=== PATIENT | female | born 1955 | race Caucasian/White ===

== ENCOUNTER → 2016-10-14 | Outpatient (CLI) | payer BC ==
[~2016-10-14] MED LIST: ACET-789 PO; ATEN100T88 PO; ENAL20TA; INDA1.25; MELO-170; MELO15TA39 PO; PROP-33; TERA2CAP4 PO
--- OUTSIDE RECORDS SUMMARY | 2016-10-14 13:46 | XMS REPORT ---
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 Medications Medication Code System Code Instructions Start Date End Date Status Dosage Enalapril Maleate [facility] [address]-65 10 mg November 28, 2011 1 Tablet 1 time per day Atenolol [facility] [address]-94 100 mg November 28, 2011 take 1 tablet ( 100 mg) by oral route once daily Meloxicam [facility] [address]-11 15 mg November 28, 2011 take 1 tablet ( 15 mg) by oral route once daily Procedures Procedure Coding System Code Date INTRAORL-PERIAPICAL 1 FILM 83640 CPT-4 D0220 January 08, 2016 BITEWING - SINGLE FILM CPT-4 D0270 January 08, 2016 LTD ORAL EVALUATION - PROBLEM FOCUS CPT-4 D0140 January 08, 2016 Results No Known Results Summary Purpose [employer] Submission
--- NOTE | 2016-10-14 21:22 | Diagnostic Imaging Report ---
INDICATION: Screening. The current study was also evaluated with a Computer Aided Detection (CAD) system. Comparison is made with prior study from 06/09/15, 01/24/14, and 11/16/12. FINDINGS: There is a moderate amount of residual fibroglandular tissue bilaterally. There are few benign type calcifications. There is no dominant mass, spiculated lesion or suspicious calcification notified. Skin, nipples, and axilla are unremarkable. IMPRESSION: ACR BI-RADS Category 2: Benign findings. Result letter will be mailed to the patient. Note: At least 10% of breast cancer is not imaged by mammography. Dictated by: Dictated on workstation # [id number]
== END ==
LOC: RAD 13:44
PROVIDERS: ATTEND Family Medicine
DX: Z12.31 Encounter for screening mammogram for malignant neoplasm of breast (principal)
CPT/HCPCS: 77067

== ENCOUNTER → 2018-02-02 | Outpatient (CLI) | payer BC ==
--- NOTE | 2018-02-03 13:07 | Diagnostic Imaging Report ---
INDICATION: Routine screening. COMPARISON: 10/14/2016 and 06/09/2015. TECHNIQUE: 2D and 3D screening mammography was performed with CAD. FINDINGS: Scattered fibroglandular densities are identified bilaterally. The parenchymal pattern is stable. There are scattered benign calcifications present. No spiculated masses or malignant appearing microcalcifications are seen. The axillae are unremarkable. IMPRESSION: No mammographic features suspicious for malignancy are identified. ACR BI-RADS Category 2: Benign findings. Result letter will be mailed to the patient. Note: At least 10% of breast cancer is not imaged by mammography. Dictated by: Dictated on workstation # [id number]
== END ==
LOC: RAD 14:49
PROVIDERS: ATTEND Family Medicine
DX: Z12.31 Encounter for screening mammogram for malignant neoplasm of breast (principal)
CPT/HCPCS: 77067

== ENCOUNTER → 2019-05-18 | Outpatient (CLI) | payer BC ==
--- NOTE | 2019-05-18 14:47 | Diagnostic Imaging Report ---
INDICATION: Routine screening. COMPARISON: 02/02/2018 and 10/14/2016. TECHNIQUE: 2D and 3D bilateral screening mammography was performed with CAD. FINDINGS: Scattered fibroglandular densities are identified bilaterally. The overall parenchymal pattern appears to be stable. No discrete mass or malignant appearing microcalcifications are seen. There are benign calcifications bilaterally. The axillae are unremarkable. IMPRESSION: No mammographic features suspicious for malignancy are identified. ACR BI-RADS Category 2: Benign findings. Result letter will be mailed to the patient. Note: At least 10% of breast cancer is not imaged by mammography. Dictated by: Dictated on workstation # [id number]
== END ==
LOC: RAD 07:31
PROVIDERS: ATTEND Family Medicine
DX: Z12.31 Encounter for screening mammogram for malignant neoplasm of breast (principal)
CPT/HCPCS: 77067

== ENCOUNTER → 2020-05-26 | Outpatient (CLI) | payer BC, MEDICARE ==
--- NOTE | 2020-05-26 09:45 | Diagnostic Imaging Report ---
INDICATION: Routine screening. COMPARISON is made with prior mammograms 05/18/2019 and 02/02/2018. 2-D and 3-D bilateral screening mammography was performed with CAD. Scattered fibroglandular densities are identified bilaterally. There are scattered benign calcifications in both breasts. No mass or malignant appearing microcalcifications are seen. Axillae are unremarkable. IMPRESSION: BI-RADS Category 2 No mammographic features suspicious for malignancy are identified. Dictated by: Dictated on workstation # [id number]
== END ==
LOC: RAD 07:45
PROVIDERS: ATTEND Family Medicine
DX: Z12.31 Encounter for screening mammogram for malignant neoplasm of breast (principal)
CPT/HCPCS: 77063; 77067

== ENCOUNTER 2021-01-16 10:28 | Emergency (ER) | payer MEDICARE, OTHER ==
[~2021-01-16] VITALS: Ht 152 cm; Wt 86.0 kg
--- NOTE | 2021-01-16 11:54 | ED General ---
General Chief Complaint: Dizziness/Syncope Stated Complaint: DIZZINESS Nursing Triage Note: ARRIVED VIA AMB TO ROOM 02 WITH COMPLAINTS OF DIZZINESS STARTING YESTERDAY. STATES THEY DID NOT TAKE ANY MEDS FOR IT BEFORE COMING OUT AND HER DR IS ON VACATION. Nursing Sepsis Screen: No Definite Risk Source of Information: Patient Exam Limitations: No Limitations History of Present Illness Date Seen by Provider: January 16, 2021 Time Seen by Provider: 11:51 Initial Comments To ER by private vehicle with reports of dizziness that began yesterday. Did not take any medications for has a history of hypertension. She stopped her metoprolol 50 mg tablets because of the fatigue and loss of energy that it caused. No fevers or chills no injury. This dizziness seems to be worse with movement. She had some troubles walking this morning because the dizziness. She had an episode of right shoulder pain and palpitations as well as pain in her jaw most recently 2 weeks ago. She is adopted and does not know her family medical history. Timing/Duration: 1-2 Days Severity: Moderate Associated Systoms: No Cough, No Headaches (Denies headache but states that her head feels "different".) Allergies and Home Medications Allergies Coded Allergies: ampicillin (Unverified Allergy, Intermediate, HIVES, 08/08/06) metoprolol (Verified Allergy, Unknown, 01/16/21) Home Medications Acetaminophen with Codeine 1 Each Tablet, 1 EACH PO Q4H PRN for PAIN, (Reported) Amlodipine Besylate 5 Mg Tablet, 5 MG PO DAILY Prescribed by: WAYNE HURLEY on 01/16/21 1344 Atenolol 100 Mg Tablet, 100 MG PO DAILY, (Reported) Meclizine HCl 25 Mg Tablet, 25 MG PO TID Prescribed by: WAYNE HURLEY on 01/16/21 1345 Meloxicam 15 Mg Tablet, 15 MG PO DAILY, (Reported) Terazosin HCl 2 Mg Capsule, 2 MG PO HS, (Reported) Patient Home Medication List Home Medication List Reviewed: Yes Review of Systems Review of Systems Constitutional: see HPI; No chills; dizziness; No fever, No malaise EENTM: see HPI; No blurred vision Respiratory: no symptoms reported; No cough, No dyspnea on exertion, No short of breath Cardiovascular: see HPI, palpitations Genitourinary: no symptoms reported Musculoskeletal: no symptoms reported Skin: no symptoms reported Psychiatric/Neurological: No Symptoms Reported Hematologic/Lymphatic: No Symptoms Reported Immunological/Allergic: no symptoms reported Past Zmnsflq-Bpgjqi-Mtesrt Hx Patient Social History Alcohol Use: Denies Use Smoking Status: Never a Smoker Recent Infectious Disease Expo: No Past Medical History Surgeries: Yes (D&C) Respiratory: No Cardiac: No Neurological: Yes (DIZZINESS) Genitourinary: No Gastrointestinal: No Musculoskeletal: Yes (ARTHRITIS) Endocrine: No HEENT: No Cancer: No Psychosocial: No Physical Exam Vital Signs Vital Signs - First Documented 01/16/21 10:45 Temp 36.6 Pulse 96 Resp 16 B/P (MAP) 223/89 (133) Pulse Ox 92 O2 Delivery Room Air Capillary Refill : Less Than 3 Seconds Height, Weight, BMI Height: 5'0.00" Weight: 180lbs. oz. 81.548014gz; 37.00 BMI Method: General Appearance: No Apparent Distress, WD/WN, Other (Alert and oriented very pleasant) Eyes: Bilateral Eye Normal Inspection, Bilateral Eye PERRL HEENT: PERRL/EOMI, TMs Normal (Tympanic membrane's observed by cerumen bilaterally) Neck: Full Range of Motion, Normal Inspection Respiratory: No Accessory Muscle Use, No Respiratory Distress Cardiovascular: Regular Rate, Rhythm, Normal Peripheral Pulses Gastrointestinal: Normal Bowel Sounds, Non Tender, Soft Extremity: Normal Capillary Refill, Normal Inspection Neurologic/Psychiatric: Alert, Oriented x3 Skin: Normal Color, Warm/Dry Progress/Results/Core Measures Suspected Sepsis Recent Fever Within 48 Hours: No Infection Criteria Present: None New/Unexplained Altered Menta: No Sepsis Screen: No Definite Risk SIRS Temperature: Pulse: 96 Respiratory Rate: 16 Laboratory Tests 01/16/21 11:58: White Blood Count 8.5 Blood Pressure 223 /89 Mean: 133 Laboratory Tests 01/16/21 11:58: Creatinine 1.07, Platelet Count 288, Total Bilirubin 0.4 Results/Orders Lab Results Laboratory Tests Test 01/16/21 11:57 01/16/21 11:58 01/16/21 12:15 Range/Units Urine Color YELLOW Urine Clarity CLEAR Urine pH 6.0 5-9 Urine Specific [place] 1.015 L 1.016-1.022 Urine Protein NEGATIVE NEGATIVE Urine Glucose (UA) NEGATIVE NEGATIVE Urine Ketones NEGATIVE NEGATIVE Urine Nitrite NEGATIVE NEGATIVE Urine Bilirubin NEGATIVE NEGATIVE Urine Urobilinogen 0.2 < = 1.0 MG/DL Urine Leukocyte Esterase NEGATIVE NEGATIVE Urine RBC (Auto) NEGATIVE NEGATIVE Urine RBC NONE /HPF Urine WBC NONE /HPF Urine Squamous Epithelial Cells 0-2 /HPF Urine Crystals NONE /LPF Urine Bacteria TRACE /HPF Urine Casts NONE /LPF Urine Mucus NEGATIVE /LPF Urine Culture Indicated NO White Blood Count 8.5 4.3-11.0 10^3/uL Red Blood Count 4.95 3.80-5.11 10^6/uL Hemoglobin 12.7 11.5-16.0 g/dL Hematocrit 41 35-52 % Mean Corpuscular Volume 84 80-99 fL Mean Corpuscular Hemoglobin 26 25-34 pg Mean Corpuscular Hemoglobin Concent 31 L 32-36 g/dL Red Cell Distribution Width 14.6 H 10.0-14.5 % Platelet Count 288 130-400 10^3/uL Mean Platelet Volume 9.9 9.0-12.2 fL Immature Granulocyte % (Auto) 1 % Neutrophils (%) (Auto) 69 42-75 % Lymphocytes (%) (Auto) 18 12-44 % Monocytes (%) (Auto) 11 0-12 % Eosinophils (%) (Auto) 1 0-10 % Basophils (%) (Auto) 1 0-10 % Neutrophils # (Auto) 5.9 1.8-7.8 10^3/uL Lymphocytes # (Auto) 1.5 1.0-4.0 10^3/uL Monocytes # (Auto) 0.9 0.0-1.0 10^3/uL Eosinophils # (Auto) 0.1 0.0-0.3 10^3/uL Basophils # (Auto) 0.0 0.0-0.1 10^3/uL Immature Granulocyte # (Auto) 0.1 0.0-0.1 10^3/uL Sodium Level 143 135-145 MMOL/L Potassium Level 3.7 3.6-5.0 MMOL/L Chloride Level 106 98-107 MMOL/L Carbon Dioxide Level 27 21-32 MMOL/L Anion Gap 10 5-14 MMOL/L Blood Urea Nitrogen 26 H 7-18 MG/DL Creatinine 1.07 0.60-1.30 MG/DL Estimat Glomerular Filtration Rate 51 BUN/Creatinine Ratio 24 Glucose Level 98 70-105 MG/DL Calcium Level 9.5 8.5-10.1 MG/DL Corrected Calcium 9.1 8.5-10.1 MG/DL Magnesium Level 1.9 1.6-2.4 MG/DL Total Bilirubin 0.4 0.1-1.0 MG/DL Aspartate Amino Transf (AST/SGOT) 25 5-34 U/L Alanine Aminotransferase (ALT/SGPT) 18 0-55 U/L Alkaline Phosphatase 67 40-136 U/L Troponin I < 0.028 <0.028 NG/ML Total Protein 7.8 6.4-8.2 GM/DL Albumin 4.5 3.2-4.5 GM/DL D-Dimer 0.28 0.00-0.49 UG/ML My Orders Orders - WAYNE HURLEY PRIMARY SPECIAL EDUCATOR Cbc With Automated Diff (01/16/21 11:50) Comprehensive Metabolic Panel (01/16/21 11:50) Fibrin Degradation Products (01/16/21 11:50) Ct Angio Head/Neck (01/16/21 11:50) Ekg Tracing (01/16/21 11:50) Troponin I (01/16/21 11:50) Magnesium (01/16/21 11:50) Ed Iv/Invasive Line Start (01/16/21 11:50) Ua Culture If Indicated (01/16/21 11:56) Meclizine Tablet (Antivert Tablet) (01/16/21 12:00) Iohexol Injection (Omnipaque 350 Mg/Ml 1 (01/16/21 12:45) Received Contrast (Hold Metformin- Contr (01/16/21 12:45) Sodium Chloride Flush (Catheter Flush Sy (01/16/21 12:45) Ns (Ivpb) (Sodium Chloride 0.9% Ivpb Bag (01/16/21 12:45) Clonidine Tablet (Catapres Tablet) (01/16/21 14:00) Medications Given in ED Current Medications Medications Dose Ordered Sig/Ramiro Route Start Time Stop Time Status Last Admin Dose Admin Iohexol 75 ml ONCE ONCE IV 01/16/21 12:45 01/16/21 12:46 DC 01/16/21 12:50 75 ML Meclizine HCl 25 mg ONCE ONCE PO 01/16/21 12:00 01/16/21 12:01 DC 01/16/21 12:06 25 MG Sodium Chloride 10 ml NEEDED PRN IV 01/16/21 12:45 01/16/21 12:50 10 ML Sodium Chloride 100 ml ONCE ONCE IV 01/16/21 12:45 01/16/21 12:46 DC 01/16/21 12:50 80 ML Vital Signs/I&O 01/16/21 10:45 Temp 36.6 Pulse 96 Resp 16 B/P (MAP) 223/89 (133) Pulse Ox 92 O2 Delivery Room Air Capillary Refill : Less Than 3 Seconds Blood Pressure Mean: 133 Departure Communication (Admissions) NAME: YANELY HARVEY [facility] REC#: [id number] PT STATUS: REG ER : 1955 PHYSICIAN: WAYNE HURLEY APRN ADMIT DATE: 01/16/21/ER Draft Date of Exam:01/16/21 CT ANGIO HEAD/NECK PROCEDURE: CT angiography of the head and CT angiography of the neck with and without contrast. TECHNIQUE: Contiguous noncontrast images were obtained from the skull base through the vertex. After intravenous contrast administration, helical CT angiography of the neck was performed. Source data was reformatted into 3D MIP projections. Delayed post contrast acquisition was also obtained. Auto Exposure Controls were utilized during the CT exam to meet ALARA standards for radiation dose reduction. INDICATION: Dizziness. Elevated blood pressure. COMPARISON: None available. FINDINGS: NONCONTRAST HEAD: No intracranial hyperdense hemorrhage or space-occupying mass. No hydrocephalus or midline shift. Berrios-white matter differentiation is preserved. Basilar cisterns are widely patent. No acute calvarial abnormality. Paranasal sinuses and mastoid air cells are clear. Orbits are normal in appearance. CTA NECK: No dissection within the aortic arch. The great vessels of the aortic arch are widely patent. The bilateral common carotid arteries are widely patent without stenosis or intimal injury. No stenosis of the internal carotid arteries per NASCET criteria. The cervical divisions of the bilateral internal carotid arteries are normal. The origins of the vertebral arteries are normal. The divisions of the vertebral arteries within the neck are widely patent. Left vertebral artery is dominant. No cervical lymphadenopathy. Thyroid is normal. Lung apices are clear. No concerning osseous lesion cervical spine. CTA HEAD: Bilateral distal internal carotid arteries are normal. The M1 and M2 divisions of the middle cerebral arteries are normal. Anterior cerebral arteries are widely patent. No anterior communicating artery aneurysm. The basilar artery is widely patent and has no aneurysm at its tip. The posterior cerebral arteries have conventional origin and are widely patent. The superior cerebellar arteries are patent centrally. Posterior inferior cerebellar arteries are also grossly patent centrally. The dural venous sinuses are widely patent. No pathologic enhancement on delayed phase images. Partially calcified subcutaneous nodule in the right parietal scalp is most likely a sebaceous cyst. IMPRESSION: 1. No intracranial hemorrhage or features of large territorial infarct. 2. No intracranial large vessel occlusion or saccular aneurysm. Specifically, the posterior circulation has no abnormality by CTA. 3. No high-grade stenosis or arterial occlusion within the neck. 4. Dural venous sinuses are patent. Dictated on workstation # [id number] Dict: 01/16/21 1317 Trans: 01/16/21 1327 [id number] Interpreted by: VELMA BALDWIN MD Electronically signed by: Impression Primary Impression: Vertigo Disposition: 01 HOME, SELF-CARE Condition: Stable Departure-Patient Inst. Decision time for Depature: 13:41 Referrals: ANDREAS LEVIN MD (PCP/Family) Primary Care Physician Patient Instructions: Vertigo (a Type of Dizziness) (DC) Add. Discharge Instructions: 1. Medication as directed 2. Follow-up with your doctor as soon as he is able to see you. Take the blood pressure medication as directed if the top number of blood pressure is over 150. All discharge instructions reviewed with patient and/or family. Voiced understan helen. Scripts Enalapril Maleate (Enalapril Maleate) 20 Mg Tablet 20 MG PO DAILY, #30 TAB Prov: WAYNE HURLEY APRN 01/16/21 Meclizine HCl (Meclizine HCl) 25 Mg Tablet 25 MG PO TID, #14 TAB Prov: WAYNE HURLEY APRN 01/16/21 Amlodipine Besylate (Norvasc) 5 Mg Tablet 5 MG PO DAILY, #14 TAB Prov: WAYNE HURLEY APRN 01/16/21 WAYNE HURLEY APRN January 16, 2021 11:54
[2021-01-16] MEDS ORDERED: MECLIZINE 25 MG (ANTIVERT) TAB PO ONE (12:00)
[2021-01-16 12:05] LABS: BILIRUBIN,URINE NEGATIVE (NEGATIVE); CLARITY,URINE CLEAR; COLOR,URINE YELLOW; GLUCOSE, URINE (UA) NEGATIVE (NEGATIVE); KETONES,URINE NEGATIVE (NEGATIVE); LEUKOCYTE ESTERASE ,URINE NEGATIVE (NEGATIVE); NITRITE,URINE NEGATIVE (NEGATIVE); PROTEIN,URINE NEGATIVE (NEGATIVE)
[2021-01-16 12:08] LABS: BASOPHILS % (AUTO) 1 % (0-10); EOSINOPHILS # (AUTO) 0.1 10^3/uL (0.0-0.3); EOSINOPHILS % (AUTO) 1 % (0-10); HEMATOCRIT 41 % (35-52); HEMOGLOBIN 12.7 g/dL (11.5-16.0); LYMPHOCYTES # (AUTO) 1.5 10^3/uL (1.0-4.0); LYMPHOCYTES % (AUTO) 18 % (12-44); MEAN CORPUSCULAR HEMOGLOBIN 26 pg (25-34); MEAN CORPUSCULAR HGB CONC 31 g/dL (32-36); MEAN CORPUSCULAR VOLUME 84 fL (80-99); MEAN PLATELET VOLUME 9.9 fL (9.0-12.2); MONOCYTES # (AUTO) 0.9 10^3/uL (0.0-1.0); MONOCYTES % (AUTO) 11 % (0-12); NEUTROPHILS # (AUTO) 5.9 10^3/uL (1.8-7.8); NEUTROPHILS % (AUTO) 69 % (42-75); PLATELET COUNT 288 10^3/uL (130-400); WHITE BLOOD COUNT 8.5 10^3/uL (4.3-11.0)
[2021-01-16 12:10] LABS: BACTERIA,URINE TRACE /HPF
[2021-01-16 12:11] LABS: SQUAMOUS EPITHELIAL CELL,UR 0-2 /HPF
[2021-01-16 12:26] LABS: ALBUMIN 4.5 GM/DL (3.2-4.5); CHLORIDE 106 MMOL/L (98-107); POTASSIUM 3.7 MMOL/L (3.6-5.0); SODIUM 143 MMOL/L (135-145)
[2021-01-16 12:27] LABS: CALCIUM 9.5 MG/DL (8.5-10.1)
[2021-01-16 12:28] LABS: GLUCOSE 98 MG/DL (70-105); TOTAL PROTEIN 7.8 GM/DL (6.4-8.2)
[2021-01-16 12:29] LABS: CARBON DIOXIDE 27 MMOL/L (21-32)
[2021-01-16 12:30] LABS: BILIRUBIN,TOTAL 0.4 MG/DL (0.1-1.0)
[2021-01-16 12:32] LABS: ALKALINE PHOSPHATASE 67 U/L (40-136); CREATININE SERUM 1.07 MG/DL (0.60-1.30); GFR ESTIMATED 51
[2021-01-16 12:33] LABS: BUN/CREATININE RATIO 24
[2021-01-16 12:35] LABS: ALANINE AMINOTRANSFERASE 18 U/L (0-55); MAGNESIUM 1.9 MG/DL (1.6-2.4)
[2021-01-16] MEDS ORDERED: IOHEXOL 350 MG/ML 100 ML (OMNIPAQUE 350) VIAL IV ONE (12:45)
[2021-01-16] MEDS ORDERED: NS 100 ML (IVPB) BAG IV ONE (12:45)
[2021-01-16] MEDS ORDERED: CATHETER FLUSH 10 ML SYR IV PRN (12:45)
[2021-01-16] MEDS ORDERED: HOLD METFORMIN - RECEIVED CONTRAST 20 ML VIAL IV SCH (12:45)
--- NOTE | 2021-01-16 13:28 | Diagnostic Imaging Report ---
PROCEDURE: CT angiography of the head and CT angiography of the neck with and without contrast. TECHNIQUE: Contiguous noncontrast images were obtained from the skull base through the vertex. After intravenous contrast administration, helical CT angiography of the neck was performed. Source data was reformatted into 3D MIP projections. Delayed post contrast acquisition was also obtained. Auto Exposure Controls were utilized during the CT exam to meet ALARA standards for radiation dose reduction. INDICATION: Dizziness. Elevated blood pressure. COMPARISON: None available. FINDINGS: NONCONTRAST HEAD: No intracranial hyperdense hemorrhage or space-occupying mass. No hydrocephalus or midline shift. Berrios-white matter differentiation is preserved. Basilar cisterns are widely patent. No acute calvarial abnormality. Paranasal sinuses and mastoid air cells are clear. Orbits are normal in appearance. CTA NECK: No dissection within the aortic arch. The great vessels of the aortic arch are widely patent. The bilateral common carotid arteries are widely patent without stenosis or intimal injury. No stenosis of the internal carotid arteries per NASCET criteria. The cervical divisions of the bilateral internal carotid arteries are normal. The origins of the vertebral arteries are normal. The divisions of the vertebral arteries within the neck are widely patent. Left vertebral artery is dominant. No cervical lymphadenopathy. Thyroid is normal. Lung apices are clear. No concerning osseous lesion cervical spine. CTA HEAD: Bilateral distal internal carotid arteries are normal. The M1 and M2 divisions of the middle cerebral arteries are normal. Anterior cerebral arteries are widely patent. No anterior communicating artery aneurysm. The basilar artery is widely patent and has no aneurysm at its tip. The posterior cerebral arteries have conventional origin and are widely patent. The superior cerebellar arteries are patent centrally. Posterior inferior cerebellar arteries are also grossly patent centrally. The dural venous sinuses are widely patent. No pathologic enhancement on delayed phase images. Partially calcified subcutaneous nodule in the right parietal scalp is most likely a sebaceous cyst. IMPRESSION: 1. No intracranial hemorrhage or features of large territorial infarct. 2. No intracranial large vessel occlusion or saccular aneurysm. Specifically, the posterior circulation has no abnormality by CTA. 3. No high-grade stenosis or arterial occlusion within the neck. 4. Dural venous sinuses are patent. Dictated by: Dictated on workstation # [id number]
[2021-01-16] MEDS ORDERED: AMLO5TAB4 PO (13:44)
[2021-01-16] MEDS ORDERED: MECL-149 PO (13:45)
[2021-01-16] MEDS ORDERED: ENAL20TA16 PO (13:56)
[2021-01-16 13:58] VITALS: BP 171/81
[2021-01-16] MEDS ORDERED: cloNIDine 0.1 MG (CATAPRES) TAB PO ONE (14:00)
== END 2021-01-16 13:58 | disposition home or self-care (01) ==
LOC: EDUNIT# 10:28 → ER 10:29
DX: R42 Dizziness and giddiness (principal); I10 Essential (primary) hypertension; Z79.899 Other long term (current) drug therapy; Z88.8 Allergy status to other drugs, medicaments and biological substances
CPT/HCPCS: 36415; 70496; 70498; 80053; 81000; 83735; 84484; 85025; 85379; 93005

== ENCOUNTER → 2021-02-02 | Outpatient (CLI) | payer MEDICARE, OTHER ==
[~2021-02-02] MED LIST changes: +AMLO5TAB4 PO; +ENAL20TA16 PO; +MECL-149 PO
== END ==
LOC: CARD 14:00
PROVIDERS: ATTEND Family Medicine
DX: I51.7 Cardiomegaly (principal)
CPT/HCPCS: 93306

== ENCOUNTER 2021-06-25 05:34 | Outpatient (CLI) | payer MEDICARE ==
[~2021-06-25] VITALS: Ht 152.4 cm; Wt 81.8 kg
[2021-06-26] MEDS ORDERED: ESCI-2 PO (11:59)
[2021-06-26] MEDS ORDERED: AMLO-250 PO (11:59)
[2021-06-26] MEDS ORDERED: MAGN250T2 PO (11:59)
[2021-06-26] MEDS ORDERED: MELA1TAB15 PO (11:59)
[2021-06-26] MEDS ORDERED: ENAL20TA16 PO (11:59)
== END 2021-06-26 12:05 | disposition home or self-care (01) ==
LOC: PREOP 05:34
PROVIDERS: ATTEND Specialist
DX: Z01.818 Encounter for other preprocedural examination (principal)

== ENCOUNTER 2021-06-29 06:16 | Day surgery (SDC) | payer MEDICARE, OTHER ==
[~2021-06-29] VITALS: Ht 152.4 cm; Wt 81.8 kg
[~2021-06-29 06:16] MED LIST changes: +AMLO-250 PO; +ESCI-2 PO; +MAGN250T2 PO; +MELA1TAB15 PO
[2021-06-29] MEDS ORDERED: POVIDONE (BETADINE) OPHTH SOLN 5% 30 ML OP ONE (06:30)
[2021-06-29] MEDS ORDERED: MOXIFLOXACIN OPHTH SOLN 5 MG/ML 0.3 ML SYRINGE OP ONE (06:30)
[2021-06-29] MEDS ORDERED: TIMOLOL MALEATE 0.5% 5 ML (TIMOPTIC) BTL OU PRN (06:30)
[2021-06-29] MEDS ORDERED: LIDOCAINE PF 1% 2 ML VIAL IR PRN (06:30)
[2021-06-29 06:40] VITALS: BP 140/74
[2021-06-29] MEDS: TETRACAINE 0.5% OPHTH SOLN 4 ML BTL (SINGLE DOSE ONLY) OU PRN ×4 (06:43→07:05)
[2021-06-29] MEDS: PHENYLEPHRINE 10% OPHTH (NEO-SYN) 5 ML BTL OU SCH ×3 (06:52→07:05)
[2021-06-29] MEDS: TROPICAMIDE 1% OPH SOLN (MYDRIACYL) 15 ML BTL OP SCH ×3 (06:52→07:05)
[2021-06-29] MEDS ORDERED: MIDAZOLAM 2 MG/2 ML (VERSED) VIAL ONE (07:14)
--- NOTE | 2021-06-29 07:51 | Ophthalmologist Pre-Op Note ---
Pre-Operative Progress Note H&P Reviewed The H&P was reviewed, patient examined and no changes noted. Date H&P Reviewed: Jun 29, 2021 Time H&P Reviewed: 07:50 Pre-Op Dx Cataract, Right Eye JULIÁN PHILLIPS MD Jun 29, 2021 07:51
[2021-06-29] MEDS ORDERED: acetaZOLAMIDE ER 500 MG CAP (DIAMOX SEQUELS) PO ONE (08:00)
--- NOTE | 2021-06-29 08:12 | Ophthalmology Operative Report ---
Cataract removal/placement IOL PREOPERATIVE DIAGNOSIS: Cataract Right Eye POSTOPERATIVE DIAGNOSIS: Cataract Right Eye PROCEDURE: Cataract removal and placement of posterior chamber implant, right eye SURGEON: Riley Phillips ANESTHESIA: Topical with sedation COMPLICATIONS: None ESTIMATED BLOOD LOSS: Minimal DESCRIPTION OF PROCEDURE: After proper informed consent was obtained, the patient, a 65 female, was taken to the Operating Room and the right eye was anesthetized with tetracaine. The right eye was then prepped and draped in the usual manner. A wire lid speculum was placed. A paracentesis was made at the left hand position. Preservative free lidocaine was injected into the anterior chamber followed by viscoelastic. A clear corneal incision was made in the temporal position. A capsulorrhexis was preformed and the central nuclear and cortical material were removed. The posterior capsule was polished and Angus 22.0 AU00T0 IOL was placed into the capsular bag. The residual viscoelastic was aspirated and balanced saline solution was injected into the anterior chamber. Moxifloxacin was injected into the anterior chamber. The wound was checked and found to be water tight. The patient tolerated the procedure well without complications. RILEY PHILLIPS MD Jun 29, 2021 08:12
[2021-06-29 08:20] VITALS: BP 171/80
--- NOTE | 2021-06-29 12:23 | Anesthesia-General Post-Op ---
MAC Patient Condition Mental Status/LOC: Same as Preop Cardiovascular: Satisfactory Nausea/Vomiting: Absent Respiratory: Satisfactory Pain: Controlled Complications: Absent Post Op Complications Complications None Follow Up Care/Instructions Patient Instructions None needed. Anesthesiology Discharge Order Discharge Order Patient is doing well, no complaints, stable vital signs, no apparent adverse anesthesia problems. No complications reported per nursing. SAY MERCER CRNA Jun 29, 2021 12:23
== END 2021-06-29 08:25 | disposition home or self-care (01) ==
LOC: SDC 06:16
PROVIDERS: ATTEND Specialist
DX: H25.11 Age-related nuclear cataract, right eye (principal); Z79.899 Other long term (current) drug therapy; I10 Essential (primary) hypertension; M19.90 Unspecified osteoarthritis, unspecified site
CPT/HCPCS: 66984; V2632

== ENCOUNTER 2021-07-13 06:50 | Day surgery (SDC) | payer MEDICARE, OTHER ==
[~2021-07-13] VITALS: Ht 152.4 cm; Wt 81.8 kg
[2021-07-13] MEDS ORDERED: MOXIFLOXACIN OPHTH SOLN 5 MG/ML 0.3 ML SYRINGE OP ONE (07:00)
[2021-07-13] MEDS ORDERED: POVIDONE (BETADINE) OPHTH SOLN 5% 30 ML OP ONE (07:00)
[2021-07-13] MEDS ORDERED: LIDOCAINE PF 1% 2 ML VIAL IR PRN (07:00)
[2021-07-13] MEDS ORDERED: TIMOLOL MALEATE 0.5% 5 ML (TIMOPTIC) BTL OU PRN (07:00)
[2021-07-13] MEDS: TETRACAINE 0.5% OPHTH SOLN 4 ML BTL (SINGLE DOSE ONLY) OU PRN ×4 (07:05→07:23)
[2021-07-13] MEDS: PHENYLEPHRINE 10% OPHTH (NEO-SYN) 5 ML BTL OU SCH ×3 (07:13→07:23)
[2021-07-13] MEDS: TROPICAMIDE 1% OPH SOLN (MYDRIACYL) 15 ML BTL OP SCH ×3 (07:13→07:23)
[2021-07-13 07:19] VITALS: BP 183/82
[2021-07-13] MEDS ORDERED: MIDAZOLAM 2 MG/2 ML (VERSED) VIAL ONE (08:10)
--- NOTE | 2021-07-13 08:16 | Ophthalmologist Pre-Op Note ---
Pre-Operative Progress Note H&P Reviewed The H&P was reviewed, patient examined and no changes noted. Date H&P Reviewed: Jul 13, 2021 Time H&P Reviewed: 08:16 Pre-Op Dx Cataract, Left Eye JULIÁN PHILLIPS MD Jul 13, 2021 08:16
[2021-07-13] MEDS ORDERED: acetaZOLAMIDE ER 500 MG CAP (DIAMOX SEQUELS) PO ONE (08:30)
--- NOTE | 2021-07-13 08:36 | Ophthalmology Operative Report ---
Cataract removal/placement IOL PREOPERATIVE DIAGNOSIS: Cataract Left Eye POSTOPERATIVE DIAGNOSIS: Cataract Left Eye PROCEDURE: Cataract removal and placement of posterior chamber implant, left eye SURGEON: Riley Phillips ANESTHESIA: Topical with sedation COMPLICATIONS: None ESTIMATED BLOOD LOSS: Minimal DESCRIPTION OF PROCEDURE: After proper informed consent was obtained, the patient, a 65 female, was taken to the Operating Room and the left eye was anesthetized with tetracaine. The left eye was then prepped and draped in the usual manner. A wire lid speculum was placed. A paracentesis was made at the left hand position. Preservative free lidocaine was injected into the anterior chamber followed by viscoelastic. A clear corneal incision was made in the temporal position. A capsulorrhexis was preformed and the central nuclear and cortical material were removed. The posterior capsule was polished and an Angus 23.0 AU00T0 was placed into the capsular bag. The residual viscoelastic was aspirated and balanced saline solution was injected into the anterior chamber. Moxifloxacin was injected into the anterior chamber. The wound was checked and found to be water tight. The patient tolerated the procedure well without complications. RILEY PHILLIPS MD Jul 13, 2021 08:36
[2021-07-13 08:40] VITALS: BP 189/100
--- NOTE | 2021-07-13 13:55 | Anesthesia-General Post-Op ---
MAC Patient Condition Mental Status/LOC: Same as Preop Cardiovascular: Satisfactory Nausea/Vomiting: Absent Respiratory: Satisfactory Pain: Controlled Complications: Absent Post Op Complications Complications None Follow Up Care/Instructions Patient Instructions None needed. Anesthesiology Discharge Order Discharge Order Patient was seen after the procedure and she was doing well, no complaints, stable vital signs, no apparent adverse anesthesia problems. JUDE FELDMAN DO Jul 13, 2021 13:55
== END 2021-07-13 08:41 ==
LOC: SDC 06:50
PROVIDERS: ATTEND Specialist
DX: H25.12 Age-related nuclear cataract, left eye (principal); I10 Essential (primary) hypertension; Z79.899 Other long term (current) drug therapy
CPT/HCPCS: 66984; V2632

== ENCOUNTER 2021-12-28 21:06 | Inpatient (IN) | payer MEDICARE, OTHER ==
[~2021-12-28] VITALS: Ht 152.4 cm; Wt 88.5 kg
[~2021-12-28 21:06] MED LIST changes: -MAGN250T2 PO; +MAGN250T31 PO
[2021-12-28] MEDS ORDERED: ADENOSINE 6 MG/2 ML (ADENOCARD) VIAL IV ONE ×3 (21:30)
[2021-12-28] MEDS ORDERED: NS IV 1000 ML 0 ML ONE (21:30)
[2021-12-28] MEDS ORDERED: LACTATED RINGERS 1,000 ML IV ONE ×2 (21:30→23:46)
[2021-12-28] MEDS ORDERED: ASPIRIN 81 MG CHEW (CHILDREN'S ASA) PO ONE (21:30)
--- NOTE | 2021-12-28 21:31 | ED Chest Pain ---
General Chief Complaint: Cardiac/General Problems Stated Complaint: JAW PAIN, CHEST HURTS Source: patient Exam Limitations: no limitations History of Present Illness Date Seen by Provider: December 28, 2021 Time Seen by Provider: 21:19 Initial Comments The patient presents the ER by private conveyance from home with chief complaint of a rapid heart rate palpitations, weakness and some chest pressure radiating up into her jaw. She has no history of coronary disease. She follows with Dr. Ch and saw him yesterday for a routine appointment and everything was okay. This did happen once before 4:30 in the morning this morning and went away after she took an extra losartan tablet. She is on losartan used to be on amlodipine but did not tolerate the swelling in her feet. She used to be on metoprolol but was taken off of that for blood pressure because her heart rate got down into the 40s. She does not follow with a operations professional. She does not have hyperlipidemia, hypothyroidism smoking or diabetes. The patient did have some dysuria about 2 weeks ago but not treated with any antibiotics. She is also had a nonproductive cough for the past 1 week. Allergies and Home Medications Allergies Coded Allergies: ampicillin (Unverified Allergy, Intermediate, HIVES, 08/08/06) metoprolol (Verified Allergy, Unknown, 01/16/21) Patient Home Medication List Home Medication List Reviewed: Yes Amlodipine Besylate (Amlodipine Besylate) 5 Mg Tablet, 5 MG PO DAILY, (Reported) Entered as Reported by: DARA HACKETT on 06/26/21 1159 Enalapril Maleate (Enalapril Maleate) 20 Mg Tablet, 20 MG PO DAILY, (Reported) Entered as Reported by: DARA HACKETT on 06/26/21 1159 Escitalopram Oxalate (Escitalopram Oxalate) 10 Mg Tablet, 10 MG PO DAILY, (Reported) Entered as Reported by: DARA HACKETT on 06/26/21 1159 Magnesium (Magnesium) 250 Mg Tablet, 250 MG PO HS, (Reported) Entered as Reported by: DARA HACKETT on 06/26/21 1159 Melatonin/Pyridoxine (Melatonin 5 mg Tablet) 1 Each Tablet, 5 MG PO HS, (Reported) Entered as Reported by: DARA HACKETT on 06/26/21 1159 Meloxicam (Meloxicam) 15 Mg Tablet, 15 MG PO DAILY, (Reported) Entered as Reported by: DARA HACKETT on 08/02/15 1136 Review of Systems Review of Systems Constitutional: No chills, No diaphoresis EENTM: No Blurred Vision Respiratory: Denies Cough, Denies Shortness of Air Cardiovascular: Chest Pain; Denies Lightheadedness Gastrointestinal: Denies Constipated, Denies Diarrhea, Denies Nausea Genitourinary: Denies Burning, Denies Discharge Musculoskeletal: No back pain, No joint pain All Other Systems Reviewed Negative Unless Noted: Yes Past Htohdsy-Imbekh-Rvnxaw Hx Patient Social History Tobacco Use?: No Use of E-Cig and/or Vaping dev: No Substance use?: No Past Medical History Surgeries: Yes (D&C) Respiratory: No Cardiac: No Neurological: Yes (DIZZINESS) Genitourinary: No Gastrointestinal: No Musculoskeletal: Yes (ARTHRITIS) Endocrine: No HEENT: No Cancer: No Psychosocial: No Physical Exam Vital Signs Vital Signs - First Documented 12/28/21 21:24 Temp 35.9 Pulse 189 Resp 20 B/P (MAP) 141/119 (126) Pulse Ox 97 O2 Delivery Nasal Cannula Capillary Refill : Height, Weight, BMI Height: 5'0.00" Weight: 180lbs. oz. 81.219049mv; 37.00 BMI Method: General Appearance: Anxious, Mild Distress, Obese HEENT: PERRL/EOMI, Moist Mucous Membranes Neck: Full Range of Motion, Normal Inspection Respiratory: No Accessory Muscle Use, No Respiratory Distress, Crackles (Right base) Cardiovascular: Regular Rate, Rhythm, No Edema, Normal Peripheral Pulses Gastrointestinal: Normal Bowel Sounds, No Organomegaly, Non Tender, Soft Extremity: Normal Capillary Refill, Normal Inspection, No Pedal Edema Neurologic/Psychiatric: Alert, Oriented x3, No Motor/Sensory Deficits Skin: Normal Color, Warm/Dry Focused Exam Sepsis Stage: Sepsis Possible Source: Pulmonary Time of Focused Exam: 22:29 Respiratory: No Accessory Muscle Use, No Respiratory Distress, Crackles (Right base more than left) Cardiovascular: Normal Peripheral Pulses, Tachycardia Capillary Refill: Less Than 3 Seconds Peripheral Pulses: 2+ Radial Pulses (R), 2+ Radial Pulses (L) Skin: normal color, warm/dry Within 3hrs of presentation: Admin fluids, Admin ABX, Blood cultures prior to ABX's, Focus exam, Lactate level Procedures/Interventions Additional Procedures: cardioversion/defib Progress Chemical cardioversion with Adenocard to identify the underlying rhythm. Initial rate was around 180-200 on the monitor. 6 mg Adenocard given and it did slow the rate down but not enough that we can see any underlying P waves or atrial fibrillation. We gave 12 mg of adenosine and it slowed the rhythm down and we could see what look like atrial fibrillation underneath. The rate went back up to about 160, irregular and was consistent with atrial fibrillation with rapid ventricular response Progress/Results/Core Measures Results/Orders Lab Results Laboratory Tests Test 12/28/21 21:21 Range/Units White Blood Count 21.2 H 4.3-11.0 10^3/uL Red Blood Count 4.56 3.80-5.11 10^6/uL Hemoglobin 11.2 L 11.5-16.0 g/dL Hematocrit 37 35-52 % Mean Corpuscular Volume 80 80-99 fL Mean Corpuscular Hemoglobin 25 25-34 pg Mean Corpuscular Hemoglobin Concent 31 L 32-36 g/dL Red Cell Distribution Width 16.6 H 10.0-14.5 % Platelet Count 383 130-400 10^3/uL Mean Platelet Volume 10.1 9.0-12.2 fL Immature Granulocyte % (Auto) 1 % Neutrophils (%) (Auto) 83 H 42-75 % Lymphocytes (%) (Auto) 8 L 12-44 % Monocytes (%) (Auto) 8 0-12 % Eosinophils (%) (Auto) 0 0-10 % Basophils (%) (Auto) 0 0-10 % Neutrophils # (Auto) 17.6 H 1.8-7.8 10^3/uL Lymphocytes # (Auto) 1.6 1.0-4.0 10^3/uL Monocytes # (Auto) 1.7 H 0.0-1.0 10^3/uL Eosinophils # (Auto) 0.0 0.0-0.3 10^3/uL Basophils # (Auto) 0.0 0.0-0.1 10^3/uL Immature Granulocyte # (Auto) 0.2 H 0.0-0.1 10^3/uL Neutrophils % (Manual) 90 % Lymphocytes % (Manual) 6 % Monocytes % (Manual) 4 % Blood Morphology Comment NORMAL Prothrombin Time 13.3 12.2-14.7 SEC INR Comment 1.0 0.8-1.4 Activated Partial Thromboplast Time 31 24-35 SEC Sodium Level 141 135-145 MMOL/L Potassium Level 3.9 3.6-5.0 MMOL/L Chloride Level 105 98-107 MMOL/L Carbon Dioxide Level 19 L 21-32 MMOL/L Anion Gap 17 H 5-14 MMOL/L Blood Urea Nitrogen 27 H 7-18 MG/DL Creatinine 1.26 0.60-1.30 MG/DL Estimat Glomerular Filtration Rate 47 BUN/Creatinine Ratio 21 Glucose Level 224 H 70-105 MG/DL Calcium Level 9.8 8.5-10.1 MG/DL Corrected Calcium 8.5-10.1 MG/DL Magnesium Level 2.0 1.6-2.4 MG/DL Total Bilirubin 0.3 0.1-1.0 MG/DL Aspartate Amino Transf (AST/SGOT) 49 H 5-34 U/L Alanine Aminotransferase (ALT/SGPT) 42 0-55 U/L Alkaline Phosphatase 79 40-136 U/L Myoglobin 130.3 H 10.0-92.0 NG/ML Troponin I < 0.028 <0.028 NG/ML Total Protein 8.3 H 6.4-8.2 GM/DL Albumin 4.8 H 3.2-4.5 GM/DL My Orders Orders - MANDI,KEO J Ekg Tracing (12/28/21 21:12) Cbc With Automated Diff (12/28/21 21:29) Magnesium (12/28/21 21:29) Chest 1 View, Ap/Pa Only (12/28/21 21:29) Comprehensive Metabolic Panel (12/28/21 21:29) Myoglobin Serum (12/28/21 21:29) Protime With Inr (12/28/21 21:29) Partial Thromboplastin Time (12/28/21 21:29) O2 (12/28/21 21:29) Lipid Panel (12/29/21 06:00) Ed Iv/Invasive Line Start (12/28/21 21:29) Troponin I Carline (12/28/21 21:29) Aspirin Chewable Tablet (Baby Aspirin Ch (12/28/21 21:30) Adenosine Injection (Adenocard Injection (12/28/21 21:30) Adenosine Injection (Adenocard Injection (12/28/21 21:30) Ed Iv/Invasive Line Start (12/28/21 21:29) Lactated Ringers (Lr 1000 Ml Iv Solution (12/28/21 21:30) Adenosine Injection (Adenocard Injection (12/28/21 21:30) Ns Iv 1000 Ml (Sodium Chloride 0.9%) (12/28/21 21:30) Manual Differential (12/28/21 21:21) Ekg Tracing (12/28/21 21:46) Ekg Tracing (12/28/21 21:46) Apixaban Tablet (Eliquis Tablet) (12/28/21 22:00) Diltiazem Drip Pre-Mix (Cardizem Drip Pr (12/28/21 22:00) Diltiazem Injection (Cardizem Injection) (12/28/21 22:00) Ua Culture If Indicated (12/28/21 22:18) Medications Given in ED Current Medications Medications Dose Ordered Sig/Ramiro Route Start Time Stop Time Status Last Admin Dose Admin Adenosine 6 mg ONCE ONCE IV 12/28/21 21:30 12/28/21 21:31 DC 12/28/21 21:32 6 MG Adenosine 12 mg ONCE ONCE IV 12/28/21 21:30 12/28/21 21:31 DC 12/28/21 21:35 12 MG Apixaban 5 mg ONCE ONCE PO 12/28/21 22:00 12/28/21 22:01 DC 12/28/21 22:09 5 MG Aspirin 324 mg ONCE ONCE PO 12/28/21 21:30 12/28/21 21:31 DC 12/28/21 21:50 324 MG Diltiazem HCl 20 mg ONCE ONCE IVP 12/28/21 22:00 12/28/21 22:01 DC 12/28/21 22:09 20 MG Lactated Ringer's 1,000 ml @ 0 mls/hr Q0M ONCE IV 12/28/21 21:30 12/28/21 21:31 DC 12/28/21 21:30 0 MLS/HR Vital Signs/I&O 12/28/21 21:24 Temp 35.9 Pulse 189 Resp 20 B/P (MAP) 141/119 (126) Pulse Ox 97 O2 Delivery Nasal Cannula Progress Progress Note #1: Time: 21:49 Progress Note We did find the underlying rhythm as A. fib with RVR and discussed the risks, benefits and alternatives to rate limit and rhythm control as well as blood thinners. It is hard to do a [id number] 2 since we do not truly know if she has heart failure without an echocardiogram. She has no history of it however. We will cover her with Jonas for now until she gets evaluated by cardiology. CHADS2 Vascor is at least 3 points; Stroke risk was 3.2% per year in >90,000 patients (the [place] Atrial Fibrillation Cohort Study) and 4.6% risk of stroke/TIA/systemic embolism. Progress Note #2: Time: 22:30 Progress Note She did have some crackles in her right base that coincide with the infiltrate seen on chest x-ray as well as she has had a productive cough so we went ahead and obtained a septic work-up and increased her fluids to 2 L as well as Rocephin and azithromycin. She has not been on antibiotics in several months. Sepsis based on tachycardia and leukocytosis in the presence of pneumonia. Initial ECG Impression Date: December 28, 2021 Initial ECG Impression Time: 21:24 Initial ECG Rate: 184 Initial ECG Rhythm: A Fib/Flutter Initial ECG Intervals: QRS (109) Initial ECG Impression: Atrial Fibrillation w/RVR Initial ECG Comparisson: No Previous ECG Available Comment A. fib with RVR no clinically distinguishable ST elevation due to rapidity of rate EKG #1: EKG Time: 21:33 Rate: 106 Rhythm: A Fib/Flutter Intervals: QT (342) ECG Comparisson: Unchanged ECG Impression: Atrial Fibrillation w/RVR Comment Atrial fibrillation with rapid ventricular response and no clinically relevant ST elevation or depression. 6 mg adenosine were given. EKG #2: EKG Time: 21:36 Rate: 61 Rhythm: A Fib/Flutter Intervals: QRS (112) ECG Comparisson: Unchanged ECG Impression: Atrial Fibrillation w/RVR Comment 12 mg adenosine were given revealing atrial fibrillation underneath. Diagnostic Imaging Diagonstic Imaging: Xray Plain Films/CT/US/NM/MRI: chest Comments [facility], [place] NAME: HARVEYYANELY [facility] REC#: [id number] PT STATUS: REG ER : 1955 PHYSICIAN: KEO RAYMOND MD ADMIT DATE: 12/28/21/ER Draft Date of Exam:12/28/21 CHEST 1 VIEW, AP/PA ONLY CLINICAL INDICATION: Patient with chest pain. EXAM: Portable chest x-ray upright view. COMPARISON: None. FINDINGS: Lungs/pleura: There is minimal right basilar atelectasis versus infiltrate. Otherwise, lungs are clear There is no pneumothorax. There is no pleural effusion. Mediastinum: Unremarkable. Pulmonary vasculature: Unremarkable. Heart: Unremarkable. Bones/extrathoracic soft tissue: There are degenerative spurs involving the thoracic spine. There are surgical clips overlying the upper abdomen. IMPRESSION: There is minimal right basilar atelectasis versus infiltrate. Otherwise, there is no radiographic evidence of acute cardiopulmonary process. No radiographic evidence of acute cardiopulmonary process. Dictated on workstation # [id number] Dict: 12/28/212201 Trans: 12/28/212206 [facility] [id number] Interpreted by: SUSIE GARRDIO MD Electronically signed by: Reviewed: Reviewed by Me Departure Communication (Admissions) Time/Spoke to Admitting Phy: 22:34 Discussed the case with Dr. Lan she agrees to admit the patient to the ICU on a Cardizem drip with Rocephin and azithromycin. Time/Spoke to Consulting Phy: 22:30 Discussed the case with Dr. Frederick, cardiology and he agrees to consult on the case. Impression Primary Impression: Atrial fibrillation with rapid ventricular response Additional Impressions: Pneumonia Qualified Codes: J18.9 - Pneumonia, unspecified organism Sepsis Qualified Codes: A41.9 - Sepsis, unspecified organism Disposition: ADMITTED INPATIENT Condition: Stable Admissions Decision to Admit Reason: Admit from ER (General) Decision to Admit/Date: December 28, 2021 Time/Decision to Admit Time: 21:53 Departure-Patient Inst. Referrals: ANDREAS LEVIN MD (PCP/Family) Primary Care Physician KEO RAYMOND December 28, 2021 21:31
[2021-12-28 21:35] LABS: BASOPHILS % (AUTO) 0 % (0-10); EOSINOPHILS % (AUTO) 0 % (0-10); HEMATOCRIT 37 % (35-52); HEMOGLOBIN 11.2 g/dL (11.5-16.0); LYMPHOCYTES # (AUTO) 1.6 10^3/uL (1.0-4.0); LYMPHOCYTES % (AUTO) 8 % (12-44); MEAN CORPUSCULAR HEMOGLOBIN 25 pg (25-34); MEAN CORPUSCULAR HGB CONC 31 g/dL (32-36); MEAN CORPUSCULAR VOLUME 80 fL (80-99); MEAN PLATELET VOLUME 10.1 fL (9.0-12.2); MONOCYTES # (AUTO) 1.7 10^3/uL (0.0-1.0); MONOCYTES % (AUTO) 8 % (0-12); NEUTROPHILS # (AUTO) 17.6 10^3/uL (1.8-7.8); NEUTROPHILS % (AUTO) 83 % (42-75); PLATELET COUNT 383 10^3/uL (130-400); WHITE BLOOD COUNT 21.2 10^3/uL (4.3-11.0)
[2021-12-28 21:57] LABS: ALBUMIN 4.8 GM/DL (3.2-4.5); CHLORIDE 105 MMOL/L (98-107); POTASSIUM 3.9 MMOL/L (3.6-5.0); SODIUM 141 MMOL/L (135-145)
[2021-12-28 21:58] LABS: CALCIUM 9.8 MG/DL (8.5-10.1)
[2021-12-28 21:59] LABS: GLUCOSE 224 MG/DL (70-105)
[2021-12-28 22:00] LABS: TOTAL PROTEIN 8.3 GM/DL (6.4-8.2)
[2021-12-28] MEDS ORDERED: APIXABAN 5 MG (ELIQUIS) TABLET PO ONE (22:00)
[2021-12-28 22:01] LABS: BILIRUBIN,TOTAL 0.3 MG/DL (0.1-1.0); CARBON DIOXIDE 19 MMOL/L (21-32); PROTHROMBIN TIME PATIENT 13.3 SEC (12.2-14.7)
[2021-12-28 22:03] LABS: ALKALINE PHOSPHATASE 79 U/L (40-136); CREATININE SERUM 1.26 MG/DL (0.60-1.30); GFR ESTIMATED 47
[2021-12-28 22:04] LABS: BUN/CREATININE RATIO 21
[2021-12-28 22:06] LABS: ALANINE AMINOTRANSFERASE 42 U/L (0-55)
[2021-12-28 22:08] LABS: LYMPHOCYTES % (MANUAL) 6 %; MONOCYTES % (MANUAL) 4 %; NEUTROPHILS % (MANUAL) 90 %; RBC MORPH NORMAL
--- NOTE | 2021-12-28 22:08 | Diagnostic Imaging Report ---
CLINICAL INDICATION: Patient with chest pain. EXAM: Portable chest x-ray upright view. COMPARISON: None. FINDINGS: Lungs/pleura: There is minimal right basilar atelectasis versus infiltrate. Otherwise, lungs are clear There is no pneumothorax. There is no pleural effusion. Mediastinum: Unremarkable. Pulmonary vasculature: Unremarkable. Heart: Unremarkable. Bones/extrathoracic soft tissue: There are degenerative spurs involving the thoracic spine. There are surgical clips overlying the upper abdomen. IMPRESSION: There is minimal right basilar atelectasis versus infiltrate. Otherwise, there is no radiographic evidence of acute cardiopulmonary process. No radiographic evidence of acute cardiopulmonary process. Dictated by: Dictated on workstation # [id number]
[2021-12-28] MEDS: dilTIAZem DRIP PRE-MIX 125 ML IV SCH (22:09)
[2021-12-28] MEDS ORDERED: NS IV 1000 ML 1,000 ML IV SCH (22:30)
[2021-12-28] MEDS ORDERED: cefTRIAXone 1 GM PRE-MIX 50 ML IV ONE (22:30)
[2021-12-28] MEDS ORDERED: AZITHROMYCIN 250 MG TAB (ZITHROMAX) PO ONE (22:30)
[2021-12-28 22:33] LABS: BILIRUBIN,URINE NEGATIVE (NEGATIVE); CLARITY,URINE SL CLOUDY; COLOR,URINE YELLOW; GLUCOSE, URINE (UA) NEGATIVE (NEGATIVE); KETONES,URINE NEGATIVE (NEGATIVE); LEUKOCYTE ESTERASE ,URINE NEGATIVE (NEGATIVE); NITRITE,URINE NEGATIVE (NEGATIVE); PH,URINE 6.5 (5-9); PROTEIN,URINE 1+ (NEGATIVE)
[2021-12-28 22:42] LABS: BACTERIA,URINE TRACE /HPF; SQUAMOUS EPITHELIAL CELL,UR RARE /HPF
[2021-12-28] MEDS ORDERED: ACETAMINOPHEN 325 MG TABLET PO PRN (23:45)
[2021-12-29] MEDS ORDERED: EPINEPHrine 1 MG INJECTION 4 MG in NS (IVPB) 248 ML IV SCH ×2
--- NOTE | 2021-12-29 00:14 | Tele-ICU Consult ---
History of Present Illness History of Present Illness Date Seen by Provider: December 29, 2021 Time Seen by Provider: 00:13 Date of Admission 09/30/21 History of Present Illness She is a 66-year-old female with past medical history of hypertension and obesity and a previous history of palpitations admitted to the emergency room today with a complaint of 4 chest pressure and palpitations. She is found to have a heart rate of about 160-200/min. Subsequently adenosine was given and found to have a an underlying rhythm of atrial fibrillation. Hence she is started on diltiazem drip and admitted to the intensive care unit. Currently her chest pain is resolved. Cardiology consultation has been requested. I have made a video visit and found to have her heart rate in the range of 100-130/min on and off. 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 She denies any history of asthma, COPD and any smoking history. No history of coronary artery disease or congestive heart failure. At this time echocardiogram is pending. I have ordered a dose of 4 digoxin IV to further control her heart rate. Her diltiazem drip is at 15 mg/h. Allergies and Home Medications Allergies Coded Allergies: ampicillin (Unverified Allergy, Intermediate, HIVES, 08/08/06) metoprolol (Verified Allergy, Unknown, 01/16/21) Home Medications Amlodipine Besylate 5 Mg Tablet, 5 MG PO DAILY, (Reported) Enalapril Maleate 20 Mg Tablet, 20 MG PO DAILY, (Reported) Escitalopram Oxalate 10 Mg Tablet, 10 MG PO DAILY, (Reported) Magnesium 250 Mg Tablet, 250 MG PO HS, (Reported) Melatonin/Pyridoxine 1 Each Tablet, 5 MG PO HS, (Reported) Meloxicam 15 Mg Tablet, 15 MG PO DAILY, (Reported) Past Medical/Social/Family Hx Patient Social History Tobacco Use?: No Use of E-Cig and/or Vaping dev: No Substance use?: No Current Status Primary Language: Brazilian Preferred Spoken Language: Brazilian Review of Systems Constitutional: see HPI Other ROS PER RN Focused Exam Lactate Level 12/28/21 23:00: Lactic Acid Level 2.57*H Height, Weight, BMI Height: 5'0.00" Weight: 180lbs. oz. 81.840900zo; 38.00 BMI Method: Time of Focused Exam: 22:29 Lactic Acid Level Laboratory Tests Test 12/28/21 23:00 Lactic Acid Level 2.57 MMOL/L (0.50-2.00) *H Exam Exam Patient acknowledged, consented, and participated in this virtual visit which was conducted using real time audio/video Vital Signs Date Time Temp Pulse Resp B/P (MAP) Pulse Ox O2 Delivery O2 Flow Rate FiO2 12/28/21 23:44 37.0 128 20 130/100 100 Room Air 12/28/21 21:24 35.9 189 20 141/119 (126) 97 Nasal Cannula I & O 12/29/21 07:00 Intake Total 1000 ml Balance 1000 ml Height & Weight Height: 5'0.00" Weight: 180lbs. oz. 81.170861ls; 38.00 BMI Method: General Appearance: Anxious, Mild Distress, Obese HEENT: PERRL/EOMI, Moist Mucous Membranes Neck: Full Range of Motion, Normal Inspection Respiratory: No Accessory Muscle Use, No Respiratory Distress, Crackles (Right base more than left) Cardiovascular: Normal Peripheral Pulses, Tachycardia Capillary Refill: Less Than 3 Seconds Peripheral Pulses: 2+ Radial Pulses (R), 2+ Radial Pulses (L) Extremity: Normal Capillary Refill, Normal Inspection, No Pedal Edema Neurologic/Psychiatric: Alert, Oriented x3, No Motor/Sensory Deficits Skin: Normal Color, Warm/Dry Other comments PE PER RN Results Lab Laboratory Tests 12/28/21 21:21 Assessment/Plan Assessment/Plan 1. Newly diagnosed with atrial fibrillation with rapid ventricular rate. 2. Rule out underlying coronary artery disease and daily congestive heart f ailure. 3. History of hypertension 4. Moderate obesity. Recommendations 1. Continue IV diltiazem. 2. We will get an echocardiogram 3. Cardiology consultation has been requested 4. We will give her full dose Lovenox until seen by bed maker 5. We will get TSH and free T4. 6. IV digoxin as needed. Critical Care: Critically Ill Patient Time spent with patient (mins): 25 LÁZARO MEEHAN MD December 29, 2021 00:13
[2021-12-29] MEDS ORDERED: DIGOXIN 0.25 MG/ML (LANOXIN) 2 ML AMP IV ONE (00:15)
[2021-12-29] MEDS: LACTATED RINGERS 1,000 ML IV SCH ×2 (00:17→05:40)
[2021-12-29 00:29] VITALS: BP 141/119
[2021-12-29] MEDS ORDERED: RT-ALBUTEROL SULF 2.5 MG/3 ML PRE-MIX VIAL INH PRN (00:45)
[2021-12-29 03:22] LABS: BASOPHILS % (AUTO) 0 % (0-10); EOSINOPHILS % (AUTO) 0 % (0-10); HEMATOCRIT 33 % (35-52); HEMOGLOBIN 10.2 g/dL (11.5-16.0); LYMPHOCYTES # (AUTO) 1.5 10^3/uL (1.0-4.0); LYMPHOCYTES % (AUTO) 9 % (12-44); MEAN CORPUSCULAR HEMOGLOBIN 25 pg (25-34); MEAN CORPUSCULAR HGB CONC 31 g/dL (32-36); MEAN CORPUSCULAR VOLUME 81 fL (80-99); MEAN PLATELET VOLUME 10.2 fL (9.0-12.2); MONOCYTES # (AUTO) 1.4 10^3/uL (0.0-1.0); MONOCYTES % (AUTO) 9 % (0-12); NEUTROPHILS # (AUTO) 13.6 10^3/uL (1.8-7.8); NEUTROPHILS % (AUTO) 82 % (42-75); PLATELET COUNT 320 10^3/uL (130-400); WHITE BLOOD COUNT 16.6 10^3/uL (4.3-11.0)
[2021-12-29 03:37] LABS: POTASSIUM 4.7 MMOL/L (3.6-5.0)
[2021-12-29 03:40] LABS: TOTAL PROTEIN 6.8 GM/DL (6.4-8.2)
[2021-12-29 03:41] LABS: BILIRUBIN,TOTAL 0.3 MG/DL (0.1-1.0)
[2021-12-29 03:43] LABS: CREATININE SERUM 0.97 MG/DL (0.60-1.30); PHOSPHORUS 3.2 MG/DL (2.3-4.7)
[2021-12-29 04:08] LABS: FREE T4 (FREE THYROXINE) 0.82 NG/DL (0.70-1.48)
[2021-12-29] MEDS: VASOPRESSIN INJECTION 20 UNIT in NS (IVPB) 100 ML IV SCH ×3 (05:01→22:53)
[2021-12-29] MEDS: NOREPINEPHRINE 8 MG/250 ML 250 ML IV SCH ×2 (05:01→15:09)
--- NOTE | 2021-12-29 06:38 | History & Physical-Hospitalist ---
History of Present Illness HPI/Chief Complaint Chief complaint: Atrial fibrillation with RVR new onset with pneumonia History of present illness: This is a 66-year-old white female who has a past medical history of hypertension hyperlipidemia who presented to the ER with shortness of breath found to have new onset atrial fibrillation with RVR requiring Cardizem drip but elevated white count of 18,000 and a diagnosis of pneumonia on chest x-ray. 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 Patient appears to have risk factors for LYN and I recommended her to get a sleep study as an outpatient. Source: patient Exam Limitations: no limitations Date Seen 12/29/21 Time Seen by a Provider: 09:00 Attending Physician Elida Lan DO PCP Hunter Mendoza MD Referring Physician Date of Admission December 28, 2021 at 22:40 Home Medications & Allergies Home Medications Reviewed patient Home Medication Reconciliation performed by pharmacy medication reconciliations validation technician and/or nursing. Patients Allergies have been reviewed. Allergies Allergies Coded Allergies ampicillin (Unverified Allergy, Intermediate, HIVES, 08/08/06) metoprolol (Verified Allergy, Unknown, 01/16/21) Past Yhmedvg-Ilcnpl-Rdioil Hx Patient Social History Marrital Status: single Employed/Student: employed Tobacco Use?: No Smoking Status: Never a Smoker Use of E-Cig and/or Vaping dev: No Substance use?: No Alcohol Use?: No Pt feels they are or have been: No Current Status Primary Language: American Preferred Spoken Language: American Past Medical History High Cholesterol, Hypertension Review of Systems Constitutional: see HPI, malaise, weakness EENTM: no symptoms reported Respiratory: no symptoms reported Cardiovascular: no symptoms reported Gastrointestinal: no symptoms reported Genitourinary: no symptoms reported Musculoskeletal: no symptoms reported Skin: no symptoms reported Psychiatric/Neurological: No Symptoms Reported All Other Systems Reviewed Negative Unless Noted: Yes Physical Exam Physical Exam Vital Signs Vital Signs - First Documented 12/28/21 21:24 Temp 35.9 Pulse 189 Resp 20 B/P (MAP) 141/119 (126) Pulse Ox 97 O2 Delivery Nasal Cannula Capillary Refill : Less Than 3 Seconds Height, Weight, BMI Height: 5'0.00" Weight: 180lbs. oz. 81.240349ef; 38.10 BMI Method: General Appearance: No Apparent Distress, Chronically ill Eyes: Right Eye Normal Inspection, Right Eye PERRL HEENT: PERRL/EOMI, Normal ENT Inspection, Pharynx Normal, Moist Mucous Membrane s Neck: Full Range of Motion, Normal Inspection, Non Tender Respiratory: Chest Non Tender, Normal Breath Sounds, No Accessory Muscle Use, No Respiratory Distress, Decreased Breath Sounds Cardiovascular: No Edema, No Gallop, No JVD, No Murmur, Normal Peripheral Pulses, Irregularly Irregular, Tachycardia Gastrointestinal: Normal Bowel Sounds, No Organomegaly, No Pulsatile Mass, Non Tender, Soft Back: Normal Inspection, No CVA Tenderness, No Vertebral Tenderness Extremity: Normal Capillary Refill, Normal Inspection, Normal Range of Motion, Non Tender, No Calf Tenderness, No Pedal Edema Neurologic/Psychiatric: Alert, Oriented x3, No Motor/Sensory Deficits, Normal Mood/Affect Skin: Normal Color, Warm/Dry Lymphatic: No Adenopathy Results Results/Procedures Labs Laboratory Tests 12/28/21 21:21 12/29/21 03:15 12/30/21 04:40 Patient resulted labs reviewed. Assessment/Plan Admission Diagnosis Assessment: New onset atrial fibrillation with RVR Pneumonia Leukocytosis Hypertension Hyperlipidemia Osteoarthritis Increased BMI 38 Suspicion for LYN Plan: Cardizem drip Antibiotics Supportive care Admission Status: Inpatient Order (span 2 midnights) Reason for Inpatient Admission: AF RVR w/PNA Diagnosis/Problems Diagnosis/Problems (1) Pneumonia Status: Acute Qualifiers: Pneumonia type: due to unspecified organism Laterality: right Lung location: lower lobe of lung Qualified Codes: J18.9 - Pneumonia, unspecified organism (2) Atrial fibrillation with rapid ventricular response Status: Acute Clinical Quality Measures AMI/AHF: ASA po Prior to arrival: ELIDA Vargas DO December 29, 2021 06:38
[2021-12-29] MEDS: RT-ALBUTEROL SULF 2.5 MG/3 ML PRE-MIX VIAL INH SCH ×2 (06:49→18:49)
--- NOTE | 2021-12-29 07:48 | Diagnostic Imaging Report ---
EXAMINATION: Chest 1 view HISTORY: Pneumonia COMPARISON: 12/28/2021 FINDINGS: Heart size and pulmonary vasculature are stable. Stable mild bibasilar interstitial opacities. No pleural effusion or pneumothorax. The osseous structures are intact. IMPRESSION: 1. Stable bibasilar atelectasis or consolidation. Dictated by: Dictated on workstation # [id number]
[2021-12-29] MEDS: APIXABAN 5 MG (ELIQUIS) TABLET PO SCH ×2 (07:55→21:50)
--- NOTE | 2021-12-29 11:55 | Consultation-Cardiology ---
HPI-Cardiology Cardiology Consultation: Date of Consultation 12/29/21 Date of Admission 12/28/21 Attending Physician Elida Lan DO Admitting Physician Hunter Mendoza MD Consulting Physician NEELAM LINO JR, MD HPI: Time Seen by a Provider: 11:54 Chief Complaint: REASON FOR CONSULTATION: Atrial fibrillation. I had the pleasure of seeing Angelica in the intensive care unit at [facility] in [place], [place] today. She has a history of hypertension no other known cardiac risk factors. Over the past few days she has been having some intermittent right-sided neck pain and palpitations with a sensation of a rapid heartbeat. She felt as though her blood pressure may have been elevated and when she checked her blood pressure, it was in fact elevated on a few occasions. She had just recently seen her primary provider last week who had stopped her amlodipine due to some ankle swelling and started her on losartan. The neck pain was nonexertional. Yesterday she was at work and developed recurrent right-sided neck pain. She became concerned and came to the emergency room for further evaluation. She was found to be in tachycardia with a rapid ventricular rate. She was given intravenous adenosine and her heart rate slowed and it became apparent that she most likely had atrial fibrillation. She was started on a diltiazem infusion and admitted to the intensive care unit. When I saw the patient she denied any recurrent palpitations since being here in the hospital. She denies any previous history of atrial fibrillation. She denies chest discomfort, paroxysmal nocturnal dyspnea, orthopnea, lightheadedness or syncope. As above, her primary provider recently stopped her amlodipine due to some right ankle swelling and the ankle swelling improved. She had been on metoprolol in the past for her blood pressure but developed bradycardia and this was then causing her to feel very fatigued and disoriented so the beta-naun was stopped. Because of the atrial fibrillation, a cardiology consultation was requested. Certain portions of this document may have been dictated utilizing voice r ecognition technology. Inherent to this technology, typographical and grammatical errors may exist. As much as I am diligent to identify and correct these mistakes, some errors may remain in the document. Review of Systems-Cardiology Review of Systems Other comments Review of 10 organ systems is as per the history of present illness, otherwise negative. All Other Systems Reviewed Negative Unless Noted: Yes [id number] Hx Patient Social History Smoking Status: Never a Smoker Have you traveled recently?: No Alcohol Use?: No Pt feels they are or have been: No Past Medical History PMH As described under Assessment. Family Medical History Family Medical History: She is adopted but states that all of her family has heart disease. Allergies and Home Medications Allergies Coded Allergies: ampicillin (Unverified Allergy, Intermediate, HIVES, 08/08/06) metoprolol (Verified Allergy, Unknown, 01/16/21) Patient Home Medication List Home Medication List Reviewed: Yes Amlodipine Besylate (Amlodipine Besylate) 5 Mg Tablet, 5 MG PO DAILY, (Reported) Entered as Reported by: DARA HACKETT on 06/26/21 1159 Enalapril Maleate (Enalapril Maleate) 20 Mg Tablet, 20 MG PO DAILY, (Reported) Entered as Reported by: DARA HACKETT on 06/26/21 1159 Escitalopram Oxalate (Escitalopram Oxalate) 10 Mg Tablet, 10 MG PO DAILY, (Re ported) Entered as Reported by: DARA HACKETT on 06/26/21 1159 Magnesium (Magnesium) 250 Mg Tablet, 250 MG PO HS, (Reported) Entered as Reported by: DARA HACKETT on 06/26/21 1159 Melatonin/Pyridoxine (Melatonin 5 mg Tablet) 1 Each Tablet, 5 MG PO HS, (Reported) Entered as Reported by: DARA HACKETT on 06/26/21 1159 Meloxicam (Meloxicam) 15 Mg Tablet, 15 MG PO DAILY, (Reported) Entered as Reported by: DARA HACKETT on 08/02/15 1136 Exam Vital Signs Vital Signs Date Time Temp Pulse Resp B/P (MAP) Pulse Ox O2 Delivery O2 Flow Rate FiO2 12/29/21 14:00 129 16 142/105 94 Room Air 12/29/21 11:59 36.7 Physical Exam General: Alert. No acute distress. Well nourished and appears stated age. She is obese. Eye: Extraocular movements are intact. Conjunctivae are clear. There are no xanthelasma. HENT: Normocephalic. Atraumatic. Carotid pulsations 2/2 without bruits. Neck: Jugular venous pressure does not appear elevated. No thyromegaly appreciated. Respiratory: Lungs are clear to auscultation. Respirations are non-labored. Breath sounds are equal. Symmetrical chest wall expansion. Cardiovascular: Tachycardia with irregular rhythm. Distant S1/S2. 2/6 systolic ejection murmur. No gallop. Point of maximal impulse is not appear displaced. Good pulses equal in all extremities. Trace bilateral pretibial edema. Gastrointestinal: Soft. Normal bowel sounds. Skin: Skin turgor is normal. There is no pallor. Musculoskeletal: No kyphosis or scoliosis appreciated. Neurologic: Alert and oriented to person, place, time. Cranial nerves 3-12 appear grossly intact. The patient has good motor tone strength in the upper and lower extremities bilaterally. Psychiatric: Cooperative. Appropriate mood & affect. Labs Laboratory Tests Test 12/28/21 21:21 12/28/21 22:28 12/28/21 23:00 12/29/21 03:15 Range/Units White Blood Count 21.2 H 16.6 H 4.3-11.0 10^3/uL Red Blood Count 4.56 4.15 3.80-5.11 10^6/uL Hemoglobin 11.2 L 10.2 L 11.5-16.0 g/dL Hematocrit 37 33 L 35-52 % Mean Corpuscular Volume 80 81 80-99 fL Mean Corpuscular Hemoglobin 25 25 25-34 pg Mean Corpuscular Hemoglobin Concent 31 L 31 L 32-36 g/dL Red Cell Distribution Width 16.6 H 16.8 H 10.0-14.5 % Platelet Count 383 320 130-400 10^3/uL Mean Platelet Volume 10.1 10.2 9.0-12.2 fL Immature Granulocyte % (Auto) 1 1 % Neutrophils (%) (Auto) 83 H 82 H 42-75 % Lymphocytes (%) (Auto) 8 L 9 L 12-44 % Monocytes (%) (Auto) 8 9 0-12 % Eosinophils (%) (Auto) 0 0 0-10 % Basophils (%) (Auto) 0 0 0-10 % Neutrophils # (Auto) 17.6 H 13.6 H 1.8-7.8 10^3/uL Lymphocytes # (Auto) 1.6 1.5 1.0-4.0 10^3/uL Monocytes # (Auto) 1.7 H 1.4 H 0.0-1.0 10^3/uL Eosinophils # (Auto) 0.0 0.0 0.0-0.3 10^3/uL Basophils # (Auto) 0.0 0.0 0.0-0.1 10^3/uL Immature Granulocyte # (Auto) 0.2 H 0.1 0.0-0.1 10^3/uL Neutrophils % (Manual) 90 % Lymphocytes % (Manual) 6 % Monocytes % (Manual) 4 % Blood Morphology Comment NORMAL Prothrombin Time 13.3 12.2-14.7 SEC INR Comment 1.0 0.8-1.4 Activated Partial Thromboplast Time 31 24-35 SEC Sodium Level 141 142 135-145 MMOL/L Potassium Level 3.9 4.7 3.6-5.0 MMOL/L Chloride Level 105 108 H 98-107 MMOL/L Carbon Dioxide Level 19 L 21 21-32 MMOL/L Anion Gap 17 H 13 5-14 MMOL/L Blood Urea Nitrogen 27 H 24 H 7-18 MG/DL Creatinine 1.26 0.97 0.60-1.30 MG/DL Estimat Glomerular Filtration Rate 47 64 BUN/Creatinine Ratio 21 25 Glucose Level 224 H 142 H 70-105 MG/DL Calcium Level 9.8 9.0 8.5-10.1 MG/DL Corrected Calcium 9.0 8.5-10.1 MG/DL Magnesium Level 2.0 2.0 1.6-2.4 MG/DL Total Bilirubin 0.3 0.3 0.1-1.0 MG/DL Aspartate Amino Transf (AST/SGOT) 49 H 47 H 5-34 U/L Alanine Aminotransferase (ALT/SGPT) 42 54 0-55 U/L Alkaline Phosphatase 79 64 40-136 U/L Myoglobin 130.3 H 10.0-92.0 NG/ML Troponin I < 0.028 0.030 H <0.028 NG/ML Total Protein 8.3 H 6.8 6.4-8.2 GM/DL Albumin 4.8 H 4.0 3.2-4.5 GM/DL Urine Color YELLOW Urine Clarity SL CLOUDY Urine pH 6.5 5-9 Urine Specific [place] <=1.005 1.016-1.022 Urine Protein 1+ H NEGATIVE Urine Glucose (UA) NEGATIVE NEGATIVE Urine Ketones NEGATIVE NEGATIVE Urine Nitrite NEGATIVE NEGATIVE Urine Bilirubin NEGATIVE NEGATIVE Urine Urobilinogen 0.2 < = 1.0 MG/DL Urine Leukocyte Esterase NEGATIVE NEGATIVE Urine RBC (Auto) TRACE-I H NEGATIVE Urine RBC NONE /HPF Urine WBC NONE /HPF Urine Squamous Epithelial Cells RARE /HPF Urine Crystals NONE /LPF Urine Bacteria TRACE /HPF Urine Casts NONE /LPF Urine Mucus NEGATIVE /LPF Urine Culture Indicated NO Lactic Acid Level 2.57 *H 1.81 0.50-2.00 MMOL/L Phosphorus Level 3.2 2.3-4.7 MG/DL Triglycerides Level 63 <150 MG/DL Cholesterol Level 172 < 200 MG/DL LDL Cholesterol Direct 123 1-129 MG/DL VLDL Cholesterol 13 5-40 MG/DL HDL Cholesterol 49 40-60 MG/DL Thyroid Stimulating Hormone (TSH) 0.21 L 0.35-4.94 UIU/ML Free Thyroxine 0.82 0.70-1.48 NG/DL Radiology ECHOCARDIOGRAM (12/29/2021): 1. This is a technically difficult study due to poor image quality secondary to body habitus. 2. Left ventricle: The cavity size is normal. There is moderate concentric hypertrophy. Systolic function is normal. The estimated ejection fraction is 55- 60%. Regional wall motion abnormalities cannot be excluded due to poor endocardial definition. The left ventricular diastolic function is indeterminant. 3. Right atrium: The right atrium is mildly dilated at 19 cm. 4. Aortic valve: There is mild aortic valve sclerosis. 5. Pulmonary arteries: The estimated pulmonary artery systolic pressure is 34 mmHg assuming a right atrial pressure 5 mmHg. ECG Impression ECG Comment Electrocardiogram from the emergency room shows atrial fibrillation with a rapid ventricular rate at 184 bpm with left anterior hemiblock, poor R wave progression and diffuse nonspecific ST-T wave changes. Diagnosis/Problems Diagnosis/Problems (1) Paroxysmal atrial fibrillation Assessment & Plan: This appears to be a new finding in this patient but of unknown duration. She does not seem to be particularly symptomatic with the atrial fibrillation. Her heart rate improved with intravenous diltiazem. I will attempt to transition this over to oral diltiazem. She has been started on apixaban for stroke prophylaxis. As long as we can get her heart rate under control with oral diltiazem, she can probably be discharged home and then I will plan on an outpatient cardioversion after approximately 4-6 weeks of oral anticoagulation. (2) Troponin level elevated Assessment & Plan: She has a borderline elevated troponin level. This is in the setting of tachycardia due to the atrial fibrillation. There are no ischemic changes on her electrocardiogram and she has not been having any s ymptoms definitively concerning for angina. I suspect this may have been a type II non-ST elevation myocardial infarction due to supply/demand mismatch. At some point, she will need an ischemic evaluation. This can probably be done as an outpatient. (3) Abnormal TSH Assessment & Plan: Her TSH level is slightly low. Unclear whether or not hyperthyroidism could be contributing to the atrial fibrillation. This will need to be followed longitudinally by her primary provider. (4) Primary hypertension Assessment & Plan: I will start her on diltiazem due to the atrial fibrillation. She has been intolerant of beta-blockers in the past. She recently stopped amlodipine due to peripheral edema. (5) Obesity Assessment & Plan: She needs to work on weight loss. Just 25 pounds of weight loss will help reduce the risk of recurrent atrial fibrillation. She was counseled in this regard. NEELAM LINO JR, MD December 29, 2021 11:55
[2021-12-29] MEDS ORDERED: AZITHROMYCIN 500 MG/NS 250 ML IVPB IV SCH ×2 (21:00)
[2021-12-29] MEDS ORDERED: cefTRIAXone 1 GM IV (PRE-MIX) 50 ML IV SCH (21:00)
[2021-12-29] MEDS: dilTIAZem DRIP PRE-MIX 125 ML IV SCH (22:53)
[2021-12-30 05:09] LABS: BASOPHILS # (AUTO) 0.1 10^3/uL (0.0-0.1); BASOPHILS % (AUTO) 0 % (0-10); EOSINOPHILS % (AUTO) 0 % (0-10); HEMATOCRIT 38 % (35-52); HEMOGLOBIN 11.5 g/dL (11.5-16.0); LYMPHOCYTES # (AUTO) 2.5 10^3/uL (1.0-4.0); LYMPHOCYTES % (AUTO) 16 % (12-44); MEAN CORPUSCULAR HEMOGLOBIN 25 pg (25-34); MEAN CORPUSCULAR HGB CONC 30 g/dL (32-36); MEAN CORPUSCULAR VOLUME 80 fL (80-99); MEAN PLATELET VOLUME 10.3 fL (9.0-12.2); MONOCYTES # (AUTO) 1.6 10^3/uL (0.0-1.0); MONOCYTES % (AUTO) 10 % (0-12); NEUTROPHILS # (AUTO) 11.6 10^3/uL (1.8-7.8); NEUTROPHILS % (AUTO) 74 % (42-75); PLATELET COUNT 325 10^3/uL (130-400); WHITE BLOOD COUNT 15.7 10^3/uL (4.3-11.0)
[2021-12-30] MEDS: NOREPINEPHRINE 8 MG/250 ML 250 ML IV SCH (05:10)
[2021-12-30 05:27] LABS: ALBUMIN 4.1 GM/DL (3.2-4.5); POTASSIUM 4.5 MMOL/L (3.6-5.0)
[2021-12-30 05:29] LABS: CALCIUM 9.3 MG/DL (8.5-10.1)
[2021-12-30 05:30] LABS: TOTAL PROTEIN 7.3 GM/DL (6.4-8.2)
[2021-12-30 05:32] LABS: BILIRUBIN,TOTAL 0.4 MG/DL (0.1-1.0)
[2021-12-30 05:33] LABS: PHOSPHORUS 3.8 MG/DL (2.3-4.7)
[2021-12-30 05:34] LABS: CREATININE SERUM 0.99 MG/DL (0.60-1.30)
[2021-12-30 05:37] LABS: MAGNESIUM 1.9 MG/DL (1.6-2.4)
--- NOTE | 2021-12-30 07:01 | Progress Note - Hospitalist ---
Subjective HPI/CC On Admission Date Seen by Provider: December 30, 2021 Time Seen by Provider: 10:00 Chief complaint: Atrial fibrillation with RVR new onset with pneumonia History of present illness: This is a 66-year-old white female who has a past medical history of hypertension hyperlipidemia who presented to the ER with sh ortness of breath found to have new onset atrial fibrillation with RVR requiring Cardizem drip but elevated white count of 18,000 and a diagnosis of pneumonia on chest x-ray. 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 Patient appears to have risk factors for LYN and I recommended her to get a sleep study as an outpatient. Focused Exam Lactate Level 12/28/21 23:00: Lactic Acid Level 2.57*H 12/29/21 03:15: Lactic Acid Level 1.81 Time of Focused Exam: 22:29 Objective Exam Vital Signs Vital Signs Date Time Temp Pulse Resp B/P (MAP) Pulse Ox O2 Delivery O2 Flow Rate FiO2 12/30/21 10:00 117 16 126/81 94 Room Air 12/30/21 07:49 36.3 Capillary Refill : Less Than 3 Seconds Results/Procedures Lab Laboratory Tests 12/30/21 04:40 Patient resulted labs reviewed. Assessment/Plan Critical Care Critically Ill Patient Diagnosis/Problems Diagnosis/Problems (1) Pneumonia Status: Acute Qualifiers: Pneumonia type: due to unspecified organism Laterality: right Lung location: lower lobe of lung Qualified Codes: J18.9 - Pneumonia, unspecified organism (2) Atrial fibrillation with rapid ventricular response Status: Acute Clinical Quality Measures AMI/AHF: ASA po Prior to arrival: DOUGLAS Vargas DO December 30, 2021 07:01
[2021-12-30] MEDS: RT-ALBUTEROL SULF 2.5 MG/3 ML PRE-MIX VIAL INH SCH (07:44)
[2021-12-30] MEDS ORDERED: RIVA20TA2 PO (08:51)
--- NOTE | 2021-12-30 09:00 | Cardiology Progress Note ---
Progress Note-Cardiology Events since last exam Date Seen by Provider: December 30, 2021 Time Seen by Provider: 08:59 Events since last exam I am following her due to atrial fibrillation of unknown duration. She feels better this morning. She was ambulating in her room without shortness of breath. She denies chest discomfort, palpitations, syncope, or ankle edema. Certain portions of this document may have been dictated utilizing voice recognition technology. Inherent to this technology, typographical and gr ammatical errors may exist. As much as I am diligent to identify and correct these mistakes, some errors may remain in the document. Vitals Last set of Vitals Signs Vital Signs 12/30/21 12/30/21 07:49 08:00 Temp 36.3 Pulse 113 Resp 10 B/P (MAP) 159/112 Pulse Ox 100 O2 Delivery Room Air Labs Labs Laboratory Tests 12/30/21 04:40 Exam Vital Signs Vital Signs Date Time Temp Pulse Resp B/P (MAP) Pulse Ox O2 Delivery O2 Flow Rate FiO2 12/30/21 08:00 113 10 159/112 100 Room Air 12/30/21 07:49 36.3 Physical Exam General: Alert. No acute distress. She is obese. Eye: No xanthelasma. HENT: Normocephalic. Neck: Jugular venous pressure does not appear elevated. Respiratory: Lungs are clear to auscultation. Respirations are non-labored. Breath sounds are equal. Symmetrical chest wall expansion. Cardiovascular: Tachycardia with irregular rhythm. No murmur. No gallop. No edema. Gastrointestinal: Soft. Normal bowel sounds. Skin: Warm. Dry. Neurologic: Alert and oriented to person, place, time. Cranial nerves 3-11 charlie ssly intact. Psychiatric: Cooperative. Appropriate mood & affect. Labs Laboratory Tests Test 12/30/21 04:40 Range/Units White Blood Count 15.7 H 4.3-11.0 10^3/uL Red Blood Count 4.70 3.80-5.11 10^6/uL Hemoglobin 11.5 11.5-16.0 g/dL Hematocrit 38 35-52 % Mean Corpuscular Volume 80 80-99 fL Mean Corpuscular Hemoglobin 25 25-34 pg Mean Corpuscular Hemoglobin Concent 30 L 32-36 g/dL Red Cell Distribution Width 17.2 H 10.0-14.5 % Platelet Count 325 130-400 10^3/uL Mean Platelet Volume 10.3 9.0-12.2 fL Immature Granulocyte % (Auto) 1 % Neutrophils (%) (Auto) 74 42-75 % Lymphocytes (%) (Auto) 16 12-44 % Monocytes (%) (Auto) 10 0-12 % Eosinophils (%) (Auto) 0 0-10 % Basophils (%) (Auto) 0 0-10 % Neutrophils # (Auto) 11.6 H 1.8-7.8 10^3/uL Lymphocytes # (Auto) 2.5 1.0-4.0 10^3/uL Monocytes # (Auto) 1.6 H 0.0-1.0 10^3/uL Eosinophils # (Auto) 0.0 0.0-0.3 10^3/uL Basophils # (Auto) 0.1 0.0-0.1 10^3/uL Immature Granulocyte # (Auto) 0.1 0.0-0.1 10^3/uL Sodium Level 143 135-145 MMOL/L Potassium Level 4.5 3.6-5.0 MMOL/L Chloride Level 106 98-107 MMOL/L Carbon Dioxide Level 22 21-32 MMOL/L Anion Gap 15 H 5-14 MMOL/L Blood Urea Nitrogen 21 H 7-18 MG/DL Creatinine 0.99 0.60-1.30 MG/DL Estimat Glomerular Filtration Rate 62 BUN/Creatinine Ratio 21 Glucose Level 119 H 70-105 MG/DL Calcium Level 9.3 8.5-10.1 MG/DL Corrected Calcium 9.2 8.5-10.1 MG/DL Phosphorus Level 3.8 2.3-4.7 MG/DL Magnesium Level 1.9 1.6-2.4 MG/DL Total Bilirubin 0.4 0.1-1.0 MG/DL Aspartate Amino Transf (AST/SGOT) 20 5-34 U/L Alanine Aminotransferase (ALT/SGPT) 39 0-55 U/L Alkaline Phosphatase 68 40-136 U/L Total Protein 7.3 6.4-8.2 GM/DL Albumin 4.1 3.2-4.5 GM/DL Diagnosis/Problems Diagnosis/Problems (1) Paroxysmal atrial fibrillation Assessment & Plan: This appears to be a new finding in this patient but of unknown duration. She does not seem to be particularly symptomatic with the atrial fibrillation. I change the diltiazem infusion over to oral diltiazem. I will change the apixaban over to rivaroxaban so that she can get this at a reduced roe on the [facility] [address] program through [facility]. As long as we can get her heart rate under control with oral diltiazem, she can probably be discharged home once her noncardiac issues are improved and then I will plan on an outpatient cardioversion after approximately 4-6 weeks of oral anticoagulation. (2) Troponin level elevated Assessment & Plan: She has a borderline elevated troponin level. This is in the setting of tachycardia due to the atrial fibrillation. There are no ischemic changes on her electrocardiogram and she has not been having any symptoms definitively concerning for angina. I suspect this may have been a type II non-ST elevation myocardial infarction due to supply/demand mismatch. At some point, she will need an ischemic evaluation. This can probably be done as an outpatient. (3) Primary hypertension Assessment & Plan: I have increased the dose of diltiazem CD due to persistent tachycardia cardiac and elevated blood pressure. She has been intolerant of beta-blockers in the past. She recently stopped amlodipine due to peripheral edema. I would hold off on resuming WARD inhibitor or ARB until following discharge and we see how she responds to the diltiazem. (4) Mixed hyperlipidemia Assessment & Plan: Her LDL level is slightly elevated. I have ordered low-dose rosuvastatin. (5) Abnormal TSH Assessment & Plan: Her TSH level is slightly low. Unclear whether or not hyperthyroidism could be contributing to the atrial fibrillation. This will need to be followed longitudinally by her primary provider. (6) Obesity Assessment & Plan: She needs to work on weight loss. Just 25 pounds of weight loss will help reduce the risk of recurrent atrial fibrillation. She was counseled in this regard. Problem Qualifiers (1) Obesity: Body mass index: BMI 38.0-38.9 NEELAM LINO JR, MD December 30, 2021 09:00
[2021-12-30] MEDS ORDERED: ROSU10TA28 PO (09:09)
[2021-12-30] MEDS ORDERED: DILT240C91 PO (09:40)
[2021-12-30] MEDS ORDERED: CEFD300C3 PO (10:33)
--- NOTE | 2021-12-30 10:34 | Discharge Summary ---
Discharge Summary Hospital Course Was the Problem List Reviewed?: Yes Problems/Dx: (1) Paroxysmal atrial fibrillation (2) Troponin level elevated (3) Primary hypertension (4) Mixed hyperlipidemia (5) Abnormal TSH (6) Obesity Qualifiers: Hospital Course Date of Admission: December 28, 2021 at 22:40 Admission Diagnosis : Family Physician/Provider: Hunter Mendoza MD Date of Discharge: 12/30/21 Discharge Diagnosis: New onset atrial fibrillation, type II NSTEMI, obesity BMI 38, suspicion for LYN, pneumonia Hospital Course: Patient had a brief hospital course after she was admitted for pneumonia and new onset atrial fibrillation with RVR requiring Cardizem drip. Patient ultimately was transitioned to p.o. antiarrhythmics per Dr. Frederick. Antibiotics will be completed as an outpatient. 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 Labs and Pending Lab Test: Laboratory Tests 12/30/21 04:40: White Blood Count 15.7H, Red Blood Count 4.70, Hemoglobin 11.5, Hematocrit 38, Mean Corpuscular Volume 80, Mean Corpuscular Hemoglobin 25, Mean Corpuscular Hemoglobin Concent 30L, Red Cell Distribution Width 17.2H, Platelet Count 325, Mean Platelet Volume 10.3, Immature Granulocyte % (Auto) 1, Neutrophils (%) (A uto) 74, Lymphocytes (%) (Auto) 16, Monocytes (%) (Auto) 10, Eosinophils (%) (Auto) 0, Basophils (%) (Auto) 0, Neutrophils # (Auto) 11.6H, Lymphocytes # (Auto) 2.5, Monocytes # (Auto) 1.6H, Eosinophils # (Auto) 0.0, Basophils # (Auto) 0.1, Immature Granulocyte # (Auto) 0.1, Sodium Level 143, Potassium Level 4.5, Chloride Level 106, Carbon Dioxide Level 22, Anion Gap 15H, Blood Urea Nitrogen 21H, Creatinine 0.99, Estimat Glomerular Filtration Rate 62, BUN/Creatinine Ratio 21, Glucose Level 119H, Calcium Level 9.3, Corrected Calciu m 9.2, Phosphorus Level 3.8, Magnesium Level 1.9, Total Bilirubin 0.4, Aspartate Amino Transf (AST/SGOT) 20, Alanine Aminotransferase (ALT/SGPT) 39, Alkaline Phosphatase 68, Total Protein 7.3, Albumin 4.1 Microbiology 12/29/21 Blood Culture - Preliminary, Resulted No growth Home Meds Active Diltiazem 24Hr ER (Diltiazem HCl) 240 Mg Cap.er.24h 240 Mg PO DAILY@0900 Rosuvastatin Calcium 10 Mg Tablet 10 Mg PO HS Xarelto Tablet (Rivaroxaban) 20 Mg Tablet 20 Mg PO DAILY@1700 Reported Magnesium 250 Mg Tablet 250 Mg PO HS Melatonin 5 mg Tablet (Melatonin/Pyridoxine) 1 Each Tablet 5 Mg PO HS Amlodipine Besylate 5 Mg Tablet 5 Mg PO DAILY Enalapril Maleate 20 Mg Tablet 20 Mg PO DAILY Escitalopram Oxalate 10 Mg Tablet 10 Mg PO DAILY Meloxicam 15 Mg Tablet 15 Mg PO DAILY Assessment/Pt Instructions PCP this week Discharge Planning: <30 minutes discharge planning Discharge Physical Examination Vital Signs Vital Signs Date Time Temp Pulse Resp B/P (MAP) Pulse Ox O2 Delivery O2 Flow Rate FiO2 12/30/21 10:00 117 16 126/81 94 Room Air 12/30/21 07:49 36.3 General Appearance: No Apparent Distress, WD/WN, Chronically ill, Obese Respiratory: Lungs Clear, Normal Breath Sounds Cardiovascular: Irregularly Irregular, Tachycardia Gastrointestinal: Normal Bowel Sounds Allergies: Coded Allergies: ampicillin (Unverified Allergy, Intermediate, HIVES, 08/08/06) metoprolol (Verified Allergy, Unknown, 01/16/21) Discharge Summary Date of Admission December 28, 2021 at 22:40 Date of Discharge Discharge Date: December 30, 2021 Admission Diagnosis Assessment: New onset atrial fibrillation with RVR Pneumonia Leukocytosis Hypertension Hyperlipidemia Osteoarthritis Increased BMI 38 Suspicion for LYN Plan: Cardizem drip Antibiotics Supportive care Discharge Diagnosis (1) Paroxysmal atrial fibrillation Assessment & Plan: This appears to be a new finding in this patient but of unknown duration. She does not seem to be particularly symptomatic with the atrial fibrillation. I change the diltiazem infusion over to oral diltiazem. I will change the apixaban over to rivaroxaban so that she can get this at a reduced roe on the [employer] B program through [facility]. As long as we can get her heart rate under control with oral diltiazem, she can probably be discharged home once her noncardiac issues are improved and then I will plan on an outpatient cardioversion after approximately 4-6 weeks of oral anticoagulation. (2) Troponin level elevated Assessment & Plan: She has a borderline elevated troponin level. This is in the setting of tachycardia due to the atrial fibrillation. There are no ischemic changes on her electrocardiogram and she has not been having any symptoms definitively concerning for angina. I suspect this may have been a type II non-ST elevation myocardial infarction due to supply/demand mismatch. At some point, she will need an ischemic evaluation. This can probably be done as an outpatient. (3) Primary hypertension Assessment & Plan: I have increased the dose of diltiazem CD due to persistent tachycardia cardiac and elevated blood pressure. She has been intolerant of beta-blockers in the past. She recently stopped amlodipine due to peripheral edema. I would hold off on resuming WARD inhibitor or ARB until following discharge and we see how she responds to the diltiazem. (4) Mixed hyperlipidemia Assessment & Plan: Her LDL level is slightly elevated. I have ordered low-dose rosuvastatin. (5) Abnormal TSH Assessment & Plan: Her TSH level is slightly low. Unclear whether or not hyperthyroidism could be contributing to the atrial fibrillation. This will need to be followed longitudinally by her primary provider. (6) Obesity Assessment & Plan: She needs to work on weight loss. Just 25 pounds of weight loss will help reduce the risk of recurrent atrial fibrillation. She was counseled in this regard. Qualifiers: Clinical Quality Measures AMI/AHF: ASA po Prior to arrival: DOUGLAS Vargas DO December 30, 2021 10:34
[2021-12-30] MEDS ORDERED: RIVAROXABAN 20 MG TABLET (XARELTO) PO SCH (17:00)
[2021-12-30] MEDS ORDERED: ROSUVASTATIN 10 MG (CRESTOR) TABLET PO SCH (21:00)
== END 2021-12-30 11:51 | disposition home or self-care (01) | DRG 280 ==
LOC: EDUNIT# 21:06 → ER 21:09 → ICU 22:40
PROVIDERS: ADMIT Internal Medicine; ATTEND Internal Medicine
DX: I48.0 Paroxysmal atrial fibrillation (principal); J18.9 Pneumonia, unspecified organism; I21.A1 Myocardial infarction type 2; I10 Essential (primary) hypertension; E78.2 Mixed hyperlipidemia; E66.9 Obesity, unspecified; Z68.38 Body mass index [BMI] 38.0-38.9, adult; G47.33 Obstructive sleep apnea (adult) (pediatric); M19.90 Unspecified osteoarthritis, unspecified site; D72.829 Elevated white blood cell count, unspecified; Z79.01 Long term (current) use of anticoagulants; Z79.899 Other long term (current) drug therapy
CPT/HCPCS: 36415; 71045; 80053; 80061; 81000; 83605; 83735; 83874; 84100; 84439; 84443; 84484; 85007; 85025; 85027; 85610; 85730; 87040; 87081; 93005; 93306; 94640; 94664

== ENCOUNTER 2022-01-16 18:21 | Emergency (ER) | payer MEDICARE, OTHER ==
[~2022-01-16] VITALS: Ht 152.4 cm; Wt 81.6 kg
[~2022-01-16 18:21] MED LIST changes: +CEFD300C3 PO; +DILT240C91 PO; +RIVA20TA2 PO; +ROSU10TA28 PO
--- NOTE | 2022-01-16 18:50 | ED Upper Extremity ---
General Chief Complaint: Upper Extremity Stated Complaint: FALL, SHOULDER PAIN Nursing Triage Note: fell against left shoulder on a door frame, did not hit head. 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 OCCURRED AT 1715 TODAY DID NOT HIT HER HEAD OR HAVE LOSS OF CONSCIOUSNESS DENIES ANY PAIN OR INJURY FROM THE PORCH FLOOR NO PAIN ANYWHERE EXCEPT LEFT SHOULDER NO NECK OR BACK PAIN NO CHEST / RIB OR ABDOMINAL PAIN NO LEG/HIP PAIN OR ANY PAIN WITH WALKING NO PARESTHESIAS OR MOTOR DEFICITS NO PRIOR INJURY TO THIS SHOULDER/ARM PT IS RIGHT HANDED. HAS NOT TAKEN ANYTHING FOR PAIN PT WAS RECENTLY ADMITTED FOR PNEUMONIA AND NEW ONSET AFIB/RVR 12/28-12/30/21, AND IS ON BLOOD THINNERS PT HAS BEEN HAVING NOSEBLEEDS SINCE STARTING ON BLOOD THINNER AND HAD A NOSEBLEED EARLIER, BUT IS NOT FROM TRAUMA TO HER FACE OR NOSE. NOSE IS NOT BLEEDING NOW. PT HAS HAD COVID-19 VACCINE X 3 PCP: DR. LEVIN PROVIDER RELATIONS REPRESENTATIVE: DR. LINO Allergies and Home Medications Allergies Coded Allergies: ampicillin (Unverified Allergy, Intermediate, HIVES, 01/16/22) metoprolol (Verified Allergy, Unknown, 01/16/22) Patient Home Medication List Cefdinir (Cefdinir) 300 Mg Capsule, 300 MG PO BID Prescribed by: DOUGLAS MELCHOR on 12/30/21 1033 Diltiazem HCl (Diltiazem 24Hr ER) 240 Mg Cap.er.24h, 240 MG PO DAILY@0900 Prescribed by: NEELAM LINO JR, MD on 12/30/21 0940 Escitalopram Oxalate (Escitalopram Oxalate) 10 Mg Tablet, 10 MG PO DAILY, (Reported) Entered as Reported by: DARA HACKETT on 06/26/21 1159 Magnesium (Magnesium) 250 Mg Tablet, 250 MG PO HS, (Reported) Entered as Reported by: DARA HACKETT on 06/26/21 1159 Melatonin/Pyridoxine (Melatonin 5 mg Tablet) 1 Each Tablet, 5 MG PO HS, (Reported) Entered as Reported by: DARA HACKETT on 06/26/21 1159 Meloxicam (Meloxicam) 15 Mg Tablet, 15 MG PO DAILY, (Reported) Entered as Reported by: DARA HACKETT on 08/02/15 1136 Rivaroxaban (Xarelto Tablet) 20 Mg Tablet, 20 MG PO DAILY@1700 Prescribed by: NEELAM LINO JR, MD on 12/30/21 0851 Rosuvastatin Calcium (Rosuvastatin Calcium) 10 Mg Tablet, 10 MG PO HS Prescribed by: NEELAM LINO JR, MD on 12/30/21 0909 Review of Systems Constitutional: no symptoms reported EENTM: see HPI Respiratory: no symptoms reported Cardiovascular: no symptoms reported Gastrointestinal: no symptoms reported Genitourinary: no symptoms reported Musculoskeletal: see HPI Skin: no symptoms reported Psychiatric/Neurological: No Symptoms Reported Past Yrujmia-Heknic-Vejydr Hx Patient Social History Substance use?: No Alcohol Use?: No Past Medical History Surgeries: Yes (D&C/HYSTEROSCOPY 2005; BILAT CATARACTS 06/2021) Adenoidectomy, Appendectomy, Eye Surgery, Tonsillectomy Respiratory: Yes Pneumonia Cardiac: Yes (AFIB DX 12/28/21) Atrial Fibrillation, High Cholesterol, Hypertension Neurological: Yes (DIZZINESS) Vertigo [employer] 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 oz. 81.293346qn; 35.00 BMI Method: General Appearance: WD/WN, no apparent distress, obese, other (WALKS IN ON HER OWN WITHOUT DIFFICULTY.) HEENT: PERRL/EOMI, TMs normal, pharynx normal, other (DRIED BLOOD IN NARES. NO EXTERNAL EVIDENCE OF TRAUMA TO NOSE AND NOSE IS NON-TENDER. ) Neck: non-tender, full range of motion, supple, normal inspection Cardiovascular: normal peripheral pulses, regular rate, rhythm, no JVD, no murmur Respiratory: chest non-tender, normal breath sounds, no respiratory distress, no accessory muscle use Gastrointestinal: non tender, soft Back: normal inspection, no CVA tenderness Shoulder: bone tenderness; No deformity, No ecchymosis; limited ROM, pain, soft tissue tenderness (ANTERIOR SHOULDER TENDERNESS --OVER BICEPS TENDON INSERTION. 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, no motor/sensory deficits, alert, normal mood/affect, oriented x 3 Skin: normal color, warm/dry; No ecchymosis Progress/Results/Core Measures Results/Orders My Orders Orders - WILVER OBRIEN DO Shoulder, Left, 3 Views (01/16/22 18:44) Humerus, Left, 2 Views (01/16/22 18:44) Shoulder Immoblizer (01/16/22 19:27) Vital Signs/I&O 01/16/22 18:35 Pulse 76 Resp 16 B/P (MAP) 161/74 (103) Pulse Ox 98 O2 Delivery Room Air Blood Pressure Mean: 103 Departure Impression Primary Impression: Closed comminuted fracture of left humerus Additional Impression: Fall from standing Disposition: 01 HOME, SELF-CARE Condition: Stable Departure-Patient Inst. Decision time for Depature: 19:30 Referrals: ANDREAS LEVIN MD (PCP/Family) Primary Care Physician SAY ARZATE MD Patient Instructions: How to Use a Shoulder Sling ED, Upper Arm Fracture ED Add. Discharge Instructions: WEAR SHOULDER IMMOBILIZER/SLING AT ALL TIMES ICE TO AREA AT 20 MINUTE INTERVALS FOLLOW UP WITH DR. ARZATE THIS WEEK FOR FURTHER CARE. All discharge instructions reviewed with patient and/or family. Voiced understanding. Scripts Hydrocodone Bit/Acetaminophen (HYDROcodone/APAP 7.5/325 TAB) 1 Ea Tablet 1 EA PO Q4-6 PRN for PAIN, #20 TAB Prov: CAMILLE,WILVER K DO 01/16/22 WILVER OBRIEN DO January 16, 2022 18:50
--- NOTE | 2022-01-16 19:18 | Diagnostic Imaging Report ---
INDICATION: Left humeral pain. EXAMINATION: AP and lateral views of the left humerus were obtained at 7:09 p.m. FINDINGS: There is a comminuted displaced fracture of the left humeral head and neck. There is about 2.5 cm of displacement of the dominant fragment. Glenohumeral joint appears in good alignment. AC joint is in good alignment. IMPRESSION: Comminuted left humeral head and neck fracture with some displacement, as above. Mid and distal humeral shaft are intact. Dictated by: Dictated on workstation # [id number]
--- NOTE | 2022-01-16 19:23 | Diagnostic Imaging Report ---
INDICATION: Left shoulder pain post fall. EXAMINATION: AP, oblique and transscapular views of the left shoulder were obtained. FINDINGS: There is a comminuted displaced fracture of the humeral head and neck with about 2.5 cm of displacement of the dominant fragment. The glenohumeral joint is not dislocated. AC joint is intact. IMPRESSION: Comminuted fracture of humeral head and neck with displacement, as above. No dislocation of the glenohumeral joint. Dictated by: Dictated on workstation # [id number]
[2022-01-16] MEDS ORDERED: HYDR-34 PO (19:35)
[2022-01-16] MEDS ORDERED: HYDROcodone/APAP 7.5 MG/325 MG (LORTAB, LORCET PLUS) TABLET PO ONE (19:45)
[2022-01-16] MEDS ORDERED: fentaNYL INJ 100 MCG/2 ML AMP IM ONE (19:45)
[2022-01-16 19:50] VITALS: BP 189/85
== END 2022-01-16 19:54 | disposition home or self-care (01) ==
LOC: EDUNIT# 18:21 → ER 18:23
DX: S42.292A Other displaced fracture of upper end of left humerus, initial encounter for closed fracture (principal); I48.91 Unspecified atrial fibrillation; Z79.01 Long term (current) use of anticoagulants; W01.198A Fall on same level from slipping, tripping and stumbling with subsequent striking against other object, initial encounter; Y92.009 Unspecified place in unspecified non-institutional (private) residence as the place of occurrence of the external cause; Y99.0 Civilian activity done for income or pay
CPT/HCPCS: 73030; 73060; 99282; L3650

== ENCOUNTER 2022-01-20 10:55 | Emergency (ER) | payer MEDICARE, OTHER ==
[~2022-01-20] VITALS: Ht 152 cm; Wt 81.6 kg
[~2022-01-20 10:55] MED LIST changes: +HYDR-34 PO
--- NOTE | 2022-01-20 11:29 | ED Back Pain ---
General Chief Complaint: Trauma-Non Activation Stated Complaint: BACK PAIN - FALL 01/16 Nursing Triage Note: pt states she was seen here last friday for a fall and fx lt upper arm, cc today of low back pain, chronic back pain but the fall made it worse. recent hx pneumonia and new onset afib, temp of 39.6 at triage. tylenol 500 mg taken about 0900. denies cp or cough. Source of Information: Patient Exam Limitations: No Limitations History of Present Illness Date Seen by Provider: January 20, 2022 Time Seen by Provider: 11:27 Initial Comments Patient is a 66-year-old female with a history of chronic low back pain, osteoporosis, degenerative disc disease who presents to ED with low back pain. Patient states she fell on the which resulted in a left comminuted humeral fracture. She is scheduled to follow-up with Dr. Lopez on Friday. She states when she did fell she started having pain in her lower back but this was not imaged or looked at. She states she did not have any severe pain after the fall and denies hitting her back. She states since then she is having severe lower back pain. History of chronic pain that feels similar but not able to get any pain relief with the hydrocodone which is making her sleepy and "loopy" at home. She reports some pain down the left leg today which has happened in the past. She denies of any bowel or urine incontinence, saddle paresthesia. Patient is tearful. She is requesting imaging of her lower back secondary to the fall. She denies any chest pain, shortness of breath, headache, dizziness. She states the pain in her left shoulder is improving. She is currently wearing a sling. Allergies and Home Medications Allergies Coded Allergies: ampicillin (Unverified Allergy, Intermediate, HIVES, 01/16/22) metoprolol (Verified Allergy, Unknown, 01/16/22) Patient Home Medication List Home Medication List Reviewed: Yes Cefdinir (Cefdinir) 300 Mg Capsule, 300 MG PO BID Prescribed by: DOUGLAS MELCHOR on 12/30/21 1033 Diltiazem HCl (Diltiazem 24Hr ER) 240 Mg Cap.er.24h, 240 MG PO DAILY@0900 Prescribed by: NEELAM LINO JR, MD on 12/30/21 0940 Escitalopram Oxalate (Escitalopram Oxalate) 10 Mg Tablet, 10 MG PO DAILY, (Reported) Entered as Reported by: DARA HACKETT on 06/26/21 1159 Hydrocodone Bit/Acetaminophen (HYDROcodone/APAP 7.5/325 TAB) 1 Ea Tablet, 1 EA PO Q4-6 PRN for PAIN Prescribed by: WILVER OBRIEN on 01/16/22 1936 Magnesium (Magnesium) 250 Mg Tablet, 250 MG PO HS, (Reported) Entered as Reported by: DARA HACKETT on 06/26/21 1159 Melatonin/Pyridoxine (Melatonin 5 mg Tablet) 1 Each Tablet, 5 MG PO HS, (Reported) Entered as Reported by: DARA HACKETT on 06/26/21 1159 Meloxicam (Meloxicam) 15 Mg Tablet, 15 MG PO DAILY, (Reported) Entered as Reported by: DARA HACKETT on 08/02/15 1136 Oxycodone HCl/Acetaminophen (Percocet 5-325 mg Tablet) 5 Mg-325 Mg Tablet, 1 TAB PO Q4H PRN for PAIN-MODERATE Prescribed by: SHANIKA CHAMORRO on 01/20/22 1308 Rivaroxaban (Xarelto Tablet) 20 Mg Tablet, 20 MG PO DAILY@1700 Prescribed by: NEELAM LINO JR, MD on 12/30/21 0851 Rosuvastatin Calcium (Rosuvastatin Calcium) 10 Mg Tablet, 10 MG PO HS Prescribed by: NEELAM LINO JR, MD on 12/30/21 0909 Review of Systems Constitutional: No chills, No diaphoresis, No malaise, No weakness EENTM: No hearing loss, No blurred vision, No double vision Respiratory: No cough Cardiovascular: No chest pain Gastrointestinal: No abdominal pain, No diarrhea, No nausea, No vomiting Genitourinary: No decreased output Musculoskeletal: back pain, joint pain, muscle pain; No muscle stiffness, No muscle cramps All Other Systems Reviewed Negative Unless Noted: Yes Past Vsfhhel-Adacbj-Tykeck Hx Immunizations Up To Date First/Initial COVID19 Vaccinat: 2020 Second COVID19 Vaccination Jose: 2020 Past Medical History Surgeries: Yes (D&C/HYSTEROSCOPY 2005; BILAT CATARACTS 06/2021) Adenoidectomy, Appendectomy, Eye Surgery, Tonsillectomy Respiratory: Yes Pneumonia Cardiac: Yes (AFIB DX 12/28/21) Atrial Fibrillation, High Cholesterol, Hypertension Neurological: Yes (DIZZINESS) 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 oz. 81.134083xl; 35.00 BMI Method: General Appearance: No Apparent Distress, WD/WN HEENT: PERRL/EOMI, TMs Normal, Normal ENT Inspection, Pharynx Normal Neck: Full Range of Motion, Normal Inspection, Non Tender, Supple Cardiovascular: Regular Rate, Rhythm, No Edema, No Gallop, No JVD, No Murmur Respiratory: Chest Non Tender, Lungs Clear, Normal Breath Sounds, No Accessory Muscle Use Gastrointestinal: Normal Bowel Sounds, No Organomegaly, No Pulsatile Mass Back: Vertebral Tenderness (Lumbar midline tenderness, bilateral lumbar paraspinal muscle tenderness.) Extremity: Normal Capillary Refill, Normal Inspection, Normal Range of Motion, Non Tender, No Calf Tenderness Neurologic/Psychiatric: Alert, Oriented x3, No Motor/Sensory Deficits, Normal Mood/Affect Skin: Normal Color, Warm/Dry Progress/Results/Core Measures Results/Orders My Orders Orders - FEDERICO HERNANDEZ Ketorolac Injection (Toradol Injection) (01/20/22 11:30) Orphenadrine Inj (Ed Only) (Norflex Inje (01/20/22 11:30) Ct Lumbar Spine Wo (01/20/22 11:25) Medications Given in ED Current Medications Medications Dose Ordered Sig/Ramiro Route Start Time Stop Time Status Last Admin Dose Admin Ketorolac Tromethamine 30 mg ONCE ONCE IM 01/20/22 11:30 01/20/22 11:31 DC 01/20/22 11:46 30 MG Orphenadrine Citrate 60 mg ONCE ONCE IM 01/20/22 11:30 01/20/22 11:31 DC 01/20/22 11:45 60 MG Vital Signs/I&O 01/20/22 01/20/22 01/20/22 11:10 11:46 13:31 Temp 39.6 39.6 39.6 Pulse 85 85 Resp B/P (MAP) 154/70 (98) 154/70 Pulse Ox 95 95 O2 Delivery Room Air Room Air Blood Pressure Mean: 98 Departure Communication (PCP) CT scan the lower back was negative for fracture. Degenerative changes noted. Patient Was given Toradol and Norflex. She states that the hydrocodone is not working for her pain. We will switch him to Percocet for a few days. Schedule follow-up with orthopedic for the left humeral fracture on Friday with Dr. Lopez. No neurological red flag findings such as bowel or urine cons, saddle paresthesia. Outpatient follow-up for her back for further evaluation. Patient agrees a plan of action. May need to follow-up with pain specialist for potential epidural as she has had this in the past with improvement. May benefit with physical therapy. Discussed return precautions. Patient without any neurological red flag findings. Impression Primary Impression: Back pain Disposition: HOME, SELF-CARE Condition: Stable Departure-Patient Inst. Decision time for Depature: 13:06 Referrals: ANDREAS LEVIN MD (PCP/Family) Primary Care Physician Patient Instructions: Low Back Pain ED Scripts Oxycodone HCl/Acetaminophen (Percocet 5-325 mg Tablet) 5 Mg-325 Mg Tablet 1 TAB PO Q4H PRN for PAIN-MODERATE MDD 6 for 4 Days, #6 TAB Prov: FEDERICO HERNANDEZ 01/20/22 FEDERICO HERNANDEZ January 20, 2022 11:29
[2022-01-20] MEDS ORDERED: ORPHENADRINE 60 MG/2 ML (NORFLEX) AMP (ED ONLY) IM ONE (11:30)
[2022-01-20] MEDS ORDERED: KETOROLAC 30 MG/ML VIAL IM ONE (11:30)
--- NOTE | 2022-01-20 12:13 | Diagnostic Imaging Report ---
PROCEDURE: CT lumbar spine without contrast. TECHNIQUE: Multiple contiguous axial images were obtained through the lumbar spine without the use of intravenous contrast. Sagittal and coronal reformations were then performed. Auto Exposure Controls were utilized during the CT exam to meet ALARA standards for radiation dose reduction. INDICATION: Lower back pain, fall COMPARISON: 08/11/2014 FINDINGS: A transitional lumbosacral vertebral body is present. Same numbering system will be used as on the prior examination. Therefore, there remains minimal grade 1 anterolisthesis of L4 on L5 measuring near 3 mm. No additional anterolisthesis or retrolisthesis. Minimal apex left curvature of the lumbar spine. Vertebral body heights are well maintained. Mild disc space height loss at L4/L5 and L5/S1. No severe disc space height loss within the lumbar spine. No acute fracture or dislocation. The sacroiliac joints are intact. Advanced scattered facet joint degenerative changes are present. Multilevel level ligamentum flavum hypertrophy is also present. Multilevel disc bulges are also present, including at L3/L4 and L4/L5. There is resulting multilevel central canal and neural foraminal stenosis. This includes relatively severe trefoil type central canal stenosis at L4/L5 level. Severe left neural foraminal stenosis is also noted at the L4/L5 level with additional levels of bilateral neural foraminal stenosis. This is greatest on the right at L2/L3. Scattered background vascular calcifications. Small nonobstructing bilateral renal calculi. IMPRESSION: No acute osseous abnormality with moderate multilevel degenerative changes as described above. There does however appear to be relatively high-grade central canal and neural foraminal stenosis, particularly at L4/L5. Stable grade 1 anterolisthesis of L4 on L5. Transitional lumbosacral vertebral body is present. Dictated by: Dictated on workstation # [id number]
[2022-01-20] MEDS ORDERED: OXYC-199 PO (13:07)
[2022-01-20 13:31] VITALS: BP 154/70
== END 2022-01-20 13:31 | disposition home or self-care (01) ==
LOC: EDUNIT# 10:55 → ER 10:56
DX: M54.50 Low back pain, unspecified (principal); E66.9 Obesity, unspecified; Z68.35 Body mass index [BMI] 35.0-35.9, adult; Z87.81 Personal history of (healed) traumatic fracture; W19.XXXA Unspecified fall, initial encounter
CPT/HCPCS: 72131

== ENCOUNTER 2022-01-23 16:21 | Inpatient (IN) | payer MEDICARE, OTHER ==
[~2022-01-23] VITALS: Ht 152.4 cm; Wt 89.7 kg
[~2022-01-23 16:21] MED LIST changes: +OXYC-199 PO
--- NOTE | 2022-01-23 16:38 | ED Chest Pain ---
General Chief Complaint: Cardiac/General Problems Stated Complaint: FALL Source: EMS, old records History of Present Illness Date Seen by Provider: Jan 23, 2022 Time Seen by Provider: 16:41 Initial Comments This is a 66-year-old female who presented to the ER via [facility] for concerns of increasing weakness and altered mental status over the past several days. Patient has a baseline mentation of being alert and oriented x4 and independently ambulates w/o no assistive devices. EMS states spouse reports that she was seen in the emergency department this past Friday for complaints of back pain after a prior fall on January 16 where she sustained a left comminuted humeral fracture. She has been taking hydrocodone and oxycodone for her pain however she has reported that this makes her "loopy". Upon arrival to the emergency department she is awake and somewhat confused, she is noted to have a heart rate in the 170s, tachypneic. She was admitted to this hospital December 28, 2021 for new onset atrial fibrillation with RVR and pneumonia and was discharged on 12/30/2021 per patient insistence. She was discharged on Cardizem, Xarelto, and antibiotics. At this time she states that she is having bilateral lower extremity swelling, generalized weakness, shortness of breath. She denies any fever, chills, cough, chest pain, nausea, vomiting, abdominal pain. Allergies and Home Medications Allergies Coded Allergies: ampicillin (Unverified Allergy, Intermediate, HIVES, 01/16/22) metoprolol (Verified Allergy, Unknown, 01/16/22) Patient Home Medication List Home Medication List Reviewed: Yes Cefdinir (Cefdinir) 300 Mg Capsule, 300 MG PO BID Prescribed by: DOUGLAS MELCHOR on 12/30/21 1033 Diltiazem HCl (Diltiazem 24Hr ER) 240 Mg Cap.er.24h, 240 MG PO DAILY@0900 Prescribed by: NEELAM LINO JR, MD on 12/30/21 0940 Escitalopram Oxalate (Escitalopram Oxalate) 10 Mg Tablet, 10 MG PO DAILY, (Reported) Entered as Reported by: DARA HACKETT on 06/26/21 1159 Hydrocodone Bit/Acetaminophen (HYDROcodone/APAP 7.5/325 TAB) 1 Ea Tablet, 1 EA PO Q4-6 PRN for PAIN Prescribed by: WILVER OBRIEN on 01/16/22 1936 Magnesium (Magnesium) 250 Mg Tablet, 250 MG PO HS, (Reported) Entered as Reported by: DARA HACKETT on 06/26/21 1159 Melatonin/Pyridoxine (Melatonin 5 mg Tablet) 1 Each Tablet, 5 MG PO HS, (Reported) Entered as Reported by: DARA HACKETT on 06/26/21 1159 Meloxicam (Meloxicam) 15 Mg Tablet, 15 MG PO DAILY, (Reported) Entered as Reported by: DARA HACKETT on 08/02/15 1136 Oxycodone HCl/Acetaminophen (Percocet 5-325 mg Tablet) 5 Mg-325 Mg Tablet, 1 TAB PO Q4H PRN for PAIN-MODERATE Prescribed by: SHANIKA CHAMORRO on 01/20/22 1308 Rivaroxaban (Xarelto Tablet) 20 Mg Tablet, 20 MG PO DAILY@1700 Prescribed by: NEELAM LINO JR, MD on 12/30/21 0851 Rosuvastatin Calcium (Rosuvastatin Calcium) 10 Mg Tablet, 10 MG PO HS Prescribed by: NEELAM LINO JR, MD on 12/30/21 0909 Last Action: Reviewed Review of Systems Review of Systems Constitutional: malaise, weakness EENTM: No Symptoms Reported Respiratory: Denies Cough; Shortness of Air Cardiovascular: Edema, Lightheadedness Gastrointestinal: No Symptoms Reported Genitourinary: No Symptoms Reported Musculoskeletal: muscle weakness Skin: no symptoms reported Psychiatric/Neurological: No Symptoms Reported Endocrine: No Symptoms Reported Hematologic/Lymphatic: No Symptoms Reported Past Geszeem-Robnut-Ccletk Hx Immunizations Up To Date First/Initial COVID19 Vaccinat: 2020 Second COVID19 Vaccination Jose: 2020 Third COVID19 Vaccination Date: 2020 Past Medical History Surgeries: Yes (D&C/HYSTEROSCOPY 2005; BILAT CATARACTS 06/2021) Adenoidectomy, Appendectomy, Eye Surgery, Tonsillectomy Respiratory: Yes Pneumonia Cardiac: Yes (AFIB DX 12/28/21) Atrial Fibrillation, High Cholesterol, Hypertension Neurological: Yes (DIZZINESS) Vertigo [employer] History: Menopausal Genitourinary: No Gastrointestinal: No Musculoskeletal: Yes (ARTHRITIS) Arthritis Endocrine: No (OBESITY) HEENT: Yes (NOSEBLEEDS DUE TO BLOOD THINNERS;BILAT CATARACT SURGERY) Cataract Cancer: No Psychosocial: No Integumentary: No Blood Disorders: No Physical Exam Vital Signs Vital Signs - First Documented 01/23/22 01/23/22 16:24 18:47 Temp 38.1 Pulse 192 Resp 21 B/P (MAP) 137/78 (97) Pulse Ox 95 O2 Delivery Room Air Capillary Refill : Height, Weight, BMI Height: 5'0.00" Weight: 180lbs. oz. 81.320583se; 35.00 BMI Method: General Appearance: No Apparent Distress, WD/WN, Anxious HEENT: PERRL/EOMI, Pharynx Normal, Other (blood nasal packing in right nare ) Neck: Full Range of Motion, Normal Inspection, Non Tender, Supple Respiratory: Lungs Clear, Normal Breath Sounds, No Accessory Muscle Use, No Respiratory Distress Cardiovascular: Irregularly Irregular, Tachycardia, Other (4+ pitting edema ) Gastrointestinal: Non Tender, Soft Extremity: Normal Capillary Refill, Normal Inspection, Normal Range of Motion, Pedal Edema (4+) Neurologic/Psychiatric: Alert; No Oriented x3 (person, place, somewhat confused to situation ); No Motor/Sensory Deficits, Normal Mood/Affect Skin: Cool, Pallor Focused Exam Lactate Level 01/23/22 16:40: Lactic Acid Level 3.87*H 01/23/22 18:37: Lactic Acid Level 2.16*H Lactic Acid Level Laboratory Tests Test 01/23/22 16:40 01/23/22 18:37 Lactic Acid Level 3.87 MMOL/L (0.50-2.00) *H 2.16 MMOL/L (0.50-2.00) *H Critical Care Note Critical Care Start Time: 16:24 Stop Time: 18:30 Total Time (minutes) I personally spent this critical care time directly and personally managing the patient. Critical care time included obtaining a history; examining the patient; pulse oximetry; ordering and review of studies; arranging urgent treatment for Afib RVR, and acute blood loss from recent anticoagulation, evaluation of patient's response to treatment; frequent reassessment; and, discussions with other providers. Progress/Results/Core Measures Results/Orders Lab Results Laboratory Tests Test 01/23/22 16:30 01/23/22 16:40 01/23/22 16:43 01/23/22 16:45 Range/Units White Blood Count 18.2 H 4.3-11.0 10^3/uL Red Blood Count 2.90 L 3.80-5.11 10^6/uL Hemoglobin 6.9 *L 11.5-16.0 g/dL Hematocrit 22 L 35-52 % Mean Corpuscular Volume 75 L 80-99 fL Mean Corpuscular Hemoglobin 24 L 25-34 pg Mean Corpuscular Hemoglobin Concent 32 32-36 g/dL Red Cell Distribution Width 16.5 H 10.0-14.5 % Platelet Count 279 130-400 10^3/uL Mean Platelet Volume 10.5 9.0-12.2 fL Immature Granulocyte % (Auto) 1 % Neutrophils (%) (Auto) 90 H 42-75 % Lymphocytes (%) (Auto) 4 L 12-44 % Monocytes (%) (Auto) 5 0-12 % Eosinophils (%) (Auto) 0 0-10 % Basophils (%) (Auto) 0 0-10 % Neutrophils # (Auto) 16.4 H 1.8-7.8 10^3/uL Lymphocytes # (Auto) 0.7 L 1.0-4.0 10^3/uL Monocytes # (Auto) 0.9 0.0-1.0 10^3/uL Eosinophils # (Auto) 0.0 0.0-0.3 10^3/uL Basophils # (Auto) 0.1 0.0-0.1 10^3/uL Immature Granulocyte # (Auto) 0.2 H 0.0-0.1 10^3/uL Neutrophils % (Manual) 85 % Lymphocytes % (Manual) 5 % Monocytes % (Manual) 10 % Hypochromasia MODERATE Elliptocytes SLIGHT Prothrombin Time 34.6 H 12.2-14.7 SEC INR Comment 3.4 H 0.8-1.4 Activated Partial Thromboplast Time 53 H 24-35 SEC Sodium Level 123 *L 135-145 MMOL/L Potassium Level 4.5 3.6-5.0 MMOL/L Chloride Level 90 L 98-107 MMOL/L Carbon Dioxide Level 17 L 21-32 MMOL/L Anion Gap 16 H 5-14 MMOL/L Blood Urea Nitrogen 32 H 7-18 MG/DL Creatinine 1.14 0.60-1.30 MG/DL Estimat Glomerular Filtration Rate 53 BUN/Creatinine Ratio 28 Glucose Level 141 H 70-105 MG/DL Calcium Level 8.6 8.5-10.1 MG/DL Corrected Calcium 9.2 8.5-10.1 MG/DL Total Bilirubin 0.9 0.1-1.0 MG/DL Aspartate Amino Transf (AST/SGOT) 84 H 5-34 U/L Alanine Aminotransferase (ALT/SGPT) 64 H 0-55 U/L Alkaline Phosphatase 97 40-136 U/L Troponin I < 0.028 <0.028 NG/ML Total Protein 6.2 L 6.4-8.2 GM/DL Albumin 3.2 3.2-4.5 GM/DL Procalcitonin 5.89 H <0.10 NG/ML Lactic Acid Level 3.87 *H 0.50-2.00 MMOL/L Glucometer 141 H 70-110 MG/DL Influenza Type A Antigen NEGATIVE NEGATIVE Influenza Type B Antigen NEGATIVE NEGATIVE Test 01/23/22 16:51 01/23/22 18:37 Range/Units Urine Color YELLOW Urine Clarity SL CLOUDY Urine pH 6.0 5-9 Urine Specific [place] 1.020 1.016-1.022 Urine Protein 2+ H NEGATIVE Urine Glucose (UA) NEGATIVE NEGATIVE Urine Ketones NEGATIVE NEGATIVE Urine Nitrite NEGATIVE NEGATIVE Urine Bilirubin NEGATIVE NEGATIVE Urine Urobilinogen 0.2 < = 1.0 MG/DL Urine Leukocyte Esterase NEGATIVE NEGATIVE Urine RBC (Auto) 3+ H NEGATIVE Urine RBC 0-2 /HPF Urine WBC NONE /HPF Urine Squamous Epithelial Cells NONE /HPF Urine Crystals NONE /LPF Urine Bacteria NEGATIVE /HPF Urine Casts NONE /LPF Urine Mucus NEGATIVE /LPF Urine Culture Indicated CULTURE PENDING Lactic Acid Level 2.16 *H 0.50-2.00 MMOL/L Micro Results Microbiology 01/23/22 Blood Culture - Preliminary, Resulted Staphylococcus aureus 01/23/22 Urine Culture - Final, Complete NO GROWTH 01/23/22 Blood Culture - Preliminary, Resulted Staphylococcus aureus My Orders Orders - ANASTASIIA ROSALES APRN Ekg Tracing (01/23/22 16:30) Cbc With Automated Diff (01/23/22 16:32) Comprehensive Metabolic Panel (01/23/22 16:32) Ct Head Wo-R/O Stroke (01/23/22 ) Blood Culture (01/23/22 16:32) Sputum Culture (01/23/22 16:32) Urinalysis (01/23/22 16:32) Urine Culture (01/23/22 16:32) Protime With Inr (01/23/22 16:32) Partial Thromboplastin Time (01/23/22 16:32) Chest 1 View, Ap/Pa Only (01/23/22 16:32) Ed Iv/Invasive Line Start (01/23/22 16:32) Vital Signs Adult Sepsis Patie Q15M (01/23/22 16:32) O2 (01/23/22 16:32) Remove Rings In Anticipation O (01/23/22 16:32) Lactic Acid Analyzer (01/23/22 16:32) Influenza A & B Antigens (01/23/22 16:32) Catheter(Urinary) Insert & Ass 03,15 (01/23/22 16:32) Accucheck Stat ONCE (01/23/22 16:32) Vital Signs Stroke Patient Q15M (01/23/22 16:32) Intake & Output 06,14,22 (01/23/22 16:32) Monitor-Rhythm Ecg Trace Only (01/23/22 16:32) Dysphagia Screening Tool [id number] (01/23/22 16:32) Lipid Panel (01/24/22 06:00) Diltiazem Drip Pre-Mix (Cardizem Drip Pr (01/23/22 16:45) Diltiazem Injection (Cardizem Injection) (01/23/22 16:45) Diltiazem Injection (Cardizem Injection) (01/23/22 16:45) Manual Differential (01/23/22 16:30) Type And Screen (01/23/22 16:48) Red Cells Leukocytes Reduced (01/23/22 16:48) Troponin I Carline (01/23/22 16:50) Ns Iv 1000 Ml (Sodium Chloride 0.9%) (01/23/22 17:00) Meropenem (Merrem 1000 Mg) (01/23/22 17:30) Meropenem (Merrem 1000 Mg) (01/23/22 17:32) Ns (Ivpb) (Sodium Chloride 0.9% Ivpb Bag (01/23/22 17:32) Ns Iv 1000 Ml (Sodium Chloride 0.9%) (01/23/22 18:29) Procalcitonin (Pct) (01/23/22 18:52) Hepatitis Panel Acute (01/23/22 18:53) Gamma Glutamyl Transferase Ggt (01/23/22 18:53) Iron Tibc %Sat & Ferritin (01/23/22 18:54) Vitamin B 12 (01/23/22 18:54) Ed Admission (Communication) (01/23/22 19:03) Medications Given in ED Vital Signs/I&O 01/23/22 01/23/22 01/23/22 16:24 18:47 18:54 Temp 38.1 38.3 38.3 Pulse 192 154 161 Resp 21 12 20 B/P (MAP) 137/78 (97) 104/77 104/77 Pulse Ox 95 100 100 O2 Delivery Room Air Room Air 01/24/22 00:00 Intake Total 1100 ml Balance 1100 ml Progress Progress Note : Progress Note Upon arrival patient is awake and alert, somewhat confused. Her heart rate is noted in the 170's, EKG Afib RVR. Oxygen 88% on room air, she is pale and cool to touch. Was just admitted beginning of December for new onset Afib RVR and Xarelto. Initiated Cardizem bolus 20mg IVP and repeat 10mg IVP if blood pressure stable. Will initiate liter of IVF to help stabilize blood pressure. Has significant per ipheral edema that patient reports as new. Will monitor fluid status closely. Placed on 2 liters oxygen. EMS reports conflict with patient reports of chief complaint. Was able to review old records to determine what dates patient had been seen in the emergency department. Placed left EJ 18g IV for 2nd IV access. Hgb resulted at 6.9, orders placed for PRBC 1 unit to give now with 1 unit on hold. BP decreased after first bolus of Cardizem, HR 150's to 170s. Was able to monitor and BP stabilized in the 130's systolic with IVF. Increased cardizem drip for better rate control. Discussed case with Dr. Tay, recommends IVF and PRBC. Discussed that patient had received first liter of IVF and is currently receiving 1st unit PRBC's. No new orders. Discussed case with Dr. Melchor, will add hepatitis panel, Iron, Ferritin, and GGT. Patient to admit inpatient ICU for Afib RVR, Sepsis due to pneumonia, acute blood loss from anticoagulation. Reviewed POC with patient and spouse, both are agreeable. Initial ECG Impression Date: Jan 23, 2022 Initial ECG Impression Time: 16:33 Initial ECG Rate: 176 Initial ECG Rhythm: A Fib/Flutter Initial ECG Intervals Afib RVR Initial ECG Impression: Atrial Fibrillation w/RVR Diagnostic Imaging Diagonstic Imaging: Xray Plain Films/CT/US/NM/MRI: chest Comments [facility] [place] [place] NAME: YANELY HARVEY [facility] REC#: [id number] PT STATUS: REG ER : 1955 PHYSICIAN: ANASTASIIA ROSALES APRN ADMIT DATE: 01/23/22/ER Signed Date of Exam:01/23/22 CHEST 1 VIEW, AP/PA ONLY CHEST 1 VIEW, AP/PA ONLY Indication: Sepsis Comparison: 12/29/2021 Findings: No focal airspace disease in the visualized lungs. Please note that the posterior lower lobes are poorly evaluated by portable radiography. No pleural effusion or pneumothorax. Normal cardiomediastinal silhouette. Impression: 1. No acute cardiopulmonary process by portable radiography. Dictated by: Dictated on workstation # [id number] Dict: 01/23/221805 Trans: 01/23/221806 [facility] [id number] Interpreted by: VELMA BALDWIN MD Electronically signed by: VELMA BALDWIN MD 01/23/221806 Diagonstic Imaging: CT Comments [facility] [place] NAME: YANELY HARVEY [facility] REC#: [id number] PT STATUS: ADM IN : 1955 PHYSICIAN: ANASTASIIA ROSALES APRN ADMIT DATE: 01/23/22/ICU Signed Date of Exam:01/23/22 CT HEAD WO-R/O STROKE EXAMINATION: CT head without contrast. TECHNIQUE: Multiple contiguous axial images were obtained through the brain without the use of intravenous contrast. All CT scans use one or more of the following dose optimizing techniques: automated exposure control, MA and/or KvP adjustment based on patient size and exam type or iterative reconstruction. HISTORY: Fall, altered mental status. COMPARISON: None available. FINDINGS: The yusuf-white matter differentiation is normal. No mass effect or midline shift. The ventricles are normal in size and configuration. Basilar cisterns are patent. There are no intra-axial or extra-axial fluid collections. There is no intracranial hemorrhage. The orbits are normal. Paranasal sinuses are normal. Mastoid air cells are clear. No soft tissue abnormality is seen. No osseus lesions or fractures are seen. IMPRESSION: No acute intracranial abnormality. Dictated by: Dictated on workstation # [id number] Dict: 01/23/22 1804 Trans: 01/23/221931 [facility] [id number] Interpreted by: LUDIVINA OAKLEY MD Electronically signed by: LUDIVINA OAKLEY MD 01/23/221931 Departure Communication (Admissions) Time/Spoke to Admitting Phy: 18:30 Dr. Melchor Time/Spoke to Consulting Phy: 18:10 Dr. Tay, updated on HR in 150's and 170's despite Cardizem Bolus and Max infusion, request liter of IVF and unit of PRBC's and to monitor patient status. Impression Primary Impression: Atrial fibrillation with rapid ventricular response Additional Impressions: Anticoagulant-induced bleeding Fall Sepsis due to pneumonia Disposition: ADMITTED INPATIENT Condition: Stable Admissions Decision to Admit Reason: Admit from ER (General) Decision to Admit/Date: Jan 23, 2022 Time/Decision to Admit Time: 18:00 Departure-Patient Inst. Referrals: ANDREAS LEVIN MD (PCP/Family) Primary Care Physician ANASTASIIA ROSALES APRN Jan 23, 2022 16:38
[2022-01-23 16:44] LABS: BASOPHILS # (AUTO) 0.1 10^3/uL (0.0-0.1); BASOPHILS % (AUTO) 0 % (0-10); EOSINOPHILS % (AUTO) 0 % (0-10); HEMATOCRIT 22 % (35-52); LYMPHOCYTES # (AUTO) 0.7 10^3/uL (1.0-4.0); LYMPHOCYTES % (AUTO) 4 % (12-44); MEAN CORPUSCULAR HEMOGLOBIN 24 pg (25-34); MEAN CORPUSCULAR HGB CONC 32 g/dL (32-36); MEAN CORPUSCULAR VOLUME 75 fL (80-99); MEAN PLATELET VOLUME 10.5 fL (9.0-12.2); MONOCYTES # (AUTO) 0.9 10^3/uL (0.0-1.0); MONOCYTES % (AUTO) 5 % (0-12); NEUTROPHILS # (AUTO) 16.4 10^3/uL (1.8-7.8); NEUTROPHILS % (AUTO) 90 % (42-75); PLATELET COUNT 279 10^3/uL (130-400); WHITE BLOOD COUNT 18.2 10^3/uL (4.3-11.0)
[2022-01-23 16:45] LABS: HEMOGLOBIN 6.9 g/dL (11.5-16.0)
[2022-01-23] MEDS ORDERED: dilTIAZem DRIP PRE-MIX 125 ML IV SCH ×2 (16:45→20:15)
[2022-01-23 16:51] LABS: ALBUMIN 3.2 GM/DL (3.2-4.5); POTASSIUM 4.5 MMOL/L (3.6-5.0)
[2022-01-23 16:52] LABS: CALCIUM 8.6 MG/DL (8.5-10.1)
[2022-01-23 16:53] LABS: TOTAL PROTEIN 6.2 GM/DL (6.4-8.2)
[2022-01-23 16:54] LABS: INR 3.4 (0.8-1.4); PROTHROMBIN TIME PATIENT 34.6 SEC (12.2-14.7)
[2022-01-23 16:55] LABS: BILIRUBIN,TOTAL 0.9 MG/DL (0.1-1.0)
[2022-01-23 16:57] LABS: CREATININE SERUM 1.14 MG/DL (0.60-1.30)
[2022-01-23] MEDS ORDERED: NS IV 1000 ML 1,000 ML IV ONE (17:00)
[2022-01-23 17:02] LABS: LYMPHOCYTES % (MANUAL) 5 %; MONOCYTES % (MANUAL) 10 %; NEUTROPHILS % (MANUAL) 85 %
[2022-01-23 17:03] LABS: ELLIPT/OVALOCYTES SLIGHT; HYPOCHROMASIA MODERATE
[2022-01-23 17:10] LABS: BILIRUBIN,URINE NEGATIVE (NEGATIVE); CLARITY,URINE SL CLOUDY; COLOR,URINE YELLOW; GLUCOSE, URINE (UA) NEGATIVE (NEGATIVE); KETONES,URINE NEGATIVE (NEGATIVE); LEUKOCYTE ESTERASE ,URINE NEGATIVE (NEGATIVE); NITRITE,URINE NEGATIVE (NEGATIVE); PROTEIN,URINE 2+ (NEGATIVE)
[2022-01-23 17:20] LABS: BACTERIA,URINE NEGATIVE /HPF; RBC,URINE 0-2 /HPF
[2022-01-23] MEDS ORDERED: MEROPENEM 1,000 MG in NS (IVPB) 100 ML IV ONE (17:30)
[2022-01-23] MEDS ORDERED: MEROPENEM 1000 MG (MERREM) VIAL IV ONE (17:32)
[2022-01-23] MEDS ORDERED: NS (IVPB) 100 ML ONE (17:32)
--- NOTE | 2022-01-23 18:07 | Diagnostic Imaging Report ---
EXAMINATION: CT head without contrast. TECHNIQUE: Multiple contiguous axial images were obtained through the brain without the use of intravenous contrast. All CT scans use one or more of the following dose optimizing techniques: automated exposure control, MA and/or KvP adjustment based on patient size and exam type or iterative reconstruction. HISTORY: Fall, altered mental status. COMPARISON: None available. FINDINGS: The yusuf-white matter differentiation is normal. No mass effect or midline shift. The ventricles are normal in size and configuration. Basilar cisterns are patent. There are no intra-axial or extra-axial fluid collections. There is no intracranial hemorrhage. The orbits are normal. Paranasal sinuses are normal. Mastoid air cells are clear. No soft tissue abnormality is seen. No osseus lesions or fractures are seen. IMPRESSION: No acute intracranial abnormality. Dictated by: Dictated on workstation # [id number]
--- NOTE | 2022-01-23 18:08 | Diagnostic Imaging Report ---
CHEST 1 VIEW, AP/PA ONLY Indication: Sepsis Comparison: 12/29/2021 Findings: No focal airspace disease in the visualized lungs. Please note that the posterior lower lobes are poorly evaluated by portable radiography. No pleural effusion or pneumothorax. Normal cardiomediastinal silhouette. Impression: 1. No acute cardiopulmonary process by portable radiography. Dictated by: Dictated on workstation # [id number]
[2022-01-23] MEDS ORDERED: NS IV 1000 ML 1,000 ML ONE (18:29)
[2022-01-23 18:47] VITALS: BP 104/77
[2022-01-23 18:54] VITALS: BP 104/77
[2022-01-23 19:08] VITALS: BP 138/71
[2022-01-23] MEDS ORDERED: ACETAMINOPHEN 325 MG TABLET ONE (19:13)
[2022-01-23 19:15] VITALS: BP 135/105
[2022-01-23] MEDS ORDERED: ACETAMINOPHEN 325 MG TABLET PO ONE (19:15)
[2022-01-23 19:30] VITALS: BP 110/56
--- NOTE | 2022-01-23 19:33 | Tele-ICU Consult ---
Progress Note 66 y/o female with a hx of a fib on xarelto presents to ED with AMS and lethargy CT head neg CXR: normal CBC: hgb 6.9, receiving 1 unit PRBC WBC: 18,ooo started on meropenam EKG: a fib RVR start on dilt drip Lactaic acid: 3.8 UA and urine culture sent PLAN: ICU admission watch for bleeding Focused Exam Lactate Level 01/23/22 16:40: Lactic Acid Level 3.87*H 01/23/22 18:37: Lactic Acid Level 2.16*H Height, Weight, BMI Height: 5'0.00" Weight: 180lbs. oz. 81.713119yq; 35.00 BMI Method: Lactic Acid Level Laboratory Tests Test 01/23/22 16:40 01/23/22 18:37 Lactic Acid Level 3.87 MMOL/L (0.50-2.00) *H 2.16 MMOL/L (0.50-2.00) *H Labs Laboratory Tests 01/23/22 16:30 Results Results/Procedures Labs Laboratory Tests 01/23/22 16:30 Patient resulted labs reviewed. Results Labs Labs Laboratory Tests 01/23/22 16:30: White Blood Count 18.2H, Red Blood Count 2.90L, Hemoglobin 6.9*L, Hematocrit 22L , Mean Corpuscular Volume 75L, Mean Corpuscular Hemoglobin 24L, Mean Corpuscular Hemoglobin Concent 32, Red Cell Distribution Width 16.5H, Platelet Count 279, Mean Platelet Volume 10.5, Immature Granulocyte % (Auto) 1, Neutrophils (%) (Auto) 90H, Lymphocytes (%) (Auto) 4L, Monocytes (%) (Auto) 5, Eosinophils (%) (Auto) 0, Basophils (%) (Auto) 0, Neutrophils # (Auto) 16.4H, Lymphocytes # (Auto) 0.7L, Monocytes # (Auto) 0.9, Eosinophils # (Auto) 0.0, Basophils # (Auto) 0.1, Immature Granulocyte # (Auto) 0.2H, Neutrophils % (Manual) 85, Lymphocytes % (Manual) 5, Monocytes % (Manual) 10, Hypochromasia MODERATE, Elliptocytes SLIGHT, Prothrombin Time 34.6H, INR Comment 3.4H, Activated Partial Thromboplast Time 53H, Sodium Level 123*L, Potassium Level 4.5, Chloride Level 90L, Carbon Dioxide Level 17L, Anion Gap 16H, Blood Urea Nitrogen 32H, Creatinine 1.14, Estimat Glomerular Filtration Rate 53, BUN/Creatinine Ratio 28, Glucose Level 141H, Calcium Level 8.6, Corrected Calcium 9.2, Total Bilirubin 0.9, Aspartate Amino Transf (AST/SGOT) 84H, Alanine Aminotransferase (ALT/SGPT) 64H, Alkaline Phosphatase 97, Troponin I < 0.028, Total Protein 6.2L, Albumin 3.2 01/23/22 16:40: Lactic Acid Level 3.87*H 01/23/22 16:45: Influenza Type A Antigen NEGATIVE, Influenza Type B Antigen NEGATIVE 01/23/22 16:51: Urine Color YELLOW, Urine Clarity SL CLOUDY, Urine pH 6.0, Urine Specific [place] 1.020, Urine Protein 2+H, Urine Glucose (UA) NEGATIVE, Urine Ketones NEGATIVE, Urine Nitrite NEGATIVE, Urine Bilirubin NEGATIVE, Urine Urobilinogen 0.2, Urine Leukocyte Esterase NEGATIVE, Urine RBC (Auto) 3+H, Urine RBC 0-2, Urine WBC NONE, Urine Squamous Epithelial Cells NONE, Urine Crystals NONE, Urine Bacteria NEGATIVE, Urine Casts NONE, Urine Mucus NEGATIVE, Urine Culture Indicated CULTURE PENDING 01/23/22 18:37: Lactic Acid Level 2.16*H DINA VILLA MD Jan 23, 2022 19:33
[2022-01-23] MEDS ORDERED: ONDANSETRON 4 MG/2 ML (SDV) Z0FRAN IV PRN (20:15)
[2022-01-23] MEDS ORDERED: PHARMACY TO DOSE IV ONE (20:15)
[2022-01-23] MEDS ORDERED: ONDANSETRON 4 MG (ZOFRAN) ORAL DISSOLVE TAB PO PRN (20:15)
[2022-01-23] MEDS: NS IV 1000 ML 1,000 ML IV SCH (20:15)
[2022-01-23] MEDS ORDERED: BISACODYL 10 MG SUPP (DULCOLAX) PR PRN (20:15)
[2022-01-23] MEDS ORDERED: LACTULOSE SYRUP 10GM/15ML (ENULOSE) 30ML UDC PO PRN (20:15)
[2022-01-23] MEDS ORDERED: CALCIUM CARBONATE 500 MG (TUMS) TAB.CHEW PO PRN (20:15)
[2022-01-23] MEDS ORDERED: MILK OF MAGNESIA 400 MG/5 ML 30 ML UDC PO PRN (20:15)
[2022-01-23] MEDS ORDERED: ANTACID SUSP 30 ML UDC (MYLANTA) PO PRN (20:15)
[2022-01-23] MEDS ORDERED: polyethylene glycoL POWDER 17 GM (MIRALAX) PACK PO PRN (20:15)
[2022-01-23] MEDS ORDERED: diphenhydrAMINE 50 MG/ML INJ (BENADRYL) IVP PRN (20:15)
[2022-01-23] MEDS ORDERED: diphenhydrAMINE 25 MG TAB (BENADRYL) PO PRN (20:15)
[2022-01-23 21:14] VITALS: BP 111/88
[2022-01-23] MEDS: DOCUSATE SODIUM 100 MG (COLACE) CAP PO SCH (21:26)
[2022-01-23] MEDS: SENNOSIDES 8.6 MG (SENOKOT) TAB PO SCH (21:27)
[2022-01-23] MEDS ORDERED: VANCOMYCIN 1 GM/NS 250 ML IVPB IV ONE ×4 (21:45→22:45)
[2022-01-23] MEDS ORDERED: RT-ALBUTEROL/IPRATROPIUM 3 ML (DUONEB) VIAL INH PRN (22:15)
[2022-01-23] MEDS ORDERED: VANCOMYCIN 750 MG/NS 250 ML IVPB IV SCH ×2 (22:45)
[2022-01-23] MEDS ORDERED: VANCOMYCIN 750 MG/NS 250 ML IVPB IV ONE ×2 (22:45)
[2022-01-23] MEDS: RT-ALBUTEROL/IPRATROPIUM 3 ML (DUONEB) VIAL INH SCH (23:00)
[2022-01-24] MEDS: RT-ALBUTEROL/IPRATROPIUM 3 ML (DUONEB) VIAL INH SCH ×6 (02:59→22:47)
[2022-01-24] MEDS ORDERED: VANCOMYCIN 750 MG/VIAL IV ONE (03:13)
[2022-01-24] MEDS ORDERED: NS (IVPB) 250 ML ONE (03:14)
[2022-01-24 04:14] LABS: ABG BASE EXCESS -2.6 MMOL/L (-2.5-2.5); ABG OXYGEN SATURATION 92 % (94-100); ABG PCO2 31 MMHG (35-45); ABG PH 7.44 (7.37-7.43); ABG PO2 58 MMHG (79-93); ABG TCO2 21.9 MMOL/L (21.0-31.0); ALLENS TEST YES-POS
[2022-01-24 04:15] LABS: INSPIRED O2 RA; PATIENT TEMP 36.7; VENTILATOR NO
[2022-01-24] MEDS: NS IV 1000 ML 1,000 ML IV SCH ×3 (04:20→20:16)
[2022-01-24] MEDS: MEROPENEM 500 MG in NS (IVPB) 100 ML IV SCH ×3 (04:31→19:04)
--- NOTE | 2022-01-24 06:34 | History & Physical-Hospitalist ---
History of Present Illness HPI/Chief Complaint CC: Afib with RVR and sepsis HPI: This is a 66 yr old female clinic pt of Dr. Mendoza. She presented to the ER with afib with RVR, and SOB. Found to have evidence of sepsis and leukocytosis. Based on Meropenem and Vancomycin empiric treatment. She does have staph. bacteremia. She did have a recent left humerus fracture after a fall. Currently cardiology is managing the Carlos drip. Appreciate eICU and cardiology. Source: patient, old records Exam Limitations: clinical condition Date Seen 01/24/22 Time Seen by a Provider: 10:30 Attending Physician Hunter Mendoza MD PCP Admitting Physician: Elida Lan DO Attending Physician: Elida Lan DO Referring Physician Date of Admission Jan 23, 2022 at 19:04 Home Medications & Allergies Home Medications Reviewed patient Home Medication Reconciliation performed by pharmacy medication reconciliations breeder service technician and/or nursing. Patients Allergies have been reviewed. Allergies Allergies Coded Allergies ampicillin (Unverified Allergy, Intermediate, HIVES, 01/16/22) metoprolol (Verified Allergy, Unknown, 01/16/22) Past [id number]-[id number]-Pwnhdm Hx Patient Social History Marrital Status: single Employed/Student: employed Tobacco Use?: Yes Smoking Status: Never a Smoker Smokeless Tobacco Frequency: Never a User Use of E-Cig and/or Vaping dev: No Substance use?: No Alcohol Use?: No Pt feels they are or have been: No Immunizations Up To Date First/Initial COVID19 Vaccinat: 2020 Second COVID19 Vaccination Jose: 2020 Current Status Advance Directives: Yes Advance Directive Location: Unable to obtain copy Communicates: Verbally Primary Language: Ukrainian Preferred Spoken Language: Ukrainian Is interpretation needed?: No Implanted or Applied Medical D: None Past Medical History Surgeries: Adenoidectomy, Appendectomy, Eye Surgery, Tonsillectomy Pneumonia Atrial Fibrillation, High Cholesterol, Hypertension 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 History: Menopausal Arthritis Cataract Blood Disorders: No Review of Systems Constitutional: see HPI, dizziness, fever, malaise, weakness EENTM: no symptoms reported Respiratory: dyspnea on exertion Cardiovascular: palpitations Gastrointestinal: no symptoms reported Genitourinary: no symptoms reported Musculoskeletal: no symptoms reported Skin: no symptoms reported Psychiatric/Neurological: No Symptoms Reported All Other Systems Reviewed Negative Unless Noted: Yes Physical Exam Physical Exam Vital Signs Vital Signs - First Documented 01/23/22 01/23/22 16:24 18:47 Temp 38.1 Pulse 192 Resp 21 B/P (MAP) 137/78 (97) Pulse Ox 95 O2 Delivery Room Air Capillary Refill : Height, Weight, BMI Height: 5'0.00" Weight: 180lbs. oz. 81.275858mh; 40.64 BMI Method: General Appearance: No Apparent Distress, Chronically ill Eyes: Right Eye Normal Inspection, Right Eye PERRL HEENT: PERRL/EOMI, Normal ENT Inspection, Pharynx Normal, Moist Mucous Membranes Neck: Full Range of Motion, Normal Inspection, Non Tender Respiratory: Chest Non Tender, No Accessory Muscle Use, No Respiratory Distress , Decreased Breath Sounds Cardiovascular: No Edema, No Gallop, No JVD, No Murmur, Normal Peripheral Pulses, Irregularly Irregular, Tachycardia Gastrointestinal: Normal Bowel Sounds, No Organomegaly, No Pulsatile Mass, Non Tender, Soft Back: Normal Inspection, No CVA Tenderness, No Vertebral Tenderness Extremity: Normal Capillary Refill, Normal Inspection, Normal Range of Motion, Non Tender, No Calf Tenderness, No Pedal Edema Neurologic/Psychiatric: Alert, Oriented x3, No Motor/Sensory Deficits, Normal Mood/Affect Skin: Normal Color, Warm/Dry Lymphatic: No Adenopathy Results Results/Procedures Labs Laboratory Tests 01/23/22 16:30 01/24/22 07:55 01/24/22 15:15 01/25/22 04:59 Patient resulted labs reviewed. Assessment/Plan Admission Diagnosis Assessment: Sepsis Fever Leukocytosis Staph bacteremia? A. fib with RVR Anemia symptomatic Status post 1 unit of blood transfusion Left humerus fracture subacute Plan: Broad-spectrum antibiotics Dr. Frederick appreciated Supportive care Admission Status: Inpatient Order (span 2 midnights) Reason for Inpatient Admission: Sepsis Diagnosis/Problems Diagnosis/Problems (1) Atrial fibrillation with rapid ventricular response Status: Acute (2) Sepsis Status: Acute (3) Pneumonia Status: Acute (4) Anticoagulant-induced bleeding Status: Acute Clinical Quality Measures DVT/VTE Risk/Contraindication: Contraindications-Pharm: Other *list below* Other: anemia ELIDA LAN DO Jan 24, 2022 06:34
[2022-01-24 08:05] LABS: BASOPHILS # (AUTO) 0.1 10^3/uL (0.0-0.1); BASOPHILS % (AUTO) 0 % (0-10); EOSINOPHILS % (AUTO) 0 % (0-10); HEMATOCRIT 23 % (35-52); LYMPHOCYTES # (AUTO) 0.7 10^3/uL (1.0-4.0); LYMPHOCYTES % (AUTO) 4 % (12-44); MEAN CORPUSCULAR HEMOGLOBIN 25 pg (25-34); MEAN CORPUSCULAR HGB CONC 33 g/dL (32-36); MEAN CORPUSCULAR VOLUME 76 fL (80-99); MEAN PLATELET VOLUME 10.7 fL (9.0-12.2); MONOCYTES # (AUTO) 0.5 10^3/uL (0.0-1.0); MONOCYTES % (AUTO) 3 % (0-12); NEUTROPHILS # (AUTO) 15.7 10^3/uL (1.8-7.8); NEUTROPHILS % (AUTO) 91 % (42-75); PLATELET COUNT 238 10^3/uL (130-400); WHITE BLOOD COUNT 17.2 10^3/uL (4.3-11.0)
[2022-01-24 08:08] LABS: HEMOGLOBIN 7.4 g/dL (11.5-16.0)
[2022-01-24 08:21] LABS: CHLORIDE 100 MMOL/L (98-107); SODIUM 129 MMOL/L (135-145)
[2022-01-24 08:22] LABS: ALBUMIN 2.6 GM/DL (3.2-4.5)
[2022-01-24 08:23] LABS: CALCIUM 7.8 MG/DL (8.5-10.1)
[2022-01-24 08:24] LABS: GLUCOSE 127 MG/DL (70-105); TOTAL PROTEIN 5.1 GM/DL (6.4-8.2); TRIGLYCERIDES 136 MG/DL (<150); VLDL CHOLESTEROL 27 MG/DL (5-40)
[2022-01-24 08:25] LABS: CARBON DIOXIDE 17 MMOL/L (21-32)
[2022-01-24 08:26] LABS: BILIRUBIN,TOTAL 0.7 MG/DL (0.1-1.0)
[2022-01-24 08:28] LABS: ALKALINE PHOSPHATASE 90 U/L (40-136); CREATININE SERUM 0.75 MG/DL (0.60-1.30); GFR ESTIMATED 87; PHOSPHORUS 2.8 MG/DL (2.3-4.7)
[2022-01-24 08:29] LABS: BUN/CREATININE RATIO 31; CHOLESTEROL 54 MG/DL (< 200)
[2022-01-24 08:30] LABS: HDL CHOLESTEROL < 15 MG/DL (40-60)
[2022-01-24 08:31] LABS: ALANINE AMINOTRANSFERASE 47 U/L (0-55)
[2022-01-24] MEDS: POTASSIUM CL 10MEQ/50ML IVPB 50 ML IV SCH (08:33)
[2022-01-24] MEDS: MAGNESIUM 1 GM/100 ML IVPB 100 ML IV SCH (08:33)
[2022-01-24] MEDS: KCL 20 MEQ TAB (K-DUR) PO SCH (08:34)
[2022-01-24] MEDS: SENNOSIDES 8.6 MG (SENOKOT) TAB PO SCH ×2 (08:36→20:07)
[2022-01-24] MEDS: DOCUSATE SODIUM 100 MG (COLACE) CAP PO SCH ×2 (08:36→20:07)
[2022-01-24] MEDS: PANTOPRAZOLE 40 MG (PROTONIX) VIAL IV SCH (08:36)
--- NOTE | 2022-01-24 09:32 | Consultation-Cardiology ---
HPI-Cardiology Cardiology Consultation: Date of Consultation 01/24/22 Date of Admission 01/23/22 Attending Physician Hunter Mendoza MD Admitting Physician Admitting Physician: Elida Melchor DO Attending Physician: Elida Melchor DO Consulting Physician NEELAM LINO JR, MD HPI: Time Seen by a Provider: 09:26 Chief Complaint: REASON FOR CONSULTATION: Atrial fibrillation. I had the pleasure of seeing Angelica in the intensive care unit at [facility] in [place], [place] today. She is known to me from a previous hospitalization in December 2021 at which time she was diagnosed with atrial fibrillation. She was placed on diltiazem and rivaroxaban at that time. Since being discharged home, she has felt very weak. She has been lightheaded. About 2 weeks after she was discharged she actually collapsed on the floor and ended up breaking her left humerus. She is now in a sling for this. She did not require surgery. She has also been having some back pain ever since the fall. Yesterday she saw her primary care provider and had a steroid injection in either her back or shoulder but she cannot quite remember. Then last evening she was again very lightheaded and weak. She called 911 and was brought to the hospital for further evaluation. She was found to have profound anemia and was admitted to the intensive care unit. She has also been having dyspnea on exertion with this weakness. She denies chest discomfort. She denies paroxysmal nocturnal dyspnea, orthopnea, or palpitations. She is also had mild bilateral lower extremity edema which is new for her. Since starting the rivaroxaban, she has had more frequent episodes of epistaxis. She does have a lifelong history of epistaxis but has not seen an seed potato arranger in the past. She has been constipated for the past several days but prior to that, denies any blood in the stool, hematemesis or dark stool. Because of the ongoing atrial fibrillation, a cardiology consultation was requested. Certain portions of this document may have been dictated utilizing voice recognition technology. Inherent to this technology, typographical and grammatical errors may exist. As much as I am diligent to identify and correct these mistakes, some errors may remain in the document. Review of Systems-Cardiology Review of Systems Other comments Review of 10 organ systems is as per the history of present illness, otherwise negative. PZK-[id number]-Pntpxk Hx Patient Social History Smoking Status: Never a Smoker Have you traveled recently?: No Alcohol Use?: No Pt feels they are or have been: No Past Medical History PMH As described under Assessment. Family Medical History Family Medical History: She is adopted but states that all of her family has heart disease. Allergies and Home Medications Allergies Coded Allergies: ampicillin (Unverified Allergy, Intermediate, HIVES, 01/16/22) metoprolol (Verified Allergy, Unknown, 01/16/22) Patient Home Medication List Home Medication List Reviewed: Yes Cefdinir (Cefdinir) 300 Mg Capsule, 300 MG PO BID Prescribed by: ELIDA MELCHOR on 12/30/21 1033 Diltiazem HCl (Diltiazem 24Hr ER) 240 Mg Cap.er.24h, 240 MG PO DAILY@0900 Prescribed by: NEELAM LINO JR, MD on 12/30/21 0940 Escitalopram Oxalate (Escitalopram Oxalate) 10 Mg Tablet, 10 MG PO DAILY, (Reported) Entered as Reported by: DARA HACKETT on 06/26/21 1159 Hydrocodone Bit/Acetaminophen (HYDROcodone/APAP 7.5/325 TAB) 1 Ea Tablet, 1 EA PO Q4-6 PRN for PAIN Prescribed by: WILVER OBRIEN on 01/16/22 1936 Magnesium (Magnesium) 250 Mg Tablet, 250 MG PO HS, (Reported) Entered as Reported by: DARA HACKETT on 06/26/21 1159 Melatonin/Pyridoxine (Melatonin 5 mg Tablet) 1 Each Tablet, 5 MG PO HS, (Reported) Entered as Reported by: DARA HACKETT on 06/26/21 1159 Meloxicam (Meloxicam) 15 Mg Tablet, 15 MG PO DAILY, (Reported) Entered as Reported by: DARA HACKETT on 08/02/15 1136 Oxycodone HCl/Acetaminophen (Percocet 5-325 mg Tablet) 5 Mg-325 Mg Tablet, 1 TAB PO Q4H PRN for PAIN-MODERATE Prescribed by: SHANIKA CHAMORRO on 01/20/22 1308 Rivaroxaban (Xarelto Tablet) 20 Mg Tablet, 20 MG PO DAILY@1700 Prescribed by: NEELAM LINO JR, MD on 12/30/21 0851 Rosuvastatin Calcium (Rosuvastatin Calcium) 10 Mg Tablet, 10 MG PO HS Prescribed by: NEELAM LINO JR, MD on 12/30/21 0909 Exam Vital Signs Vital Signs Date Time Temp Pulse Resp B/P (MAP) Pulse Ox O2 Delivery O2 Flow Rate FiO2 01/24/22 09:00 114 15 130/83 93 Room Air 01/24/22 07:33 36.5 Physical Exam General: Alert. No acute distress. Well nourished and appears stated age. She is morbidly obese. Eye: Extraocular movements are intact. Conjunctivae are clear. There are no xanthelasma. HENT: Normocephalic. Atraumatic. Carotid pulsations 2/2 without bruits. Neck: Jugular venous pressure does not appear elevated. No thyromegaly appreciated. Respiratory: Lungs are clear to auscultation. Respirations are non-labored. Breath sounds are equal. Symmetrical chest wall expansion. Cardiovascular: Normal rate. Irregular rhythm. Distant S1/S2. No murmur. No gallop. Point of maximal impulse is not appear displaced. Good pulses equal in all extremities. 2+ bilateral pretibial edema. Gastrointestinal: Soft. Normal bowel sounds. Skin: Skin turgor is normal. There is no pallor. Musculoskeletal: No kyphosis or scoliosis appreciated. Neurologic: Alert and oriented to person, place, time. Cranial nerves 3-12 appear grossly intact. The patient has good motor tone strength in the upper and lower extremities bilaterally. Psychiatric: Cooperative. Appropriate mood & affect. Labs Laboratory Tests Test 01/23/22 16:30 01/23/22 16:40 01/23/22 16:43 01/23/22 16:45 Range/Units White Blood Count 18.2 H 4.3-11.0 10^3/uL Red Blood Count 2.90 L 3.80-5.11 10^6/uL Hemoglobin 6.9 *L 11.5-16.0 g/dL Hematocrit 22 L 35-52 % Mean Corpuscular Volume 75 L 80-99 fL Mean Corpuscular Hemoglobin 24 L 25-34 pg Mean Corpuscular Hemoglobin Concent 32 32-36 g/dL Red Cell Distribution Width 16.5 H 10.0-14.5 % Platelet Count 279 130-400 10^3/uL Mean Platelet Volume 10.5 9.0-12.2 fL Immature Granulocyte % (Auto) 1 % Neutrophils (%) (Auto) 90 H 42-75 % Lymphocytes (%) (Auto) 4 L 12-44 % Monocytes (%) (Auto) 5 0-12 % Eosinophils (%) (Auto) 0 0-10 % Basophils (%) (Auto) 0 0-10 % Neutrophils # (Auto) 16.4 H 1.8-7.8 10^3/uL Lymphocytes # (Auto) 0.7 L 1.0-4.0 10^3/uL Monocytes # (Auto) 0.9 0.0-1.0 10^3/uL Eosinophils # (Auto) 0.0 0.0-0.3 10^3/uL Basophils # (Auto) 0.1 0.0-0.1 10^3/uL Immature Granulocyte # (Auto) 0.2 H 0.0-0.1 10^3/uL Neutrophils % (Manual) 85 % Lymphocytes % (Manual) 5 % Monocytes % (Manual) 10 % Hypochromasia MODERATE Elliptocytes SLIGHT Prothrombin Time 34.6 H 12.2-14.7 SEC INR Comment 3.4 H 0.8-1.4 Activated Partial Thromboplast Time 53 H 24-35 SEC Sodium Level 123 *L 135-145 MMOL/L Potassium Level 4.5 3.6-5.0 MMOL/L Chloride Level 90 L 98-107 MMOL/L Carbon Dioxide Level 17 L 21-32 MMOL/L Anion Gap 16 H 5-14 MMOL/L Blood Urea Nitrogen 32 H 7-18 MG/DL Creatinine 1.14 0.60-1.30 MG/DL Estimat Glomerular Filtration Rate 53 BUN/Creatinine Ratio 28 Glucose Level 141 H 70-105 MG/DL Calcium Level 8.6 8.5-10.1 MG/DL Corrected Calcium 9.2 8.5-10.1 MG/DL Total Bilirubin 0.9 0.1-1.0 MG/DL Aspartate Amino Transf (AST/SGOT) 84 H 5-34 U/L Alanine Aminotransferase (ALT/SGPT) 64 H 0-55 U/L Alkaline Phosphatase 97 40-136 U/L Troponin I < 0.028 <0.028 NG/ML Total Protein 6.2 L 6.4-8.2 GM/DL Albumin 3.2 3.2-4.5 GM/DL Procalcitonin 5.89 H <0.10 NG/ML Lactic Acid Level 3.87 *H 0.50-2.00 MMOL/L Glucometer 141 H 70-110 MG/DL Influenza Type A Antigen NEGATIVE NEGATIVE Influenza Type B Antigen NEGATIVE NEGATIVE Test 01/23/22 16:51 01/23/22 18:37 01/23/22 20:10 01/23/22 20:28 Range/Units Urine Color YELLOW Urine Clarity SL CLOUDY Urine pH 6.0 5-9 Urine Specific [place] 1.020 1.016-1.022 Urine Protein 2+ H NEGATIVE Urine Glucose (UA) NEGATIVE NEGATIVE Urine Ketones NEGATIVE NEGATIVE Urine Nitrite NEGATIVE NEGATIVE Urine Bilirubin NEGATIVE NEGATIVE Urine Urobilinogen 0.2 < = 1.0 MG/DL Urine Leukocyte Esterase NEGATIVE NEGATIVE Urine RBC (Auto) 3+ H NEGATIVE Urine RBC 0-2 /HPF Urine WBC NONE /HPF Urine Squamous Epithelial Cells NONE /HPF Urine Crystals NONE /LPF Urine Bacteria NEGATIVE /HPF Urine Casts NONE /LPF Urine Mucus NEGATIVE /LPF Urine Culture Indicated CULTURE PENDING Lactic Acid Level 2.16 *H 1.95 0.50-2.00 MMOL/L Glucometer 145 H 70-110 MG/DL Test 01/24/22 04:00 01/24/22 07:55 Range/Units Blood Gas Puncture Site RRAD Blood Gas Patient Temperature 36.7 Arterial Blood pH 7.44 H 7.37-7.43 Arterial Blood Partial Pressure CO2 31 L 35-45 MMHG Arterial Blood Partial Pressure O2 58 L 79-93 MMHG Arterial Blood HCO3 21 L 23-27 MMOL/L Arterial Blood Total CO2 21.9 21.0-31.0 MMOL/L Arterial Blood Oxygen Saturation 92 L 94-100 % Arterial Blood Base Excess -2.6 L -2.5-2.5 MMOL/L Malachi Test YES-POS Blood Gas Ventilator Setting NO Blood Gas Inspired Oxygen RA White Blood Count 17.2 H 4.3-11.0 10^3/uL Red Blood Count 2.95 L 3.80-5.11 10^6/uL Hemoglobin 7.4 L 11.5-16.0 g/dL Hematocrit 23 L 35-52 % Mean Corpuscular Volume 76 L 80-99 fL Mean Corpuscular Hemoglobin 25 25-34 pg Mean Corpuscular Hemoglobin Concent 33 32-36 g/dL Red Cell Distribution Width 16.9 H 10.0-14.5 % Platelet Count 238 130-400 10^3/uL Mean Platelet Volume 10.7 9.0-12.2 fL Immature Granulocyte % (Auto) 1 % Neutrophils (%) (Auto) 91 H 42-75 % Lymphocytes (%) (Auto) 4 L 12-44 % Monocytes (%) (Auto) 3 0-12 % Eosinophils (%) (Auto) 0 0-10 % Basophils (%) (Auto) 0 0-10 % Neutrophils # (Auto) 15.7 H 1.8-7.8 10^3/uL Lymphocytes # (Auto) 0.7 L 1.0-4.0 10^3/uL Monocytes # (Auto) 0.5 0.0-1.0 10^3/uL Eosinophils # (Auto) 0.0 0.0-0.3 10^3/uL Basophils # (Auto) 0.1 0.0-0.1 10^3/uL Immature Granulocyte # (Auto) 0.2 H 0.0-0.1 10^3/uL Sodium Level 129 L 135-145 MMOL/L Potassium Level 4.0 3.6-5.0 MMOL/L Chloride Level 100 98-107 MMOL/L Carbon Dioxide Level 17 L 21-32 MMOL/L Anion Gap 12 5-14 MMOL/L Blood Urea Nitrogen 23 H 7-18 MG/DL Creatinine 0.75 0.60-1.30 MG/DL Estimat Glomerular Filtration Rate 87 BUN/Creatinine Ratio 31 Glucose Level 127 H 70-105 MG/DL Calcium Level 7.8 L 8.5-10.1 MG/DL Corrected Calcium 8.9 8.5-10.1 MG/DL Phosphorus Level 2.8 2.3-4.7 MG/DL Magnesium Level 2.0 1.6-2.4 MG/DL Total Bilirubin 0.7 0.1-1.0 MG/DL Aspartate Amino Transf (AST/SGOT) 48 H 5-34 U/L Alanine Aminotransferase (ALT/SGPT) 47 0-55 U/L Alkaline Phosphatase 90 40-136 U/L Total Protein 5.1 L 6.4-8.2 GM/DL Albumin 2.6 L 3.2-4.5 GM/DL Triglycerides Level 136 <150 MG/DL Cholesterol Level 54 < 200 MG/DL LDL Cholesterol Direct 10 1-129 MG/DL VLDL Cholesterol 27 5-40 MG/DL HDL Cholesterol < 15 L 40-60 MG/DL ECG Impression ECG Comment Electrocardiogram from the emergency room on 01/23/22 shows atrial fibrillation with a rapid ventricular rate at 176 bpm with left anterior hemiblock and right bundle branch block. Diagnosis/Problems Diagnosis/Problems (1) Persistent atrial fibrillation Assessment & Plan: She remains in atrial fibrillation. Oral anticoagulation is now on hold due to severe anemia of undetermined etiology. I will restart oral diltiazem at half the previous dose until we see how her blood pressure response. We will need to determine the cause of anemia and ultimately consider resuming oral anticoagulation. (2) Epistaxis Assessment & Plan: She states this has been a lifelong problem but has not had this evaluated in the past. Now that she is on oral anticoagulation, the epistaxis has been more significant. I have placed an order for an otolaryngology consultation with Dr. Duenas. (3) Primary hypertension Assessment & Plan: I will resume diltiazem but at half the previous dose until we see how her blood pressure response. (4) Mixed hyperlipidemia Assessment & Plan: I have ordered rosuvastatin which she was taking at home. (5) Anemia Assessment & Plan: Exact etiology unclear. She had a significant drop in her hemoglobin since her previous hospitalization. Oral anticoagulation should not cause bleeding by itself. This usually means there is some underlying structural abnormality in the oropharyngeal lower gastrointestinal tract causing hemorrhage that then gets worse with oral anticoagulation. As above, I have placed consultation for otolaryngology. She may also need a general surgery consultation for consideration of endoscopy. (6) Morbid obesity Assessment & Plan: She actually gained weight since her previous hospitalization. She needs to work on weight loss. NEELAM LINO JR, MD Jan 24, 2022 09:32
[2022-01-24] MEDS ORDERED: dilTIAZem120 MG (CARDIZEM CD) CAP PO SCH (10:00)
--- NOTE | 2022-01-24 11:18 | Tele-ICU Progress Note ---
Subjective Date Seen by a Provider: Jan 24, 2022 Time Seen by a Provider: 11:17 Subjective/Events-last exam (Tele-ICU Physician , Progress Note ) Available chart/ vitals / labs / Images reviewed Video assessment done using teleICU camera, rest of exam as per RN Discussed with RN , EXAM PER RN Events overnight : Afebrile FiO2 - I/O = Drips: Pressors: , hemodynamically stable Consultants: rich ENT Hospital course: Pt is a 66 y/o female, presented to the ED with AMS and lethargy. Work-up reve aled A-Fib w/RVR. Family reports pt falling on 01/16 and sustained a left comminuted humerus Fx, Pt given prescription for Hydrocodone & Oxycodone which family reports makes pt "loopy" DDx: Sepsis-PNA, A-Fib w/RVR, Fall, anticoagulant-induced bleeding. 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 Discussed with RN to reach out if any questions or concerns A total of 31 minutes of critical care time was devoted to this patient today, required to treat and/or prevent further deterioration of critical care condition ( as above) . Sepsis Event Evaluation Height, Weight, BMI Height: 5'0.00" Weight: 180lbs. oz. 81.381364ys; 40.64 BMI Method: Focused Exam Lactate Level 01/23/22 16:40: Lactic Acid Level 3.87*H 01/23/22 18:37: Lactic Acid Level 2.16*H 01/23/22 20:28: Lactic Acid Level 1.95 Exam Exam Patient acknowledged, consented, and participated in this virtual visit which was conducted using real time audio/video Vital Signs Date Time Temp Pulse Resp B/P (MAP) Pulse Ox O2 Delivery O2 Flow Rate FiO2 01/24/22 11:00 129 27 121/83 94 Room Air 01/24/22 10:32 93 Room Air 01/24/22 10:00 124 19 138/79 92 Room Air 01/24/22 09:00 114 15 130/83 93 Room Air 01/24/22 08:00 118 25 115/66 98 Room Air 01/24/22 07:33 36.5 01/24/22 07:25 96 Room Air 01/24/22 07:00 110 01/24/22 07:00 101 15 123/49 96 Room Air 01/24/22 06:00 103 16 111/63 93 Room Air 01/24/22 05:00 124 16 109/75 94 Room Air 01/24/22 04:10 95 Room Air 01/24/22 04:00 121 20 129/74 100 Room Air 01/24/22 03:00 102 18 133/67 93 Room Air 01/24/22 02:59 94 Room Air 01/24/22 02:00 114 20 121/78 100 Room Air 01/24/22 01:00 100 20 118/83 98 Room Air 01/24/22 01:00 100 01/24/22 00:00 121 25 132/83 100 Room Air 01/23/22 23:59 95 Room Air 01/23/22 23:00 123 21 109/76 98 Room Air 01/23/22 23:00 97 Room Air 01/23/22 22:00 105 20 130/59 98 Room Air 01/23/22 21:30 123 26 112/70 97 Room Air 01/23/22 21:14 36.7 122 10 111/88 97 Room Air 01/23/22 21:00 126 23 116/74 96 Room Air 01/23/22 20:45 147 23 127/85 98 Room Air 01/23/22 20:30 147 23 112/83 97 Room Air 01/23/22 20:15 163 23 139/89 97 Room Air 01/23/22 20:04 150 01/23/22 20:00 97 Room Air 01/23/22 19:45 37.8 144 12 110/56 100 Room Air 01/23/22 19:30 38.0 158 12 110/56 Room Air 01/23/22 19:15 38.4 01/23/22 19:15 152 12 135/105 97 Room Air 01/23/22 19:08 38.4 144 20 138/71 97 Room Air 01/23/22 18:54 38.3 161 20 104/77 100 Room Air 01/23/22 18:47 38.3 154 12 104/77 100 Room Air 01/23/22 16:24 38.1 192 21 137/78 (97) 95 I & O 01/24/22 06:59 Intake Total 2575 ml Output Total 1800 ml Balance 775 ml Height & Weight Height: 5'0.00" Weight: 180lbs. oz. 81.399799lq; 40.64 BMI Method: General Appearance: No Apparent Distress, WD/WN, Anxious HEENT: PERRL/EOMI, Pharynx Normal, Other (blood nasal packing in right nare ) Neck: Full Range of Motion, Normal Inspection, Non Tender, Supple Respiratory: Lungs Clear, Normal Breath Sounds, No Accessory Muscle Use, No Respiratory Distress Cardiovascular: Irregularly Irregular, Tachycardia, Other (4+ pitting edema ) Results Lab Laboratory Tests 01/23/22 16:30 01/24/22 07:55 Assessment/Plan Assessment/Plan ` ELVIS CASAS MD Jan 24, 2022 11:18
--- NOTE | 2022-01-24 14:27 | Occupational Therapy Eval ---
OT Evaluation-General/PLF Medical Diagnosis Admission Date Jan 23, 2022 at 19:04 Medical Diagnosis: anticoagulant induced bleeding, afib Onset Date: Jan 23, 2022 Therapy Diagnosis Therapy Diagnosis: decreased ADL status Height/Weight Height (Feet): 5 Height (Inches): 0.00 Weight (Pounds): 180 Precautions Precautions/Isolations: Fall Prevention, Standard Precautions Referral Physician: Riky Referral Reason: Evaluation/Treatment Medical History Additional Medical History afib, HTN, vertigo, arthritis, cataract, PNA Current History ED due to increased weakness and AMS, recent fall on 01/16/22 with L humerus fx (nonoperative, sling) Social History Home: Multilevel Current Living Status: Spouse Steps Inside Home: 12 ADL-Prior Level of Function SCALE: Activities may be completed with or without assistive devices. 0-Mjkkpbamor-icjqpyw completes the activity by him/herself with no assistance from a helper. 5-Set-up or Clean-up Assistance-helper sets up or cleans up; patient completes activity. [place] assists only prior to or following the activity. 4-Supervision or Touching Assistance-helper provides verbal cues and/or touching/steadying and/or contact guard assistance as patient completes a ctivity. Assistance may be provided throughout the activity or intermittently. 3-Partial/Moderate Assistance-helper does LESS THAN HALF the effort. [place] lifts, holds or supports trunk or limbs, but provides less than half the effort. 2-Substantial/Maximal Assistance-helper does MORE THAN HALF the effort. [place] lifts or holds trunk or limbs and provides more than half the effort. 7-Tppcbzcdd-kuypsv does ALL the effort. Patient does none of the effort to complete the activity. Or, the assistance of 2 or more helpers is required for the patient to complete the activity. If activity was not attempted, code reason: 7-Patient Refused. 9-Not Applicable-not attempted and the patient did not perform the activity before the current illness, exacerbation or injury. 10-Not Attempted due to Environmental Limitations-(lack of equipment, weather restraints, etc.). 88-Not Attempted due to Medical Conditions or Safety Concerns. ADL PLOF Comments Pt reports IND with ADLs and functional mobility, no AD. 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 She has a multilevel house with a basement. The laundry and walk in shower is in the basement. Upstairs she has the main bedroom and bathroom, tub/shower. She thinks she has a SC in storage. Self Care: Independent Functional Cognition: Independent DME/Equipment: Bath Chair, Tub/Shower Drive Self: Yes OT Current Status Subjective Pt in bed, agreeable to OT Tx. Pt c/o pain with movement in wrists and knees but doesn't verbalize pain rating. Mental Status/Objective Patient Orientation: Normal For Age Attachments: Villa Catheter, Telemetry Current Hand Dominance: Right Upper Extremity ROM LUE not tested due to humerus fx, wrist/fingers WFL RUE WFL ROM Upper Extremity Coordination decreased due to weakness Upper Extremity Strength grossly 3-/5 RUE, LUE not tested due to fracture ADL-Treatment Lower Body Dressing (QC): 1 (Total assist would be required for task.) On/Off Footwear (QC): 1 (total assist to don gripper socks.) Toileting Hygiene (QC): 1 (total assist) Other Treatments Pt in bed, agreeable to OT Tx. Pt transferred supine to sit EOB, max A. Pt required assistance with BLEs, slow movements required due to c/o pain with movements. Assistance also required with trunk. Pt attempted to stand multiple times, unable to attain fully upright stand even with max A. Pt unsafe to transfer to C or recliner at this time. Pt assisted back to bed, max A. Assist x2 required to boost towards HOB in trendelenburg. Max A with rolling side to side, bed rucker placed. Post tx, pt in bed, call light in reach and all needs met, nursing staff aware of pt position. Education OT Patient Education: Correct positioning, Modified ADL techniques, Progress toward Goal/Update tx plan, Purpose of tx/functional activities, Rehab process Teaching Recipient: Patient Teaching Methods: Discussion Response to Teaching: Verbalize Understanding OT Mcfp Goals Recruiter Specialist Goals Time Frame: Feb 08, 2022 Eating (QC): 6 Oral Hygiene (QC): 6 Toileting Hygiene (QC): 4 Shower/Bathe Self (QC): 4 Upper Body Dressing (QC): 5 Lower Body Dressing (QC): 4 On/Off Footwear (QC): 4 Additional Goals: 1-Demonstrate ADL Tasks, 2-Verbalize Understanding, 3- ImproveStrength/Huma 1=Demonstrate adherence to instructed precautions during ADL tasks. 2=Patient will verbalize/demonstrate understanding of assistive devices/modifications for ADL. 3=Patient will improve strength/tolerance for activity to enable patient to perform ADL's. OT Education/Plan Problem List/Assessment Assessment: Decreased Activ Tolerance, Decreased UE Strength, Dependent Transfers, Impaired Bed Mobility, Impaired Coordination, Impaired Funct Balance, Impaired I ADL's, Impaired Self-Care Skills, Restricted Funct UE ROM Discharge Recommendations Plan/Recommendations: Continue POC Treatment Plan/Plan of Care Patient would benefit from OT for education, treatment and training to promote independence in ADL's, mobility, safety and/or upper extremity function for ADL's. Plan of Care: ADL Retraining, Functional Mobility, UE Funct Exercise/Act Treatment Duration: Feb 08, 2022 Frequency: 3 times per week (3-5 times per week) Estimated Hrs Per Day: .25 hour per day Rehab Potential: Guarded Time/GCodes Start Time: 13:39 Stop Time: 14:11 Total Time Billed (hr/min): 32 Billed Treatment Time 1, EVH (10'), ADL (12') RASHAD VENTURA OT Jan 24, 2022 14:26
--- NOTE | 2022-01-24 15:20 | Physical Therapy Evaluation ---
PT Evaluation-General Medical Diagnosis Admission Date Jan 23, 2022 at 19:04 Medical Diagnosis: anticoagulant induced bleeding, afib Onset Date: Jan 23, 2022 Therapy Diagnosis Therapy Diagnosis: debility/weakness Height/Weight Height (Feet): 5 Height (Inches): 0.00 Weight (Pounds): 180 Precautions Precautions/Isolations: Fall Prevention, Standard Precautions Referral Physician: Riky Reason for Referral: Evaluation/Treatment Medical History Pertinent Medical History: Atrial Fib, HTN Additional Medical History morbid obesity/left humeral fracture Current History EMS secondary to confusion and weakness/recent fall resulting in left humeral fracture Reviewed History: Yes Social History Home: Apartment Current Living Status: Spouse PT Steps Inside Home: 12 Prior Prior Level of Function SCALE: Activities may be completed with or without assistive devices. 5-Cdtmffgqal-hyirdnx completes the activity by him/herself with no assistance from a helper. 5-Set-up or Clean-up Assistance-helper sets up or cleans up; patient completes activity. [place] assists only prior to or following the activity. 4-Supervision or Touching Assistance-helper provides verbal cues and/or touching/steadying and/or contact guard assistance as patient completes activity. Assistance may be provided throughout the activity or intermittently. 3-Partial/Moderate Assistance-helper does LESS THAN HALF the effort. [place] lifts, holds or supports trunk or limbs, but provides less than half the effort. 2-Substantial/Maximal Assistance-helper does MORE THAN HALF the effort. [place] lifts or holds trunk or limbs and provides more than half the effort. 1-Xqwolzldk-ysufss does ALL the effort. Patient does none of the effort to complete the activity. Or, the assistance of 2 or more helpers is required for the patient to complete the activity. If activity was not attempted, code reason: 7-Patient Refused. 9-Not Applicable-not attempted and the patient did not perform the activity before the current illness, exacerbation or injury. 10-Not Attempted due to Environmental Limitations-(lack of equipment, weather restraints, etc.). 88-Not Attempted due to Medical Conditions or Safety Concerns. Bed Mobility: 6 Transfers (B,C,W/C): 6 Gait: 6 Indoor Mobility (Ambulation): Independent Prior Devices Use: None PT Evaluation-Current Subjective Patient reluctantly agrees to PT. Pain Numeric Pain Scale: 10-Worst Possible Pain Location: Right, Left, Joint Location Body Site: Knee (bilateral ) Pain Description: Chronic Objective Patient Orientation: Person, Time, Situation Attachments: Villa Catheter, IV ROM/Strength ROM Lower Extremities patient resists all ROM bilateral LE, however, performs in seated position (limited due to resistance and c/o pain) Strength Lower Extremities no formal testing due to patient resisting testing. (3/5 grossly bilateral LE my movement) Integumentary/Posture Integumentary refer to nursing notes Bladder Incontinence: Villa Cath Posture WFL Neuromuscular (Tone, Coordination, Reflexes) diminished coordination due to inactivity Sensory Vision: Functional Hearing: Functional Hand Dominance: Right Transfers Roll Left to Right (QC): 1 (x 2) Sit to Lying (QC): 1 (x 2) Lying to Sitting/Side of Bed(Q: 1 (x 2) Sit to Stand (QC): 1 Chair/Qsu-km-Ynhbs Xfer(QC): 7 Gait Does the Patient Walk?: No and Walking Goal IS indicated Balance Sitting Static: Fair Sitting Dynamic: Fair Standing Static: Poor Standing Dynamic: Poor Assessment/Needs Patient appears to self limit due to c/o total body pain. Patient also reports her has been assisting with all mobility and ADL's for the past "few weeks". PT to address functional strength and mobility as patient allows. 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 Time Frame: Feb 09, 2022 Roll Left & Right (QC): 4 Sit to Lying (QC): 4 Lying-Sitting on Side/Bed(QC): 4 Sit to Stand (QC): 4 Chair/Kus-gf-Iigch Xfer(QC): 4 Toilet Transfer (QC): 4 Walk 10 feet (QC): 4 Walk 50ft with 2 Turns (QC): 4 PT Plan Problem List Problem List: Activity Tolerance, Functional Strength, Safety, Balance, Gait, Transfer, Bed Mobility Treatment/Plan Treatment Plan: Continue Plan of Care Treatment Plan: Bed Mobility, Education, Functional Activity Huma, Functional Strength, Gait, Safety, Therapeutic Exercise, Transfers Treatment Duration: Feb 09, 2022 Frequency: 6 times per week Estimated Hrs Per Day: .25 hour per day Time/GCodes Time In: 1440 Time Out: 1500 Total Billed Treatment Time: 20 [facility]AL[facility] PT Jan 24, 2022 15:20
[2022-01-24 15:42] LABS: HEMATOCRIT 22 % (35-52); HEMOGLOBIN 7.2 g/dL (11.5-16.0); MEAN CORPUSCULAR HEMOGLOBIN 25 pg (25-34); MEAN CORPUSCULAR HGB CONC 32 g/dL (32-36); MEAN CORPUSCULAR VOLUME 78 fL (80-99); MEAN PLATELET VOLUME 10.4 fL (9.0-12.2); PLATELET COUNT 287 10^3/uL (130-400); WHITE BLOOD COUNT 17.2 10^3/uL (4.3-11.0)
[2022-01-24 15:50] LABS: POTASSIUM 3.9 MMOL/L (3.6-5.0)
[2022-01-24 15:51] LABS: CALCIUM 7.7 MG/DL (8.5-10.1)
[2022-01-24 15:55] LABS: CREATININE SERUM 0.75 MG/DL (0.60-1.30)
[2022-01-24] MEDS: morphine INJ 4 MG/ML 1 ML (VIAL/SYRINGE) IV PRN (20:07)
[2022-01-24] MEDS: ROSUVASTATIN 10 MG (CRESTOR) TABLET PO SCH (20:08)
[2022-01-24 21:06] LABS: HEPATITIS C ANTIBODY C Non-Reactive (Non-Reactive)
[2022-01-24] MEDS: MELATONIN 3 MG TABLET PO PRN (21:08)
[2022-01-25] MEDS: NS IV 1000 ML 1,000 ML IV SCH (00:36)
[2022-01-25] MEDS: morphine INJ 4 MG/ML 1 ML (VIAL/SYRINGE) IV PRN ×2 (00:37→05:01)
[2022-01-25] MEDS: MEROPENEM 500 MG in NS (IVPB) 100 ML IV SCH ×3 (02:25→18:58)
[2022-01-25] MEDS: RT-ALBUTEROL/IPRATROPIUM 3 ML (DUONEB) VIAL INH SCH ×6 (02:54→22:50)
[2022-01-25 05:10] LABS: BASOPHILS % (AUTO) 0 % (0-10); EOSINOPHILS # (AUTO) 0.1 10^3/uL (0.0-0.3); EOSINOPHILS % (AUTO) 1 % (0-10); HEMATOCRIT 21 % (35-52); LYMPHOCYTES # (AUTO) 1.3 10^3/uL (1.0-4.0); LYMPHOCYTES % (AUTO) 6 % (12-44); MEAN CORPUSCULAR HEMOGLOBIN 25 pg (25-34); MEAN CORPUSCULAR HGB CONC 33 g/dL (32-36); MEAN CORPUSCULAR VOLUME 76 fL (80-99); MEAN PLATELET VOLUME 10.9 fL (9.0-12.2); MONOCYTES # (AUTO) 0.7 10^3/uL (0.0-1.0); MONOCYTES % (AUTO) 3 % (0-12); NEUTROPHILS # (AUTO) 16.7 10^3/uL (1.8-7.8); NEUTROPHILS % (AUTO) 85 % (42-75); PLATELET COUNT 274 10^3/uL (130-400); WHITE BLOOD COUNT 19.7 10^3/uL (4.3-11.0)
[2022-01-25 05:25] LABS: ALBUMIN 2.3 GM/DL (3.2-4.5); POTASSIUM 4.1 MMOL/L (3.6-5.0)
[2022-01-25 05:27] LABS: CALCIUM 7.4 MG/DL (8.5-10.1)
[2022-01-25 05:30] LABS: BILIRUBIN,TOTAL 0.6 MG/DL (0.1-1.0)
[2022-01-25 05:32] LABS: CREATININE SERUM 0.71 MG/DL (0.60-1.30)
[2022-01-25] MEDS: POTASSIUM CL 10MEQ/50ML IVPB 50 ML IV SCH (05:42)
[2022-01-25] MEDS: MAGNESIUM 1 GM/100 ML IVPB 100 ML IV SCH (05:42)
[2022-01-25] MEDS: KCL 20 MEQ TAB (K-DUR) PO SCH (05:43)
--- NOTE | 2022-01-25 06:16 | Progress Note - Hospitalist ---
Subjective HPI/CC On Admission Date Seen by Provider: Jan 25, 2022 Time Seen by Provider: 10:30 CC: Afib with RVR and sepsis HPI: This is a 66 yr old female clinic pt of Dr. Mendoza. She presented to the ER with afib with RVR, and SOB. Found to have evidence of sepsis and leukocytosis. Based on Meropenem and Vancomycin empiric treatment. She does have staph. bacteremia. She did have a recent left humerus fracture after a fall. Currently cardiology is managing the Casey drip. Appreciate eICU and cardiology. Subjective/Events-last exam Pt max assist in moving PICC line will be placed Pain issues constantly but she falls asleep before they are given Heart rate is in the 120's, Dr. Frederick was consulted Friends at the bedside updated on status Had a fall last week and felt like her back has had increased pain since that time along with her left knee Reviewed CT L-spine and it appears it is central canal stenosis low in the l- spine Review of Systems General: Fatigue, Malaise Musculoskeletal: back pain, leg pain Focused Exam Lactate Level 01/23/22 16:40: Lactic Acid Level 3.87*H 01/23/22 18:37: Lactic Acid Level 2.16*H 01/23/22 20:28: Lactic Acid Level 1.95 Objective Exam Vital Signs Vital Signs Date Time Temp Pulse Resp B/P (MAP) Pulse Ox O2 Delivery O2 Flow Rate FiO2 01/25/22 19:55 35.9 01/25/22 19:29 90 Room Air 01/25/22 18:00 126 25 Capillary Refill : General Appearance: WD/WN, Anxious, Chronically ill, Mild Distress Respiratory: No Accessory Muscle Use, No Respiratory Distress, Decreased Breath Sounds Cardiovascular: Irregularly Irregular, Tachycardia Neurologic/Psychiatric: Alert, Oriented x3 Results/Procedures Lab Laboratory Tests 01/25/22 04:59 01/25/22 16:20 Patient resulted labs reviewed. Assessment/Plan Assessment and Plan Assess & Plan/Chief Complaint Assessment: Sepsis Fever Leukocytosis Staph bacteremia? A. fib with RVR Anemia symptomatic Status post 1 unit of blood transfusion Left humerus fracture subacute Plan: Broad-spectrum antibiotics Dr. Frederick appreciated Supportive care 01/25/22: High risk for decompensation IV abx Vanc Pain meds Diagnosis/Problems Diagnosis/Problems (1) Atrial fibrillation with rapid ventricular response Status: Acute (2) Sepsis Status: Acute (3) Pneumonia Status: Acute (4) Anticoagulant-induced bleeding Status: Acute Clinical Quality Measures DVT/VTE Risk/Contraindication: Contraindications-Pharm: Other *list below* Other: anemia DOUGLAS MELCHOR DO Jan 25, 2022 06:16
[2022-01-25] MEDS ORDERED: VANCOMYCIN 1250 MG/NS 250 ML IVPB IV SCH ×2 (07:00)
--- NOTE | 2022-01-25 08:03 | Diagnostic Imaging Report ---
INDICATION: Sepsis COMPARISON: 01/23/2022 TECHNIQUE: Single radiograph of the chest dated 01/25/2022. FINDINGS: The cardiac silhouette is enlarged. Mild central pulmonary vascular congestion, increased since the prior examination. No focal pulmonary consolidation. No pleural effusion. No pneumothorax. No acute osseous abnormality. Surgical clips within the upper abdomen. Recent proximal left humeral fracture is again identified. IMPRESSION: Cardiomegaly and mild central pulmonary vascular congestion, appearing more prominent than the prior examination without significant pleural effusion. Dictated by: Dictated on workstation # [id number]
--- NOTE | 2022-01-25 08:48 | Cardiology Progress Note ---
Progress Note-Cardiology Events since last exam Date Seen by Provider: Jan 25, 2022 Time Seen by Provider: 08:47 Events since last exam I am following her due to atrial fibrillation now with severe anemia. She still has significant shortness of breath with activity. She feels weak. She denies chest discomfort, palpitations, or syncope. Her ankle edema has improved somewhat. Certain portions of this document may have been dictated utilizing voice recognition technology. Inherent to this technology, typographical and grammatical errors may exist. As much as I am diligent to identify and correct these mistakes, some errors may remain in the document. Vitals Last set of Vitals Signs Vital Signs 01/25/22 10:00 Pulse 154 Resp 24 B/P (MAP) 138/127 Pulse Ox 97 O2 Delivery Room Air Labs Labs Laboratory Tests 01/24/22 15:15 01/25/22 04:59 Exam Vital Signs Vital Signs Date Time Temp Pulse Resp B/P (MAP) Pulse Ox O2 Delivery O2 Flow Rate FiO2 01/25/22 10:00 154 24 138/127 97 Room Air 01/25/22 08:00 37.0 Physical Exam General: Alert. No acute distress. She is morbidly obese. Eye: No xanthelasma. HENT: Normocephalic. Neck: Jugular venous pressure does not appear elevated. Respiratory: Lungs are clear to auscultation. Respirations are non-labored. Breath sounds are equal. Symmetrical chest wall expansion. Cardiovascular: Tachycardia with irregular rhythm. Distant S1/S2. No murmur. No gallop. 1+ bilateral pretibial edema. Gastrointestinal: Soft. Normal bowel sounds. Skin: Warm. Dry. Neurologic: Alert and oriented to person, place, time. Cranial nerves 3-11 grossly intact. Psychiatric: Cooperative. Appropriate mood & affect. Labs Laboratory Tests Test 01/24/22 14:45 01/24/22 15:15 01/25/22 04:59 Range/Units Stool Occult Blood Immunoassay POSITIVE H NEGATIVE White Blood Count 17.2 H 19.7 H 4.3-11.0 10^3/uL Red Blood Count 2.87 L 2.81 L 3.80-5.11 10^6/uL Hemoglobin 7.2 L 7.0 L 11.5-16.0 g/dL Hematocrit 22 L 21 L 35-52 % Mean Corpuscular Volume 78 L 76 L 80-99 fL Mean Corpuscular Hemoglobin 25 25 25-34 pg Mean Corpuscular Hemoglobin Concent 32 33 32-36 g/dL Red Cell Distribution Width 17.4 H 17.1 H 10.0-14.5 % Platelet Count 287 274 130-400 10^3/uL Mean Platelet Volume 10.4 10.9 9.0-12.2 fL Sodium Level 128 L 128 L 135-145 MMOL/L Potassium Level 3.9 4.1 3.6-5.0 MMOL/L Chloride Level 98 100 98-107 MMOL/L Carbon Dioxide Level 19 L 16 L 21-32 MMOL/L Anion Gap 11 12 5-14 MMOL/L Blood Urea Nitrogen 22 H 19 H 7-18 MG/DL Creatinine 0.75 0.71 0.60-1.30 MG/DL Estimat Glomerular Filtration Rate 87 93 BUN/Creatinine Ratio 29 27 Glucose Level 133 H 128 H 70-105 MG/DL Calcium Level 7.7 L 7.4 L 8.5-10.1 MG/DL Thyroid Stimulating Hormone (TSH) 0.32 L 0.35-4.94 UIU/ML Immature Granulocyte % (Auto) 5 % Neutrophils (%) (Auto) 85 H 42-75 % Lymphocytes (%) (Auto) 6 L 12-44 % Monocytes (%) (Auto) 3 0-12 % Eosinophils (%) (Auto) 1 0-10 % Basophils (%) (Auto) 0 0-10 % Neutrophils # (Auto) 16.7 H 1.8-7.8 10^3/uL Lymphocytes # (Auto) 1.3 1.0-4.0 10^3/uL Monocytes # (Auto) 0.7 0.0-1.0 10^3/uL Eosinophils # (Auto) 0.1 0.0-0.3 10^3/uL Basophils # (Auto) 0.0 0.0-0.1 10^3/uL Immature Granulocyte # (Auto) 0.9 H 0.0-0.1 10^3/uL Corrected Calcium 8.8 8.5-10.1 MG/DL Phosphorus Level 3.0 2.3-4.7 MG/DL Magnesium Level 2.0 1.6-2.4 MG/DL Total Bilirubin 0.6 0.1-1.0 MG/DL Aspartate Amino Transf (AST/SGOT) 86 H 5-34 U/L Alanine Aminotransferase (ALT/SGPT) 62 H 0-55 U/L Alkaline Phosphatase 93 40-136 U/L Total Protein 5.0 L 6.4-8.2 GM/DL Albumin 2.3 L 3.2-4.5 GM/DL Diagnosis/Problems Diagnosis/Problems (1) Persistent atrial fibrillation Assessment & Plan: She remains in atrial fibrillation. Oral anticoagulation is now on hold due to severe anemia of undetermined etiology. I restarted a low- dose of diltiazem but she has persistent tachycardia. I will give her an extra dose of oral diltiazem today and increase the dose to 360 mg daily. If the tachycardia persists, we may need to also add low-dose beta-naun. We will need to determine the cause of anemia and ultimately consider resuming oral anticoagulation. I requested an otolaryngology consultation on 01/24 but the doctor was not notified. I asked the nurse to make sure Dr. Duenas is notified today although I do not know if he is available. I would also suggest a general surgery consultation for consideration of endoscopy (2) Epistaxis Assessment & Plan: She states this has been a lifelong problem but has not had this evaluated in the past. Now that she is on oral anticoagulation, the epistaxis has been more significant. I have placed an order for an otolaryngology consultation with Dr. Duenas as above. (3) Primary hypertension Assessment & Plan: I will increase the dose of diltiazem due to the persistent tachycardia. We will need to watch her blood pressures closely on the higher dose. (4) Mixed hyperlipidemia Assessment & Plan: Continue rosuvastatin. (5) Anemia Assessment & Plan: Exact etiology unclear. She had a significant drop in her hemoglobin since her previous hospitalization. Oral anticoagulation should not cause bleeding by itself. This usually means there is some underlying structural abnormality in the oropharyngeal lower gastrointestinal tract causing hemorrhage that then gets worse with oral anticoagulation. As above, I have placed consultation for otolaryngology. She may also need a general surgery consultation for consideration of endoscopy. (6) Morbid obesity Assessment & Plan: She actually gained weight since her previous hospitalization. She needs to work on weight loss. NEELAM LINO JR, MD Jan 25, 2022 08:48
[2022-01-25] MEDS: SENNOSIDES 8.6 MG (SENOKOT) TAB PO SCH ×2 (08:50→20:07)
[2022-01-25] MEDS: DOCUSATE SODIUM 100 MG (COLACE) CAP PO SCH ×2 (08:50→20:07)
[2022-01-25] MEDS: PANTOPRAZOLE 40 MG (PROTONIX) VIAL IV SCH (08:50)
[2022-01-25] MEDS ORDERED: ACHD5005 PO (08:59)
[2022-01-25] MEDS ORDERED: dilTIAZem120 MG (CARDIZEM CD) CAP PO SCH ×2 (09:00→11:15)
[2022-01-25] MEDS ORDERED: LOSA50TA63 PO (09:01)
[2022-01-25] MEDS ORDERED: DILT240C91 PO (09:01)
[2022-01-25] MEDS ORDERED: ENAL20TA16 PO (09:01)
[2022-01-25] MEDS ORDERED: ACET-2267 PO (09:02)
[2022-01-25] MEDS ORDERED: ESCI-2 PO (09:07)
[2022-01-25] MEDS ORDERED: RIVA2.5T5 PO (09:07)
[2022-01-25] MEDS ORDERED: ROSU10TA28 PO (09:07)
--- NOTE | 2022-01-25 10:16 | Physical Therapy Daily Note ---
PT Daily Note-Current Subjective Patient lying supine in bed upon PT arrival with family members in the room. Patient reports her Low back and both knees hurt severely. Reports she was scheduled to have a left TKA in the upcoming month, however given current medical conditions that may be postponed. Mental Status Patient Orientation: Person, Place, Time, Situation Attachments: Villa Catheter, IV Transfers SCALE: Activities may be completed with or without assistive devices. 4-Aguhaugbaf-xridbzl completes the activity by him/herself with no assistance from a helper. 5-Set-up or Clean-up Assistance-helper sets up or cleans up; patient completes activity. [place] assists only prior to or following the activity. 4-Supervision or Touching Assistance-helper provides verbal cues and/or touching/steadying and/or contact guard assistance as patient completes activity. Assistance may be provided throughout the activity or intermittently. 3-Partial/Moderate Assistance-helper does LESS THAN HALF the effort. [place] lifts, holds or supports trunk or limbs, but provides less than half the effort. 2-Substantial/Maximal Assistance-helper does MORE THAN HALF the effort. [place] lifts or holds trunk or limbs and provides more than half the effort. 0-Nrzhesyif-dubaxk does ALL the effort. Patient does none of the effort to complete the activity. Or, the assistance of 2 or more helpers is required for the patient to complete the activity. If activity was not attempted, code reason: 7-Patient Refused. 9-Not Applicable-not attempted and the patient did not perform the activity before the current illness, exacerbation or injury. 10-Not Attempted due to Environmental Limitations-(lack of equipment, weather restraints, etc.). 88-Not Attempted due to Medical Conditions or Safety Concerns. Roll Left & Right (QC): 2 Sit to Lying (QC): 2 Lying to Sitting/Side of Bed(Q: 1 Sit to Stand (QC): 1 Chair/Ltx-pq-Vaxqk Xfer(QC): 1 Gait Training Does the Patient Walk?: No and Walking Goal IS indicated Exercises Supine Ex: Ankle pumps, Quad Set, Glut sets Supine Reps: 20 Assessment Current Status: Poor Progress Patient tolerated treatment fair. Performs LE therapeutic exercise as listed above with AROM. Patient performs all observed bed mobility with max A and all transfers with total dependence. Patient requires total assistance for SPT to the chair due to report of severe increase in left knee pain. Patient in chair post treatment with all needs met, nursing notified, call light in reach, family members in the room. 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 Halfway Goals PT Halfway Goals Time Frame: Feb 09, 2022 Roll Left & Right (QC): 4 Sit to Lying (QC): 4 Lying-Sitting on Side/Bed(QC): 4 Sit to Stand (QC): 4 Chair/Pmn-da-Tfejz Xfer(QC): 4 Toilet Transfer (QC): 4 Walk 10 feet (QC): 4 Walk 50ft with 2 Turns (QC): 4 PT Plan Treatment/Plan Treatment Plan: Continue Plan of Care Treatment Plan: Bed Mobility, Education, Functional Activity Huma, Functional Strength, Gait, Safety, Therapeutic Exercise, Transfers Treatment Duration: Feb 09, 2022 Frequency: 6 times per week Estimated Hrs Per Day: .25 hour per day Safety Risks/Education Patient Education: Transfer Techniques Teaching Recipient: Patient Teaching Methods: Demonstration, Discussion Response to Teaching: Reinforcement Needed Time/GCodes Time In: 813 Time Out: 838 Total Billed Treatment Time: 25 Total Billed Treatment Visit, JUDSON, LUDIVINA Hernandez PT Jan 25, 2022 10:16
--- NOTE | 2022-01-25 10:50 | Diagnostic Imaging Report ---
INDICATION: Knee pain. COMPARISON: None available. TECHNIQUE: Two radiographs of the left knee dated January 25, 2022. FINDINGS: No acute fracture or dislocation. No destructive osseous process. Severe lateral joint space narrowing and minimal medial joint space narrowing. Mild tricompartmental osteophytosis, greatest involving the patellofemoral joint. Calcification adjacent to the medial tibial spine on the frontal radiograph may relate to osteophyte formation versus a loose body. Small knee joint effusion. No suspicious radiopaque foreign body. IMPRESSION: No acute fracture with advanced degenerative changes, particularly within the lateral compartment with associated small knee joint effusion and possible small loose body. Dictated by: Dictated on workstation # [id number]
[2022-01-25] MEDS ORDERED: meTOprolol 5 MG/5 ML (LOPRESSOR) VIAL IV ONE (11:15)
--- NOTE | 2022-01-25 13:41 | Occupational Ther Daily Note ---
OT Current Status-Daily Note Subjective Pt sleeping in bed, woke to name. Pt reluctantly agrees to therapy. Pt has difficulty staying awake while participating in OT session. Pt states that she is uncomfortable all over, but does not rate. At one point, pt states that R elbow is hurting with movement, does not rate. Mental Status/Objective Patient Orientation: Person, Unable to Assess Attachments: IV, Telemetry ADL-Treatment Therapy Code Descriptions/Definitions Functional [place] Measure: 0=Not Assessed/NA 4=Minimal Assistance 1=Total Assistance 5=Supervision or Setup 2=Maximal Assistance 6=Modified [place] 3=Moderate Assistance 7=Complete IndependenceSCALE: Activities may be completed with or without assistive devices. 0-Cawnvismdl-ktsvdku completes the activity by him/herself with no assistance from a helper. 5-Set-up or Clean-up Assistance-helper sets up or cleans up; patient completes activity. [place] assists only prior to or following the activity. 4-Supervision or Touching Assistance-helper provides verbal cues and/or touching/steadying and/or contact guard assistance as patient completes activity. Assistance may be provided throughout the activity or intermittently. 3-Partial/Moderate Assistance-helper does LESS THAN HALF the effort. [place] lifts, holds or supports trunk or limbs, but provides less than half the effort. 2-Substantial/Maximal Assistance-helper does MORE THAN HALF the effort. [place] lifts or holds trunk or limbs and provides more than half the effort. 3-Xqugfwqti-tddinf does ALL the effort. Patient does none of the effort to complete the activity. Or, the assistance of 2 or more helpers is required for the patient to complete the activity. If activity was not attempted, code reason: 7-Patient Refused. 9-Not Applicable-not attempted and the patient did not perform the activity before the current illness, exacerbation or injury. 10-Not Attempted due to Environmental Limitations-(lack of equipment, weather restraints, etc.). 88-Not Attempted due to Medical Conditions or Safety Concerns. Other Treatment Attempted to have pt complete R side exercises against gravity, pt would stop in the middle of movement due to falling asleep. Pt did allow AAROM to stay on task. Shldr flexion 10's, elbow flex/ext 10x's, finger flex/ext 20's, each requiring verbal and physical cues to complete reps due to falling asleep. Pt then completed L wrist and finger flex/ext without pain, 20x's with verbal/physical cues to stay awake. After session, pt lying in bed with call light/phone in reach. Visitor present in room. OT Assessment Consultant Goals Assessment Consultant Goals Time Frame: Feb 08, 2022 Eating (QC): 6 Oral Hygiene (QC): 6 Toileting Hygiene (QC): 4 Shower/Bathe Self (QC): 4 Upper Body Dressing (QC): 5 Lower Body Dressing (QC): 4 On/Off Footwear (QC): 4 Additional Goals: 1-Demonstrate ADL Tasks, 2-Verbalize Understanding, 3- ImproveStrength/Huma 1=Demonstrate adherence to instructed precautions during ADL tasks. 2=Patient will verbalize/demonstrate understanding of assistive devices/modifications for ADL. 3=Patient will improve strength/tolerance for activity to enable patient to perform ADL's. OT Education/Plan Problem List/Assessment Assessment: Decreased Activ Tolerance, Decreased UE Strength, Impaired Self- Care Skills Discharge Recommendations Plan/Recommendations: Continue POC Treatment Plan/Plan of Care Patient would benefit from OT for education, treatment and training to promote independence in ADL's, mobility, safety and/or upper extremity function for A DL's. Plan of Care: ADL Retraining, Functional Mobility, UE Funct Exercise/Act Treatment Duration: Feb 08, 2022 Frequency: 3 times per week (3-5 times per week) Estimated Hrs Per Day: .25 hour per day Rehab Potential: Fair Time/GCodes Start Time: 13:36 Stop Time: 13:46 Total Time Billed (hr/min): 10 Billed Treatment Time 1 visit-EX 1 (10 min) ERICA NEGRON Jan 25, 2022 13:41
[2022-01-25] MEDS: ACETAMINOPHEN 325 MG TABLET PO PRN (15:27)
--- NOTE | 2022-01-25 16:10 | Tele-ICU Progress Note ---
Subjective Date Seen by a Provider: Jan 25, 2022 Time Seen by a Provider: 11:08 Subjective/Events-last exam (Tele-ICU Physician , Progress Note ) Available chart/ vitals / labs / Images reviewed Video assessment done using teleICU camera, rest of exam as per RN Discussed with RN , EXAM PER RN Events overnight : Afebrile FiO2 - ra I/O = Drips: [id number] Pressors: , hemodynamically stable Consultants: rich ENT Hospital course: Pt is a 66 y/o female, presented to the ED with AMS and lethargy. Work-up revealed A-Fib w/RVR. Family reports pt falling on 01/16 and sustained a left comminuted humerus Fx, Pt given prescription for Hydrocodone & Oxycodone which family reports makes pt "loopy" DDx: Sepsis-PNA, A-Fib w/RVR, Fall, anticoagulant-induced bleeding. 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 Discussed with RN to reach out if any questions or concerns A total of 31 minutes of critical care time was devoted to this patient today, required to treat and/or prevent further deterioration of critical care condition ( as above) . Sepsis Event Evaluation Height, Weight, BMI Height: 5'0.00" Weight: 180lbs. oz. 81.282198lr; 42.19 BMI Method: Focused Exam Lactate Level 01/23/22 16:40: Lactic Acid Level 3.87*H 01/23/22 18:37: Lactic Acid Level 2.16*H 01/23/22 20:28: Lactic Acid Level 1.95 Exam Exam Patient acknowledged, consented, and participated in this virtual visit which was conducted using real time audio/video Vital Signs Date Time Temp Pulse Resp B/P (MAP) Pulse Ox O2 Delivery O2 Flow Rate FiO2 01/25/22 15:00 114 24 156/89 93 Room Air 01/25/22 14:32 90 Room Air 01/25/22 14:00 118 29 144/87 91 Room Air 01/25/22 13:00 120 21 149/89 96 Room Air 01/25/22 12:33 109 01/25/22 12:00 37.5 01/25/22 12:00 128 23 102/80 91 Room Air 01/25/22 11:00 156 34 141/114 96 Room Air 01/25/22 10:00 154 24 138/127 97 Room Air 01/25/22 09:00 138 14 138/109 94 Room Air 01/25/22 08:00 37.0 01/25/22 08:00 122 20 123/91 93 Room Air 01/25/22 07:22 92 Room Air 01/25/22 07:00 121 01/25/22 07:00 128 18 110/98 92 Room Air 01/25/22 06:00 124 27 124/75 94 Room Air 01/25/22 05:00 122 26 141/87 92 Room Air 01/25/22 04:00 134 27 130/88 94 Room Air 01/25/22 04:00 35.3 01/25/22 04:00 92 Room Air 01/25/22 03:00 113 28 122/86 100 Room Air 01/25/22 02:54 96 Room Air 01/25/22 02:00 92 19 150/82 92 Room Air 01/25/22 01:00 111 01/25/22 01:00 111 19 121/63 91 Room Air 01/25/22 00:00 93 Room Air 01/25/22 00:00 36.0 01/25/22 00:00 117 16 129/100 93 Room Air 01/24/22 23:00 101 33 125/78 91 Room Air 01/24/22 22:47 96 Room Air 01/24/22 22:00 122 17 127/69 91 Room Air 01/24/22 21:00 124 8 133/79 94 Room Air 01/24/22 20:05 35.9 01/24/22 20:00 93 Room Air 01/24/22 20:00 123 18 117/72 93 Room Air 01/24/22 19:41 94 Room Air 01/24/22 19:00 112 36 116/63 Room Air 01/24/22 19:00 112 01/24/22 18:00 113 34 124/76 93 Room Air 01/24/22 17:00 106 29 135/99 91 Room Air I & O 01/25/22 07:00 Intake Total 2375 ml Output Total 1375 ml Balance 1000 ml Height & Weight Height: 5'0.00" Weight: 180lbs. oz. 81.540306oo; 42.19 BMI Method: General Appearance: No Apparent Distress, Chronically ill HEENT: PERRL/EOMI, Normal ENT Inspection, Pharynx Normal, Moist Mucous Membranes Neck: Full Range of Motion, Normal Inspection, Non Tender Respiratory: Chest Non Tender, No Accessory Muscle Use, No Respiratory Distress, Decreased Breath Sounds Cardiovascular: No Edema, No Gallop, No JVD, No Murmur, Normal Peripheral Pulses, Irregularly Irregular, Tachycardia Extremity: Normal Capillary Refill, Normal Inspection, Normal Range of Motion, Non Tender, No Calf Tenderness, No Pedal Edema Neurologic/Psychiatric: Alert, Oriented x3, No Motor/Sensory Deficits, Normal Mood/Affect Skin: Normal Color, Warm/Dry Lymphatic: No Adenopathy Results Lab Laboratory Tests 01/23/22 16:30 01/24/22 07:55 01/24/22 15:15 01/25/22 04:59 Assessment/Plan Assessment/Plan ` ELVIS CASAS MD Jan 25, 2022 16:10
[2022-01-25 16:31] LABS: HEMATOCRIT 23 % (35-52); HEMOGLOBIN 7.5 g/dL (11.5-16.0); MEAN CORPUSCULAR HEMOGLOBIN 25 pg (25-34); MEAN CORPUSCULAR HGB CONC 33 g/dL (32-36); MEAN CORPUSCULAR VOLUME 76 fL (80-99); MEAN PLATELET VOLUME 10.3 fL (9.0-12.2); PLATELET COUNT 342 10^3/uL (130-400); WHITE BLOOD COUNT 24.2 10^3/uL (4.3-11.0)
--- NOTE | 2022-01-25 18:43 | CONSULTATION REPORT ---
DATE OF SERVICE: 01/25/2022 PRIMARY CARE PHYSICIAN: Dr. Elida Lan. HISTORY OF PRESENT ILLNESS: The patient is a 66-year-old female, who presented to [facility] Emergency Department two days ago with increasing weakness and altered mental status over the past couple of days. She had baseline of mentation being alert and oriented x4 and does independently ambulate without assistive devices. EMS states her spouse reports that she was seen recently in the Emergency Department with complaints of back pain for a prior fall on 01/16/2022, where she sustained a left comminuted humeral fracture. She has been taking hydrocodone and oxycodone for pain; however, she reported that this makes her loopy. On arrival to the Emergency Department, she was awake, but somewhat confused and noted to have a heart rate in the 170 and tachypneic. She was admitted to the hospital on 12/28/2021 for new onset atrial fibrillation with RVR, pneumonia and was discharged on 12/30/2021. She was discharged on Cardizem and Xarelto antibiotics at that time. She does report that she is having bilateral lower extremity swelling, generalized weakness and shortness of breath. She denied any fever or chills, cough, chest pain, nausea, vomiting or abdominal pain. She did have workup in the ER and was found to be anemic with a hemoglobin of 6.9. She has been treated with conservative management with IV fluids as well as blood transfusions. Her last colonoscopy was in 2014, where she was found to have chronic stage II external and internal hemorrhoids as well as a mild sigmoid diverticulosis. PAST MEDICAL HISTORY: Atrial fibrillation, hypercholesterolemia, hypertension, and obesity. PAST SURGICAL HISTORY: Hysteroscopy and D and C 2005, bilateral cataracts in 06/2021, appendectomy, and tonsillectomy. ALLERGIES: AMPICILLIN and METOPROLOL. MEDICATIONS: Cefdinir 300 mg b.i.d., diltiazem 240 mg daily, Lexapro 10 mg daily, hydrocodone/acetaminophen 7.5/325 mg 1 q. 4 to 6 hours p.r.n. pain, magnesium 250 mg at bedtime, melatonin 5 mg at bedtime, meloxicam 15 mg daily, oxycodone/acetaminophen 5/325 mg one tablet every 4 hours p.r.n. pain, Xarelto 20 mg daily, and rosuvastatin 10 mg at bedtime. SOCIAL HISTORY: Negative for tobacco. Negative for alcohol. FAMILY HISTORY: Noncontributory. LABORATORY DATA: WBC 19.7, hemoglobin 7.0, hematocrit 21, and platelets 274. Sodium 128, potassium 4.1, BUN 19, creatinine 0.71, and GFR 93. REVIEW OF SYSTEMS: This is a well-nourished female, in no acute distress. She does report periods of shortness of breath as well as generalized weakness. No chest pain or diaphoresis. No nausea, vomiting or abdominal pain. No diarrhea or constipation. No red blood per rectum. No dark tarry stools. No fever or chills. No recent inadvertent weight loss. All other review of systems negative. PHYSICAL EXAMINATION: VITAL SIGNS: Blood pressure 149/89, pulse 120, respirations 21, and pulse ox 96% on room air. CHEST: Clear. Good breath sounds bilaterally. HEART: Tachycardic and irregular. EXTREMITIES: 4+ lower extremity edema. Negative Homans sign. HEENT: No scleral icterus. NECK: No cervical lymphadenopathy. ABDOMEN: Soft, nontender, and nondistended. SKIN: Warm, dry and pink. NEUROLOGIC: Awake, alert and oriented x3. ASSESSMENT AND PLAN: A 66-year-old female with anemia as well as a history of atrial fibrillation with RVR, who was on anticoagulation. At this time, we will proceed with medical management with IV fluids as well as resuscitation with packed red blood cells. Once her labs have improved and she is more stable, then, we will proceed with scheduling her for an EGD and a colonoscopy. Job ID: [id number] DocumentID: [id number] Dictated Date: 01/25/2022 14:16:06 Geophysics Scientist Date: 01/25/2022 18:42:55 Dictated By: CYDNEY JONES APRN
[2022-01-25] MEDS: ROSUVASTATIN 10 MG (CRESTOR) TABLET PO SCH (20:07)
[2022-01-26] MEDS: morphine INJ 4 MG/ML 1 ML (VIAL/SYRINGE) IV PRN (01:05)
[2022-01-26] MEDS ORDERED: RT-ALBUTEROL/IPRATROPIUM 3 ML (DUONEB) VIAL INH PRN (01:15)
[2022-01-26] MEDS: MEROPENEM 500 MG in NS (IVPB) 100 ML IV SCH ×5 (01:52→21:26)
[2022-01-26 03:29] LABS: BASOPHILS # (AUTO) 0.1 10^3/uL (0.0-0.1); BASOPHILS % (AUTO) 0 % (0-10); EOSINOPHILS # (AUTO) 0.2 10^3/uL (0.0-0.3); EOSINOPHILS % (AUTO) 1 % (0-10); HEMATOCRIT 23 % (35-52); HEMOGLOBIN 7.6 g/dL (11.5-16.0); LYMPHOCYTES # (AUTO) 1.3 10^3/uL (1.0-4.0); LYMPHOCYTES % (AUTO) 5 % (12-44); MEAN CORPUSCULAR HEMOGLOBIN 25 pg (25-34); MEAN CORPUSCULAR HGB CONC 33 g/dL (32-36); MEAN CORPUSCULAR VOLUME 76 fL (80-99); MEAN PLATELET VOLUME 10.3 fL (9.0-12.2); MONOCYTES # (AUTO) 0.8 10^3/uL (0.0-1.0); MONOCYTES % (AUTO) 3 % (0-12); NEUTROPHILS # (AUTO) 20.2 10^3/uL (1.8-7.8); NEUTROPHILS % (AUTO) 84 % (42-75); PLATELET COUNT 350 10^3/uL (130-400)
[2022-01-26 03:32] LABS: ALBUMIN 2.3 GM/DL (3.2-4.5)
[2022-01-26 03:33] LABS: POTASSIUM 4.5 MMOL/L (3.6-5.0)
[2022-01-26 03:34] LABS: CALCIUM 7.5 MG/DL (8.5-10.1)
[2022-01-26 03:35] LABS: TOTAL PROTEIN 5.4 GM/DL (6.4-8.2)
[2022-01-26 03:37] LABS: BILIRUBIN,TOTAL 0.7 MG/DL (0.1-1.0)
[2022-01-26 03:38] LABS: PHOSPHORUS 3.5 MG/DL (2.3-4.7)
[2022-01-26 03:39] LABS: CREATININE SERUM 0.67 MG/DL (0.60-1.30)
[2022-01-26 03:42] LABS: MAGNESIUM 1.9 MG/DL (1.6-2.4)
[2022-01-26 03:48] LABS: VANCOMYCIN,TROUGH 6.1 UG/ML (10.0-20.0)
[2022-01-26] MEDS: MAGNESIUM 1 GM/100 ML IVPB 100 ML IV SCH (05:32)
[2022-01-26] MEDS: POTASSIUM CL 10MEQ/50ML IVPB 50 ML IV SCH (05:32)
[2022-01-26] MEDS: KCL 20 MEQ TAB (K-DUR) PO SCH (05:33)
[2022-01-26] MEDS ORDERED: TROUGH ORDER-PHARMACY XX ONE (06:00)
--- NOTE | 2022-01-26 07:37 | Diagnostic Imaging Report ---
EXAMINATION: Chest 1 view HISTORY: Sepsis COMPARISON: 01/25/2022 FINDINGS: There is mild right base atelectasis, new from prior exam. There is mild edema. No pneumothorax. Heart size is normal. No pleural effusion. IMPRESSION: 1. New mild right base atelectasis. 2. Stable mild pulmonary edema. Dictated by: Dictated on workstation # [id number]
--- NOTE | 2022-01-26 08:43 | Progress Note - Hospitalist ---
Subjective HPI/CC On Admission Date Seen by Provider: Jan 26, 2022 Time Seen by Provider: 07:30 CC: Afib with RVR and sepsis HPI: This is a 66 yr old female clinic pt of Dr. Mendoza. She presented to the ER with afib with RVR, and SOB. Found to have evidence of sepsis and leukocytosis. Based on Meropenem and Vancomycin empiric treatment. She does have staph. bacteremia. She did have a recent left humerus fracture after a fall. Currently cardiology is managing the [facility]. Appreciate eICU and cardiology. Subjective/Events-last exam Patient reports feeling weak voices no other complaints. She denies chest pain mild cough reportedly productive of small amount of sputum patient unsure as to whether or not there is any purulence does not think there was any blood. She has had no further epistaxis and denies shortness of breath at rest. Focused Exam Lactate Level 01/23/22 16:40: Lactic Acid Level 3.87*H 01/23/22 18:37: Lactic Acid Level 2.16*H 01/23/22 20:28: Lactic Acid Level 1.95 Objective Exam Vital Signs Vital Signs Date Time Temp Pulse Resp B/P (MAP) Pulse Ox O2 Delivery O2 Flow Rate FiO2 01/26/22 08:00 156 24 123/82 95 Nasal Cannula 2.00 01/26/22 00:24 35.9 21 Capillary Refill : General Appearance: No Apparent Distress, Obese Respiratory: No Accessory Muscle Use, No Respiratory Distress, Other (No wheezing rales or rhonchi anteriorly diminished breath sounds in both bases) Cardiovascular: No Gallop, No Murmur, Irregularly Irregular Gastrointestinal: Normal Bowel Sounds, No Pulsatile Mass, Non Tender, Soft Extremity: Pedal Edema Results/Procedures Lab Laboratory Tests 01/25/22 16:20 01/26/22 03:00 Patient resulted labs reviewed. Assessment/Plan Assessment and Plan Assess & Plan/Chief Complaint (1) Atrial fibrillation with rapid ventricular response Status: Acute Patient does not appear to be in heart failure but rate control is poor defer to cardiology. (2) Sepsis Status: Acute (3) Pneumonia Status: Acute Chest x-ray compatible with left lower lobe pneumonia Staph a ureus which preliminary appears to be methicillin sensitive growing from blood continue vancomycin for now. (4) Anticoagulant-induced bleeding Status: Acute Currently resolved off anticoagulant therapy. Secondary associated anemia blood counts are relatively stable. Clinical Quality Measures DVT/VTE Risk/Contraindication: Contraindications-Pharm: Other *list below* Other: anemia MAURISIO GUTIERREZ MD Jan 26, 2022 08:43
[2022-01-26] MEDS: dilTIAZem120 MG (CARDIZEM CD) CAP PO SCH (08:55)
[2022-01-26] MEDS: VANCOMYCIN 1500 MG/NS 500 ML IVPB IV SCH ×2 (08:55)
[2022-01-26] MEDS: PANTOPRAZOLE 40 MG (PROTONIX) VIAL IV SCH (08:55)
[2022-01-26] MEDS: DOCUSATE SODIUM 100 MG (COLACE) CAP PO SCH ×2 (08:56→21:21)
[2022-01-26] MEDS: SENNOSIDES 8.6 MG (SENOKOT) TAB PO SCH ×2 (08:56→21:21)
[2022-01-26] MEDS ORDERED: SOD CHL GEL 0.5 OZ (AYR SALINE NASAL GEL) TUBE TOP PRN (09:00)
[2022-01-26] MEDS ORDERED: meTOprolol TARTRATE 25 MG (LOPRESSOR) TABLET PO ONE (09:45)
[2022-01-26] MEDS ORDERED: meTOprolol 5 MG/5 ML (LOPRESSOR) VIAL IV ONE (09:45)
[2022-01-26] MEDS ORDERED: meTOprolol 5 MG/5 ML (LOPRESSOR) VIAL ONE (09:47)
[2022-01-26] MEDS ORDERED: meTOprolol TARTRATE 25 MG (LOPRESSOR) TABLET ONE (09:47)
[2022-01-26] MEDS ORDERED: MEROPENEM 500 MG in NS (IVPB) 100 ML IV SCH (10:00)
--- NOTE | 2022-01-26 10:34 | Tele-ICU Progress Note ---
Subjective Time Seen by a Provider: 08:50 Subjective/Events-last exam This virtual visit was conducted using real time audio/video. Thank you for asking us to see this patient for anemia, afib/RVR and sepsis. Also L comminuted humeral # 01/16/22. Recent events: Metoprolol added 01/26/22. PE: HR 130-150 afib. O2 sat 95% on 2LPM. HEENT: No obvious masses, adenopathy or JVD. Chest: clear to auscultation. diminished. CV: Irreg. S1 S2 No murmur or added sounds. Abd: Non-tender. Bowel sounds Y. : Unremarkable. [place]. [employer]/psychiatric: Grossly intact. No obvious focal findings. Extremities: Trace edema. Capillary refill < 3 seconds. Skin: unremarkable. Results: Elevated WCC 24, BG 106. Decreased HB 7.6, Na 130. CXR: Poor insp effort, hyperinflated, cannot rule out pna in retrocardiac space. Available chart/ vitals / labs / images reviewed. Video assessment done using teleICU camera, rest of exam as per RN. A/P: Respiratory insufficiency: Continue present management with O2, duonebs. Monitor for increasing oxygenation needs and/or need for intubation. Critical Care: critically ill patient. Cont. abx, PPI, dilt and metop. Discussed with BOBBY Landry. Asked RN to reach out to eICU if any questions or concerns later. Time spent with patient/coordination of care with other health professionals (mins): 30 Sepsis Event Evaluation Height, Weight, BMI Height: 5'0.00" Weight: 180lbs. oz. 81.809299rm; 43.05 BMI Method: Focused Exam Lactate Level 01/23/22 16:40: Lactic Acid Level 3.87*H 01/23/22 18:37: Lactic Acid Level 2.16*H 01/23/22 20:28: Lactic Acid Level 1.95 Exam Exam Patient acknowledged, consented, and participated in this virtual visit which was conducted using real time audio/video Vital Signs Date Time Temp Pulse Resp B/P (MAP) Pulse Ox O2 Delivery O2 Flow Rate FiO2 01/26/22 10:00 135 21 124/87 91 Nasal Cannula 2.00 01/26/22 09:00 130 20 138/108 92 Nasal Cannula 2.00 01/26/22 08:00 156 24 123/82 95 Nasal Cannula 2.00 01/26/22 07:00 128 26 134/86 95 Nasal Cannula 2.00 01/26/22 07:00 141 01/26/22 06:00 129 25 138/93 97 Nasal Cannula 2.00 01/26/22 05:00 142 27 97 Nasal Cannula 2.00 01/26/22 04:00 116 26 161/75 96 Nasal Cannula 2.00 01/26/22 04:00 92 Room Air 01/26/22 03:00 111 28 129/92 96 Nasal Cannula 2.00 01/26/22 02:00 129 25 123/79 93 Nasal Cannula 2.00 01/26/22 01:15 Nasal Cannula 2.00 01/26/22 01:00 122 01/26/22 01:00 126 25 116/100 91 Room Air 01/26/22 00:24 35.9 126 90 21 01/26/22 00:00 92 Room Air 01/26/22 00:00 36.3 01/26/22 00:00 118 22 166/94 92 Room Air 01/25/22 23:00 125 21 92 Room Air 01/25/22 22:51 92 Room Air 01/25/22 22:00 122 23 93 Room Air 01/25/22 21:00 118 29 93 Room Air 01/25/22 20:00 92 Room Air 01/25/22 20:00 116 24 110/69 97 Room Air 01/25/22 19:55 35.9 01/25/22 19:29 90 Room Air 01/25/22 19:00 107 01/25/22 19:00 115 26 95 Room Air 01/25/22 18:00 126 25 95 Room Air 01/25/22 17:00 135 21 124/68 94 Room Air 01/25/22 16:00 131 22 148/114 96 Room Air 01/25/22 16:00 95 Room Air 01/25/22 15:00 114 24 156/89 93 Room Air 01/25/22 14:32 90 Room Air 01/25/22 14:00 118 29 144/87 91 Room Air 01/25/22 13:00 120 21 149/89 96 Room Air 01/25/22 12:33 109 01/25/22 12:00 95 Room Air 01/25/22 12:00 37.5 01/25/22 12:00 128 23 102/80 91 Room Air 01/25/22 11:00 156 34 141/114 96 Room Air I & O 01/26/22 07:00 Intake Total 2562 ml Output Total 2750 ml Balance -188 ml Height & Weight Height: 5'0.00" Weight: 180lbs. oz. 81.556652iv; 43.05 BMI Method: General Appearance: No Apparent Distress, Obese HEENT: PERRL/EOMI, Normal ENT Inspection, Pharynx Normal, Moist Mucous Membranes Neck: Full Range of Motion, Normal Inspection, Non Tender Respiratory: No Accessory Muscle Use, No Respiratory Distress, Other (No wheezing rales or rhonchi anteriorly diminished breath sounds in both bases) Cardiovascular: No Gallop, No Murmur, Irregularly Irregular Extremity: Pedal Edema Neurologic/Psychiatric: Alert, Oriented x3 Skin: Normal Color, Warm/Dry Lymphatic: No Adenopathy Results Lab Laboratory Tests 01/24/22 15:15 01/25/22 04:59 01/25/22 16:20 01/26/22 03:00 Assessment/Plan Assessment/Plan See free text. Critical Care: Critically Ill Patient LAMONT JIMENEZ MD Jan 26, 2022 10:34
--- NOTE | 2022-01-26 10:37 | Cardiology Progress Note ---
Subjective Date Seen by Provider: Jan 26, 2022 Time Seen by Provider: 10:33 Subjective/Events-last exam Patient is laying down in bed. No new complaint. Denied any chest pain. Review of Systems General: No Chills, No Night Sweats; Fatigue, Malaise; No Appetite, No Other HEENT: No Head Aches, No Visual Changes, No Eye Pain, No Ear Pain, No Dysphasia, No Sinus Congestion, No Post Nasal Drip, No Sore Throat, No Other Pulmonary: No Dyspnea, No Cough, No Pleuritic Chest Pain, No Other Cardiovascular: No: Chest Pain, Palpitations, Orthopnea, Paroxysmal Noc. Dyspnea, Edema, Lt Headedness, Other Focused Exam Lactate Level 01/23/22 16:40: Lactic Acid Level 3.87*H 01/23/22 18:37: Lactic Acid Level 2.16*H 01/23/22 20:28: Lactic Acid Level 1.95 Objective-Cardiology Exam Last Set of Vital Signs Vital Signs 01/26/22 01/26/22 00:24 10:00 Temp 35.9 Pulse 135 Resp 21 B/P (MAP) 124/87 Pulse Ox 91 O2 Delivery Nasal Cannula O2 Flow Rate 2.00 FiO2 21 I&O Intake and Output 01/26/22 00:00 Intake Total 2612 ml Output Total 2450 ml Balance 162 ml Intake Oral 1250 ml IV Total 1362 ml Output Urine Total 2450 ml General: Alert, Oriented X3, Cooperative HEENT: Atraumatic, PERRLA Neck: Supple, No JVD, No Thyromegaly Lungs: Clear to Auscultation, Normal Air Movement Heart: Normal S1, Normal S2, Other (Atrial fibrillation, tachycardia.) Abdomen: Normal Bowel Sounds, Soft, No Tenderness, No Hepatosplenomegaly, No Masses Extremities: No Clubbing, No Cyanosis, No Edema, Normal Pulses, No Tenderness/Swelling Skin: No Rashes, No Breakdown, No Significant Lesion Neuro: Normal Gait, Normal Speech, Normal Tone, Sensation Intact Psych/Mental Status: Mental Status NL, Mood NL Results Lab Laboratory Tests 01/25/22 16:20 01/26/22 03:00 A/P-Cardiology Admission Diagnosis Atrial fibrillation Staph bacteremia Tachycardia Hypertension Assessment/Plan Atrial fibrillation with rapid ventricular response. Unable to tolerate aggressive anticoagulation due to severe anemia and persistent nosebleed. Maintained on Cardizem CD 360 mg daily Reporting that she was intolerant to beta-blockers with severe bradycardia. I will try metoprolol again and evaluate tolerance and response. Patient will need to be restarting on oral anticoagulation as soon as possible Staff bacteremia. Leukocytosis. Receiving antibiotics. Managed by primary care physician 2D echo was reported by Dr. Frederick on December 29, 2021 with ejection fraction 55 to 60%, left atrial dilatation, estimated pulmonary artery pressure 40 mmHg Anemia, unknown source of occult blood loss. Continue to monitor H&H. Status post falling with left humerus fracture. Managed by medical team Hypertension, monitor blood pressure Hyperlipidemia, continue on statin Morbid obesity, BMI 43. HEATH GÓMEZ MD Jan 26, 2022 10:37
--- NOTE | 2022-01-26 11:21 | Progress Note ---
Subjective Date Seen by a Provider: Jan 26, 2022 Time Seen by a Provider: 11:00 Subjective/Events-last exam clinically stable however still not rate controlled. Hb stable. Focused Exam Lactate Level 01/23/22 16:40: Lactic Acid Level 3.87*H 01/23/22 18:37: Lactic Acid Level 2.16*H 01/23/22 20:28: Lactic Acid Level 1.95 Objective Exam Vital Signs Date Time Temp Pulse Resp B/P (MAP) Pulse Ox O2 Delivery O2 Flow Rate FiO2 01/26/22 10:00 135 21 124/87 91 Nasal Cannula 2.00 01/26/22 09:00 130 20 138/108 92 Nasal Cannula 2.00 01/26/22 08:00 94 Nasal Cannula 2.00 01/26/22 08:00 156 24 123/82 95 Nasal Cannula 2.00 01/26/22 07:00 128 26 134/86 95 Nasal Cannula 2.00 01/26/22 07:00 141 01/26/22 06:00 129 25 138/93 97 Nasal Cannula 2.00 01/26/22 05:00 142 27 97 Nasal Cannula 2.00 01/26/22 04:00 116 26 161/75 96 Nasal Cannula 2.00 01/26/22 04:00 92 Room Air 01/26/22 03:00 111 28 129/92 96 Nasal Cannula 2.00 01/26/22 02:00 129 25 123/79 93 Nasal Cannula 2.00 01/26/22 01:15 Nasal Cannula 2.00 01/26/22 01:00 122 01/26/22 01:00 126 25 116/100 91 Room Air 01/26/22 00:24 35.9 126 90 21 01/26/22 00:00 92 Room Air 01/26/22 00:00 36.3 01/26/22 00:00 118 22 166/94 92 Room Air 01/25/22 23:00 125 21 92 Room Air 01/25/22 22:51 92 Room Air 01/25/22 22:00 122 23 93 Room Air 01/25/22 21:00 118 29 93 Room Air 01/25/22 20:00 92 Room Air 01/25/22 20:00 116 24 110/69 97 Room Air 01/25/22 19:55 35.9 01/25/22 19:29 90 Room Air 01/25/22 19:00 107 01/25/22 19:00 115 26 95 Room Air 01/25/22 18:00 126 25 95 Room Air 01/25/22 17:00 135 21 124/68 94 Room Air 01/25/22 16:00 131 22 148/114 96 Room Air 01/25/22 16:00 95 Room Air 01/25/22 15:00 114 24 156/89 93 Room Air 01/25/22 14:32 90 Room Air 01/25/22 14:00 118 29 144/87 91 Room Air 01/25/22 13:00 120 21 149/89 96 Room Air 01/25/22 12:33 109 01/25/22 12:00 95 Room Air 01/25/22 12:00 37.5 01/25/22 12:00 128 23 102/80 91 Room Air I & O 01/26/22 07:00 Intake Total 2562 ml Output Total 2750 ml Balance -188 ml Capillary Refill : General Appearance: No Apparent Distress HEENT: PERRL/EOMI Neck: Full Range of Motion Respiratory: Chest Non Tender, Decreased Breath Sounds Cardiovascular: Regular Rate, Rhythm Gastrointestinal: normal bowel sounds, non tender, soft Extremity: Normal Capillary Refill Neurologic/Psychiatric: Alert, Oriented x3 Skin: Normal Color Lymphatic: No Adenopathy Results Lab Laboratory Tests 01/25/22 16:20: White Blood Count 24.2H, Red Blood Count 2.96L, Hemoglobin 7.5L, Hematocrit 23L, Mean Corpuscular Volume 76L, Mean Corpuscular Hemoglobin 25, Mean Corpuscular Hemoglobin Concent 33, Red Cell Distribution Width 17.3H, Platelet Count 342, Mean Platelet Volume 10.3 01/26/22 03:00: White Blood Count 24.0H, Red Blood Count 3.04L, Hemoglobin 7.6L, Hematocrit 23L, Mean Corpuscular Volume 76L, Mean Corpuscular Hemoglobin 25, Mean Corpuscular Hemoglobin Concent 33, Red Cell Distribution Width 17.4H, Platelet Count 350, Mean Platelet Volume 10.3, Immature Granulocyte % (Auto) 7, Neutrophils (%) (Auto) 84H, Lymphocytes (%) (Auto) 5L, Monocytes (%) (Auto) 3, Eosinophils (%) (Auto) 1, Basophils (%) (Auto) 0, Neutrophils # (Auto) 20.2H, Lymphocytes # (Auto) 1.3, Monocytes # (Auto) 0.8, Eosinophils # (Auto) 0.2, Basophils # (Auto) 0.1, Immature Granulocyte # (Auto) 1.6H, Sodium Level 130L, Potassium Level 4.5, Chloride Level 101, Carbon Dioxide Level 18L, Anion Gap 11, Blood Urea Nitrogen 14, Creatinine 0.67, Estimat Glomerular Filtration Rate 96, BUN/Creatinine Ratio 21, Glucose Level 106H, Calcium Level 7.5L, Corrected Calcium 8.9, Phosphorus Level 3.5, Magnesium Level 1.9, Total Bilirubin 0.7, Aspartate Amino Transf (AST/SGOT) 78H, Alanine Aminotransferase (ALT/SGPT) 68H, Alkaline Phosphatase 99, Total Protein 5.4L, Albumin 2.3L, Vancomycin Level Trough 6.1L Microbiology 01/24/22 Blood Culture - Preliminary, Resulted No growth 01/23/22 Urine Culture - Final, Complete NO GROWTH Assessment/Plan Assessment/Plan Assess & Plan/Chief Complaint a-fib with rvr and previously on xeralto. hx of epistaxis however much worse in past few weeks likely due to xeralto. pt due for colonoscopy and would add EGD at same time however patient stable and will await when more stable or even as OP. Clinical Quality Measures DVT/VTE Risk/Contraindication: Contraindications-Pharm: Other *list below* Other: anemia LM SARKAR MD Jan 26, 2022 11:21
--- NOTE | 2022-01-26 12:38 | Physical Therapy Daily Note ---
PT Daily Note-Current Subjective Patient lying supine in bed upon PT arrival, daughter in the room, agreeable to treatment. Transfers SCALE: Activities may be completed with or without assistive devices. 9-[id number] completes the activity by him/herself with no assistance from a helper. 5-Set-up or Clean-up Assistance-helper sets up or cleans up; patient completes activity. Vivian assists only prior to or following the activity. 4-Supervision or Touching Assistance-helper provides verbal cues and/or touching/steadying and/or contact guard assistance as patient completes activity. Assistance may be provided throughout the activity or intermittently. 3-Partial/Moderate Assistance-helper does LESS THAN HALF the effort. Vivian lifts, holds or supports trunk or limbs, but provides less than half the effort. 2-Substantial/Maximal Assistance-helper does MORE THAN HALF the effort. Vivian lifts or holds trunk or limbs and provides more than half the effort. 9-Nxbdcnqjw-lwpcmi does ALL the effort. Patient does none of the effort to complete the activity. Or, the assistance of 2 or more helpers is required for the patient to complete the activity. If activity was not attempted, code reason: 7-Patient Refused. 9-Not Applicable-not attempted and the patient did not perform the activity before the current illness, exacerbation or injury. 10-Not Attempted due to Environmental Limitations-(lack of equipment, weather restraints, etc.). 88-Not Attempted due to Medical Conditions or Safety Concerns. Roll Left & Right (QC): 2 Sit to Lying (QC): 2 Lying to Sitting/Side of Bed(Q: 2 Sit to Stand (QC): 2 Gait Training Does the Patient Walk?: No and Walking Goal IS indicated Exercises Supine Ex: Ankle pumps, Quad Set, Glut sets Supine Reps: 20 Assessment Current Status: Fair Progress Patient HR increased this morning. Reports light headed and some dizziness. B ed mobility and transfers with max A to edge of bed. Patient performs static and dynamic sitting activities. Patient in bed post treatment with all needs met, nursing notified, call light in hand. 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 Retirement Goals PT Retirement Goals Time Frame: Feb 09, 2022 Roll Left & Right (QC): 4 Sit to Lying (QC): 4 Lying-Sitting on Side/Bed(QC): 4 Sit to Stand (QC): 4 Chair/Plo-oj-Caues Xfer(QC): 4 Toilet Transfer (QC): 4 Walk 10 feet (QC): 4 Walk 50ft with 2 Turns (QC): 4 PT Plan Treatment/Plan Treatment Plan: Continue Plan of Care Treatment Plan: Bed Mobility, Education, Functional Activity Huma, Functional Strength, Gait, Safety, Therapeutic Exercise, Transfers Treatment Duration: Feb 09, 2022 Frequency: 6 times per week Estimated Hrs Per Day: .25 hour per day Safety Risks/Education Patient Education: Transfer Techniques Teaching Recipient: Patient, Family Teaching Methods: Demonstration, Discussion Response to Teaching: Verbalize Understanding, Return Demonstration Time/GCodes Time In: 1134 Time Out: 1200 Total Billed Treatment Time: 26 Total Billed Treatment Visit, FA(2) LUDIVINA LANE PT Jan 26, 2022 12:38
[2022-01-26] MEDS ORDERED: meTOprolol TARTRATE 25 MG (LOPRESSOR) TABLET PO SCH (21:00)
[2022-01-26] MEDS: ROSUVASTATIN 10 MG (CRESTOR) TABLET PO SCH (21:21)
[2022-01-26] MEDS: MELATONIN 3 MG TABLET PO PRN (21:25)
[2022-01-27] MEDS: MEROPENEM 500 MG in NS (IVPB) 100 ML IV SCH ×4 (03:13→21:25)
[2022-01-27 03:33] LABS: BASOPHILS # (AUTO) 0.1 10^3/uL (0.0-0.1); BASOPHILS % (AUTO) 0 % (0-10); EOSINOPHILS # (AUTO) 0.2 10^3/uL (0.0-0.3); EOSINOPHILS % (AUTO) 1 % (0-10); HEMATOCRIT 23 % (35-52); HEMOGLOBIN 7.5 g/dL (11.5-16.0); LYMPHOCYTES # (AUTO) 1.7 10^3/uL (1.0-4.0); LYMPHOCYTES % (AUTO) 6 % (12-44); MEAN CORPUSCULAR HEMOGLOBIN 25 pg (25-34); MEAN CORPUSCULAR HGB CONC 33 g/dL (32-36); MEAN CORPUSCULAR VOLUME 76 fL (80-99); MONOCYTES # (AUTO) 1.1 10^3/uL (0.0-1.0); MONOCYTES % (AUTO) 4 % (0-12); NEUTROPHILS % (AUTO) 82 % (42-75); PLATELET COUNT 411 10^3/uL (130-400); WHITE BLOOD COUNT 27.9 10^3/uL (4.3-11.0)
[2022-01-27 06:01] LABS: ALBUMIN 2.3 GM/DL (3.2-4.5); POTASSIUM 4.6 MMOL/L (3.6-5.0)
[2022-01-27 06:02] LABS: CALCIUM 7.5 MG/DL (8.5-10.1)
[2022-01-27 06:04] LABS: TOTAL PROTEIN 5.6 GM/DL (6.4-8.2)
[2022-01-27 06:05] LABS: BILIRUBIN,TOTAL 0.7 MG/DL (0.1-1.0)
[2022-01-27 06:07] LABS: CREATININE SERUM 0.64 MG/DL (0.60-1.30)
[2022-01-27] MEDS: POTASSIUM CL 10MEQ/50ML IVPB 50 ML IV SCH (06:32)
[2022-01-27] MEDS: MAGNESIUM 1 GM/100 ML IVPB 100 ML IV SCH (06:33)
[2022-01-27] MEDS: KCL 20 MEQ TAB (K-DUR) PO SCH (06:33)
[2022-01-27] MEDS: VANCOMYCIN 1500 MG/NS 500 ML IVPB IV SCH ×2 (06:40)
[2022-01-27] MEDS: meTOprolol TARTRATE 50 MG (LOPRESSOR) TAB PO SCH ×2 (07:51→20:30)
[2022-01-27] MEDS: dilTIAZem120 MG (CARDIZEM CD) CAP PO SCH (07:51)
[2022-01-27] MEDS: DOCUSATE SODIUM 100 MG (COLACE) CAP PO SCH ×2 (07:52→20:30)
[2022-01-27] MEDS: PANTOPRAZOLE 40 MG (PROTONIX) VIAL IV SCH (07:52)
[2022-01-27] MEDS: SENNOSIDES 8.6 MG (SENOKOT) TAB PO SCH ×2 (07:52→20:30)
--- NOTE | 2022-01-27 09:22 | Tele-ICU Progress Note ---
Progress Note video rounds completed 66 y/o with morbid obesity and a fib on xarelto presents to ED with AMS CT head negative Had beeen on oxycodone and hydrocone for left humerus fx. Being treated for sepsis with elevated lactate, procal and positive BC for staph aureus source unidentified. On meropenam and van Anticoagulation held due to epistaxis Hgb today 7.5 WBC 27.9 Cardiolgy on consult for afib Continue antibiotics Sunsequent BC negative Focused Exam Height, Weight, BMI Height: 5'0.00" Weight: 180lbs. oz. 81.914467gp; 43.48 BMI Method: Labs Laboratory Tests 01/27/22 03:20 01/27/22 05:20 Results Results/Procedures Labs Laboratory Tests 01/25/22 16:20 01/26/22 03:00 01/27/22 03:20 01/27/22 05:20 Patient resulted labs reviewed. Results Labs Labs Laboratory Tests 01/27/22 03:20: White Blood Count 27.9H, Red Blood Count 2.99L, Hemoglobin 7.5L, Hematocrit 23L, Mean Corpuscular Volume 76L, Mean Corpuscular Hemoglobin 25, Mean Corpuscular Hemoglobin Concent 33, Red Cell Distribution Width 17.8H, Platelet Count 411H, Mean Platelet Volume 11.0, Immature Granulocyte % (Auto) 7, Neutrophils (%) (Auto) 82H, Lymphocytes (%) (Auto) 6L, Monocytes (%) (Auto) 4, Eosinophils (%) (Auto) 1, Basophils (%) (Auto) 0, Neutrophils # (Auto) 23.0H, Lymphocytes # (Auto) 1.7, Monocytes # (Auto) 1.1H, Eosinophils # (Auto) 0.2, Basophils # (Auto) 0.1, Immature Granulocyte # (Auto) 1.9H 01/27/22 05:20: Sodium Level 128L, Potassium Level 4.6, Chloride Level 99, Carbon Dioxide Level 18L, Anion Gap 11, Blood Urea Nitrogen 17, Creatinine 0.64, Estimat Glomerular Filtration Rate 97, BUN/Creatinine Ratio 27, Glucose Level 99, Calcium Level 7.5L, Corrected Calcium 8.9, Phosphorus Level 4.0, Magnesium Level 2.0, Total Bilirubin 0.7, Aspartate Amino Transf (AST/SGOT) 58H, Alanine Aminotransferase (ALT/SGPT) 59H, Alkaline Phosphatase 94, Total Protein 5.6L, Albumin 2.3L Microbiology 01/24/22 Blood Culture - Preliminary, Resulted No growth 01/23/22 Urine Culture - Final, Complete NO GROWTH DINA VILLA MD Jan 27, 2022 09:22
--- NOTE | 2022-01-27 10:01 | Progress Note ---
Subjective Date Seen by a Provider: Jan 27, 2022 Time Seen by a Provider: 09:00 Subjective/Events-last exam doing ok. leukocytosis may be related to pneumonia. rate better controlled however tachy at times. hb stable for now. Objective Exam Vital Signs Date Time Temp Pulse Resp B/P (MAP) Pulse Ox O2 Delivery O2 Flow Rate FiO2 01/27/22 09:00 103 17 102/89 96 Nasal Cannula 2.00 01/27/22 08:00 36.0 01/27/22 08:00 101 27 116/88 99 Nasal Cannula 2.00 01/27/22 08:00 96 Nasal Cannula 3.00 01/27/22 07:00 113 21 108/82 90 Nasal Cannula 2.00 01/27/22 07:00 106 01/27/22 06:00 114 25 116/89 96 Nasal Cannula 2.00 01/27/22 05:00 115 15 117/80 98 Nasal Cannula 2.00 01/27/22 04:00 36.8 01/27/22 04:00 98 30 114/82 100 Nasal Cannula 2.00 01/27/22 04:00 97 Nasal Cannula 3.00 01/27/22 03:00 96 115/65 98 Nasal Cannula 2.00 01/27/22 02:00 106 22 119/80 98 Nasal Cannula 2.00 01/27/22 01:00 110 01/27/22 01:00 103 29 114/87 97 Nasal Cannula 2.00 01/27/22 00:00 116 23 110/83 95 Nasal Cannula 2.00 01/27/22 00:00 97 Nasal Cannula 3.00 01/27/22 00:00 36.2 01/26/22 23:00 91 22 112/77 100 Nasal Cannula 2.00 01/26/22 22:00 105 19 117/82 100 Nasal Cannula 2.00 01/26/22 21:00 124 19 122/73 96 Nasal Cannula 2.00 01/26/22 20:00 105 22 101/57 89 Nasal Cannula 2.00 01/26/22 20:00 35.8 01/26/22 20:00 97 Nasal Cannula 2.00 01/26/22 19:00 96 24 101/62 91 Nasal Cannula 2.00 01/26/22 19:00 132 01/26/22 18:00 115 28 120/78 95 Nasal Cannula 2.00 01/26/22 17:00 116 15 139/109 90 Nasal Cannula 2.00 01/26/22 16:00 94 Nasal Cannula 2.00 01/26/22 16:00 111 9 117/72 93 Nasal Cannula 2.00 01/26/22 15:00 101 27 107/92 92 Nasal Cannula 2.00 01/26/22 14:00 114 13 91/61 93 Nasal Cannula 2.00 01/26/22 13:00 108 23 109/69 Nasal Cannula 2.00 01/26/22 12:40 110 01/26/22 12:00 37.0 01/26/22 12:00 134 11 117/96 Nasal Cannula 2.00 01/26/22 12:00 93 Nasal Cannula 2.00 01/26/22 11:00 146 17 133/98 92 Nasal Cannula 2.00 01/26/22 10:00 135 21 124/87 91 Nasal Cannula 2.00 I & O 01/27/22 07:00 Intake Total 750 ml Output Total 1700 ml Balance -950 ml Capillary Refill : General Appearance: No Apparent Distress HEENT: PERRL/EOMI Neck: Full Range of Motion Respiratory: Decreased Breath Sounds, Rhonci Cardiovascular: Regular Rate, Rhythm Gastrointestinal: normal bowel sounds, non tender, soft Extremity: Normal Capillary Refill Neurologic/Psychiatric: Alert, Oriented x3 Skin: Normal Color Lymphatic: No Adenopathy Results Lab Laboratory Tests 01/27/22 03:20: White Blood Count 27.9H, Red Blood Count 2.99L, Hemoglobin 7.5L, Hematocrit 23L, Mean Corpuscular Volume 76L, Mean Corpuscular Hemoglobin 25, Mean Corpuscular Hemoglobin Concent 33, Red Cell Distribution Width 17.8H, Platelet Count 411H, Mean Platelet Volume 11.0, Immature Granulocyte % (Auto) 7, Neutrophils (%) (Auto) 82H, Lymphocytes (%) (Auto) 6L, Monocytes (%) (Auto) 4, Eosinophils (%) (Auto) 1, Basophils (%) (Auto) 0, Neutrophils # (Auto) 23.0H, Lymphocytes # (Auto) 1.7, Monocytes # (Auto) 1.1H, Eosinophils # (Auto) 0.2, Basophils # (Auto) 0.1, Immature Granulocyte # (Auto) 1.9H 01/27/22 05:20: Sodium Level 128L, Potassium Level 4.6, Chloride Level 99, Carbon Dioxide Level 18L, Anion Gap 11, Blood Urea Nitrogen 17, Creatinine 0.64, Estimat Glomerular Filtration Rate 97, BUN/Creatinine Ratio 27, Glucose Level 99, Calcium Level 7.5L, Corrected Calcium 8.9, Phosphorus Level 4.0, Magnesium Level 2.0, Total Bilirubin 0.7, Aspartate Amino Transf (AST/SGOT) 58H, Alanine Aminotransferase (ALT/SGPT) 59H, Alkaline Phosphatase 94, Total Protein 5.6L, Albumin 2.3L Microbiology 01/24/22 Blood Culture - Preliminary, Resulted No growth 01/23/22 Urine Culture - Final, Complete NO GROWTH Assessment/Plan Assessment/Plan Assess & Plan/Chief Complaint a-fib with rvr and previously on xeralto. hx of epistaxis however much worse in past few weeks likely due to xeralto. pt due for colonoscopy and would add EGD at same time however patient stable and will await when more stable or even as OP. consult ortho for left arm fx Clinical Quality Measures DVT/VTE Risk/Contraindication: Contraindications-Pharm: Other *list below* Other: anemia LM SARKAR MD Jan 27, 2022 10:01
--- NOTE | 2022-01-27 10:21 | Progress Note - Hospitalist ---
Subjective HPI/CC On Admission Date Seen by Provider: Jan 27, 2022 Time Seen by Provider: 07:00 CC: Afib with RVR and sepsis HPI: This is a 66 yr old female clinic pt of Dr. Mendoza. She presented to the ER with afib with RVR, and SOB. Found to have evidence of sepsis and leukocytosis. Based on Meropenem and Vancomycin empiric treatment. She does have staph. bacteremia. She did have a recent left humerus fracture after a fall. [facility] Appreciate e[facility] and cardiology. Subjective/Events-last exam Patient extremely weak continues with nonproductive cough but denies chest pain abdominal pain or shortness of breath at rest. Staff noted hemorrhagic bulla that popped on the right fifth toe. She reports no associated pain and thinks it may have occurred during her fall but she is not sure. Objective Exam Vital Signs Vital Signs Date Time Temp Pulse Resp B/P (MAP) Pulse Ox O2 Delivery O2 Flow Rate FiO2 01/27/22 09:00 103 17 102/89 96 Nasal Cannula 2.00 01/27/22 08:00 36.0 01/26/22 00:24 21 Capillary Refill : General Appearance: No Apparent Distress, Chronically ill HEENT: Pale Conjunctivae (L), Pale Conjunctivae (R) Respiratory: No Accessory Muscle Use, No Respiratory Distress, Other (Decreased breath sounds left base.) Cardiovascular: No Gallop, No Murmur, Irregularly Irregular Gastrointestinal: Normal Bowel Sounds, Non Tender, Soft Extremity: Other ( Blister on the right fifth toe serous appearing discharge some underlying mild erythema with some punctate petechia at the base of the toe no significant pain on range of motion no deformity no erythema extending up from the toe into the foot.) Results/Procedures Lab Laboratory Tests 01/27/22 03:20 01/27/22 05:20 Patient resulted labs reviewed. Assessment/Plan Assessment and Plan Assess & Plan/Chief Complaint (1) Atrial fibrillation with rapid ventricular response Status: Rate controlled much better today 90-100 at rest currently with increased dose of diltiazem per cardiology yesterday. (2) Sepsis Status: Acute (3) Pneumonia Status: Patient appears no better in this regard her chest x-ray is unchanged but her white count is going up. Culture returned and her staff sepsis is methicillin sensitive. Yesterday's vancomycin trough was subtherapeutic and her dose was appropriately increased however she may do better on cephalosporin therapy considering sensitivities. There is a reported amoxicillin which she is not really sure about she developed a rash she thinks 30 or 40 years ago and was told it might have been amoxicillin related. She was warned that there is about a 10% chance if she truly does have an amoxicillin allergy list which statistically is a little less likely of developing a rash on IV Ancef. The staff have been notified of this we will monitor but switch to Ancef 2 g IV every 8. (4) Anticoagulant-induced bleeding Status: Acute Currently resolved off anticoagulant therapy. Secondary associated anemia blood counts are relatively stable. Critical Care Critically Ill Patient Clinical Quality Measures DVT/VTE Risk/Contraindication: Contraindications-Pharm: Other *list below* Other: anemia MAURISIO GUTIERREZ MD Jan 27, 2022 10:21
[2022-01-27] MEDS: ceFAZolin 2 GM IV Premixed 50 ML IV SCH ×2 (11:25→18:05)
--- NOTE | 2022-01-27 12:48 | Cardiology Progress Note ---
Subjective Date Seen by Provider: Jan 27, 2022 Time Seen by Provider: 10:00 Subjective/Events-last exam Patient was seen at bedside, laying down comfortably, feeling better. No new complaint. Review of Systems General: No Chills, No Night Sweats; Fatigue, Malaise; No Appetite, No Other HEENT: No Head Aches, No Visual Changes, No Eye Pain, No Ear Pain, No Dysphasia, No Sinus Congestion, No Post Nasal Drip, No Sore Throat, No Other Pulmonary: No Dyspnea, No Cough, No Pleuritic Chest Pain, No Other Cardiovascular: No: Chest Pain, Palpitations, Orthopnea, Paroxysmal Noc. Dyspnea, Edema, Lt Headedness, Other Objective-Cardiology Exam Last Set of Vital Signs Vital Signs 01/26/22 01/27/22 00:24 12:00 Pulse 95 Resp 20 B/P (MAP) 108/77 Pulse Ox 90 O2 Delivery Nasal Cannula O2 Flow Rate 2.00 FiO2 21 I&O Intake and Output 01/27/22 00:00 Intake Total 750 ml Output Total 1725 ml Balance -975 ml Intake Oral 650 ml IV Total 100 ml Output Urine Total 1725 ml General: Alert, Oriented X3, Cooperative HEENT: Atraumatic, PERRLA Neck: Supple, No JVD, No Thyromegaly Lungs: Clear to Auscultation, Normal Air Movement Heart: Normal S1, Normal S2, Other (Atrial fibrillation, tachycardia.) Abdomen: Normal Bowel Sounds, Soft, No Tenderness, No Hepatosplenomegaly, No Masses Extremities: No Clubbing, No Cyanosis, No Edema, Normal Pulses, No Tenderness/Swelling Skin: No Rashes, No Breakdown, No Significant Lesion Neuro: Normal Gait, Normal Speech, Normal Tone, Sensation Intact Psych/Mental Status: Mental Status NL, Mood NL Results Lab Laboratory Tests 01/27/22 03:20 01/27/22 05:20 A/P-Cardiology Admission Diagnosis Atrial fibrillation Staph bacteremia Tachycardia Hypertension Assessment/Plan Atrial fibrillation with rapid ventricular response. Unable to tolerate aggressive anticoagulation due to severe anemia and persistent nosebleed. Maintained on Cardizem CD 360 mg daily Reporting that she was intolerant to beta-blockers with severe bradycardia. I will try metoprolol again and evaluate tolerance and response. Patient will need to be restarting on oral anticoagulation as soon as possible Staff bacteremia. Leukocytosis. Receiving antibiotics. Worsening leukocytosis. Discussed with the patient the management plan and recommended BRAULIO to rule out atrial thrombus and vegetation/endocarditis 2D echo was reported by Dr. Frederick on December 29, 2021 with ejection fraction 55 to 60%, left atrial dilatation, estimated pulmonary artery pressure 40 mmHg Anemia, unknown source of occult blood loss. Continue to monitor H&H. Status post falling with left humerus fracture. Managed by medical team Hypertension, monitor blood pressure Hyperlipidemia, continue on statin Morbid obesity, BMI 43. Left humerus fracture. Managed by medical team HEATH GÓMEZ MD Jan 27, 2022 12:48
[2022-01-27] MEDS: MELATONIN 3 MG TABLET PO PRN (20:28)
[2022-01-27] MEDS: ROSUVASTATIN 10 MG (CRESTOR) TABLET PO SCH (20:30)
--- NOTE | 2022-01-27 21:44 | CONSULTATION REPORT ---
DATE OF SERVICE: 01/27/2022 REASON FOR CONSULTATION: Left proximal humerus fracture. HISTORY OF PRESENT ILLNESS: The patient is a 66-year-old critically ill patient is currently in the ICU with multiple issues. I was asked to consult the patient for a proximal humerus fracture for which she had been seen and evaluated in our clinic. It was elected to proceed with conservative management as per the patient's request. She will be seen as an outpatient as scheduled following her discharge from the hospital and once medically stable. There is no reason for intervention currently. She can wear a sling for comfort. Job ID: [id number] DocumentID: [id number] Dictated Date: 01/27/2022 17:55:03 [address] Magistrate Date: 01/27/2022 21:44:16 Dictated By: VELMA RUIZ MD
[2022-01-28] MEDS: morphine INJ 4 MG/ML 1 ML (VIAL/SYRINGE) IV PRN ×2 (01:19→04:17)
[2022-01-28] MEDS: ceFAZolin 2 GM IV Premixed 50 ML IV SCH ×3 (01:40→18:01)
[2022-01-28 04:55] LABS: BASOPHILS # (AUTO) 0.1 10^3/uL (0.0-0.1); BASOPHILS % (AUTO) 0 % (0-10); EOSINOPHILS # (AUTO) 0.2 10^3/uL (0.0-0.3); EOSINOPHILS % (AUTO) 1 % (0-10); HEMATOCRIT 24 % (35-52); HEMOGLOBIN 7.8 g/dL (11.5-16.0); LYMPHOCYTES # (AUTO) 1.5 10^3/uL (1.0-4.0); LYMPHOCYTES % (AUTO) 5 % (12-44); MEAN CORPUSCULAR HEMOGLOBIN 26 pg (25-34); MEAN CORPUSCULAR HGB CONC 32 g/dL (32-36); MEAN CORPUSCULAR VOLUME 79 fL (80-99); MEAN PLATELET VOLUME 10.2 fL (9.0-12.2); MONOCYTES % (AUTO) 3 % (0-12); NEUTROPHILS # (AUTO) 25.8 10^3/uL (1.8-7.8); NEUTROPHILS % (AUTO) 85 % (42-75); PLATELET COUNT 532 10^3/uL (130-400)
[2022-01-28 04:59] LABS: WHITE BLOOD COUNT 30.4 10^3/uL (4.3-11.0)
[2022-01-28 05:15] LABS: ALBUMIN 2.3 GM/DL (3.2-4.5); POTASSIUM 4.7 MMOL/L (3.6-5.0)
[2022-01-28 05:16] LABS: CALCIUM 7.5 MG/DL (8.5-10.1)
[2022-01-28 05:17] LABS: TOTAL PROTEIN 5.8 GM/DL (6.4-8.2)
[2022-01-28 05:19] LABS: BILIRUBIN,TOTAL 0.5 MG/DL (0.1-1.0)
[2022-01-28 05:20] LABS: PHOSPHORUS 3.5 MG/DL (2.3-4.7)
[2022-01-28 05:21] LABS: CREATININE SERUM 0.66 MG/DL (0.60-1.30)
[2022-01-28 05:23] LABS: MAGNESIUM 1.9 MG/DL (1.6-2.4)
[2022-01-28] MEDS: POTASSIUM CL 10MEQ/50ML IVPB 50 ML IV SCH (05:33)
[2022-01-28] MEDS: MAGNESIUM 1 GM/100 ML IVPB 100 ML IV SCH (05:33)
[2022-01-28] MEDS: KCL 20 MEQ TAB (K-DUR) PO SCH (05:34)
[2022-01-28] MEDS ORDERED: TROUGH ORDER-PHARMACY XX NR (06:00)
[2022-01-28] MEDS ORDERED: MIDAZOLAM 5 MG/5 ML (VERSED) VIAL ONE (07:53)
[2022-01-28] MEDS ORDERED: fentaNYL INJ 100 MCG/2 ML AMP ONE (07:53)
[2022-01-28] MEDS ORDERED: LIDOCAINE 2% VISCOUS 15 ML UDC ONE (07:54)
--- NOTE | 2022-01-28 07:57 | CONSULTATION REPORT ---
DATE OF SERVICE: 01/25/2022 REASON FOR CONSULTATION: Recurrent epistaxis. HISTORY OF PRESENT ILLNESS: The patient is currently admitted to the ICU for other medical problems. She has a long history of recurrent nosebleeds. 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 The nosebleeds tend to come and go. There are anterior more so on the right than the left side. She has not treated them in any fashion. Currently, she is anemic and shows severe iron deficiency anemia. PHYSICAL EXAMINATION: NOSE: of the nose was normal. Intranasally, she has scabbing present in Kiesselbach's area bilaterally. She is wearing oxygen at the current time. There was no acute new or old blood seen in the nose today. ORAL CAVITY: Oral cavity was clear and without sign of infection. Pharynx, no mass or ulceration was seen. NECK: No mass, adenopathy, thyromegaly palpable within the neck. NEUROLOGIC: Cranial nerves II-XII are intact. SKIN: Exposed skin surfaces were clear. IMPRESSION: 1. Recurrent epistaxis. 2. Iron deficiency anemia. RECOMMENDATIONS: Findings were discussed with the patient. [place] nasal saline gel was recommended to keep the nose moist along with [place] spray if she has recurrent problems while in the hospital, I have asked them to call. Otherwise, I will see her back as an outpatient for reevaluation of the nose and see how the scabbing and shallow septal ulceration is healing. Job ID: [id number] DocumentID: [id number] Dictated Date: 01/26/2022 07:44:51 Galley Worker Date: 01/26/2022 11:04:39 Dictated By: VELMA SANTAMARIA MD
--- NOTE | 2022-01-28 08:17 | Conscious Sedation/ASA ---
Conscious Sedation Pre-Proced Time 08:00 ASA Score 3 For ASA 3 and 4: Consider anesthesia and medical clearance. Also, for patients with a history of failed moderate sedation consider anesthesia. Airway Lungs Heart ASA score ASA 1: a normal healthy patient ASA 2: a patient with a mild systemic disease (mid diabetes, controlled hypertension, obesity x ASA 3: a patient with a severe systemic disease that limits activity (angina, COPD, prior Myocardial infarction) ASA 4: a patient with an incapacitating disease that is a constant threat to life (CHF, renal failure) ASA 5: a moribund patient not expected to survive 24 hrs. (ruptured aneurysm) ASA 6: a declared brain- patient whose organs are being harvested. For emergent operations, add the letter E after the classification Mallampati Classification Grade 3 Sedation Plan Analgesia, Amnesia, Plan communicated to team members, Discussed options with patient/fam, Discussed risks with patient/fam The patient is an appropriate candidate to undergo the planned procedure, sedation, and anesthesia. The patient immediately re-assessed prior to indication. HEATH GÓMEZ MD Jan 28, 2022 08:16
--- NOTE | 2022-01-28 08:18 | Cardiac Procedure Note-KU ---
Cardiology Procedures Date of Procedure 01/28/22 Attempt for BRAULIO. 66-year-old lady with atrial fibrillation, had MSSA bacteremia, persistent leukocytosis. I decided to proceed with BRAULIO to evaluate for endocarditis and evaluated the left atrium and left atrial appendage. Procedure note: After explaining the procedure to the patient, all pros and cons were explained. Patient was given lidocaine gel. Then conscious sedation achieved with 4 mg of Versed and 100 mg of fentanyl. I did multiple attempt to pass the probe through her oropharyngeal without success. I decided to abort the procedure. Conclusion Failed attempt to pass BRAULIO probe HEATH GÓMEZ MD Jan 28, 2022 08:18
--- NOTE | 2022-01-28 09:11 | Cardiology Progress Note ---
Subjective Date Seen by Provider: Jan 28, 2022 Time Seen by Provider: 09:09 Subjective/Events-last exam Patient was seen and evaluated at bedside, complaining of fatigue and loss of energy. Review of Systems General: No Chills, No Night Sweats; Fatigue, Malaise; No Appetite, No Other HEENT: No Head Aches, No Visual Changes, No Eye Pain, No Ear Pain, No Dysphasia, No Sinus Congestion, No Post Nasal Drip, No Sore Throat, No Other Pulmonary: No Dyspnea, No Cough, No Pleuritic Chest Pain, No Other Cardiovascular: No: Chest Pain, Palpitations, Orthopnea, Paroxysmal Noc. Dyspnea, Edema, Lt Headedness, Other Objective-Cardiology Exam Last Set of Vital Signs Vital Signs 01/26/22 01/27/22 01/28/22 00:24 20:00 08:00 Temp 35.8 Pulse 130 Resp 29 B/P (MAP) 105/72 Pulse Ox 89 O2 Delivery Nasal Cannula O2 Flow Rate 3.00 FiO2 21 I&O Intake and Output 01/28/22 00:00 Intake Total 1270 ml Output Total 1700 ml Balance -430 ml Intake Oral 1270 ml Output Urine Total 1700 ml General: Alert, Oriented X3, Cooperative HEENT: Atraumatic, PERRLA Neck: Supple, No JVD, No Thyromegaly Lungs: Clear to Auscultation, Normal Air Movement Heart: Normal S1, Normal S2, Other (Atrial fibrillation, tachycardia.) Abdomen: Normal Bowel Sounds, Soft, No Tenderness, No Hepatosplenomegaly, No Masses Extremities: No Clubbing, No Cyanosis, No Edema, Normal Pulses, No Tenderness/Swelling Skin: No Rashes, No Breakdown, No Significant Lesion Neuro: Normal Gait, Normal Speech, Normal Tone, Sensation Intact Psych/Mental Status: Mental Status NL, Mood NL Results Lab Laboratory Tests 01/28/22 04:30 A/P-Cardiology Admission Diagnosis Atrial fibrillation Staph bacteremia Tachycardia Hypertension Assessment/Plan Atrial fibrillation with rapid ventricular response. Unable to tolerate aggressive anticoagulation due to severe anemia and persistent nosebleed. Maintained on Cardizem CD 360 mg daily Reporting that she was intolerant to beta-blockers with severe bradycardia. I will try metoprolol again and evaluate tolerance and response. Still having significant anemia, will need to be restarting on oral anticoagulation Staff bacteremia. Leukocytosis. Receiving antibiotics. Worsening leukocytosis. Attempt for BRAULIO has failed. Patient was sedated with Versed and fentanyl, I was unable to advance the BRAULIO probe. I am planning to ask anesthesia assistance and try another attempt for BRAULIO 2D echo was reported by Dr. Frederick on December 29, 2021 with ejection fraction 55 to 60%, left atrial dilatation, estimated pulmonary artery pressure 40 mmHg Anemia, unknown source of occult blood loss. Continue to monitor H&H. Status post falling with left humerus fracture. Managed by medical team Hypertension, monitor blood pressure Hyperlipidemia, continue on statin Morbid obesity, BMI 43. Left humerus fracture. Managed by medical team HEATH GÓMEZ MD Jan 28, 2022 09:11
--- NOTE | 2022-01-28 11:13 | Tele-ICU Progress Note ---
Subjective Date Seen by a Provider: Jan 28, 2022 Time Seen by a Provider: 11:13 Subjective/Events-last exam (Tele-ICU Physician , Progress Note ) Available chart/ vitals / labs / Images reviewed Video assessment done using teleICU camera, rest of exam as per RN Discussed with RN , EXAM PER RN Events overnight : Afebrile FiO2 - 3L I/O = neg Drips: Pressors: , hemodynamically stable Consultants: rich E[facility] Hospital course: 01/23 Pt is a 66 y/o female, presented to the ED with AMS and lethargy. Work-up revealed A-Fib w/RVR. Family reports pt falling on 01/16 and sustained a left comminuted humerus Fx, Sepsis-PNA, A-Fib w/RVR, Fall, anticoagulant-induced bleeding. 01/28 - Failed attempt to pass BRAULIO probe A/P ABLA ( with epistaxix , on AC - transfused 1 u prbc 01/24 - will recheck latter today - AC on hold PAF, RVR - cardizem gtt OFF as per cards , Po meds - AC on hold ( xarelto Epistaxis - Recurrent epistaxis. 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 Discussed with RN to reach out if any questions or concerns A total of 31 minutes of critical care time was devoted to this patient today, required to treat and/or prevent further deterioration of critical care condition ( as above) . Sepsis Event Evaluation Height, Weight, BMI Height: 5'0.00" Weight: 180lbs. oz. 81.750961gf; 43.48 BMI Method: Exam Exam Patient acknowledged, consented, and participated in this virtual visit which was conducted using real time audio/video Vital Signs Date Time Temp Pulse Resp B/P (MAP) Pulse Ox O2 Delivery O2 Flow Rate FiO2 01/28/22 09:00 126 17 121/67 91 Nasal Cannula 3.00 01/28/22 08:00 130 29 105/72 89 Nasal Cannula 3.00 01/28/22 07:18 115 01/28/22 07:00 118 23 116/104 96 Nasal Cannula 3.00 01/28/22 06:00 109 16 155/111 93 Nasal Cannula 3.00 01/28/22 05:13 130 21 129/81 100 Nasal Cannula 3.00 01/28/22 04:00 98 Nasal Cannula 3.00 01/28/22 04:00 98 12 137/105 100 Nasal Cannula 3.00 01/28/22 03:00 116 23 120/103 96 Nasal Cannula 3.00 01/28/22 02:00 107 25 120/84 97 Nasal Cannula 3.00 01/28/22 01:18 101 24 133/79 97 Nasal Cannula 3.00 01/28/22 01:00 117 25 94 Nasal Cannula 3.00 01/28/22 01:00 80 01/28/22 00:00 123 23 100 Nasal Cannula 3.00 01/27/22 23:59 96 Nasal Cannula 3.00 01/27/22 23:00 126 27 111/95 Nasal Cannula 3.00 01/27/22 22:00 120 24 131/69 Nasal Cannula 3.00 01/27/22 21:00 105 128/92 96 Nasal Cannula 3.00 01/27/22 20:00 96 Nasal Cannula 3.00 01/27/22 20:00 112 20 119/68 95 Nasal Cannula 3.00 01/27/22 20:00 35.8 01/27/22 19:00 120 01/27/22 19:00 120 24 128/66 98 Nasal Cannula 3.00 01/27/22 18:00 117 15 139/86 92 Nasal Cannula 2.00 01/27/22 17:00 115 26 106/76 100 Nasal Cannula 2.00 01/27/22 16:07 97 Nasal Cannula 3.00 01/27/22 16:00 35.8 01/27/22 16:00 112 14 120/95 93 Nasal Cannula 2.00 01/27/22 15:00 101 14 102/85 100 Nasal Cannula 2.00 01/27/22 14:00 84 12 124/88 96 Nasal Cannula 2.00 01/27/22 13:00 92 23 114/79 96 Nasal Cannula 2.00 01/27/22 12:48 105 01/27/22 12:00 95 20 108/77 90 Nasal Cannula 2.00 01/27/22 12:00 35.5 01/27/22 11:26 95 Nasal Cannula 3.00 I & O 01/28/22 07:00 Intake Total 1320 ml Output Total 1625 ml Balance -305 ml Height & Weight Height: 5'0.00" Weight: 180lbs. oz. 81.545770ip; 43.48 BMI Method: General Appearance: No Apparent Distress, Chronically ill HEENT: Pale Conjunctivae (L), Pale Conjunctivae (R) Neck: Full Range of Motion Respiratory: No Accessory Muscle Use, No Respiratory Distress, Other (Decreased breath sounds left base.) Cardiovascular: No Gallop, No Murmur, Irregularly Irregular Gastrointestinal: normal bowel sounds, non tender, soft Extremity: Other ( Blister on the right fifth toe serous appearing discharge some underlying mild erythema with some punctate petechia at the base of the toe no significant pain on range of motion no deformity no erythema extending up from the toe into the foot.) Neurologic/Psychiatric: Alert, Oriented x3 Skin: Normal Color Lymphatic: No Adenopathy Results Lab Laboratory Tests 01/27/22 03:20 01/27/22 05:20 01/28/22 04:30 Assessment/Plan Assessment/Plan 1 ELVIS CASAS MD Jan 28, 2022 11:13
[2022-01-28] MEDS: meTOprolol TARTRATE 50 MG (LOPRESSOR) TAB PO SCH ×2 (12:19→21:39)
[2022-01-28] MEDS: dilTIAZem120 MG (CARDIZEM CD) CAP PO SCH (12:19)
[2022-01-28] MEDS: PANTOPRAZOLE 40 MG (PROTONIX) VIAL IV SCH (12:20)
[2022-01-28] MEDS: SENNOSIDES 8.6 MG (SENOKOT) TAB PO SCH ×2 (12:20→21:39)
[2022-01-28] MEDS: DOCUSATE SODIUM 100 MG (COLACE) CAP PO SCH ×2 (12:20→21:39)
--- NOTE | 2022-01-28 13:39 | Occupational Ther Daily Note ---
OT Current Status-Daily Note Subjective Pt sleeping in bed, woke to name. Pt c/o lower back pain, rated 10/10 pain. Attempting to reposition to decrease lower back pain. Pt does agree to therapy. Mental Status/Objective Patient Orientation: Person, Place, Time, Situation Attachments: [place] Catheter, IV, Oxygen, Telemetry ADL-Treatment Therapy Code Descriptions/Definitions Functional [place] Measure: 0=Not Assessed/NA 4=Minimal Assistance 1=Total Assistance 5=Supervision or Setup 2=Maximal Assistance 6=Modified [place] 3=Moderate Assistance 7=Complete IndependenceSCALE: Activities may be completed with or without assistive devices. 5-Jbkqycotmp-rugojun completes the activity by him/herself with no assistance from a helper. 5-Set-up or Clean-up Assistance-helper sets up or cleans up; patient completes activity. [place] assists only prior to or following the activity. 4-Supervision or Touching Assistance-helper provides verbal cues and/or touching/steadying and/or contact guard assistance as patient completes activity. Assistance may be provided throughout the activity or intermittently. 3-Partial/Moderate Assistance-helper does LESS THAN HALF the effort. [place] lift s, holds or supports trunk or limbs, but provides less than half the effort. 2-Substantial/Maximal Assistance-helper does MORE THAN HALF the effort. [place] lifts or holds trunk or limbs and provides more than half the effort. 7-Wzznnpccs-eqnwrk does ALL the effort. Patient does none of the effort to complete the activity. Or, the assistance of 2 or more helpers is required for the patient to complete the activity. If activity was not attempted, code reason: 7-Patient Refused. 9-Not Applicable-not attempted and the patient did not perform the activity before the current illness, exacerbation or injury. 10-Not Attempted due to Environmental Limitations-(lack of equipment, weather restraints, etc.). 88-Not Attempted due to Medical Conditions or Safety Concerns. Other Treatment Max A x2 for supine <--> EOB. Pt able to sit EOB with min A to CGA while completing B LE exercises and R wrist, hand, finger exercises. Max A x2 for all bed mobility. After therapy, pt lying in bed with call light/phone in reach. Pt is not c/o of lower back pain at this time. All needs met. OT Field Sales Manager Goals Field Sales Manager Goals Time Frame: Feb 08, 2022 Eating (QC): 6 Oral Hygiene (QC): 6 Toileting Hygiene (QC): 4 Shower/Bathe Self (QC): 4 Upper Body Dressing (QC): 5 Lower Body Dressing (QC): 4 On/Off Footwear (QC): 4 Additional Goals: 1-Demonstrate ADL Tasks, 2-Verbalize Understanding, 3- ImproveStrength/Huma 1=Demonstrate adherence to instructed precautions during ADL tasks. 2=Patient will verbalize/demonstrate understanding of assistive device s/modifications for ADL. 3=Patient will improve strength/tolerance for activity to enable patient to perform ADL's. OT Education/Plan Problem List/Assessment Assessment: Decreased Activ Tolerance, Decreased UE Strength, Dependent Transfers, Impaired Bed Mobility, Impaired Self-Care Skills, Restricted Funct UE ROM Discharge Recommendations Plan/Recommendations: Continue POC Treatment Plan/Plan of Care Patient would benefit from OT for education, treatment and training to promote independence in ADL's, mobility, safety and/or upper extremity function for ADL's. Plan of Care: ADL Retraining, Functional Mobility, UE Funct Exercise/Act Treatment Duration: Feb 08, 2022 Frequency: 3 times per week (3-5 times per week) Estimated Hrs Per Day: .25 hour per day Rehab Potential: Fair Time/GCodes Start Time: 13:10 Stop Time: 13:26 Total Time Billed (hr/min): 16 Billed Treatment Time 1 visit-FA 1 (16 min) ERICA NEGRON Jan 28, 2022 13:39
--- NOTE | 2022-01-28 13:46 | Physical Therapy Daily Note ---
PT Daily Note-Current Subjective Patient in bed pre tx, agrees to PT, has 10/10 low back pain. Appearance Patient in bed post tx with nurse call, phone, tray, all needs met. Mental Status Patient Orientation: Person Attachments: Oxygen, [place] Catheter, IV left arm sling Transfers SCALE: Activities may be completed with or without assistive devices. 0-Gecislrffd-jvzgjdw completes the activity by him/herself with no assistance from a helper. 5-Set-up or Clean-up Assistance-helper sets up or cleans up; patient completes activity. [place] assists only prior to or following the activity. 4-Supervision or Touching Assistance-helper provides verbal cues and/or touching/steadying and/or contact guard assistance as patient completes activity. Assistance may be provided throughout the activity or intermittently. 3-Partial/Moderate Assistance-helper does LESS THAN HALF the effort. [place] lifts, holds or supports trunk or limbs, but provides less than half the effort. 2-Substantial/Maximal Assistance-helper does MORE THAN HALF the effort. [place] lifts or holds trunk or limbs and provides more than half the effort. 3-Ddayyqeri-pkytel does ALL the effort. Patient does none of the effort to complete the activity. Or, the assistance of 2 or more helpers is required for the patient to complete the activity. If activity was not attempted, code reason: 7-Patient Refused. 9-Not Applicable-not attempted and the patient did not perform the activity before the current illness, exacerbation or injury. 10-Not Attempted due to Environmental Limitations-(lack of equipment, weather restraints, etc.). 88-Not Attempted due to Medical Conditions or Safety Concerns. Roll Left & Right (QC): 1 Sit to Lying (QC): 1 Lying to Sitting/Side of Bed(Q: 1 assist of 2 for supine <-> sit, patient was able to sit on the side of the bed for about 5-7 min, needed min assist to maintain sitting balance at first but then was able to manage on her own, patient was able to perform seated LE exercises Exercises Seated Therapy Exercises: Ankle pumps, Long arc quads Seated Reps: 30 Treatments sitting, LE strengthening Assessment Current Status: Poor Progress Patient was confused, moaning in pain, eventually wanted to lay back down, O2 stayed in the low 90's during the whole tx. PT Psychological Operations Specialist Goals Psychological Operations Specialist Goals PT Nursing Home Goals Time Frame: Feb 09, 2022 Roll Left & Right (QC): 4 Sit to Lying (QC): 4 Lying-Sitting on Side/Bed(QC): 4 Sit to Stand (QC): 4 Chair/Lpq-hr-Xjrrd Xfer(QC): 4 Toilet Transfer (QC): 4 Walk 10 feet (QC): 4 Walk 50ft with 2 Turns (QC): 4 PT Plan Problem List Problem List: Activity Tolerance, Functional Strength, Safety, Balance, Gait, Transfer, Bed Mobility, ROM Treatment/Plan Treatment Plan: Continue Plan of Care Treatment Plan: Bed Mobility, Education, Functional Activity Huma, Functional Strength, Gait, Safety, Therapeutic Exercise, Transfers Treatment Duration: Feb 09, 2022 Frequency: 6 times per week Estimated Hrs Per Day: .25 hour per day Safety Risks/Education Patient Education: Correct Positioning, Safety Issues Teaching Recipient: Patient Teaching Methods: Demonstration, Discussion Response to Teaching: Reinforcement Needed Time/GCodes Time In: 1309 Time Out: 1322 Total Billed Treatment Time: 13 Total Billed Treatment 1 visit FA GAVINO ARNETT PT Jan 28, 2022 13:46
[2022-01-28 15:15] VITALS: BP 111/83
[2022-01-28] MEDS: ROSUVASTATIN 10 MG (CRESTOR) TABLET PO SCH (21:39)
--- NOTE | 2022-01-28 22:00 | Progress Note ---
Subjective Subjective/Events-last exam Patient mildly sedated this AM due to BRAULIO. States that she has throat pain otherwise states that she is doing "OK". Review of Systems General: Fatigue, Malaise HEENT: Sore Throat Neurological: Weakness, Incoordination Objective Exam Last Set of Vital Signs Vital Signs Date Time Temp Pulse Resp B/P (MAP) Pulse Ox O2 Delivery O2 Flow Rate FiO2 01/28/22 19:35 36.0 01/28/22 18:00 114 32 111/91 93 Nasal Cannula 3.00 01/26/22 00:24 21 Capillary Refill : I&O Intake and Output 01/28/22 00:00 Intake Total 1270 ml Output Total 1700 ml Balance -430 ml Intake Oral 1270 ml Output Urine Total 1700 ml General: Alert, Oriented X3, No Acute Distress Lungs: Clear to Auscultation, Normal Air Movement Heart: No Murmurs, Other (tachycardic rate) Abdomen: Normal Bowel Sounds, Soft, No Tenderness, No Masses Extremities: Other (2+ pitting edema equal bilaterally) Neuro: Normal Speech Results/Procedures Lab Laboratory Tests 01/28/22 04:30: White Blood Count 30.4*H, Red Blood Count 3.06L, Hemoglobin 7.8L, Hematocrit 24L , Mean Corpuscular Volume 79L, Mean Corpuscular Hemoglobin 26, Mean Corpuscular Hemoglobin Concent 32, Red Cell Distribution Width 17.7H, Platelet Count 532H, Mean Platelet Volume 10.2, Immature Granulocyte % (Auto) 6, Neutrophils (%) (Auto) 85H, Lymphocytes (%) (Auto) 5L, Monocytes (%) (Auto) 3, Eosinophils (%) (Auto) 1, Basophils (%) (Auto) 0, Neutrophils # (Auto) 25.8H, Lymphocytes # (Auto) 1.5, Monocytes # (Auto) 1.0, Eosinophils # (Auto) 0.2, Basophils # (Auto) 0.1, Immature Granulocyte # (Auto) 1.9H, Sodium Level 128L, Potassium Level 4.7, Chloride Level 99, Carbon Dioxide Level 20L, Anion Gap 9, Blood Urea Nitrogen 18, Creatinine 0.66, Estimat Glomerular Filtration Rate 96, BUN/Creatinine Ratio 27, Glucose Level 124H, Calcium Level 7.5L, Corrected Calcium 8.9, Phosphorus Level 3.5, Magnesium Level 1.9, Total Bilirubin 0.5, Aspartate Amino Transf (AST/SGOT) 64H, Alanine Aminotransferase (ALT/SGPT) 62H, Alkaline Phosphatase 110, Total Protein 5.8L, Albumin 2.3L Microbiology 01/28/22 Blood Culture - Preliminary, Resulted No growth 01/23/22 Urine Culture - Final, Complete NO GROWTH Assessment/Plan Assessment/Plan (1) Sepsis Status: Acute Assessment & Plan: 01/28: Resolved other then leukocytosis, Vanco was changed to Ancep this AM, will continue to monitor, Concerns for endocarditis, BRAULIO scheduled for AM, notified Dr Mendoza and handoff made, he will resume care of patient in the AM Qualifiers: Qualified Codes: A41.01 - Sepsis due to methicillin susceptible Staphylococcus aureus (2) Atrial fibrillation with rapid ventricular response Status: Acute Assessment & Plan: 01/28: Dr Tay consulted, appreciate recommendations, BRAULIO tomorrow AM (3) Bacteremia due to methicillin susceptible Staphylococcus aureus (MSSA) Status: Acute (4) Leukocytosis Status: Acute (5) Anemia Status: Acute Assessment & Plan: 01/28: Blood thinners d/lisandra, will continue to monitor, no acute bleeding at this time Qualifiers: Qualified Codes: D50.0 - Iron deficiency anemia secondary to blood loss (chronic) (6) Pneumonia Status: Acute Qualifiers: Qualified Codes: J15.211 - Pneumonia due to methicillin susceptible Staphylococcus aureus (7) Obesity Status: Chronic Qualifiers: Clinical Quality Measures DVT/VTE Risk/Contraindication: Contraindications-Pharm: Other *list below* Other: anemia BRITTANY SMITH MD Jan 28, 2022 22:00
[2022-01-29] MEDS: ceFAZolin 2 GM IV Premixed 50 ML IV SCH ×3 (01:43→17:53)
[2022-01-29 04:57] LABS: BASOPHILS # (AUTO) 0.1 10^3/uL (0.0-0.1); BASOPHILS % (AUTO) 0 % (0-10); EOSINOPHILS # (AUTO) 0.1 10^3/uL (0.0-0.3); EOSINOPHILS % (AUTO) 0 % (0-10); HEMATOCRIT 25 % (35-52); HEMOGLOBIN 7.7 g/dL (11.5-16.0); LYMPHOCYTES # (AUTO) 1.5 10^3/uL (1.0-4.0); LYMPHOCYTES % (AUTO) 5 % (12-44); MEAN CORPUSCULAR HEMOGLOBIN 25 pg (25-34); MEAN CORPUSCULAR HGB CONC 31 g/dL (32-36); MEAN CORPUSCULAR VOLUME 80 fL (80-99); MEAN PLATELET VOLUME 10.1 fL (9.0-12.2); MONOCYTES # (AUTO) 0.9 10^3/uL (0.0-1.0); MONOCYTES % (AUTO) 3 % (0-12); NEUTROPHILS # (AUTO) 24.8 10^3/uL (1.8-7.8); NEUTROPHILS % (AUTO) 87 % (42-75); PLATELET COUNT 585 10^3/uL (130-400); WHITE BLOOD COUNT 28.5 10^3/uL (4.3-11.0)
[2022-01-29 05:04] LABS: ALBUMIN 2.3 GM/DL (3.2-4.5); POTASSIUM 4.8 MMOL/L (3.6-5.0)
[2022-01-29 05:05] LABS: CALCIUM 7.7 MG/DL (8.5-10.1)
[2022-01-29 05:08] LABS: BILIRUBIN,TOTAL 0.5 MG/DL (0.1-1.0)
[2022-01-29 05:10] LABS: CREATININE SERUM 0.6 MG/DL (0.60-1.30); PHOSPHORUS 3.5 MG/DL (2.3-4.7)
[2022-01-29 05:13] LABS: MAGNESIUM 1.9 MG/DL (1.6-2.4)
[2022-01-29] MEDS: POTASSIUM CL 10MEQ/50ML IVPB 50 ML IV SCH (05:15)
[2022-01-29] MEDS: MAGNESIUM 1 GM/100 ML IVPB 100 ML IV SCH (05:16)
[2022-01-29] MEDS: KCL 20 MEQ TAB (K-DUR) PO SCH (05:16)
[2022-01-29] MEDS ORDERED: MIDAZOLAM 5 MG/5 ML (VERSED) VIAL ONE (07:21)
[2022-01-29] MEDS ORDERED: proPOfol 200 MG/20 ML (DIPRIVAN) VIAL IV ONE ×2 (07:21→07:54)
[2022-01-29] MEDS ORDERED: LIDOCAINE 2% VISCOUS 15 ML UDC ONE (07:32)
[2022-01-29] MEDS: PANTOPRAZOLE 40 MG (PROTONIX) VIAL IV SCH (07:38)
[2022-01-29] MEDS: NS IV 500 ML 500 ML IV SCH ×2 (08:20→23:54)
--- NOTE | 2022-01-29 08:29 | Anesthesia-General Post-Op ---
MAC Patient Condition Mental Status/LOC: Same as Preop Cardiovascular: Satisfactory Nausea/Vomiting: Absent Respiratory: Satisfactory Pain: Controlled Complications: Absent Post Op Complications Complications None Follow Up Care/Instructions Patient Instructions None needed. Anesthesiology Discharge Order Discharge Order Patient is doing well, no complaints, stable vital signs, no apparent adverse anesthesia problems. No complications reported per nursing. BEST SHAH CRNA Jan 29, 2022 08:29
--- NOTE | 2022-01-29 08:38 | Cardiology Progress Note ---
Subjective Date Seen by Provider: Jan 29, 2022 Time Seen by Provider: 08:36 Subjective/Events-last exam Patient was seen at bedside, laying down comfortably. No new complaint. Review of Systems General: No Chills, No Night Sweats; Fatigue, Malaise; No Appetite, No Other HEENT: No Head Aches, No Visual Changes, No Eye Pain, No Ear Pain, No Dysphasia, No Sinus Congestion, No Post Nasal Drip, No Sore Throat, No Other Pulmonary: No Dyspnea, No Cough, No Pleuritic Chest Pain, No Other Cardiovascular: No: Chest Pain, Palpitations, Orthopnea, Paroxysmal Noc. Dyspnea, Edema, Lt Headedness, Other Objective-Cardiology Exam Last Set of Vital Signs Vital Signs 01/26/22 01/29/22 01/29/22 00:24 03:51 08:00 Temp 36.0 Pulse 123 Resp 16 B/P (MAP) 101/71 Pulse Ox 91 O2 Delivery Nasal Cannula O2 Flow Rate 3.00 FiO2 21 I&O Intake and Output 01/29/22 00:00 Intake Total 1815 ml Output Total 1700 ml Balance 115 ml Intake Oral 1150 ml IV Total 665 ml Output Urine Total 1700 ml General: Alert, Oriented X3, No Acute Distress HEENT: Atraumatic, PERRLA Neck: Supple, No JVD, No Thyromegaly Lungs: Clear to Auscultation, Normal Air Movement Heart: Normal S1, Normal S2, No Murmurs, Other (tachycardic rate) Abdomen: Normal Bowel Sounds, Soft, No Tenderness, No Masses Extremities: Other (2+ pitting edema equal bilaterally) Skin: No Rashes, No Breakdown, No Significant Lesion Neuro: Normal Speech Psych/Mental Status: Mental Status NL, Mood NL Results Lab Laboratory Tests 01/29/22 04:45 A/P-Cardiology Admission Diagnosis Atrial fibrillation Staph bacteremia Tachycardia Hypertension Assessment/Plan Atrial fibrillation with rapid ventricular response. Unable to tolerate aggressive anticoagulation due to severe anemia and persistent nosebleed. Has been off anticoagulation and no nosebleed was reported. I am starting her back on Xarelto 20 mg daily and evaluate tolerance and response Maintained on Cardizem CD 360 mg daily Reporting that she was intolerant to beta-blockers with severe bradycardia. I will try metoprolol again and evaluate tolerance and response. Still having significant anemia, will need to be restarting on oral anticoagulation Staff bacteremia. Leukocytosis. Receiving antibiotics. Worsening leukocytosis. Attempt for BRAULIO has failed on January 28, 2022, second attempt was done with assistance of anesthesiology 10/01/2021 when it was successful showing normal left ventricular size, no vegetation was noted, mild mitral regurgitation and no clot or thrombus within the left atrium or left atrial appendage. I will do another trial of anticoagulation and if patient can tolerate aggressive anticoagulation with Xarelto I would consider cardioversion otherwise he will continue with rate controlling medication 2D echo was reported by Dr. Frederick on December 29, 2021 with ejection fraction 55 to 60%, left atrial dilatation, estimated pulmonary artery pressure 40 mmHg Anemia, unknown source of occult blood loss. H&H has been stable at 7.7. Starting Xarelto and will evaluate for any further blood loss Status post falling with left humerus fracture. Managed by medical team Hypertension, monitor blood pressure Hyperlipidemia, continue on statin Morbid obesity, BMI 43. Left humerus fracture. Managed by medical team HEATH GÓMEZ MD Jan 29, 2022 08:38
--- NOTE | 2022-01-29 10:22 | Tele-ICU Progress Note ---
Subjective Date Seen by a Provider: Jan 29, 2022 Subjective/Events-last exam (Tele-ICU Physician , Progress Note ) Available chart/ vitals / labs / Images reviewed Video assessment done using teleICU camera, rest of exam as per RN Discussed with RN , EXAM PER RN Events overnight : Afebrile FiO2 - 3L I/O = neg Drips: Pressors: , hemodynamically stable Consultants: [facility] Hospital course: 01/23 Pt is a 66 y/o female, presented to the ED with AMS and lethargy. Work-up revealed A-Fib w/RVR. Family reports pt falling on 01/16 and sustained a left comminuted humerus Fx, Sepsis-PNA, A-Fib w/RVR, Fall, anticoagulant-induced bleeding. 01/28 - Failed attempt to pass BRAULIO probe 01/29 - BRAULIO -no endocarditis signs A/P ABLA ( with epistaxix , on AC - transfused 1 u prbc 01/24 - will recheck latter today - AC on hold PAF, RVR - cardizem gtt OFF as per cards , Po meds - CONVERTED TO SINUS 01/29 - AC on hold ( xarelto to be resumed 01/29 Epistaxis - Recurrent epistaxis - resolved Hyponatremia - NEW - 123--129 in 16 h ( on NS 125 /h - follow -- stop IVF , fluid rest 1200ml - check tsh, - was low few weeks ago not on offending meds s/p falling on 01/16 and sustained a left comminuted humerus Fx, - Pt given prescription for Hydrocodone & Oxycodone [employer] bacteremia with MSSA 01/23 ( 2/2) , 01/24 repeated so far negative , 01/28 - negative - attemptet BRAULIO to r/o vegetation/endocarditis- 01/28 - Failed attempt to pass BRAULIO probe - 01/29 - BRAULIO -no endocarditis signs Hyperthyroidism - as per PCP recent proximal humerus FR -conservative management per ortho Lines : periph (Central Line Necessity Reviewed) - unsucsessfull PICC Villa: + OG: Nutrition: po Analgesia: Anxiety/ delirium VTE Prophylaxis: scd Stress Ulcer Prophylaxis: na Plans in collaboration with bedside consultants and IM MDs. Discussed with RN to reach out if any questions or concerns A total of 31 minutes of critical care time was devoted to this patient today, required to treat and/or prevent further deterioration of critical care condition ( as above) . Sepsis Event Evaluation Height, Weight, BMI Height: 5'0.00" Weight: 180lbs. oz. 81.020253ag; 43.48 BMI Method: Exam Exam Patient acknowledged, consented, and participated in this virtual visit which was conducted using real time audio/video Vital Signs Date Time Temp Pulse Resp B/P (MAP) Pulse Ox O2 Delivery O2 Flow Rate FiO2 01/29/22 10:00 73 19 155/88 95 Nasal Cannula 3.00 01/29/22 09:00 73 19 129/90 96 Nasal Cannula 3.00 01/29/22 08:43 71 01/29/22 08:00 123 16 101/71 91 Nasal Cannula 3.00 01/29/22 07:00 133 01/29/22 07:00 117 28 122/87 98 Nasal Cannula 3.00 01/29/22 06:02 125 23 142/85 94 Nasal Cannula 3.00 01/29/22 05:00 105 170/78 94 Nasal Cannula 3.00 01/29/22 04:00 113 13 127/95 Nasal Cannula 3.00 01/29/22 04:00 95 Nasal Cannula 3.00 01/29/22 03:51 36.0 01/29/22 03:00 129 10 104/92 92 Nasal Cannula 3.00 01/29/22 02:00 116 23 114/70 95 Nasal Cannula 3.00 01/29/22 01:00 116 19 126/74 Nasal Cannula 3.00 01/29/22 01:00 116 01/29/22 00:14 109 22 94/82 Nasal Cannula 3.00 01/29/22 00:00 94 Nasal Cannula 3.00 01/28/22 23:41 36.0 01/28/22 23:09 129 17 121/82 90 Nasal Cannula 3.00 01/28/22 22:00 120 14 122/104 95 Nasal Cannula 3.00 01/28/22 21:00 130 22 107/76 Nasal Cannula 3.00 01/28/22 20:00 36.2 01/28/22 20:00 95 Nasal Cannula 3.00 01/28/22 20:00 121 28 115/77 Nasal Cannula 3.00 01/28/22 19:35 36.0 01/28/22 19:00 108 01/28/22 19:00 97 25 110/82 91 Nasal Cannula 3.00 01/28/22 18:00 114 32 111/91 93 Nasal Cannula 3.00 01/28/22 17:00 105 29 112/88 92 Nasal Cannula 3.00 01/28/22 16:00 120 20 125/105 92 Nasal Cannula 3.00 01/28/22 16:00 36.2 01/28/22 16:00 97 Nasal Cannula 3.00 01/28/22 15:15 36.1 110 97 01/28/22 15:00 104 17 114/82 94 Nasal Cannula 3.00 01/28/22 14:00 133 19 113/96 92 Nasal Cannula 3.00 01/28/22 13:30 110 01/28/22 13:00 112 21 116/101 97 Nasal Cannula 3.00 01/28/22 12:00 97 Nasal Cannula 3.00 01/28/22 12:00 36.1 118 16 111/83 98 Nasal Cannula 3.00 01/28/22 11:00 113 21 118/81 98 Nasal Cannula 3.00 I & O 01/29/22 07:00 Intake Total 1665 ml Output Total 1900 ml Balance -235 ml Height & Weight Height: 5'0.00" Weight: 180lbs. oz. 81.008667vw; 43.48 BMI Method: General Appearance: No Apparent Distress, Chronically ill HEENT: Pale Conjunctivae (L), Pale Conjunctivae (R) Neck: Full Range of Motion Respiratory: No Accessory Muscle Use, No Respiratory Distress, Other (Decreased breath sounds left base.) Cardiovascular: No Gallop, No Murmur, Irregularly Irregular Gastrointestinal: normal bowel sounds, non tender, soft Extremity: Other ( Blister on the right fifth toe serous appearing discharge some underlying mild erythema with some punctate petechia at the base of the toe no significant pain on range of motion no deformity no erythema extending up from the toe into the foot.) Neurologic/Psychiatric: Alert, Oriented x3 Skin: Normal Color Lymphatic: No Adenopathy Results Lab Laboratory Tests 01/28/22 04:30 01/29/22 04:45 Assessment/Plan Assessment/Plan ` ELVIS CASAS MD Jan 29, 2022 10:22
[2022-01-29] MEDS: dilTIAZem120 MG (CARDIZEM CD) CAP PO SCH (10:29)
[2022-01-29] MEDS: SENNOSIDES 8.6 MG (SENOKOT) TAB PO SCH ×2 (10:30→20:10)
[2022-01-29] MEDS: DOCUSATE SODIUM 100 MG (COLACE) CAP PO SCH ×2 (10:30→20:10)
[2022-01-29] MEDS: meTOprolol TARTRATE 50 MG (LOPRESSOR) TAB PO SCH ×2 (10:30→20:10)
--- NOTE | 2022-01-29 11:48 | Wound Care Assessment ---
Wound Care Assessment Date Seen by Provider: Jan 29, 2022 Time Seen by Provider: 11:42 Chief Complaint R. 5th toe wound HPI This pleasant patient was seen today for a wound to her R. 5th toe. She notes that she fell on 01/16/22 and fractured her humerous in addition to injuring her right 4/5 toes. She noted pain, swelling and bruising. She is admitted to the hospital with anticoagulant related GIB with resulting anemia. She also has leukocytosis and h/o sepsis in recent past. She is on Ancef currently (h/o MSSA bactermia). She declines h/o DM2, CAD or PAD. She is not a smoker. She does have a h/o atrial fibrillation (for which she is anticoagulated). She does seem to have protein energy malnutrition as well and Ensure is already ordered. She does have LE edema (improved today). She notes that her foot was not imaged upon initial fall. It is unlikely that underlying fracture will change current course of care, however, upon healing of current ulceration, this may be worth looking into further. I would recommend off loading with surgical shoe once she is again ambulatory. I did deroof blister today and plan to dress with xeroform, gauze and WARD wrap. SCD's to aide in edema/compression as well. Atrial fibrillation, chronic anticoagulation Smoking Status: Never a Smoker Recreational Drug Use: No Alcohol Use: Denies Use Review of Systems Other systems Confusion last night (removed all lines and monitors) Exam Vital Signs Date Time Temp Pulse Resp B/P (MAP) Pulse Ox O2 Delivery O2 Flow Rate FiO2 01/29/22 11:00 72 130/72 95 Nasal Cannula 3.00 01/29/22 10:00 19 01/29/22 03:51 36.0 01/26/22 00:24 21 Capillary Refill : General Appearance: no apparent distress, obese HEENT: other (hearing normal) Neck: full range of motion Cardiovascular: other (2+ edema b/l LE) Respiratory: no respiratory distress, no accessory muscle use Extremities: other (L. arm in sling) Neurologic/Psychiatric: alert, normal mood/affect, oriented x 3 Skin: warm/dry, ecchymosis, other (blister to R. 5th digit. Bruising to 4th and 5th digit with associated edema) Skin Character: drainage, swelling, tenderness Wound assessment: Blister to dorsal surface of R. 5th toe. The epithelialization is none. There is no tunneling or undermining. Drainage is large and serous. Granulation is medium and pink, necrotic is small and slough. The wound margins are flat. Results Laboratory Tests 01/29/22 04:45: White Blood Count 28.5H, Red Blood Count 3.10L, Hemoglobin 7.7L, Hematocrit 25L, Mean Corpuscular Volume 80, Mean Corpuscular Hemoglobin 25, Mean Corpuscular Hemoglobin Concent 31L, Red Cell Distribution Width 18.0H, Platelet Count 585H, Mean Platelet Volume 10.1, Immature Granulocyte % (Auto) 4, Neutrophils (%) (Auto) 87H, Lymphocytes (%) (Auto) 5L, Monocytes (%) (Auto) 3, Eosinophils (%) (Auto) 0, Basophils (%) (Auto) 0, Neutrophils # (Auto) 24.8H, Lymphocytes # (Auto) 1.5, Monocytes # (Auto) 0.9, Eosinophils # (Auto) 0.1, Basophils # (Auto) 0.1, Immature Granulocyte # (Auto) 1.2H, Sodium Level 128L, Potassium Level 4.8, Chloride Level 97L, Carbon Dioxide Level 21, Anion Gap 10, Blood Urea Nitrogen 15, Creatinine 0.60, Estimat Glomerular Filtration Rate 98, BUN/Creatinine Ratio 25, Glucose Level 115H, Calcium Level 7.7L, Corrected Calcium 9.1, Phosphorus Level 3.5, Magnesium Level 1.9, Total Bilirubin 0.5, Aspartate Amino Transf (AST/SGOT) 55H, Alanine Aminotransferase (ALT/SGPT) 49, Alkaline Phosphatase 110, Total Protein 6.0L, Albumin 2.3L Microbiology 01/28/22 Blood Culture - Preliminary, Resulted No growth 01/23/22 Urine Culture - Final, Complete NO GROWTH Microbiology 01/28/22 Blood Culture - Preliminary, Resulted No growth 01/28/22 Blood Culture - Preliminary, Resulted No growth Assessment/Plan/Dx Assessment: 1. Full thickness wound R. 5th toe due to trauma from fall 2. Lymphedema 3. Anemia of blood loss 4. Protein energy malnutrition Plan: 1. Cleanse daily with Vashe, apply xeroform and cover with gauze, roller gauze and secure with WARD wrap. 2. WARD wrap and SCD's 3. Defer to primary team 4. Agree with protein supplementation 5. Once ambulatory, should off load with surgical shoe. BROOKS PLAOMO MD Jan 29, 2022 11:48
[2022-01-29] MEDS ORDERED: AMIODARONE FOR BOLUS 150 MG in NS (IVPB) 100 ML IV NR (12:00)
--- NOTE | 2022-01-29 13:37 | Physical Therapy Daily Note ---
PT Daily Note-Current Subjective Patient agrees to PT. Mental Status Patient Orientation: Person, Time, Situation Attachments: Oxygen, Villa Catheter Transfers SCALE: Activities may be completed with or without assistive devices. 2-Keshsjuxws-koemnnb completes the activity by him/herself with no assistance from a helper. 5-Set-up or Clean-up Assistance-helper sets up or cleans up; patient completes activity. Cyrus assists only prior to or following the activity. 4-Supervision or Touching Assistance-helper provides verbal cues and/or touching/steadying and/or contact guard assistance as patient completes activity. Assistance may be provided throughout the activity or intermittently. 3-Partial/Moderate Assistance-helper does LESS THAN HALF the effort. Cyrus lifts, holds or supports trunk or limbs, but provides less than half the effort. 2-Substantial/Maximal Assistance-helper does MORE THAN HALF the effort. Cyrus lifts or holds trunk or limbs and provides more than half the effort. 2-Phtdtgaux-yaazuo does ALL the effort. Patient does none of the effort to complete the activity. Or, the assistance of 2 or more helpers is required for the patient to complete the activity. If activity was not attempted, code reason: 7-Patient Refused. 9-Not Applicable-not attempted and the patient did not perform the activity before the current illness, exacerbation or injury. 10-Not Attempted due to Environmental Limitations-(lack of equipment, weather restraints, etc.). 88-Not Attempted due to Medical Conditions or Safety Concerns. Lying to Sitting/Side of Bed(Q: 2 Sit to Stand (QC): 1 Chair/Yqt-kb-Ymsbn Xfer(QC): 1 Assessment Patient sat EOB for 5 min prior to performing SPT bed to recliner dependent assist of 2. Patient yelled in pain of right knee with all mobility. Continue to increase activity as tolerated by patient. PT Prison Goals Prison Goals PT Prison Goals Time Frame: Feb 09, 2022 Roll Left & Right (QC): 4 Sit to Lying (QC): 4 Lying-Sitting on Side/Bed(QC): 4 Sit to Stand (QC): 4 Chair/Mta-zr-Jonit Xfer(QC): 4 Toilet Transfer (QC): 4 Walk 10 feet (QC): 4 Walk 50ft with 2 Turns (QC): 4 PT Plan Treatment/Plan Treatment Plan: Continue Plan of Care Treatment Plan: Bed Mobility, Education, Functional Activity Huma, Functional Strength, Gait, Safety, Therapeutic Exercise, Transfers Treatment Duration: Feb 09, 2022 Frequency: 6 times per week Estimated Hrs Per Day: .25 hour per day Time/GCodes Time In: 1310 Time Out: 1325 Total Billed Treatment Time: 15 Total Billed Treatment 1 visit FA 15 min CHUCKY PEÑALOZA PT Jan 29, 2022 13:37
--- NOTE | 2022-01-29 13:40 | Occupational Ther Daily Note ---
OT Current Status-Daily Note Subjective Pt groggy with eyes open lying in bed. Pt reluctantly agrees to therapy. Pt c/o pain with all movement, mostly in L knee. Mental Status/Objective Patient Orientation: Person, Place, Time, Situation Attachments: Villa Catheter, IV, Oxygen, Telemetry ADL-Treatment Therapy Code Descriptions/Definitions Functional Addison Measure: 0=Not Assessed/NA 4=Minimal Assistance 1=Total Assistance 5=Supervision or Setup 2=Maximal Assistance 6=Modified Addison 3=Moderate Assistance 7=Complete IndependenceSCALE: Activities may be completed with or without assistive devices. 2-Uhxgltvevk-iygbmhs completes the activity by him/herself with no assistance from a helper. 5-Set-up or Clean-up Assistance-helper sets up or cleans up; patient completes activity. Glouster assists only prior to or following the activity. 4-Supervision or Touching Assistance-helper provides verbal cues and/or touching/steadying and/or contact guard assistance as patient completes activity. Assistance may be provided throughout the activity or intermittently. 3-Partial/Moderate Assistance-helper does LESS THAN HALF the effort. Glouster lifts, holds or supports trunk or limbs, but provides less than half the effort. 2-Substantial/Maximal Assistance-helper does MORE THAN HALF the effort. Glouster lifts or holds trunk or limbs and provides more than half the effort. 2-Scvwudabs-btdduu does ALL the effort. Patient does none of the effort to complete the activity. Or, the assistance of 2 or more helpers is required for the patient to complete the activity. If activity was not attempted, code reason: 7-Patient Refused. 9-Not Applicable-not attempted and the patient did not perform the activity before the current illness, exacerbation or injury. 10-Not Attempted due to Environmental Limitations-(lack of equipment, weather restraints, etc.). 88-Not Attempted due to Medical Conditions or Safety Concerns. Other Treatment Dependent with footwear. Max A x2 for supine to EOB then max Ax2 for SPT from EOB to recliner. Pt cries out in pain stating that her knee hurts with transfer. Reported this to nrsg. Pt required max A x2 to scoot back in chair. After session, pt sitting in recliner with call light/phone in reach. All needs met in room. OT Patch Worker Goals Patch Worker Goals Time Frame: Feb 08, 2022 Eating (QC): 6 Oral Hygiene (QC): 6 Toileting Hygiene (QC): 4 Shower/Bathe Self (QC): 4 Upper Body Dressing (QC): 5 Lower Body Dressing (QC): 4 On/Off Footwear (QC): 4 Additional Goals: 1-Demonstrate ADL Tasks, 2-Verbalize Understanding, 3- ImproveStrength/Huma 1=Demonstrate adherence to instructed precautions during ADL tasks. 2=Patient will verbalize/demonstrate understanding of assistive devices/earl fications for ADL. 3=Patient will improve strength/tolerance for activity to enable patient to perform ADL's. OT Education/Plan Problem List/Assessment Assessment: Decreased Activ Tolerance, Decreased Safety Aware, Decreased UE Strength, Dependent Transfers, Impaired Bed Mobility, Impaired Cognition, Impaired Funct Balance, Impaired Self-Care Skills, Restricted Funct UE ROM Discharge Recommendations Plan/Recommendations: Continue POC Treatment Plan/Plan of Care Patient would benefit from OT for education, treatment and training to promote independence in ADL's, mobility, safety and/or upper extremity function for ADL's. Plan of Care: ADL Retraining, Functional Mobility, UE Funct Exercise/Act Treatment Duration: Feb 08, 2022 Frequency: 3 times per week (3-5 times per week) Estimated Hrs Per Day: .25 hour per day Rehab Potential: Fair Time/GCodes Start Time: 13:10 Stop Time: 13:25 Total Time Billed (hr/min): 15 Billed Treatment Time 1 visit-FA 1 (15 min) ERICA NEGRON Jan 29, 2022 13:40
[2022-01-29] MEDS: RIVAROXABAN 20 MG TABLET (XARELTO) PO SCH (17:53)
[2022-01-29] MEDS: ROSUVASTATIN 10 MG (CRESTOR) TABLET PO SCH (20:10)
--- NOTE | 2022-01-29 21:13 | Progress Note ---
Subjective Date Seen by a Provider: Jan 29, 2022 Time Seen by a Provider: 17:00 Subjective/Events-last exam 66-year-old female admitted January 24 through the emergency department after having shortness of breath. At the time she was found to have atrial fibrillation with rapid ventricle response. She was subsequently admitted to the intensive care unit. Additionally she was found to have sepsis as well as leukocytosis and felt to have staph bacteremia. Today she did complain mainly of her back. She is not with any significant shortness of breath currently. Somewhat depressed as well. She was happy to find out her echocardiogram today there was no vegetations on her cardiac valves. Objective Exam Vital Signs Date Time Temp Pulse Resp B/P (MAP) Pulse Ox O2 Delivery O2 Flow Rate FiO2 01/29/22 20:00 96 Nasal Cannula 3.00 01/29/22 19:36 36.6 01/29/22 18:00 66 18 117/95 90 Nasal Cannula 3.00 01/29/22 17:00 64 104/61 Nasal Cannula 3.00 01/29/22 16:00 58 123/68 Nasal Cannula 3.00 01/29/22 15:59 36.5 01/29/22 15:19 97 Nasal Cannula 3.00 01/29/22 15:00 57 118/71 Nasal Cannula 3.00 01/29/22 14:50 60 117/70 01/29/22 14:00 117/70 96 Nasal Cannula 3.00 01/29/22 13:00 62 127/74 94 Nasal Cannula 3.00 01/29/22 12:51 62 01/29/22 12:00 97 Nasal Cannula 3.00 01/29/22 12:00 64 128/85 98 Nasal Cannula 3.00 01/29/22 11:00 72 130/72 95 Nasal Cannula 3.00 01/29/22 10:00 73 19 155/88 95 Nasal Cannula 3.00 01/29/22 09:00 73 19 129/90 96 Nasal Cannula 3.00 01/29/22 08:43 71 01/29/22 08:00 97 Nasal Cannula 3.00 01/29/22 08:00 123 16 101/71 91 Nasal Cannula 3.00 01/29/22 07:00 133 01/29/22 07:00 117 28 122/87 98 Nasal Cannula 3.00 01/29/22 06:02 125 23 142/85 94 Nasal Cannula 3.00 01/29/22 05:00 105 170/78 94 Nasal Cannula 3.00 01/29/22 04:00 113 13 127/95 Nasal Cannula 3.00 01/29/22 04:00 95 Nasal Cannula 3.00 01/29/22 03:51 36.0 01/29/22 03:00 129 10 104/92 92 Nasal Cannula 3.00 01/29/22 02:00 116 23 114/70 95 Nasal Cannula 3.00 01/29/22 01:00 116 19 126/74 Nasal Cannula 3.00 01/29/22 01:00 116 01/29/22 00:14 109 22 94/82 Nasal Cannula 3.00 01/29/22 00:00 94 Nasal Cannula 3.00 01/28/22 23:41 36.0 01/28/22 23:09 129 17 121/82 90 Nasal Cannula 3.00 01/28/22 22:00 120 14 122/104 95 Nasal Cannula 3.00 I & O 01/29/22 07:00 Intake Total 1665 ml Output Total 1900 ml Balance -235 ml Capillary Refill : General Appearance: No Apparent Distress HEENT: Moist Mucous Membranes Neck: Supple Respiratory: Lungs Clear, No Accessory Muscle Use Cardiovascular: Regular Rate, Rhythm (Will rate of 110 currently) Gastrointestinal: soft Extremity: Normal Capillary Refill, No Calf Tenderness, Pedal Edema Neurologic/Psychiatric: Alert, Oriented x3 Skin: Normal Color Results Lab Laboratory Tests 01/29/22 04:45: White Blood Count 28.5H, Red Blood Count 3.10L, Hemoglobin 7.7L, Hematocrit 25L, Mean Corpuscular Volume 80, Mean Corpuscular Hemoglobin 25, Mean Corpuscular Hemoglobin Concent 31L, Red Cell Distribution Width 18.0H, Platelet Count 585H, Mean Platelet Volume 10.1, Immature Granulocyte % (Auto) 4, Neutrophils (%) (Auto) 87H, Lymphocytes (%) (Auto) 5L, Monocytes (%) (Auto) 3, Eosinophils (%) ( Auto) 0, Basophils (%) (Auto) 0, Neutrophils # (Auto) 24.8H, Lymphocytes # (Auto) 1.5, Monocytes # (Auto) 0.9, Eosinophils # (Auto) 0.1, Basophils # (Auto) 0.1, Immature Granulocyte # (Auto) 1.2H, Sodium Level 128L, Potassium Level 4.8, Chloride Level 97L, Carbon Dioxide Level 21, Anion Gap 10, Blood Urea Nitrogen 15, Creatinine 0.60, Estimat Glomerular Filtration Rate 98, BUN/Creatinine Ratio 25, Glucose Level 115H, Calcium Level 7.7L, Corrected Calcium 9.1, Phosphorus Level 3.5, Magnesium Level 1.9, Total Bilirubin 0.5, Aspartate Amino Transf (AST/SGOT) 55H, Alanine Aminotransferase (ALT/SGPT) 49, Alkaline Phosphatase 110, Total Protein 6.0L, Albumin 2.3L Microbiology 01/28/22 Blood Culture - Preliminary, Resulted No growth 01/23/22 Urine Culture - Final, Complete NO GROWTH Assessment/Plan Assessment/Plan Assess & Plan/Chief Complaint 1. Sepsis -Under treatment with Ancef -leukocytosis associated with sepsis is slowly improving --CBC in the morning 2. Atrial fibrillation with rapid regular response -Under care of cardiology. Today it was noted that her rapid ventricular response converted 3. Bacteremia due to methicillin sensitive staph aureus -Under treatment with Ancef 4. Anemia--currently with no evidence for active bleeding 5. Atelectasis -Stable 6. Lumbar back paincurrently under -I suspect either inpatient or outpatient she had MRI lumbar back. At this point attending tomorrow to processes Clinical Quality Measures DVT/VTE Risk/Contraindication: Contraindications-Pharm: Other *list below* Other: anemia ANDREAS LEVIN MD Jan 29, 2022 21:13
[2022-01-30] MEDS: ceFAZolin 2 GM IV Premixed 50 ML IV SCH ×3 (01:36→17:29)
[2022-01-30 04:35] LABS: BASOPHILS % (AUTO) 0 % (0-10); EOSINOPHILS # (AUTO) 0.1 10^3/uL (0.0-0.3); EOSINOPHILS % (AUTO) 0 % (0-10); HEMATOCRIT 24 % (35-52); HEMOGLOBIN 7.7 g/dL (11.5-16.0); LYMPHOCYTES # (AUTO) 1.2 10^3/uL (1.0-4.0); LYMPHOCYTES % (AUTO) 5 % (12-44); MEAN CORPUSCULAR HEMOGLOBIN 25 pg (25-34); MEAN CORPUSCULAR HGB CONC 32 g/dL (32-36); MEAN CORPUSCULAR VOLUME 80 fL (80-99); MEAN PLATELET VOLUME 9.8 fL (9.0-12.2); MONOCYTES # (AUTO) 0.8 10^3/uL (0.0-1.0); MONOCYTES % (AUTO) 3 % (0-12); NEUTROPHILS # (AUTO) 19.8 10^3/uL (1.8-7.8); NEUTROPHILS % (AUTO) 88 % (42-75); PLATELET COUNT 556 10^3/uL (130-400); WHITE BLOOD COUNT 22.5 10^3/uL (4.3-11.0)
[2022-01-30 04:45] LABS: ALBUMIN 2.4 GM/DL (3.2-4.5); POTASSIUM 4.4 MMOL/L (3.6-5.0)
[2022-01-30 04:46] LABS: CALCIUM 7.7 MG/DL (8.5-10.1)
[2022-01-30 04:48] LABS: TOTAL PROTEIN 5.9 GM/DL (6.4-8.2)
[2022-01-30 04:49] LABS: BILIRUBIN,TOTAL 0.5 MG/DL (0.1-1.0)
[2022-01-30] MEDS: POTASSIUM CL 10MEQ/50ML IVPB 50 ML IV SCH (04:50)
[2022-01-30] MEDS: KCL 20 MEQ TAB (K-DUR) PO SCH (04:50)
[2022-01-30 04:51] LABS: CREATININE SERUM 0.64 MG/DL (0.60-1.30); PHOSPHORUS 3.7 MG/DL (2.3-4.7)
[2022-01-30] MEDS: MAGNESIUM 1 GM/100 ML IVPB 100 ML IV SCH (05:03)
[2022-01-30] MEDS: meTOprolol TARTRATE 50 MG (LOPRESSOR) TAB PO SCH ×2 (07:48→20:20)
[2022-01-30] MEDS: SENNOSIDES 8.6 MG (SENOKOT) TAB PO SCH ×2 (07:48→20:18)
[2022-01-30] MEDS: DOCUSATE SODIUM 100 MG (COLACE) CAP PO SCH ×2 (07:48→20:18)
[2022-01-30] MEDS: dilTIAZem120 MG (CARDIZEM CD) CAP PO SCH (07:49)
[2022-01-30] MEDS: PANTOPRAZOLE 40 MG (PROTONIX) VIAL IV SCH (07:49)
--- NOTE | 2022-01-30 08:24 | Progress Note ---
Subjective Date Seen by a Provider: Jan 30, 2022 Time Seen by a Provider: 07:05 Subjective/Events-last exam She is "feeling a little better". Would like to be out of the icu. She has had no fever. Still on antibiotics. No setting in chair due to back bothering her. Objective Exam Vital Signs Date Time Temp Pulse Resp B/P (MAP) Pulse Ox O2 Delivery O2 Flow Rate FiO2 01/30/22 07:36 36.3 01/30/22 07:00 70 14 147/91 97 Nasal Cannula 3.00 01/30/22 07:00 70 01/30/22 06:00 67 23 147/83 97 Nasal Cannula 3.00 01/30/22 05:00 69 32 149/91 95 Nasal Cannula 3.00 01/30/22 04:00 36.1 01/30/22 04:00 65 138/80 97 Nasal Cannula 3.00 01/30/22 03:58 97 Nasal Cannula 3.00 01/30/22 03:00 65 144/74 93 Nasal Cannula 3.00 01/30/22 02:00 63 23 130/68 90 Nasal Cannula 3.00 01/30/22 01:00 63 01/30/22 01:00 63 22 120/69 100 Nasal Cannula 3.00 01/30/22 00:17 97 Nasal Cannula 3.00 01/30/22 00:00 61 23 124/68 98 Nasal Cannula 3.00 01/30/22 00:00 36.1 01/29/22 23:00 60 13 113/71 87 Nasal Cannula 3.00 01/29/22 22:00 59 23 115/72 98 Nasal Cannula 3.00 01/29/22 21:00 60 21 120/68 98 Nasal Cannula 3.00 01/29/22 20:00 65 18 119/51 98 Nasal Cannula 3.00 01/29/22 20:00 96 Nasal Cannula 3.00 01/29/22 19:36 36.6 01/29/22 19:00 67 01/29/22 19:00 67 22 129/59 Nasal Cannula 3.00 01/29/22 18:00 66 18 117/95 90 Nasal Cannula 3.00 01/29/22 17:00 64 104/61 Nasal Cannula 3.00 01/29/22 16:00 58 123/68 Nasal Cannula 3.00 01/29/22 15:59 36.5 01/29/22 15:19 97 Nasal Cannula 3.00 01/29/22 15:00 57 118/71 Nasal Cannula 3.00 01/29/22 14:50 60 117/70 01/29/22 14:00 117/70 96 Nasal Cannula 3.00 01/29/22 13:00 62 127/74 94 Nasal Cannula 3.00 01/29/22 12:51 62 01/29/22 12:00 97 Nasal Cannula 3.00 01/29/22 12:00 64 128/85 98 Nasal Cannula 3.00 01/29/22 11:00 72 130/72 95 Nasal Cannula 3.00 01/29/22 10:00 73 19 155/88 95 Nasal Cannula 3.00 01/29/22 09:00 73 19 129/90 96 Nasal Cannula 3.00 01/29/22 08:43 71 I & O 01/30/22 07:00 Intake Total 853 ml Output Total 1975 ml Balance -1122 ml Capillary Refill : General Appearance: No Apparent Distress Respiratory: Lungs Clear Cardiovascular: Regular Rate, Rhythm Gastrointestinal: soft Results Lab Laboratory Tests 01/30/22 04:25: White Blood Count 22.5H, Red Blood Count 3.05L, Hemoglobin 7.7L, Hematocrit 24L, Mean Corpuscular Volume 80, Mean Corpuscular Hemoglobin 25, Mean Corpuscular Hemoglobin Concent 32, Red Cell Distribution Width 18.9H, Platelet Count 556H, Mean Platelet Volume 9.8, Immature Granulocyte % (Auto) 3, Neutrophils (%) (Auto) 88H, Lymphocytes (%) (Auto) 5L, Monocytes (%) (Auto) 3, Eosinophils (%) (Auto) 0, Basophils (%) (Auto) 0, Neutrophils # (Auto) 19.8H, Lymphocytes # (Auto) 1.2, Monocytes # (Auto) 0.8, Eosinophils # (Auto) 0.1, Basophils # (Auto) 0.0, Immature Granulocyte # (Auto) 0.6H, Sodium Level 130L, Potassium Level 4.4, Chloride Level 99, Carbon Dioxide Level 21, Anion Gap 10, Blood Urea Nitrogen 18, Creatinine 0.64, Estimat Glomerular Filtration Rate 97, BUN/Creatinine Ratio 28, Glucose Level 120H, Calcium Level 7.7L, Corrected Calcium 9.0, Phosphorus Level 3.7, Magnesium Level 2.0, Total Bilirubin 0.5, Aspartate Amino Transf (AST/SGOT) 51H, Alanine Aminotransferase (ALT/SGPT) 38, Alkaline Phosphatase 100, Total Protein 5.9L, Albumin 2.4L Microbiology 01/28/22 Blood Culture - Preliminary, Resulted No growth 01/23/22 Urine Culture - Final, Complete NO GROWTH Assessment/Plan Assessment/Plan Assess & Plan/Chief Complaint 1. Sepsis -Under treatment with Ancef -leukocytosis associated with sepsis is slowly improving --CBC in the morning 2. Atrial fibrillation with rapid regular response -Under care of cardiology. Today it was noted that her rapid ventricular response converted 01/30 -transfer to medical floor if ok with cardiology 3. Bacteremia due to methicillin sensitive staph aureus -Under treatment with Ancef 4. Anemia--currently with no evidence for active bleeding 5. Atelectasis -Stable 6. Lumbar back paincurrently under -I suspect either inpatient or outpatient she had MRI lumbar back. At this point attending tomorrow to processes Clinical Quality Measures DVT/VTE Risk/Contraindication: Contraindications-Pharm: Other *list below* Other: anemia ANDREAS LEVIN MD Jan 30, 2022 08:24
--- NOTE | 2022-01-30 08:49 | Cardiology Progress Note ---
Subjective Date Seen by Provider: Jan 30, 2022 Time Seen by Provider: 08:47 Subjective/Events-last exam Patient is laying down in bed, feeling better. Still on oxygen nasal cannula. Converted last night to sinus rhythm Review of Systems General: No Chills, No Night Sweats; Fatigue, Malaise; No Appetite, No Other HEENT: No Head Aches, No Visual Changes, No Eye Pain, No Ear Pain, No Dysphasia, No Sinus Congestion, No Post Nasal Drip, No Sore Throat, No Other Pulmonary: Dyspnea; No Cough, No Pleuritic Chest Pain, No Other Cardiovascular: No: Chest Pain, Palpitations, Orthopnea, Paroxysmal Noc. Dyspnea, Edema, Lt Headedness, Other Objective-Cardiology Exam Last Set of Vital Signs Vital Signs 01/26/22 01/30/22 01/30/22 00:24 07:36 08:35 Temp 36.3 Pulse Ox 97 O2 Delivery Nasal Cannula O2 Flow Rate 3.00 FiO2 21 I&O Intake and Output 01/30/22 00:00 Intake Total 853 ml Output Total 2050 ml Balance -1197 ml Intake Oral 500 ml IV Total 353 ml Output Urine Total 2050 ml General: Alert, Oriented X3, No Acute Distress HEENT: Atraumatic, PERRLA Neck: Supple, No JVD, No Thyromegaly Lungs: Clear to Auscultation, Normal Air Movement Heart: Regular Rate, Normal S1, Normal S2, No Murmurs Abdomen: Normal Bowel Sounds, Soft, No Tenderness, No Masses Extremities: Other (2+ pitting edema equal bilaterally) Skin: No Rashes, No Breakdown, No Significant Lesion Neuro: Normal Speech Psych/Mental Status: Mental Status NL, Mood NL Results Lab Laboratory Tests 01/30/22 04:25 A/P-Cardiology Admission Diagnosis Atrial fibrillation Staph bacteremia Tachycardia Hypertension Assessment/Plan Paroxysmal atrial fibrillation with rapid ventricular response Converted spontaneously to sinus rhythm. Unable to tolerate aggressive anticoagulation due to severe anemia and persistent nosebleed. She was started on Xarelto 20 mg daily on January 29, 2022 and will monitor lars ance and response Maintained on Cardizem CD 360 mg daily. Reporting intolerant to beta-naun with severe bradycardia. BRAULIO was done on January 29, 2022 showing preserved left ventricular function, dilat ed left atrium and left atrial appendage with no clot or thrombus, no vegetation, mild mitral regurgitation Staff bacteremia. Leukocytosis. Receiving antibiotics. BRAULIO was done showed no vegetation on January 29, 2022 Leukocytosis is improving slowly. Maintained on Ancef. 2D echo was reported by Dr. Frederick on December 29, 2021 with ejection fraction 55 to 60%, left atrial dilatation, estimated pulmonary artery pressure 40 mmHg Anemia, unknown source of occult blood loss. H&H has been stable at 7.7. Starting Xarelto and will evaluate for any further blood loss Status post falling with left humerus fracture. Managed by medical team Hypertension, monitor blood pressure Hyperlipidemia, continue on statin Morbid obesity, BMI 43. Left humerus fracture. Managed by medical team HEATH GÓMEZ MD Jan 30, 2022 08:49
--- NOTE | 2022-01-30 09:20 | Occupational Ther Daily Note ---
OT Current Status-Daily Note Subjective Pt alert, lying in bed. Pt agrees to therapy. No c/o pain. Mental Status/Objective Patient Orientation: Person, Place, Time, Situation Attachments: Villa Catheter, IV, Oxygen, Telemetry ADL-Treatment Pt required assist x2 to complete bed mobility. Max A x2 to cleanse after taking pt off bedpan. After set up, pt able to use regular utensils to eat breakfast. Pt educated about completing AROM exercises to L hand/wrist to decrease edema and increase ROM. Pt states that she tries to do exercises when she remembers them. After session, pt sitting up in bed with call light/phone in reach. All needs met in room. Therapy Code Descriptions/Definitions Functional [place] Measure: 0=Not Assessed/NA 4=Minimal Assistance 1=Total Assistance 5=Supervision or Setup 2=Maximal Assistance 6=Modified [place] 3=Moderate Assistance 7=Complete IndependenceSCALE: Activities may be completed with or without assistive devices. 9-Zimgkahckz-aiwvdud completes the activity by him/herself with no assistance from a helper. 5-Set-up or Clean-up Assistance-helper sets up or cleans up; patient completes activity. [place] assists only prior to or following the activity. 4-Supervision or Touching Assistance-helper provides verbal cues and/or touching/steadying and/or contact guard assistance as patient completes activity. Assistance may be provided throughout the activity or intermittently. 3-Partial/Moderate Assistance-helper does LESS THAN HALF the effort. [place] lifts, holds or supports trunk or limbs, but provides less than half the effort. 2-Substantial/Maximal Assistance-helper does MORE THAN HALF the effort. [place] lifts or holds trunk or limbs and provides more than half the effort. 1-Neqowwgcc-exquel does ALL the effort. Patient does none of the effort to complete the activity. Or, the assistance of 2 or more helpers is required for the patient to complete the activity. If activity was not attempted, code reason: 7-Patient Refused. 9-Not Applicable-not attempted and the patient did not perform the activity be fore the current illness, exacerbation or injury. 10-Not Attempted due to Environmental Limitations-(lack of equipment, weather restraints, etc.). 88-Not Attempted due to Medical Conditions or Safety Concerns. Eating (QC): 5 Toileting Hygiene (QC): 1 Toilet Transfer (QC): 1 OT Snf Goals Snf Goals Time Frame: Feb 08, 2022 Eating (QC): 6 Oral Hygiene (QC): 6 Toileting Hygiene (QC): 4 Shower/Bathe Self (QC): 4 Upper Body Dressing (QC): 5 Lower Body Dressing (QC): 4 On/Off Footwear (QC): 4 Additional Goals: 1-Demonstrate ADL Tasks, 2-Verbalize Understanding, 3- ImproveStrength/Huma 1=Demonstrate adherence to instructed precautions during ADL tasks. 2=Patient will verbalize/demonstrate understanding of assistive devices /modifications for ADL. 3=Patient will improve strength/tolerance for activity to enable patient to perform ADL's. OT Education/Plan Problem List/Assessment Assessment: Decreased Activ Tolerance, Decreased UE Strength, Impaired Self- Care Skills, Restricted Funct UE ROM Discharge Recommendations Plan/Recommendations: Continue POC Treatment Plan/Plan of Care Patient would benefit from OT for education, treatment and training to promote independence in ADL's, mobility, safety and/or upper extremity function for ADL's. Plan of Care: ADL Retraining, Functional Mobility, UE Funct Exercise/Act Treatment Duration: Feb 08, 2022 Frequency: 3 times per week (3-5 times per week) Estimated Hrs Per Day: .25 hour per day Rehab Potential: Fair Time/GCodes Start Time: 08:26 Stop Time: 08:44 Total Time Billed (hr/min): 18 Billed Treatment Time 1 visit-ADL 1 (18 min) ERICA NEGRON Jan 30, 2022 09:20
--- NOTE | 2022-01-30 10:30 | Physical Therapy Daily Note ---
PT Daily Note-Current Subjective Patient in bed pre tx, agrees to PT, has no complaints of pain at rest. Appearance Patient in recliner post tx with nurse call, phone, tray, all needs met. Mental Status Patient Orientation: Person, Place, Situation Attachments: Oxygen, Villa Catheter, IV Transfers SCALE: Activities may be completed with or without assistive devices. 4-Mmquyqsspr-gtybchh completes the activity by him/herself with no assistance from a helper. 5-Set-up or Clean-up Assistance-helper sets up or cleans up; patient completes activity. [place] assists only prior to or following the activity. 4-Supervision or Touching Assistance-helper provides verbal cues and/or touching/steadying and/or contact guard assistance as patient completes activity. Assistance may be provided throughout the activity or intermittently. 3-Partial/Moderate Assistance-helper does LESS THAN HALF the effort. [place] lifts, holds or supports trunk or limbs, but provides less than half the effort. 2-Substantial/Maximal Assistance-helper does MORE THAN HALF the effort. [place] lifts or holds trunk or limbs and provides more than half the effort. 3-Yxqryqfyq-kkzufx does ALL the effort. Patient does none of the effort to complete the activity. Or, the assistance of 2 or more helpers is required for the patient to complete the activity. If activity was not attempted, code reason: 7-Patient Refused. 9-Not Applicable-not attempted and the patient did not perform the activity before the current illness, exacerbation or injury. 10-Not Attempted due to Environmental Limitations-(lack of equipment, weather restraints, etc.). 88-Not Attempted due to Medical Conditions or Safety Concerns. Roll Left & Right (QC): 3 Lying to Sitting/Side of Bed(Q: 2 Sit to Stand (QC): 1 Chair/Yfl-yb-Inxqu Xfer(QC): 1 max assist to sit to the side of the bed, after sitting she could scoot to the edge of the bed on her own, but dependent stand pivot transfer to recliner Treatments bed mobility and transfer Assessment Current Status: Poor Progress Patient doesn't seem to be able or is unwilling to assist standing with her legs, she complains of pain in right leg with transfer PT [employer] Supervisor Goals Senior Living Goals PT [employer] Supervisor Goals Time Frame: Feb 09, 2022 Roll Left & Right (QC): 4 Sit to Lying (QC): 4 Lying-Sitting on Side/Bed(QC): 4 Sit to Stand (QC): 4 Chair/Gut-xy-Afmtj Xfer(QC): 4 Toilet Transfer (QC): 4 Walk 10 feet (QC): 4 Walk 50ft with 2 Turns (QC): 4 PT Plan Problem List Problem List: Activity Tolerance, Functional Strength, Safety, Balance, Gait, Transfer, Bed Mobility, ROM Treatment/Plan Treatment Plan: Continue Plan of Care Treatment Plan: Bed Mobility, Education, Functional Activity Huma, Functional Strength, Gait, Safety, Therapeutic Exercise, Transfers Treatment Duration: Feb 09, 2022 Frequency: 6 times per week Estimated Hrs Per Day: .25 hour per day Safety Risks/Education Patient Education: Transfer Techniques, Correct Positioning, Safety Issues Teaching Recipient: Patient Teaching Methods: Demonstration, Discussion Response to Teaching: Reinforcement Needed Time/GCodes Time In: 0934 Time Out: 0951 Total Billed Treatment Time: 17 Total Billed Treatment 1 visit FA GAVINO CARBAJAL PT Jan 30, 2022 10:30
[2022-01-30] MEDS: RIVAROXABAN 20 MG TABLET (XARELTO) PO SCH (17:29)
[2022-01-30] MEDS: NS IV 500 ML 500 ML IV SCH (17:30)
[2022-01-30] MEDS: ROSUVASTATIN 10 MG (CRESTOR) TABLET PO SCH (20:18)
[2022-01-31] MEDS: ceFAZolin 2 GM IV Premixed 50 ML IV SCH ×3 (01:37→18:31)
[2022-01-31 06:24] LABS: BASOPHILS % (AUTO) 0 % (0-10); EOSINOPHILS % (AUTO) 0 % (0-10); HEMATOCRIT 23 % (35-52); HEMOGLOBIN 7.4 g/dL (11.5-16.0); LYMPHOCYTES # (AUTO) 1.1 10^3/uL (1.0-4.0); LYMPHOCYTES % (AUTO) 5 % (12-44); MEAN CORPUSCULAR HEMOGLOBIN 26 pg (25-34); MEAN CORPUSCULAR HGB CONC 32 g/dL (32-36); MEAN CORPUSCULAR VOLUME 82 fL (80-99); MEAN PLATELET VOLUME 9.4 fL (9.0-12.2); MONOCYTES # (AUTO) 0.8 10^3/uL (0.0-1.0); MONOCYTES % (AUTO) 4 % (0-12); NEUTROPHILS # (AUTO) 17.9 10^3/uL (1.8-7.8); NEUTROPHILS % (AUTO) 89 % (42-75); PLATELET COUNT 566 10^3/uL (130-400); WHITE BLOOD COUNT 20.2 10^3/uL (4.3-11.0)
[2022-01-31 06:38] LABS: ALBUMIN 2.4 GM/DL (3.2-4.5)
[2022-01-31 06:39] LABS: POTASSIUM 4.2 MMOL/L (3.6-5.0)
[2022-01-31 06:40] LABS: CALCIUM 7.8 MG/DL (8.5-10.1)
[2022-01-31 06:41] LABS: TOTAL PROTEIN 5.9 GM/DL (6.4-8.2)
[2022-01-31 06:43] LABS: BILIRUBIN,TOTAL 0.4 MG/DL (0.1-1.0)
[2022-01-31 06:44] LABS: PHOSPHORUS 3.6 MG/DL (2.3-4.7)
[2022-01-31 06:45] LABS: CREATININE SERUM 0.63 MG/DL (0.60-1.30)
[2022-01-31 06:48] LABS: ANISOCYTOSIS MARKED; BAND NEUTROPHILS 2 %; HYPOCHROMASIA SLIGHT; LYMPHOCYTES % (MANUAL) 6 %; MONOCYTES % (MANUAL) 2 %; MYELOCYTES % 1 %; NEUTROPHILS % (MANUAL) 89 %; POLYCHROMASIA SLIGHT
[2022-01-31] MEDS: MAGNESIUM 1 GM/100 ML IVPB 100 ML IV SCH (06:57)
[2022-01-31] MEDS: POTASSIUM CL 10MEQ/50ML IVPB 50 ML IV SCH (06:57)
[2022-01-31] MEDS: KCL 20 MEQ TAB (K-DUR) PO SCH (06:57)
--- NOTE | 2022-01-31 07:16 | Progress Note ---
Subjective Date Seen by a Provider: Jan 31, 2022 Time Seen by a Provider: 07:20 Subjective/Events-last exam Patient now on 4th medical. Her overall is feeling better despite her back bothering her. She is unable to walk. Cannot move on with PT due to her back pain. Objective Exam Vital Signs Date Time Temp Pulse Resp B/P (MAP) Pulse Ox O2 Delivery O2 Flow Rate FiO2 01/31/22 03:40 36.9 68 20 165/58 94 Nasal Cannula 3.00 01/31/22 01:00 64 01/31/22 00:05 36.3 58 20 129/74 94 Nasal Cannula 3.00 01/30/22 20:45 98 Nasal Cannula 3.00 01/30/22 19:15 36.0 67 16 129/78 98 Nasal Cannula 3.00 01/30/22 19:00 67 01/30/22 16:24 Nasal Cannula 3.00 01/30/22 15:52 35.8 67 20 128/71 96 Nasal Cannula 3.00 01/30/22 13:00 61 01/30/22 11:45 36.0 64 18 111/70 96 Nasal Cannula 3.00 01/30/22 09:25 36.4 62 18 115/83 97 Nasal Cannula 3.00 01/30/22 09:00 64 21 137/84 97 Nasal Cannula 3.00 01/30/22 08:35 97 Nasal Cannula 3.00 01/30/22 08:00 69 11 147/85 96 Nasal Cannula 3.00 01/30/22 07:36 36.3 I & O 01/31/22 07:00 Intake Total 400 ml Output Total 1025 ml Balance -625 ml Capillary Refill : General Appearance: Mild Distress (with movement) Respiratory: Lungs Clear Cardiovascular: Regular Rate, Rhythm Results Lab Laboratory Tests 01/31/22 06:05: White Blood Count 20.2H, Red Blood Count 2.87L, Hemoglobin 7.4L, Hematocrit 23L, Mean Corpuscular Volume 82, Mean Corpuscular Hemoglobin 26, Mean Corpuscular Hemoglobin Concent 32, Red Cell Distribution Width 19.1H, Platelet Count 566H, Mean Platelet Volume 9.4, Immature Granulocyte % (Auto) 2, Neutrophils (%) (Auto) 89H, Lymphocytes (%) (Auto) 5L, Monocytes (%) (Auto) 4, Eosinophils (%) (Auto) 0, Basophils (%) (Auto) 0, Neutrophils # (Auto) 17.9H, Lymphocytes # (Auto) 1.1, Monocytes # (Auto) 0.8, Eosinophils # (Auto) 0.0, Basophils # (Auto) 0.0, Immature Granulocyte # (Auto) 0.4H, Neutrophils % (Manual) 89, Lymphocytes % (Manual) 6, Monocytes % (Manual) 2, Myelocytes % 1, Band Neutrophils 2, Polychromasia SLIGHT, Hypochromasia SLIGHT, Anisocytosis MARKED, Sodium Level 13 0L, Potassium Level 4.2, Chloride Level 99, Carbon Dioxide Level 23, Anion Gap 8, Blood Urea Nitrogen 16, Creatinine 0.63, Estimat Glomerular Filtration Rate 97, BUN/Creatinine Ratio 25, Glucose Level 106H, Calcium Level 7.8L, Corrected Calcium 9.1, Phosphorus Level 3.6, Magnesium Level 2.0, Total Bilirubin 0.4, Aspartate Amino Transf (AST/SGOT) 29, Alanine Aminotransferase (ALT/SGPT) 25, Alkaline Phosphatase 93, Total Protein 5.9L, Albumin 2.4L Microbiology 01/28/22 Blood Culture - Preliminary, Resulted Staphylococcus aureus See Comments 01/23/22 Urine Culture - Final, Complete NO GROWTH Assessment/Plan Assessment/Plan Assess & Plan/Chief Complaint 1. Sepsis -Under treatment with Ancef -leukocytosis associated with sepsis is slowly improving --CBC in the morning 2. Atrial fibrillation with rapid regular response -Under care of cardiology. Today it was noted that her rapid ventricular response converted 01/30 -transfer to medical floor if ok with cardiology 3. Bacteremia due to methicillin sensitive staph aureus -Under treatment with Ancef 4. Anemia--currently with no evidence for active bleeding 5. Atelectasis -Stable 6. Lumbar back paincurrently under -I suspect either inpatient or outpatient she had MRI lumbar back. At this point attending tomorrow to processes 01/31 -since unable to walk and move on with PT, MRI of lumbar to further clarify the extend of previous CT findings Clinical Quality Measures DVT/VTE Risk/Contraindication: Contraindications-Pharm: Other *list below* Other: anemia ANDREAS LEVIN MD Jan 31, 2022 07:16
[2022-01-31 07:48] VITALS: BP 165/58
[2022-01-31 08:12] VITALS: BP 161/86
--- NOTE | 2022-01-31 08:14 | Occupational Ther Daily Note ---
OT Current Status-Daily Note Subjective Pt drowsy, lying in bed. Pt agrees to therapy. No c/o pain at this time. Pt able to follow one step directions though takes time to process direction. Attempted to have pt call in own breakfast, pt refused unable to follow the steps to complete. MENCHACA called in pt's breakfast then reported to nrsg about pt 's difficulty with this process. Mental Status/Objective Patient Orientation: Person, Place, Time, Situation Attachments: IV, Oxygen ADL-Treatment Therapy Code Descriptions/Definitions Functional [place] Measure: 0=Not Assessed/NA 4=Minimal Assistance 1=Total Assistance 5=Supervision or Setup 2=Maximal Assistance 6=Modified [place] 3=Moderate Assistance 7=Complete IndependenceSCALE: Activities may be completed with or without assistive devices. 9-Helcfjhrbl-ppijtpv completes the activity by him/herself with no assistance from a helper. 5-Set-up or Clean-up Assistance-helper sets up or cleans up; patient completes activity. [place] assists only prior to or following the activity. 4-Supervision or Touching Assistance-helper provides verbal cues and/or touching/steadying and/or contact guard assistance as patient completes activity. Assistance may be provided throughout the activity or intermittently. 3-Partial/Moderate Assistance-helper does LESS THAN HALF the effort. [place] lifts, holds or supports trunk or limbs, but provides less than half the effort. 2-Substantial/Maximal Assistance-helper does MORE THAN HALF the effort. [place] lifts or holds trunk or limbs and provides more than half the effort. 5-Hgtfttexg-ppqcws does ALL the effort. Patient does none of the effort to complete the activity. Or, the assistance of 2 or more helpers is required for the patient to complete the activity. If activity was not attempted, code reason: 7-Patient Refused. 9-Not Applicable-not attempted and the patient did not perform the activity before the current illness, exacerbation or injury. 10-Not Attempted due to Environmental Limitations-(lack of equipment, weather restraints, etc.). 88-Not Attempted due to Medical Conditions or Safety Concerns. Other Treatment Working on increasing L elbow, wrist, hand, finger ROM and strength. Pt required multiple cues to complete 20 reps of each due to falling asleep during exercises. Pt has increased edema of hand and decrease strength/coordination. MENCHACA recommends to pt to continue to move elbow to fingers throughout the day to decrease edema which will increase ROM. After session, pt talking on phone while sitting up in bed. Call light/phone in reach. All needs met in room. OT Chcf Goals Chcf Goals Time Frame: Feb 08, 2022 Eating (QC): 6 Oral Hygiene (QC): 6 Toileting Hygiene (QC): 4 Shower/Bathe Self (QC): 4 Upper Body Dressing (QC): 5 Lower Body Dressing (QC): 4 On/Off Footwear (QC): 4 Additional Goals: 1-Demonstrate ADL Tasks, 2-Verbalize Understanding, 3- ImproveStrength/Huma 1=Demonstrate adherence to instructed precautions during ADL tasks. 2=Patient will verbalize/demonstrate understanding of assistive devices/modifications for ADL. 3=Patient will improve strength/tolerance for activity to enable patient to perform ADL's. OT Education/Plan Problem List/Assessment Assessment: Decreased Activ Tolerance, Decreased UE Strength, Impaired Cognition, Impaired Self-Care Skills, Restricted Funct UE ROM Discharge Recommendations Plan/Recommendations: Continue POC Treatment Plan/Plan of Care Patient would benefit from OT for education, treatment and training to promote independence in ADL's, mobility, safety and/or upper extremity function for ADL's. Plan of Care: ADL Retraining, Functional Mobility, UE Funct Exercise/Act Treatment Duration: Feb 08, 2022 Frequency: 3 times per week (3-5 times per week) Estimated Hrs Per Day: .25 hour per day Rehab Potential: Fair Time/GCodes Start Time: 07:57 Stop Time: 08:12 Total Time Billed (hr/min): 15 Billed Treatment Time 1 visit-EX 1 (15 min) ERICA NEGRON Jan 31, 2022 08:14
--- NOTE | 2022-01-31 09:12 | Cardiology Progress Note ---
Subjective Date Seen by Provider: Jan 31, 2022 Time Seen by Provider: 09:11 Subjective/Events-last exam Patient was seen at bedside, laying down comfortably. No new complaint. No chest pain Review of Systems General: No Chills, No Night Sweats, No Fatigue, No Malaise, No Appetite, No Other HEENT: No Head Aches, No Visual Changes, No Eye Pain, No Ear Pain, No Dysphas ia, No Sinus Congestion, No Post Nasal Drip, No Sore Throat, No Other Pulmonary: No Dyspnea, No Cough, No Pleuritic Chest Pain, No Other Cardiovascular: No: Chest Pain, Palpitations, Orthopnea, Paroxysmal Noc. Dyspnea, Edema, Lt Headedness, Other Objective-Cardiology Exam Last Set of Vital Signs Vital Signs 01/31/22 01/31/22 07:48 08:12 Temp 36.2 Pulse 72 Resp 18 B/P (MAP) 161/86 (111) Pulse Ox 97 O2 Delivery Nasal Cannula O2 Flow Rate 1.00 FiO2 24 I&O Intake and Output 01/31/22 00:00 Intake Total 400 ml Output Total 1200 ml Balance -800 ml Intake Oral 400 ml Output Urine Total 1200 ml General: Alert, Oriented X3, No Acute Distress HEENT: Atraumatic, PERRLA Neck: Supple, No JVD, No Thyromegaly Lungs: Clear to Auscultation, Normal Air Movement Heart: Regular Rate, Normal S1, Normal S2, No Murmurs Abdomen: Normal Bowel Sounds, Soft, No Tenderness, No Masses Extremities: Other (2+ pitting edema equal bilaterally) Skin: No Rashes, No Breakdown, No Significant Lesion Neuro: Normal Speech Psych/Mental Status: Mental Status NL, Mood NL Results Lab Laboratory Tests 01/31/22 06:05 A/P-Cardiology Admission Diagnosis Atrial fibrillation Staph bacteremia Tachycardia Hypertension Assessment/Plan Paroxysmal atrial fibrillation with rapid ventricular response Converted spontaneously to sinus rhythm. Unable to tolerate aggressive anticoagulation due to severe anemia and persis tent nosebleed. She was started on Xarelto 20 mg daily on January 29, 2022 and will monitor tolerance and response Maintained on Cardizem CD 360 mg daily. Reporting intolerant to beta-naun with severe bradycardia. Continue to monitor closely. BRAULIO was done on January 29, 2022 showing preserved left ventricular function, dilated left atrium and left atrial appendage with no clot or thrombus, no vegetation, mild mitral regurgitation Staff bacteremia. Leukocytosis. Receiving antibiotics. BRAULIO was done showed no vegetation on January 29, 2022 Leukocytosis is improving slowly. Maintained on Ancef. 2D echo was reported by Dr. Frederick on December 29, 2021 with ejection fraction 55 to 60%, left atrial dilatation, estimated pulmonary artery pressure 40 mmHg Anemia, unknown source of occult blood loss. H&H has been stable at 7.7. Started on Xarelto, continue to monitor H&H closely Status post falling with left humerus fracture. Managed by medical team Hypertension, monitor blood pressure Hyperlipidemia, continue on statin Morbid obesity, BMI 43. Left humerus fracture. Managed by medical team HEATH GÓMEZ MD Jan 31, 2022 09:12
[2022-01-31] MEDS: dilTIAZem120 MG (CARDIZEM CD) CAP PO SCH (09:36)
[2022-01-31] MEDS: DOCUSATE SODIUM 100 MG (COLACE) CAP PO SCH ×2 (09:36→20:44)
[2022-01-31] MEDS: SENNOSIDES 8.6 MG (SENOKOT) TAB PO SCH ×2 (09:36→20:45)
[2022-01-31] MEDS: meTOprolol TARTRATE 50 MG (LOPRESSOR) TAB PO SCH ×2 (09:36→20:44)
[2022-01-31] MEDS: PANTOPRAZOLE 40 MG (PROTONIX) TAB PO SCH (09:36)
--- NOTE | 2022-01-31 10:22 | Physical Therapy Daily Note ---
PT Daily Note-Current Subjective Patient in bed pre tx, agrees to PT, states her doctor is going to have an MRI done on her back to find out why she cannot bear weight on her legs. Appearance Patient in bed post tx with nurse call, phone, tray, all needs met. Mental Status Patient Orientation: Person, Place, Situation Attachments: Oxygen, IV Transfers SCALE: Activities may be completed with or without assistive devices. 3-Dhimloawou-yujsyfw completes the activity by him/herself with no assistance from a helper. 5-Set-up or Clean-up Assistance-helper sets up or cleans up; patient completes activity. [place] assists only prior to or following the activity. 4-Supervision or Touching Assistance-helper provides verbal cues and/or touching/steadying and/or contact guard assistance as patient completes activity. Assistance may be provided throughout the activity or intermittently. 3-Partial/Moderate Assistance-helper does LESS THAN HALF the effort. [place] lifts, holds or supports trunk or limbs, but provides less than half the effort. 2-Substantial/Maximal Assistance-helper does MORE THAN HALF the effort. [place] lifts or holds trunk or limbs and provides more than half the effort. 7-Kapawckqv-rzjfig does ALL the effort. Patient does none of the effort to complete the activity. Or, the assistance of 2 or more helpers is required for the patient to complete the activity. If activity was not attempted, code reason: 7-Patient Refused. 9-Not Applicable-not attempted and the patient did not perform the activity before the current illness, exacerbation or injury. 10-Not Attempted due to Environmental Limitations-(lack of equipment, weather restraints, etc.). 88-Not Attempted due to Medical Conditions or Safety Concerns. Exercises Supine Ex: Ankle pumps, Quad Set, Glut sets, Heel Slides (AAROM), Short Arc Quads, Straight leg raise (AAROM), Hip abd/add (AAROM) Supine Reps: 15 Treatments LE strengthening Assessment Current Status: Poor Progress continued BLE weakness PT Assisted Goals Jumpbasting Canvas Baster Goals PT Assisted Goals Time Frame: Feb 09, 2022 Roll Left & Right (QC): 4 Sit to Lying (QC): 4 Lying-Sitting on Side/Bed(QC): 4 Sit to Stand (QC): 4 Chair/Yra-yj-Hpnyn Xfer(QC): 4 Toilet Transfer (QC): 4 Walk 10 feet (QC): 4 Walk 50ft with 2 Turns (QC): 4 PT Plan Problem List Problem List: Activity Tolerance, Functional Strength, Safety, Balance, Gait, Transfer, Bed Mobility, ROM Treatment/Plan Treatment Plan: Continue Plan of Care Treatment Plan: Bed Mobility, Education, Functional Activity Huma, Functional Strength, Gait, Safety, Therapeutic Exercise, Transfers Treatment Duration: Feb 09, 2022 Frequency: 6 times per week Estimated Hrs Per Day: .25 hour per day Safety Risks/Education Patient Education: Correct Positioning, Safety Issues Teaching Recipient: Patient Teaching Methods: Demonstration, Discussion Response to Teaching: Reinforcement Needed Time/GCodes Time In: 0942 Time Out: 0953 Total Billed Treatment Time: 11 Total Billed Treatment 1 visit EX Enrique' GAVINO PEREZ PT Jan 31, 2022 10:22
[2022-01-31 12:07] VITALS: BP 127/68
--- NOTE | 2022-01-31 14:33 | Diagnostic Imaging Report ---
PROCEDURE: MRI lumbar spine. TECHNIQUE: Multiplanar, multisequence MRI of the lumbar spine was performed without contrast. INDICATION: Back pain, recent fall. COMPARISON: None available. FINDINGS: There is a large amount of T2 hyperintense lobulated signal within the bilateral psoas major muscles and paravertebral musculature. This appearance is a significant change since CT of 01/20/2022. The largest collection is in the left psoas major muscle and measures approximately 6 x 4 x 7 cm. Additionally, there is new anterior epidural fluid collection in the anterior epidural space at the L1 level that extends over a length of approximately 3.9 cm. This results in vfqtgzgl-ca-zvndez spinal canal stenosis with mild mass effect on the distal thoracic cord. Another anterior epidural fluid collection is present at the lumbosacral junction posterior to L5-S1 that extends over a craniocaudal length of 3.0 cm and also results in significant spinal canal stenosis. No abnormal T2 hyperintense signal within the intervertebral spaces to suggest discitis-osteomyelitis. There is no acute fracture within the vertebrae or posterior elements. There remains severe spinal canal stenosis at L4-L5 due to facet osteoarthritis, disc bulge, and ligamentum flavum thickening. IMPRESSION: 1. New multifocal intramuscular fluid collections involving the bilateral psoas major and paravertebral musculatures throughout the lumbar spine are most likely areas of intramuscular hemorrhage. 2. There are two new anterior epidural fluid collections that are likely also due to hemorrhage and represent epidural hematomas. These are located at L1-L2 and L5-S1 and result in severe spinal canal stenosis at these levels. A page was placed to the ordering provider at 2:19 PM on 01/31/2022 Dictated by: Dictated on workstation # [id number]
[2022-01-31 15:36] VITALS: BP 148/79
[2022-01-31] MEDS: HYPOCHLOROUS ACID/NaCl (VASHE) 250 ML IR SCH (18:32)
[2022-01-31 19:58] VITALS: BP 141/75
[2022-01-31] MEDS: ROSUVASTATIN 10 MG (CRESTOR) TABLET PO SCH (20:44)
[2022-02-01] VITALS: BP 158/96
[2022-02-01] MEDS: ceFAZolin 2 GM IV Premixed 50 ML IV SCH ×3 (02:45→18:28)
[2022-02-01 04:07] VITALS: BP 154/70
[2022-02-01 06:03] LABS: BASOPHILS % (AUTO) 0 % (0-10); EOSINOPHILS % (AUTO) 0 % (0-10); HEMATOCRIT 24 % (35-52); HEMOGLOBIN 7.2 g/dL (11.5-16.0); LYMPHOCYTES # (AUTO) 1.1 10^3/uL (1.0-4.0); LYMPHOCYTES % (AUTO) 6 % (12-44); MEAN CORPUSCULAR HEMOGLOBIN 25 pg (25-34); MEAN CORPUSCULAR HGB CONC 31 g/dL (32-36); MEAN CORPUSCULAR VOLUME 81 fL (80-99); MEAN PLATELET VOLUME 9.2 fL (9.0-12.2); MONOCYTES # (AUTO) 0.8 10^3/uL (0.0-1.0); MONOCYTES % (AUTO) 4 % (0-12); NEUTROPHILS # (AUTO) 16.8 10^3/uL (1.8-7.8); NEUTROPHILS % (AUTO) 88 % (42-75); PLATELET COUNT 567 10^3/uL (130-400)
[2022-02-01 06:19] LABS: ALBUMIN 2.4 GM/DL (3.2-4.5)
[2022-02-01 06:20] LABS: POTASSIUM 4.3 MMOL/L (3.6-5.0)
[2022-02-01 06:21] LABS: CALCIUM 7.9 MG/DL (8.5-10.1)
[2022-02-01 06:22] LABS: TOTAL PROTEIN 5.8 GM/DL (6.4-8.2)
[2022-02-01 06:24] LABS: BILIRUBIN,TOTAL 0.4 MG/DL (0.1-1.0)
[2022-02-01 06:25] LABS: PHOSPHORUS 3.8 MG/DL (2.3-4.7)
[2022-02-01 06:26] LABS: CREATININE SERUM 0.62 MG/DL (0.60-1.30)
[2022-02-01 06:29] LABS: MAGNESIUM 1.8 MG/DL (1.6-2.4)
[2022-02-01] MEDS: HYPOCHLOROUS ACID/NaCl (VASHE) 250 ML IR SCH ×2 (06:31→08:48)
[2022-02-01] MEDS: KCL 20 MEQ TAB (K-DUR) PO SCH (06:31)
[2022-02-01] MEDS: MAGNESIUM 1 GM/100 ML IVPB 100 ML IV SCH (06:31)
[2022-02-01] MEDS: POTASSIUM CL 10MEQ/50ML IVPB 50 ML IV SCH (06:31)
--- NOTE | 2022-02-01 07:14 | Progress Note ---
Subjective Date Seen by a Provider: Feb 01, 2022 Time Seen by a Provider: 07:25 Subjective/Events-last exam She will progress bed ridden. She has too much pain with movement. She reports the pain is still in the lumbar back region. I went over her MRI results with her today. Objective Exam Vital Signs Date Time Temp Pulse Resp B/P (MAP) Pulse Ox O2 Delivery O2 Flow Rate FiO2 02/01/22 04:07 36.1 75 18 154/70 (98) 96 Nasal Cannula 1.00 02/01/22 01:00 69 02/01/22 00:00 36.2 84 20 158/96 (116) 98 Nasal Cannula 1.00 01/31/22 20:00 Nasal Cannula 1.00 01/31/22 19:58 36.8 70 20 141/75 (97) 95 Nasal Cannula 1.00 01/31/22 19:00 70 01/31/22 15:36 37.3 65 20 148/79 (102) 97 Nasal Cannula 1.00 01/31/22 13:00 63 01/31/22 12:07 36.5 68 18 127/68 (87) 95 Nasal Cannula 1.00 01/31/22 08:12 36.2 72 18 161/86 (111) 97 Nasal Cannula 1.00 01/31/22 08:00 Nasal Cannula 1.00 01/31/22 07:48 36.9 72 93 24 01/31/22 07:47 93 Nasal Cannula 1.00 01/31/22 07:44 97 Nasal Cannula 3.00 I & O 02/01/22 07:00 Intake Total 1020 ml Output Total 1950 ml Balance -930 ml Capillary Refill : General Appearance: Mild Distress Neck: Supple Respiratory: Lungs Clear Cardiovascular: Regular Rate, Rhythm Gastrointestinal: soft Skin: Normal Color Results Lab Laboratory Tests 02/01/22 05:15: White Blood Count 19.0H, Red Blood Count 2.90L, Hemoglobin 7.2L, Hematocrit 24L, Mean Corpuscular Volume 81, Mean Corpuscular Hemoglobin 25, Mean Corpuscular Hemoglobin Concent 31L, Red Cell Distribution Width 19.5H, Platelet Count 567H, Mean Platelet Volume 9.2, Immature Granulocyte % (Auto) 1, Neutrophils (%) (Auto) 88H, Lymphocytes (%) (Auto) 6L, Monocytes (%) (Auto) 4, Eosinophils (%) (Auto) 0, Basophils (%) (Auto) 0, Neutrophils # (Auto) 16.8H, Lymphocytes # (Auto) 1.1, Monocytes # (Auto) 0.8, Eosinophils # (Auto) 0.0, Basophils # (Auto) 0.0, Immature Granulocyte # (Auto) 0.2H, Sodium Level 130L, Potassium Level 4.3, Chloride Level 99, Carbon Dioxide Level 22, Anion Gap 9, Blood Urea Nitrogen 14, Creatinine 0.62, Estimat Glomerular Filtration Rate 98, BUN/Creatinine Ratio 23, Glucose Level 103, Calcium Level 7.9L, Corrected Calcium 9.2, Phosphorus Level 3.8, Magnesium Level 1.8, Total Bilirubin 0.4, Aspartate Amino Transf (AST/SGOT) 28, Alanine Aminotransferase (ALT/SGPT) 18, Alkaline Phosphatase 99, Total Protein 5.8L, Albumin 2.4L Microbiology 01/28/22 Blood Culture - Final, Complete Staphylococcus aureus See Comments 01/23/22 Urine Culture - Final, Complete NO GROWTH Assessment/Plan Assessment/Plan Assess & Plan/Chief Complaint 1. Sepsis -Under treatment with Ancef -leukocytosis associated with sepsis is slowly improving --CBC in the morning 02/01 -Ancef continues IV to 8 hours 2. Atrial fibrillation with rapid regular response -Under care of cardiology. Today it was noted that her rapid ventricular response converted 01/30 -transfer to medical floor if ok with cardiology 3. Bacteremia due to methicillin sensitive staph aureus -Under treatment with Ancef 4. Anemia--currently with no evidence for active bleeding 5. Atelectasis -Stable 6. Lumbar back paincurrently under -I suspect either inpatient or outpatient she had MRI lumbar back. At this point attending tomorrow to processes 01/31 -since unable to walk and move on with PT, MRI of lumbar to further clarify the extend of previous CT findings 02/01 -MRI findings noted. The Xarelto discontinued 01/31 Clinical Quality Measures DVT/VTE Risk/Contraindication: Contraindications-Pharm: Other *list below* Other: anemia ANDREAS LEVIN MD Feb 01, 2022 07:14
--- NOTE | 2022-02-01 07:58 | Occupational Ther Daily Note ---
OT Current Status-Daily Note Subjective Pt alert, lying in bed. C/o pain 10/10, nrsg aware. Pt agrees to OT. Mental Status/Objective Patient Orientation: Person, Place, Time, Situation Attachments: IV, Oxygen (1L) ADL-Treatment Therapy Code Descriptions/Definitions Functional [place] Measure: 0=Not Assessed/NA 4=Minimal Assistance 1=Total Assistance 5=Supervision or Setup 2=Maximal Assistance 6=Modified [place] 3=Moderate Assistance 7=Complete IndependenceSCALE: Activities may be completed with or without assistive devices. 7-Vkomxujztn-xhtqyme completes the activity by him/herself with no assistance from a helper. 5-Set-up or Clean-up Assistance-helper sets up or cleans up; patient completes activity. [place] assists only prior to or following the activity. 4-Supervision or Touching Assistance-helper provides verbal cues and/or touching/steadying and/or contact guard assistance as patient completes activity. Assistance may be provided throughout the activity or intermittently. 3-Partial/Moderate Assistance-helper does LESS THAN HALF the effort. [place] lifts, holds or supports trunk or limbs, but provides less than half the effort. 2-Substantial/Maximal Assistance-helper does MORE THAN HALF the effort. [place] lifts or holds trunk or limbs and provides more than half the effort. 0-Toopldmrz-wrrnvk does ALL the effort. Patient does none of the effort to complete the activity. Or, the assistance of 2 or more helpers is required for the patient to complete the activity. If activity was not attempted, code reason: 7-Patient Refused. 9-Not Applicable-not attempted and the patient did not perform the activity before the current illness, exacerbation or injury. 10-Not Attempted due to Environmental Limitations-(lack of equipment, weather restraints, etc.). 88-Not Attempted due to Medical Conditions or Safety Concerns. Other Treatment Pt dependent with bed mobility, assist x2. Pt tolerated L UE exercises adhering to non-surgical humeral fracture protocol. Scapular retraction without UE shdlr ext, shldr elevation, PROM shldr flex to 90* (tenderness/pain above this). Wrist flexion/ext with finger flexion extension, elbow flex/ext, 20 reps with no pain or tightness noted. Medium resistance therapy sponge given to pt to work on strengthening voice pathologist and decreasing hand edema. After therapy, pt lying in bed talking to friend on phone. Call light/phone in reach. All needs met in room. OT Senior Research Scientist Goals Jail Goals Time Frame: Feb 08, 2022 Eating (QC): 6 Oral Hygiene (QC): 6 Toileting Hygiene (QC): 4 Shower/Bathe Self (QC): 4 Upper Body Dressing (QC): 5 Lower Body Dressing (QC): 4 On/Off Footwear (QC): 4 Additional Goals: 1-Demonstrate ADL Tasks, 2-Verbalize Understanding, 3-ImproveStrength/Huma 1=Demonstrate adherence to instructed precautions during ADL tasks. 2=Patient will verbalize/demonstrate understanding of assistive devices/modifications for ADL. 3=Patient will improve strength/tolerance for activity to enable patient to per form ADL's. OT Education/Plan Problem List/Assessment Assessment: Decreased Activ Tolerance, Decreased UE Strength, Edema, Impaired Bed Mobility, Impaired Self-Care Skills, Restricted Funct UE ROM Discharge Recommendations Plan/Recommendations: Continue POC Treatment Plan/Plan of Care Patient would benefit from OT for education, treatment and training to promote independence in ADL's, mobility, safety and/or upper extremity function for ADL's. Plan of Care: ADL Retraining, Functional Mobility, UE Funct Exercise/Act Treatment Duration: Feb 08, 2022 Frequency: 3 times per week (3-5 times per week) Estimated Hrs Per Day: .25 hour per day Rehab Potential: Fair Time/GCodes Start Time: 07:30 Stop Time: 07:53 Total Time Billed (hr/min): 23 Billed Treatment Time 1 visit-FA 1 (8 min) EX 1 (15 min) ERICA NEGRON Feb 01, 2022 07:58
[2022-02-01 08:16] VITALS: BP 164/84
[2022-02-01] MEDS: SENNOSIDES 8.6 MG (SENOKOT) TAB PO SCH ×3 (08:48→20:51)
[2022-02-01] MEDS: meTOprolol TARTRATE 50 MG (LOPRESSOR) TAB PO SCH ×2 (08:48→20:51)
[2022-02-01] MEDS: dilTIAZem120 MG (CARDIZEM CD) CAP PO SCH (08:48)
[2022-02-01] MEDS: DOCUSATE SODIUM 100 MG (COLACE) CAP PO SCH ×3 (08:48→20:51)
[2022-02-01] MEDS: PANTOPRAZOLE 40 MG (PROTONIX) TAB PO SCH (08:48)
--- NOTE | 2022-02-01 10:07 | Progress Note - Cardiology ---
Cardiology SOAP Progress Note Subjective: In bed States she is feeling better today No c/o CP Feels SOB is improving Back pain is better, somewhat, at this time Objective: I&O/Vital Signs 02/04/22 02/04/22 02/04/22 02/04/22 00:06 01:00 03:59 06:29 Temp 37.1 37.0 Pulse 65 72 69 72 Resp 16 16 B/P (MAP) 139/60 (86) 162/71 (101) Pulse Ox 96 95 O2 Delivery Room Air Room Air 02/04/22 02/04/22 07:21 08:15 Temp 36.6 Pulse 70 Resp 18 B/P (MAP) 161/72 (101) Pulse Ox 93 O2 Delivery Room Air Room Air 02/04/22 00:00 Intake Total 660 ml Output Total 925 ml Balance -265 ml Weight (Pounds): 180 Weight (Calculated Kilograms): 81.824715 Constitutional: appears stated age, AAO x 3, well-developed, well-nourished Respiratory: No accessory muscle use, No respiratory distress; chest expansion is symmetric, chest is bilaterally symmetric, other (diminishes bases) Cardiovascular: regular rate-rhythm; No JVD; S1 and S2 Gastrointestional: soft, round, audible bowel sounds Extremities: other (RLE with mod swelling; LLE with wrap in place) Neurologic/Psychiatric: other (Unable to move left arm d/t fracture of humerus) Skin: No rash on exposed areas, No ulcerations on exposed areas Results/Procedures: Labs Laboratory Tests 02/04/22 06:53: Sodium Level 127L, Potassium Level 4.1, Chloride Level 94L, Carbon Dioxide Level 20L, Anion Gap 13, Blood Urea Nitrogen 11, Creatinine 0.57L, Estimat Glomerular Filtration Rate 100, BUN/Creatinine Ratio 19, Glucose Level 101, Calcium Level 8.0L, Magnesium Level 1.7 Microbiology 01/31/22 Blood Culture - Preliminary, Resulted No growth 01/23/22 Urine Culture - Final, Complete NO GROWTH Procedures NAME: YANELY HARVEY [facility] REC#: [id number] PT STATUS: ADM IN : 1955 PHYSICIAN: ANDREAS LEVIN MD ADMIT DATE: 01/23/22 Signed Date of Exam:01/31/22 MRI LUMBAR SPINE W/O CONTRAST PROCEDURE: MRI lumbar spine. TECHNIQUE: Multiplanar, multisequence MRI of the lumbar spine was performed without contrast. INDICATION: Back pain, recent fall. COMPARISON: None available. FINDINGS: There is a large amount of T2 hyperintense lobulated signal within the bilateral psoas major muscles and paravertebral musculature. This appearance is a significant change since CT of 01/20/2022. The largest collection is in the left psoas major muscle and measures approximately 6 x 4 x 7 cm. Additionally, there is new anterior epidural fluid collection in the anterior epidural space at the L1 level that extends over a length of approximately 3.9 cm. This results in zxihanut-pv-iksdmg spinal canal stenosis with mild mass effect on the distal thoracic cord. Another anterior epidural fluid collection is present at the lumbosacral junction posterior to L5-S1 that extends over a craniocaudal length of 3.0 cm and also results in significant spinal canal stenosis. No abnormal T2 hyperintense signal within the intervertebral spaces to suggest discitis-osteomyelitis. There is no acute fracture within the vertebrae or posterior elements. There remains severe spinal canal stenosis at L4-L5 due to facet osteoarthritis, disc bulge, and ligamentum flavum thickening. IMPRESSION: 1. New multifocal intramuscular fluid collections involving the bilateral psoas major and paravertebral musculatures throughout the lumbar spine are most likely areas of intramuscular hemorrhage. 2. There are two new anterior epidural fluid collections that are likely also due to hemorrhage and represent epidural hematomas. These are located at L1-L2 and L5-S1 and result in severe spinal canal stenosis at these levels. A page was placed to the ordering provider at 2:19 PM on 01/31/2022 Dictated by: Dictated on workstation # [id number] Dict: 01/31/22 1358 Trans: 01/31/22 1445 [id number] Interpreted by: VELMA LEWIS MD Electronically signed by: VELMA LEWIS MD 01/31/22 1445 ADDENDUM REPORT Addendum/ impression: Results were discussed by telephone with Dr. Levin by Dr. Lewis at 2:50 PM on 01/31/2022 Dictated by: Dictated on workstation # [id number] Interpreted by: VELMA LEWIS MD Electronically signed by: VELMA LEWIS MD 01/31/22 [id number] A/P: Assessment: Paroxysmal atrial fibrillation with rapid ventricular response - Converted spontaneously to sinus rhythm. - Unable to tolerate aggressive anticoagulation due to severe anemia and persistent nosebleed. - She was started on Xarelto 20 mg daily on January 29, [address] Tay - stopped on 01-31-22 - Maintained on Cardizem CD 360 mg daily. C/O back pain - New multifocal intramuscular fluid collections involving the bilateral psoas major and paravertebral musculatures throughout the lumbar spine are most likely areas of intramuscular hemorrhage. There are two new anterior epidural fluid collections that are likely also due to hemorrhage and represent epidural hematomas. These are located at L1-L2 and L5-S1 and result in severe spinal canal stenosis at these levels. Reporting intolerant to beta-naun with severe bradycardia BRAULIO was done on January 29, 2022 showing preserved left ventricular function, dilated left atrium and left atrial appendage with no clot or thrombus, no veget ation, mild mitral regurgitation Leukocytosis. - Receiving antibiotics. - BRAULIO was done showed no vegetation on January 29, [address] Tay - Leukocytosis is improving slowly. Maintained on Ancef. 2D echo was reported by Dr. Frederick on December 29, 2021 with ejection fraction 55 to 60%, left atrial dilatation, estimated pulmonary artery pressure 40 mmHg Anemia - management per medical services Status post fall with left humerus fracture - Managed by medical team Hypertension - monitor blood pressure Hyperlipidemia - continue on statin Morbid obesity, BMI 43. Plan: Complex management issue MRI of the back done today which shows hemorrhage (see report above) - Medical services working on transfer to [facility] - which places her at risk of CVA, however, she has bleeding seen on MRI of the back for which transfer is being worked on to [facility] by medical services - Continue to hold OAC d/t bleeding Currently maintaining SR Monitor lab Further recs will be based on her hospital course We have reviewed Dr. Tay's notes in detail RICKY GRAY Feb 01, 2022 10:07
--- NOTE | 2022-02-01 10:21 | Physical Therapy Progress Note ---
Therapy Progress Note This PT consulted with therapy supervisor malt house on POC. Due to current MRI findings, PT will be on Hold until speciality consult has assessed, documented and approved to continue. Per SW, patient will possibly transfer to OSH for higher care. PT will continue to monitor plan. CHUCKY PEÑALOZA PT Feb 01, 2022 10:21
[2022-02-01 12:08] VITALS: BP 178/100
[2022-02-01 15:19] VITALS: BP 159/84
--- NOTE | 2022-02-01 19:10 | Progress Note - Cardiology ---
Cardiology SOAP Progress Note Subjective: No cp or palp or syncope No shortness of breath at rest Gen malaise and weakness present Objective: I&O/Vital Signs 02/01/22 02/01/22 02/01/22 02/01/22 08:00 08:16 12:08 12:47 Temp 37.1 37.3 Pulse 78 68 69 Resp 19 19 B/P (MAP) 164/84 (110) 178/100 (126) Pulse Ox 95 95 O2 Delivery Nasal Cannula Nasal Cannula Nasal Cannula O2 Flow Rate 1.00 1.00 1.00 02/01/22 15:19 Temp 36.9 Pulse 70 Resp 22 B/P (MAP) 159/84 (109) Pulse Ox 95 O2 Delivery Nasal Cannula O2 Flow Rate 1.00 02/01/22 00:00 Intake Total 920 ml Output Total 1150 ml Balance -230 ml Weight (Pounds): 180 Weight (Calculated Kilograms): 81.655434 Constitutional: appears stated age, AAO x 3, well-developed, well-nourished Respiratory: No accessory muscle use, No respiratory distress; chest expansion is symmetric, chest is bilaterally symmetric, other (diminishes bases) Cardiovascular: regular rate-rhythm; No JVD; S1 and S2 Gastrointestional: soft, round, audible bowel sounds Extremities: other (RLE with mod swelling; LLE with wrap in place) Neurologic/Psychiatric: other (Unable to move left arm d/t fracture of humerus) Skin: No rash on exposed areas, No ulcerations on exposed areas Results/Procedures: Labs Laboratory Tests 02/01/22 05:15: White Blood Count 19.0H, Red Blood Count 2.90L, Hemoglobin 7.2L, Hematocrit 24L, Mean Corpuscular Volume 81, Mean Corpuscular Hemoglobin 25, Mean Corpuscular Hemoglobin Concent 31L, Red Cell Distribution Width 19.5H, Platelet Count 567H, Mean Platelet Volume 9.2, Immature Granulocyte % (Auto) 1, Neutrophils (%) (Auto) 88H, Lymphocytes (%) (Auto) 6L, Monocytes (%) (Auto) 4, Eosinophils (%) (Auto) 0, Basophils (%) (Auto) 0, Neutrophils # (Auto) 16.8H, Lymphocytes # (Au to) 1.1, Monocytes # (Auto) 0.8, Eosinophils # (Auto) 0.0, Basophils # (Auto) 0.0, Immature Granulocyte # (Auto) 0.2H, Sodium Level 130L, Potassium Level 4.3, Chloride Level 99, Carbon Dioxide Level 22, Anion Gap 9, Blood Urea Nitrogen 14, Creatinine 0.62, Estimat Glomerular Filtration Rate 98, BUN/Creatinine Ratio 23, Glucose Level 103, Calcium Level 7.9L, Corrected Calcium 9.2, Phosphorus Level 3.8, Magnesium Level 1.8, Total Bilirubin 0.4, Aspartate Amino Transf (AST/SGOT) 28, Alanine Aminotransferase (ALT/SGPT) 18, Alkaline Phosphatase 99, Total Protein 5.8L, Albumin 2.4L Microbiology 01/31/22 Blood Culture - Preliminary, Resulted No growth 01/23/22 Urine Culture - Final, Complete NO GROWTH Laboratory Tests 01/31/22 06:05 02/01/22 05:15 A/P: Assessment: Paroxysmal atrial fibrillation with rapid ventricular response - Converted spontaneously to sinus rhythm. - Unable to tolerate aggressive anticoagulation due to severe anemia and persistent nosebleed. - She was started on Xarelto 20 mg daily on January 29, [address] Tay - stopped on 01-31-22 - Maintained on Cardizem CD 360 mg daily. C/O back pain - New multifocal intramuscular fluid collections involving the bilateral psoas major and paravertebral musculatures throughout the lumbar spine are most likely areas of intramuscular hemorrhage. There are two new anterior epidural fluid collections that are likely also due to hemorrhage and represent epidural hematomas. These are located at L1-L2 and L5-S1 and result in severe spinal canal stenosis at these levels. Reporting intolerant to beta-naun with severe bradycardia BRAULIO was done on January 29, 2022 showing preserved left ventricular function, dilated left atrium and left atrial appendage with no clot or thrombus, no vegetation, mild mitral regurgitation Leukocytosis. - Receiving antibiotics. - BRAULIO was done showed no vegetation on January 29, [address] Tay - Leukocytosis is improving slowly. Maintained on Ancef. 2D echo was reported by Dr. Frederick on December 29, 2021 with ejection fraction 55 to 60%, left atrial dilatation, estimated pulmonary artery pressure 40 mmHg Anemia - management per medical services Status post fall with left humerus fracture - Managed by medical team Hypertension - monitor blood pressure Hyperlipidemia - continue on statin Obesity, BMI 43. Plan: I reviewed her records I interviewed and examined her Complex management issue MRI of the back done today which shows hemorrhage (see report above) - Medical services working on transfer to [facility] - which places her at risk of CVA, however, she has bleeding seen on MRI of the back for which transfer is being worked on to [facility] by medical services - Continue to hold OAC d/t bleeding Currently maintaining SR Monitor lab Further recs will be based on her hospital course MERVIN SUMMERS MD FACP [facility] CCDS Feb 01, 2022 19:10
[2022-02-01 19:11] VITALS: BP 161/74
[2022-02-01] MEDS: ROSUVASTATIN 10 MG (CRESTOR) TABLET PO SCH (20:51)
[2022-02-02] VITALS (7 sets, daily range): BP systolic 117–151; BP diastolic 66–85
[2022-02-02] MEDS: ceFAZolin 2 GM IV Premixed 50 ML IV SCH ×3 (02:14→18:49)
[2022-02-02 05:35] LABS: BASOPHILS % (AUTO) 0 % (0-10); EOSINOPHILS % (AUTO) 0 % (0-10); HEMATOCRIT 24 % (35-52); HEMOGLOBIN 7.4 g/dL (11.5-16.0); LYMPHOCYTES % (AUTO) 6 % (12-44); MEAN CORPUSCULAR HEMOGLOBIN 25 pg (25-34); MEAN CORPUSCULAR HGB CONC 31 g/dL (32-36); MEAN CORPUSCULAR VOLUME 81 fL (80-99); MEAN PLATELET VOLUME 9.2 fL (9.0-12.2); MONOCYTES % (AUTO) 6 % (0-12); NEUTROPHILS # (AUTO) 15.2 10^3/uL (1.8-7.8); NEUTROPHILS % (AUTO) 87 % (42-75); PLATELET COUNT 542 10^3/uL (130-400); WHITE BLOOD COUNT 17.5 10^3/uL (4.3-11.0)
[2022-02-02 06:03] LABS: ALBUMIN 2.4 GM/DL (3.2-4.5)
[2022-02-02 06:04] LABS: CALCIUM 7.9 MG/DL (8.5-10.1)
[2022-02-02 06:06] LABS: TOTAL PROTEIN 5.9 GM/DL (6.4-8.2)
[2022-02-02 06:07] LABS: BILIRUBIN,TOTAL 0.4 MG/DL (0.1-1.0)
[2022-02-02 06:09] LABS: CREATININE SERUM 0.6 MG/DL (0.60-1.30); PHOSPHORUS 3.8 MG/DL (2.3-4.7)
[2022-02-02] MEDS: POTASSIUM CL 10MEQ/50ML IVPB 50 ML IV SCH (06:09)
[2022-02-02] MEDS: KCL 20 MEQ TAB (K-DUR) PO SCH (06:09)
[2022-02-02 06:12] LABS: MAGNESIUM 1.7 MG/DL (1.6-2.4)
[2022-02-02] MEDS: MAGNESIUM 1 GM/100 ML IVPB 100 ML IV SCH ×3 (06:16→07:30)
--- NOTE | 2022-02-02 07:11 | Physical Therapy Progress Note ---
Therapy Progress Note PT will be on Hold until speciality consult has assessed, documented and approved to continue. Per , patient will possibly transfer to OSH for higher care. PT will continue to monitor plan. CHUCKY PEÑALOZA PT Feb 02, 2022 07:11
--- NOTE | 2022-02-02 08:00 | Progress Note ---
Subjective Date Seen by a Provider: Feb 02, 2022 Time Seen by a Provider: 07:10 Subjective/Events-last exam Patient c/o dry mouth. No CP or SOB. Still not able to bear weight. Objective Exam Vital Signs Date Time Temp Pulse Resp B/P (MAP) Pulse Ox O2 Delivery O2 Flow Rate FiO2 02/02/22 07:24 36.0 68 18 151/80 (103) 96 Nasal Cannula 1.00 02/02/22 07:00 68 02/02/22 03:41 37.0 64 18 124/66 (85) 96 Nasal Cannula 1.00 02/02/22 01:00 66 02/02/22 00:00 37.3 66 19 117/78 (91) 95 Nasal Cannula 1.00 02/01/22 20:55 Nasal Cannula 1.00 02/01/22 19:11 36.7 68 16 161/74 (103) 96 Nasal Cannula 1.00 02/01/22 19:00 70 02/01/22 15:19 36.9 70 22 159/84 (109) 95 Nasal Cannula 1.00 02/01/22 12:47 69 02/01/22 12:08 37.3 68 19 178/100 (126) 95 Nasal Cannula 1.00 02/01/22 08:16 37.1 78 19 164/84 (110) 95 Nasal Cannula 1.00 02/01/22 08:00 Nasal Cannula 1.00 I & O 02/02/22 07:00 Intake Total 870 ml Output Total 2400 ml Balance -1530 ml Capillary Refill : General Appearance: No Apparent Distress HEENT: Other (dry mucous membranes) Respiratory: Lungs Clear Cardiovascular: Regular Rate, Rhythm Gastrointestinal: soft Extremity: Normal Capillary Refill Results Lab Laboratory Tests 02/02/22 04:52: White Blood Count 17.5H, Red Blood Count 2.96L, Hemoglobin 7.4L, Hematocrit 24L, Mean Corpuscular Volume 81, Mean Corpuscular Hemoglobin 25, Mean Corpuscular Hemoglobin Concent 31L, Red Cell Distribution Width 19.4H, Platelet Count 542H, Mean Platelet Volume 9.2, Immature Granulocyte % (Auto) 1, Neutrophils (%) (Auto) 87H, Lymphocytes (%) (Auto) 6L, Monocytes (%) (Auto) 6, Eosinophils (%) (Auto) 0, Basophils (%) (Auto) 0, Neutrophils # (Auto) 15.2H, Lymphocytes # (Auto) 1.0, Monocytes # (Auto) 1.0, Eosinophils # (Auto) 0.0, Basophils # (Auto) 0.0, Immature Granulocyte # (Auto) 0.2H, Sodium Level 128L, Potassium Level 4.0, Chloride Level 96L, Carbon Dioxide Level 23, Anion Gap 9, Blood Urea Nitrogen 12, Creatinine 0.60, Estimat Glomerular Filtration Rate 98, BUN/Creatinine Ratio 20, Glucose Level 107H, Calcium Level 7.9L, Corrected Calcium 9.2, Phosphorus Level 3.8, Magnesium Level 1.7, Total Bilirubin 0.4, Aspartate Amino Transf (AST/SGOT) 31, Alanine Aminotransferase (ALT/SGPT) 18, Alkaline Phosphatase 89, Total Protein 5.9L, Albumin 2.4L Microbiology 01/31/22 Blood Culture - Preliminary, Resulted No growth 01/23/22 Urine Culture - Final, Complete NO GROWTH Assessment/Plan Assessment/Plan Assess & Plan/Chief Complaint 1. Sepsis -Under treatment with Ancef -leukocytosis associated with sepsis is slowly improving --CBC in the morning 02/01 -Ancef continues IV to 8 hours 2. Atrial fibrillation with rapid regular response -Under care of cardiology. Today it was noted that her rapid ventricular response converted 01/30 -transfer to medical floor if ok with cardiology 3. Bacteremia due to methicillin sensitive staph aureus -Under treatment with Ancef 4. Anemia--currently with no evidence for active bleeding 5. Atelectasis -Stable 6. Lumbar back paincurrently under -I suspect either inpatient or outpatient she had MRI lumbar back. At this point attending tomorrow to processes 01/31 -since unable to walk and move on with PT, MRI of lumbar to further clarify the extend of previous CT findings 02/01 -MRI findings noted. The Xarelto discontinued 01/31 02/02 -[facility] transfer on 02/01 unsuccessful due to max capacity there. Will plan on keeping at [address] and closely monitor. Clinical Quality Measures DVT/VTE Risk/Contraindication: Contraindications-Pharm: Other *list below* Other: anemia ANDREAS LEVIN MD Feb 02, 2022 08:00
[2022-02-02] MEDS: DOCUSATE SODIUM 100 MG (COLACE) CAP PO SCH ×2 (09:14→20:17)
[2022-02-02] MEDS: SENNOSIDES 8.6 MG (SENOKOT) TAB PO SCH ×2 (09:14→20:17)
[2022-02-02] MEDS: dilTIAZem120 MG (CARDIZEM CD) CAP PO SCH (09:15)
[2022-02-02] MEDS: meTOprolol TARTRATE 50 MG (LOPRESSOR) TAB PO SCH ×2 (09:16→20:17)
[2022-02-02] MEDS: PANTOPRAZOLE 40 MG (PROTONIX) TAB PO SCH (09:16)
[2022-02-02] MEDS: ACETAMINOPHEN 325 MG TABLET PO PRN (11:02)
--- NOTE | 2022-02-02 15:05 | Progress Note - Cardiology ---
Cardiology SOAP Progress Note Subjective: Does not feel well. Gen weakness and malaise present No cp or palp or syncope or shortness of breath No n/v/d No focal weakness No groin or leg discomfort or discoloration Objective: I&O/Vital Signs 02/02/22 02/02/22 02/02/22 02/02/22 03:41 07:00 07:24 08:00 Temp 37.0 36.0 Pulse 64 68 68 Resp 18 18 B/P (MAP) 124/66 (85) 151/80 (103) Pulse Ox 96 96 O2 Delivery Nasal Cannula Nasal Cannula Nasal Cannula O2 Flow Rate 1.00 1.00 1.00 02/02/22 02/02/22 11:31 13:00 Temp 36.2 Pulse 61 62 Resp 18 B/P (MAP) 128/78 (95) Pulse Ox 95 O2 Delivery Nasal Cannula O2 Flow Rate 1.00 02/02/22 00:00 Intake Total 820 ml Output Total 1800 ml Balance -980 ml Weight (Pounds): 180 Weight (Calculated Kilograms): 81.535728 Constitutional: appears stated age, AAO x 3, well-developed, well-nourished Respiratory: No accessory muscle use, No respiratory distress; chest expansion is symmetric, chest is bilaterally symmetric, other (diminishes bases) Cardiovascular: regular rate-rhythm; No JVD; S1 and S2 Gastrointestional: soft, round, audible bowel sounds Extremities: other (RLE with mod swelling; LLE with wrap in place) Neurologic/Psychiatric: other (Unable to move left arm d/t fracture of humerus) Skin: No rash on exposed areas, No ulcerations on exposed areas Results/Procedures: Labs Laboratory Tests 02/02/22 04:52: White Blood Count 17.5H, Red Blood Count 2.96L, Hemoglobin 7.4L, Hematocrit 24L, Mean Corpuscular Volume 81, Mean Corpuscular Hemoglobin 25, Mean Corpuscular Hemoglobin Concent 31L, Red Cell Distribution Width 19.4H, Platelet Count 542H, Mean Platelet Volume 9.2, Immature Granulocyte % (Auto) 1, Neutrophils (%) (Auto) 87H, Lymphocytes (%) (Auto) 6L, Monocytes (%) (Auto) 6, Eosinophils (%) (Auto) 0, Basophils (%) (Auto) 0, Neutrophils # (Auto) 15.2H, Lymphocytes # (Auto) 1.0, Monocytes # (Auto) 1.0, Eosinophils # (Auto) 0.0, Basophils # (Auto) 0.0, Immature Granulocyte # (Auto) 0.2H, Sodium Level 128L, Potassium Level 4.0, Chloride Level 96L, Carbon Dioxide Level 23, Anion Gap 9, Blood Urea Nitrogen 12, Creatinine 0.60, Estimat Glomerular Filtration Rate 98, BUN/Creatinine Ratio 20, Glucose Level 107H, Calcium Level 7.9L, Corrected Calcium 9.2, Phosphorus Level 3.8, Magnesium Level 1.7, Total Bilirubin 0.4, Aspartate Amino Transf (AST/SGOT) 31, Alanine Aminotransferase (ALT/SGPT) 18, Alkaline Phosphatase 89, Total Protein 5.9L, Albumin 2.4L Microbiology 01/31/22 Blood Culture - Preliminary, Resulted No growth 01/23/22 Urine Culture - Final, Complete NO GROWTH Laboratory Tests 02/01/22 05:15 02/02/22 04:52 A/P: Assessment: Paroxysmal atrial fibrillation with rapid ventricular response - Converted spontaneously to sinus rhythm. - Unable to tolerate aggressive anticoagulation due to severe anemia and persistent nosebleed. - She was started on Xarelto 20 mg daily on January 29, [address] Tay - stopped on 01-31-22 - Maintained on Cardizem CD 360 mg daily. C/O back pain - New multifocal intramuscular fluid collections involving the bilateral psoas major and paravertebral musculatures throughout the lumbar spine are most likely areas of intramuscular hemorrhage. There are two new anterior epidural fluid collections that are likely also due to hemorrhage and represent epidural hematomas. These are located at L1-L2 and L5-S1 and result in severe spinal canal stenosis at these levels. Reported intolerance to beta-naun due to severe bradycardia Leukocytosis. - Receiving antibiotics - 2D echo on December 29, 2021 with ejection fraction 55 to 60%, left atrial dilatation, estimated pulmonary artery pressure 40 mmHg - BRAULIO January 29, 2022 showing preserved left ventricular function, dilated left atrium and left atrial appendage with no clot or thrombus, no vegetation, mild mitral regurgitation Anemia - management per medical services Status post fall with left humerus fracture - Managed by medical team Hypertension - monitor blood pressure Hyperlipidemia - continue on statin Obesity, BMI 43. Plan: Complex management issue MRI of the back done today which shows hemorrhage[facility] Medical [facility] working on transfer to [facility] - which places her at risk of CVA, however, she has bleeding seen on MRI in the back and she has marked anemia (likely due to blood loss) - Continue to hold OAC d/t bleeding Currently maintaining SR Monitor lab MERVIN SUMMERS MD FACP [facility] CCDS Feb 02, 2022 15:05
[2022-02-02] MEDS: CHLORASEPTIC SPRAY 177 ML LIQUID MC PRN ×2 (18:45→23:15)
[2022-02-02] MEDS: HYPOCHLOROUS ACID/NaCl (VASHE) 250 ML IR SCH (18:49)
[2022-02-02] MEDS: ROSUVASTATIN 10 MG (CRESTOR) TABLET PO SCH (20:17)
[2022-02-03] MEDS: ceFAZolin 2 GM IV Premixed 50 ML IV SCH ×3 (01:49→17:36)
[2022-02-03 03:16] VITALS: BP 137/76
[2022-02-03 04:11] VITALS: BP 146/85
[2022-02-03] MEDS: CHLORASEPTIC SPRAY 177 ML LIQUID MC PRN ×2 (05:53→17:37)
[2022-02-03 06:08] LABS: BASOPHILS % (AUTO) 0 % (0-10); EOSINOPHILS % (AUTO) 0 % (0-10); HEMATOCRIT 25 % (35-52); HEMOGLOBIN 7.7 g/dL (11.5-16.0); LYMPHOCYTES # (AUTO) 0.9 10^3/uL (1.0-4.0); LYMPHOCYTES % (AUTO) 5 % (12-44); MEAN CORPUSCULAR HEMOGLOBIN 26 pg (25-34); MEAN CORPUSCULAR HGB CONC 31 g/dL (32-36); MEAN CORPUSCULAR VOLUME 82 fL (80-99); MEAN PLATELET VOLUME 9.1 fL (9.0-12.2); MONOCYTES # (AUTO) 1.1 10^3/uL (0.0-1.0); MONOCYTES % (AUTO) 7 % (0-12); NEUTROPHILS % (AUTO) 87 % (42-75); PLATELET COUNT 505 10^3/uL (130-400); WHITE BLOOD COUNT 16.2 10^3/uL (4.3-11.0)
[2022-02-03 06:15] LABS: ALBUMIN 2.5 GM/DL (3.2-4.5); POTASSIUM 4.3 MMOL/L (3.6-5.0)
[2022-02-03 06:16] LABS: CALCIUM 7.9 MG/DL (8.5-10.1)
[2022-02-03 06:17] LABS: TOTAL PROTEIN 6.1 GM/DL (6.4-8.2)
[2022-02-03 06:19] LABS: BILIRUBIN,TOTAL 0.5 MG/DL (0.1-1.0)
[2022-02-03 06:21] LABS: CREATININE SERUM 0.65 MG/DL (0.60-1.30); PHOSPHORUS 3.6 MG/DL (2.3-4.7)
[2022-02-03 06:24] LABS: MAGNESIUM 1.8 MG/DL (1.6-2.4)
[2022-02-03] MEDS: MAGNESIUM 1 GM/100 ML IVPB 100 ML IV SCH (06:32)
[2022-02-03] MEDS: POTASSIUM CL 10MEQ/50ML IVPB 50 ML IV SCH (06:32)
[2022-02-03] MEDS: KCL 20 MEQ TAB (K-DUR) PO SCH (06:32)
--- NOTE | 2022-02-03 08:07 | Progress Note ---
Subjective Date Seen by a Provider: Feb 03, 2022 Time Seen by a Provider: 07:35 Subjective/Events-last exam She reports no major change in her activity level. Pain in the lower e xtremities and back persists. Objective Exam Vital Signs Date Time Temp Pulse Resp B/P (MAP) Pulse Ox O2 Delivery O2 Flow Rate FiO2 02/03/22 07:00 70 02/03/22 04:11 37.0 68 20 146/85 (105) 95 Nasal Cannula 1.00 02/03/22 03:16 36.4 65 96 02/03/22 01:00 65 02/02/22 23:24 36.4 63 20 137/76 (96) 96 Nasal Cannula 1.00 02/02/22 20:21 95 Nasal Cannula 1.00 02/02/22 20:20 Nasal Cannula 1.00 02/02/22 19:59 36.5 68 20 139/77 (97) 97 Nasal Cannula 1.00 02/02/22 19:00 65 02/02/22 15:34 36.7 61 18 147/85 (105) 95 Nasal Cannula 1.00 02/02/22 13:00 62 02/02/22 11:31 36.2 61 18 128/78 (95) 95 Nasal Cannula 1.00 I & O 02/03/22 07:00 Intake Total 975 ml Output Total 1575 ml Balance -600 ml Capillary Refill : General Appearance: No Apparent Distress Respiratory: Lungs Clear Cardiovascular: Regular Rate, Rhythm Results Lab Laboratory Tests 02/03/22 05:34: White Blood Count 16.2H, Red Blood Count 3.01L, Hemoglobin 7.7L, Hematocrit 25L, Mean Corpuscular Volume 82, Mean Corpuscular Hemoglobin 26, Mean Corpuscular Hemoglobin Concent 31L, Red Cell Distribution Width 19.4H, Platelet Count 505H, Mean Platelet Volume 9.1, Immature Granulocyte % (Auto) 1, Neutrophils (%) (Auto) 87H, Lymphocytes (%) (Auto) 5L, Monocytes (%) (Auto) 7, Eosinophils (%) (Auto) 0, Basophils (%) (Auto) 0, Neutrophils # (Auto) 14.0H, Lymphocytes # (A uto) 0.9L, Monocytes # (Auto) 1.1H, Eosinophils # (Auto) 0.0, Basophils # (Auto) 0.0, Immature Granulocyte # (Auto) 0.1, Sodium Level 128L, Potassium Level 4.3, Chloride Level 95L, Carbon Dioxide Level 24, Anion Gap 9, Blood Urea Nitrogen 13, Creatinine 0.65, Estimat Glomerular Filtration Rate 96, BUN/Creatinine Ratio 20, Glucose Level 111H, Calcium Level 7.9L, Corrected Calcium 9.1, Phosphorus Level 3.6, Magnesium Level 1.8, Total Bilirubin 0.5, Aspartate Amino Transf (AST/SGOT) 39H, Alanine Aminotransferase (ALT/SGPT) 23, Alkaline Phosphatase 89, Total Protein 6.1L, Albumin 2.5L Microbiology 01/31/22 Blood Culture - Preliminary, Resulted No growth 01/23/22 Urine Culture - Final, Complete NO GROWTH Assessment/Plan Assessment/Plan Assess & Plan/Chief Complaint 1. Sepsis -Under treatment with Ancef -leukocytosis associated with sepsis is slowly improving --CBC in the morning 02/01 -Ancef continues IV to 8 hours 2. Atrial fibrillation with rapid regular response -Under care of cardiology. Today it was noted that her rapid ventricular response converted 01/30 -transfer to medical floor if ok with cardiology 3. Bacteremia due to methicillin sensitive staph aureus -Under treatment with Ancef 4. Anemia--currently with no evidence for active bleeding 5. Atelectasis -Stable 6. Lumbar back paincurrently under -I suspect either inpatient or outpatient she had MRI lumbar back. At this point attending tomorrow to processes 01/31 -since unable to walk and move on with PT, MRI of lumbar to further clarify the extend of previous CT findings 02/01 -MRI findings noted. The Xarelto discontinued 01/31 02/02 -[facility] transfer on 02/01 unsuccessful due to max capacity there. Will plan on keeping at [address] and closely monitor. 02/02 -Will have inpatient rehab evaluate in the am of 02/04 Clinical Quality Measures DVT/VTE Risk/Contraindication: Contraindications-Pharm: Other *list below* Other: anemia ANDREAS LEVIN MD Feb 03, 2022 08:07
[2022-02-03 08:16] VITALS: BP 159/76
[2022-02-03] MEDS: DOCUSATE SODIUM 100 MG (COLACE) CAP PO SCH ×2 (09:00→20:34)
[2022-02-03] MEDS: SENNOSIDES 8.6 MG (SENOKOT) TAB PO SCH ×2 (09:00→20:35)
[2022-02-03] MEDS: HYPOCHLOROUS ACID/NaCl (VASHE) 250 ML IR SCH (09:01)
[2022-02-03] MEDS: dilTIAZem120 MG (CARDIZEM CD) CAP PO SCH (09:01)
[2022-02-03] MEDS: PANTOPRAZOLE 40 MG (PROTONIX) TAB PO SCH (09:01)
[2022-02-03] MEDS: meTOprolol TARTRATE 50 MG (LOPRESSOR) TAB PO SCH ×2 (09:01→20:35)
[2022-02-03] MEDS: DICLOFENAC 1% GEL 100 GM (VOLTAREN) TUBE TOP SCH ×4 (09:07→20:35)
[2022-02-03 12:09] VITALS: BP 125/60
--- NOTE | 2022-02-03 13:03 | Progress Note - Cardiology ---
Cardiology SOAP Progress Note Subjective: Mild to mod, intermittent dizziness No cp or palp or syncope or shortness of breath Gen weakness and malaise No n/v/d Objective: I&O/Vital Signs 02/03/22 02/03/22 02/03/22 02/03/22 03:16 04:11 07:00 08:00 Temp 36.4 37.0 Pulse 65 68 70 Resp 20 B/P (MAP) 146/85 (105) Pulse Ox 96 95 O2 Delivery Nasal Cannula Room Air O2 Flow Rate 1.00 02/03/22 02/03/22 08:16 12:09 Temp 37.0 36.8 Pulse 71 61 Resp 18 18 B/P (MAP) 159/76 (103) 125/60 (81) Pulse Ox 96 93 O2 Delivery Nasal Cannula Nasal Cannula O2 Flow Rate 1.00 1.00 02/03/22 00:00 Intake Total 800 ml Output Total 1150 ml Balance -350 ml Weight (Pounds): 180 Weight (Calculated Kilograms): 81.269266 Constitutional: appears stated age, AAO x 3, well-developed, well-nourished Respiratory: No accessory muscle use, No respiratory distress; chest expansion is symmetric, chest is bilaterally symmetric, other (diminishes bases) Cardiovascular: regular rate-rhythm; No JVD; S1 and S2 Gastrointestional: soft, round, audible bowel sounds Extremities: other (RLE with mod swelling; LLE with wrap in place) Neurologic/Psychiatric: other (Unable to move left arm d/t fracture of humerus) Skin: No rash on exposed areas, No ulcerations on exposed areas Results/Procedures: Labs Laboratory Tests 02/03/22 05:34: White Blood Count 16.2H, Red Blood Count 3.01L, Hemoglobin 7.7L, Hematocrit 25L, Mean Corpuscular Volume 82, Mean Corpuscular Hemoglobin 26, Mean Corpuscular Hemoglobin Concent 31L, Red Cell Distribution Width 19.4H, Platelet Count 505H, Mean Platelet Volume 9.1, Immature Granulocyte % (Auto) 1, Neutrophils (%) (Auto) 87H, Lymphocytes (%) (Auto) 5L, Monocytes (%) (Auto) 7, Eosinophils (%) (Auto) 0, Basophils (%) (Auto) 0, Neutrophils # (Auto) 14.0H, Lymphocytes # (Auto) 0.9L, Monocytes # (Auto) 1.1H, Eosinophils # (Auto) 0.0, Basophils # (Auto) 0.0, Immature Granulocyte # (Auto) 0.1, Sodium Level 128L, Potassium Level 4.3, Chloride Level 95L, Carbon Dioxide Level 24, Anion Gap 9, Blood Urea Nitrogen 13, Creatinine 0.65, Estimat Glomerular Filtration Rate 96, BUN/Creatinine Ratio 20, Glucose Level 111H, Calcium Level 7.9L, Corrected Calcium 9.1, Phosphorus Level 3.6, Magnesium Level 1.8, Total Bilirubin 0.5, Aspartate Amino Transf (AST/SGOT) 39H, Alanine Aminotransferase (ALT/SGPT) 23, Alkaline Phosphatase 89, Total Protein 6.1L, Albumin 2.5L Microbiology 01/31/22 Blood Culture - Preliminary, Resulted No growth 01/23/22 Urine Culture - Final, Complete NO GROWTH Laboratory Tests 02/02/22 04:52 02/03/22 05:34 A/P: Assessment: Paroxysmal atrial fibrillation with rapid ventricular response - Currently NSR - Unable to tolerate aggressive anticoagulation due to severe anemia and persistent nosebleed. - She was started on Xarelto 20 mg daily on January 29, [address] Tay - stopped on 01-31-22 - Maintained on Cardizem CD 360 mg daily. Back pain - managed by the [facility] - New multifocal intramuscular fluid collections involving the bilateral psoas major and paravertebral musculatures throughout the lumbar spine are most likely areas of intramuscular hemorrhage. There are two new anterior epidural fluid collections that are likely also due to hemorrhage and represent epidural hematomas. These are located at L1-L2 and L5-S1 and result in severe spinal canal stenosis at these levels. Reported intolerance to beta-naun due to severe bradycardia Leukocytosis. - Receiving antibiotics - 2D echo on December 29, 2021 with ejection fraction 55 to 60%, left atrial dilatation, estimated pulmonary artery pressure 40 mmHg - BRAULIO January 29, 2022 showing preserved left ventricular function, dilated left atrium and left atrial appendage with no clot or thrombus, no vegetation, mild mitral regurgitation Anemia - management per medical services Status post fall with left humerus fracture - Managed by medical team Hypertension - monitor blood pressure Hyperlipidemia - continue on statin Obesity, BMI 43. Plan: Complex management issue MRI of the back has shown hemorrhage, being managed by [facility] - which places her at risk of CVA, however, she has bleeding seen on MRI in the back and she has marked anemia (likely due to blood loss) - Continue to hold OAC d/t bleeding - Currently maintaining SR Monitor lab MERVIN SUMMERS MD FACP [facility] CCDS Feb 03, 2022 13:03
[2022-02-03 16:17] VITALS: BP 136/68
[2022-02-03 20:32] VITALS: BP 161/75
[2022-02-03] MEDS: ROSUVASTATIN 10 MG (CRESTOR) TABLET PO SCH (20:35)
[2022-02-04 00:06] VITALS: BP 139/60
[2022-02-04] MEDS: ceFAZolin 2 GM IV Premixed 50 ML IV SCH ×3 (02:09→17:33)
[2022-02-04 03:59] VITALS: BP 162/71
--- NOTE | 2022-02-04 07:30 | Progress Note ---
Subjective Date Seen by a Provider: Feb 04, 2022 Time Seen by a Provider: 07:40 Subjective/Events-last exam Conversing well. She has dry mouth. Unable to stand. Objective Exam Vital Signs Date Time Temp Pulse Resp B/P (MAP) Pulse Ox O2 Delivery O2 Flow Rate FiO2 02/04/22 07:21 Room Air 02/04/22 03:59 37.0 69 16 162/71 (101) 95 Room Air 02/04/22 01:00 72 02/04/22 00:06 37.1 65 16 139/60 (86) 96 Room Air 02/03/22 20:40 95 Room Air 02/03/22 20:32 72 19 161/75 (103) 94 Room Air 02/03/22 19:20 90 Room Air 0.00 02/03/22 19:00 70 02/03/22 16:17 36.9 67 19 136/68 (90) 95 Room Air 02/03/22 13:00 55 02/03/22 12:09 36.8 61 18 125/60 (81) 93 Nasal Cannula 1.00 02/03/22 08:16 37.0 71 18 159/76 (103) 96 Nasal Cannula 1.00 02/03/22 08:00 Room Air I & O 02/04/22 07:00 Intake Total 810 ml Output Total 1575 ml Balance -765 ml Capillary Refill : General Appearance: Anxious Respiratory: Lungs Clear Cardiovascular: Regular Rate, Rhythm (with rate controlled) Extremity: No Calf Tenderness, No Inflammation Results Lab Laboratory Tests 02/04/22 06:53: Microbiology 01/31/22 Blood Culture - Preliminary, Resulted No growth 01/23/22 Urine Culture - Final, Complete NO GROWTH Assessment/Plan Assessment/Plan Assess & Plan/Chief Complaint 1. Sepsis -Under treatment with Ancef -leukocytosis associated with sepsis is slowly improving --CBC in the morning 02/01 -Ancef continues IV to 8 hours 2. Atrial fibrillation with rapid regular response -Under care of cardiology. Today it was noted that her rapid ventricular response converted 01/30 -transfer to medical floor if ok with cardiology 3. Bacteremia due to methicillin sensitive staph aureus -Under treatment with Ancef 4. Anemia--currently with no evidence for active bleeding 5. Atelectasis -Stable 6. Lumbar back paincurrently under -I suspect either inpatient or outpatient she had MRI lumbar back. At this point attending tomorrow to processes 01/31 -since unable to walk and move on with PT, MRI of lumbar to further clarify the extend of previous CT findings 02/01 -MRI findings noted. The Xarelto discontinued 01/31 02/02 -[facility] transfer on 02/01 unsuccessful due to max capacity there. Will plan on keeping at [address] and closely monitor. 02/02 -Will have inpatient rehab evaluate in the am of 02/04 02/04 -Evaluate for I/P rehab Clinical Quality Measures DVT/VTE Risk/Contraindication: Contraindications-Pharm: Other *list below* Other: anemia ANDREAS LEVIN MD Feb 04, 2022 07:30
[2022-02-04 07:35] LABS: CREATININE SERUM 0.57 MG/DL (0.60-1.30); MAGNESIUM 1.7 MG/DL (1.6-2.4); POTASSIUM 4.1 MMOL/L (3.6-5.0)
[2022-02-04] MEDS: POTASSIUM CL 10MEQ/50ML IVPB 50 ML IV SCH (07:52)
[2022-02-04] MEDS: KCL 20 MEQ TAB (K-DUR) PO SCH (07:53)
[2022-02-04 08:15] VITALS: BP 161/72
[2022-02-04] MEDS: MAGNESIUM 1 GM/100 ML IVPB 100 ML IV SCH (08:50)
[2022-02-04] MEDS: PANTOPRAZOLE 40 MG (PROTONIX) TAB PO SCH (08:51)
[2022-02-04] MEDS: ACETAMINOPHEN 325 MG TABLET PO PRN (08:51)
[2022-02-04] MEDS: dilTIAZem120 MG (CARDIZEM CD) CAP PO SCH (08:51)
[2022-02-04] MEDS: DOCUSATE SODIUM 100 MG (COLACE) CAP PO SCH ×2 (08:51→20:27)
[2022-02-04] MEDS: meTOprolol TARTRATE 50 MG (LOPRESSOR) TAB PO SCH ×2 (08:51→20:27)
[2022-02-04] MEDS: DICLOFENAC 1% GEL 100 GM (VOLTAREN) TUBE TOP SCH ×4 (08:57→20:36)
[2022-02-04] MEDS: HYPOCHLOROUS ACID/NaCl (VASHE) 250 ML IR SCH (08:57)
[2022-02-04] MEDS: SENNOSIDES 8.6 MG (SENOKOT) TAB PO SCH ×2 (08:57→20:27)
--- NOTE | 2022-02-04 09:15 | Occupational Ther Daily Note ---
OT Current Status-Daily Note Subjective Pt alert, lying in bed. Pt agrees to therapy. Pt requests to get up in chair to eat breakfast. Pt c/o pain with movement and requests pain meds, nrsg aware. Mental Status/Objective Patient Orientation: Person, Place, Time, Situation Attachments: Villa Catheter, IV ADL-Treatment Therapy Code Descriptions/Definitions Functional [place] Measure: 0=Not Assessed/NA 4=Minimal Assistance 1=Total Assistance 5=Supervision or Setup 2=Maximal Assistance 6=Modified [place] 3=Moderate Assistance 7=Complete IndependenceSCALE: Activities may be completed with or without assistive devices. 5-Tzxpqeteeb-jkfunow completes the activity by him/herself with no assistance from a helper. 5-Set-up or Clean-up Assistance-helper sets up or cleans up; patient completes activity. [place] assists only prior to or following the activity. 4-Supervision or Touching Assistance-helper provides verbal cues and/or t ouching/steadying and/or contact guard assistance as patient completes activity. Assistance may be provided throughout the activity or intermittently. 3-Partial/Moderate Assistance-helper does LESS THAN HALF the effort. [place] lifts, holds or supports trunk or limbs, but provides less than half the effort. 2-Substantial/Maximal Assistance-helper does MORE THAN HALF the effort. [place] lifts or holds trunk or limbs and provides more than half the effort. 1-Mzxuoaaiz-yjuqav does ALL the effort. Patient does none of the effort to complete the activity. Or, the assistance of 2 or more helpers is required for the patient to complete the activity. If activity was not attempted, code reason: 7-Patient Refused. 9-Not Applicable-not attempted and the patient did not perform the activity before the current illness, exacerbation or injury. 10-Not Attempted due to Environmental Limitations-(lack of equipment, weather restraints, etc.). 88-Not Attempted due to Medical Conditions or Safety Concerns. Eating (QC): 5 Other Treatment Turning toward R side, max A: turning L side, mod A then pt able to stay on either side. Used charly lift to transfer from bed to recliner due to medical issues with back. Pt educated on log rolls for safety precautions of back. Working with pt's L shldr-scapular retraction without UE ext completed 10 reps, PROM of shldr flexion 10 reps (minimal pain), elbow flex/ext 10 reps. Pt is using therapy sponge to increase assembler adjuster/pinch strength and decrease edema. Pt's L hand edema has decreased significantly. Assist to open containers and spread butter/syrup then pt able to use regular utensils to eat food. After session, pt sitting up in recliner with call light/phone in reach. Nrsg aware of posit ion. All needs met. OT Computed Tomography Scanner Operator Goals Computed Tomography Scanner Operator Goals Time Frame: Feb 08, 2022 Eating (QC): 6 Oral Hygiene (QC): 6 Toileting Hygiene (QC): 4 Shower/Bathe Self (QC): 4 Upper Body Dressing (QC): 5 Lower Body Dressing (QC): 4 On/Off Footwear (QC): 4 Additional Goals: 1-Demonstrate ADL Tasks, 2-Verbalize Understanding, 3- ImproveStrength/Huma 1=Demonstrate adherence to instructed precautions during ADL tasks. 2=Patient will verbalize/demonstrate understanding of assistive devices/modifications for ADL. 3=Patient will improve strength/tolerance for activity to enable patient to perform ADL's. OT Education/Plan Problem List/Assessment Assessment: Decreased Activ Tolerance, Decreased UE Strength, Dependent Transfers, Impaired Bed Mobility, Impaired Self-Care Skills, Restricted Funct UE ROM Discharge Recommendations Plan/Recommendations: Continue POC Treatment Plan/Plan of Care Patient would benefit from OT for education, treatment and training to promote independence in ADL's, mobility, safety and/or upper extremity function for ADL's. Plan of Care: ADL Retraining, Functional Mobility, UE Funct Exercise/Act Treatment Duration: Feb 08, 2022 Frequency: 3 times per week (3-5 times per week) Estimated Hrs Per Day: .25 hour per day Rehab Potential: Fair Time/GCodes Start Time: 08:19 Stop Time: 08:49 Total Time Billed (hr/min): 30 Billed Treatment Time 1 visit-FA 1 (20 min) EX 1 (10 min) ERICA NEGRON Feb 04, 2022 09:14
--- NOTE | 2022-02-04 10:04 | Physical Therapy Daily Note ---
PT Daily Note-Current Subjective Patient in recliner pre tx, agrees to PT, has unrated bilateral knee pain. It appears patient has been transferred to recliner via charly. Appearance Patient in recliner post tx with nurse call, phone, tray, all needs met. Mental Status Patient Orientation: Person, Place, Situation Attachments: Villa Catheter, IV Transfers SCALE: Activities may be completed with or without assistive devices. 3-Ymcbiltxlu-qlyrknz completes the activity by him/herself with no assistance from a helper. 5-Set-up or Clean-up Assistance-helper sets up or cleans up; patient completes activity. [place] assists only prior to or following the activity. 4-Supervision or Touching Assistance-helper provides verbal cues and/or touchin g/steadying and/or contact guard assistance as patient completes activity. Assistance may be provided throughout the activity or intermittently. 3-Partial/Moderate Assistance-helper does LESS THAN HALF the effort. [place] lifts, holds or supports trunk or limbs, but provides less than half the effort. 2-Substantial/Maximal Assistance-helper does MORE THAN HALF the effort. [place] lifts or holds trunk or limbs and provides more than half the effort. 9-Fudsskvaz-rsmjhd does ALL the effort. Patient does none of the effort to complete the activity. Or, the assistance of 2 or more helpers is required for the patient to complete the activity. If activity was not attempted, code reason: 7-Patient Refused. 9-Not Applicable-not attempted and the patient did not perform the activity before the current illness, exacerbation or injury. 10-Not Attempted due to Environmental Limitations-(lack of equipment, weather restraints, etc.). 88-Not Attempted due to Medical Conditions or Safety Concerns. Exercises Supine Ex: Ankle pumps, Quad Set, Glut sets, Heel Slides Supine Reps: 20 (done in recliner with legs elevated) Treatments LE strengthening Assessment Current Status: Poor Progress Continue with simple LE AROM, AAROM until speciality consult has assessed, documented and approved to continue. PT Front End Driver Goals Front End Driver Goals PT Mcc Goals Time Frame: Feb 09, 2022 Roll Left & Right (QC): 4 Sit to Lying (QC): 4 Lying-Sitting on Side/Bed(QC): 4 Sit to Stand (QC): 4 Chair/Xse-xr-Xysey Xfer(QC): 4 Toilet Transfer (QC): 4 Walk 10 feet (QC): 4 Walk 50ft with 2 Turns (QC): 4 PT Plan Problem List Problem List: Activity Tolerance, Functional Strength, Safety, Balance, Gait, Transfer, Bed Mobility, ROM Treatment/Plan Treatment Plan: Continue Plan of Care Treatment Plan: Bed Mobility, Education, Functional Activity Huma, Functional Strength, Gait, Safety, Therapeutic Exercise, Transfers Treatment Duration: Feb 09, 2022 Frequency: 6 times per week Estimated Hrs Per Day: .25 hour per day Safety Risks/Education Patient Education: Correct Positioning, Safety Issues Teaching Recipient: Patient Teaching Methods: Demonstration, Discussion Response to Teaching: Reinforcement Needed Time/GCodes Time In: 933 Time Out: 943 Total Billed Treatment Time: 10 Total Billed Treatment 1 visit EX GAVINO BLANCA PT Feb 04, 2022 10:03
--- NOTE | 2022-02-04 10:46 | Progress Note - Cardiology ---
Cardiology SOAP Progress Note Subjective: Sitting up in recliner at the bedside Reporting considerable back pain No c/o CP, SOB or palpitations Objective: I&O/Vital Signs Weight (Pounds): 180 Weight (Calculated Kilograms): 81.169751 Constitutional: appears stated age, AAO x 3, well-developed, well-nourished Respiratory: No accessory muscle use, No respiratory distress; chest expansion is symmetric, chest is bilaterally symmetric, other (diminishes bases) Cardiovascular: regular rate-rhythm; No JVD; S1 and S2 Gastrointestional: soft, round, audible bowel sounds Extremities: other (RLE with mod swelling; LLE with wrap in place) Neurologic/Psychiatric: other (Unable to move left arm d/t fracture of humerus) Skin: No rash on exposed areas, No ulcerations on exposed areas Results/Procedures: Labs Microbiology 01/31/22 Blood Culture - Final, Complete No growth 01/23/22 Urine Culture - Final, Complete NO GROWTH A/P: Assessment: Laboratory Tests 02/03/22 05:34 02/04/22 06:53 Paroxysmal atrial fibrillation with rapid ventricular response - Currently NSR - Unable to tolerate aggressive anticoagulation due to severe anemia and persistent nosebleed. - She was started on Xarelto 20 mg daily on January 29, [address] Tay - stopped on 01-31-22 - Maintained on Cardizem CD 360 mg daily. Back pain - managed by the Med Svce - New multifocal intramuscular fluid collections involving the bilateral psoas major and paravertebral musculatures throughout the lumbar spine are most likely areas of intramuscular hemorrhage. There are two new anterior epidural fluid collections that are likely also due to hemorrhage and represent epidural hematomas. These are located at L1-L2 and L5-S1 and result in severe spinal canal stenosis at these levels. Reported intolerance to beta-naun due to severe bradycardia Leukocytosis. - Receiving antibiotics - 2D echo on December 29, 2021 with ejection fraction 55 to 60%, left atrial dilatation, estimated pulmonary artery pressure 40 mmHg - BRAULIO January 29, 2022 showing preserved left ventricular function, dilated left atrium and left atrial appendage with no clot or thrombus, no vegetation, mild mitral regurgitation Anemia - management per medical services Status post fall with left humerus fracture - Managed by medical team Hypertension - monitor blood pressure Hyperlipidemia - continue on statin Obesity, BMI 43. Plan: Complex management issue MRI of the back has shown hemorrhage, being managed by the Med svce PAF - which places her at risk of CVA, however, she has bleeding seen on MRI in the back and she has marked anemia (likely due to blood loss) - Continue to hold OAC d/t bleeding - Currently maintaining SR Monitor lab RICKY GRAY Feb 04, 2022 10:46
[2022-02-04 12:19] VITALS: BP 107/58
--- NOTE | 2022-02-04 14:43 | Physical Therapy Progress Note ---
Therapy Progress Note Contacted Dr. Hunter Mendoza regarding mobilization of patient given concerns stemming from the MRI result. Dr. Mendoza gave verbal orders to continue to progress patient mobility and begin ambulation if possible. He wants to get the patient started moving to determine if the swelling will improve and then make a determination of further procedures or imaging. This therapist requrested Dr. Mendoza enter additional orders or note for PT to continue to progress patient and resume out of bed therapy. Verbal orders relayed to 4th floor nursing staff and Therapy staff. LUDIVINA LANE PT Feb 04, 2022 14:43
[2022-02-04 15:44] VITALS: BP 133/68
--- NOTE | 2022-02-04 17:08 | Progress Note - Cardiology ---
Cardiology SOAP Progress Note Subjective: Continuing back discomfort No cp or palp or syncope or swelling No shortness of breath No n/v/d Gen weakness present Objective: I&O/Vital Signs 02/04/22 02/04/22 02/04/22 02/04/22 06:29 07:21 08:15 12:19 Temp 36.6 36.4 Pulse 72 70 74 Resp 18 18 B/P (MAP) 161/72 (101) 107/58 (74) Pulse Ox 93 93 O2 Delivery Room Air Room Air Room Air 02/04/22 02/04/22 12:55 15:44 Temp 37.3 Pulse 57 62 Resp 18 B/P (MAP) 133/68 (89) Pulse Ox 96 O2 Delivery Room Air 02/04/22 00:00 Intake Total 660 ml Output Total 925 ml Balance -265 ml Weight (Pounds): 180 Weight (Calculated Kilograms): 81.595159 Constitutional: appears stated age, AAO x 3, well-developed, well-nourished Respiratory: No accessory muscle use, No respiratory distress; chest expansion is symmetric, chest is bilaterally symmetric, other (diminishes bases) Cardiovascular: regular rate-rhythm; No JVD; S1 and S2 Gastrointestional: soft, round, audible bowel sounds Extremities: other (RLE with mod swelling; LLE with wrap in place) Neurologic/Psychiatric: other (Unable to move left arm d/t fracture of humerus) Skin: No rash on exposed areas, No ulcerations on exposed areas Results/Procedures: Labs Laboratory Tests 02/04/22 06:53: Sodium Level 127L, Potassium Level 4.1, Chloride Level 94L, Carbon Dioxide Level 20L, Anion Gap 13, Blood Urea Nitrogen 11, Creatinine 0.57L, Estimat Glomerular Filtration Rate 100, BUN/Creatinine Ratio 19, Glucose Level 101, Calcium Level 8.0L, Magnesium Level 1.7 Microbiology 01/31/22 Blood Culture - Preliminary, Resulted No growth 01/23/22 Urine Culture - Final, Complete NO GROWTH Laboratory Tests 02/03/22 05:34 02/04/22 06:53 A/P: Assessment: Laboratory Tests 02/03/22 05:34 02/04/22 06:53 Paroxysmal atrial fibrillation with rapid ventricular response - Currently NSR - Unable to tolerate aggressive anticoagulation due to severe anemia and persistent nosebleed. - She was started on Xarelto 20 mg daily on January 29, [address] Tay - stopped on 01-31-22 - Maintained on Cardizem CD 360 mg daily. Back pain - managed by the Med Svce - New multifocal intramuscular fluid collections involving the bilateral psoas major and paravertebral musculatures throughout the lumbar spine are most likely areas of intramuscular hemorrhage. There are two new anterior epidural fluid collections that are likely also due to hemorrhage and represent epidural hematomas. These are located at L1-L2 and L5-S1 and result in severe spinal canal stenosis at these levels. Reported intolerance to beta-naun due to severe bradycardia Leukocytosis. - Receiving antibiotics - 2D echo on December 29, 2021 with ejection fraction 55 to 60%, left atrial dila tation, estimated pulmonary artery pressure 40 mmHg - BRAULIO January 29, 2022 showing preserved left ventricular function, dilated left atrium and left atrial appendage with no clot or thrombus, no vegetation, mild mitral regurgitation Anemia - management per medical services Status post fall with left humerus fracture - Managed by medical team Hypertension - monitor blood pressure Hyperlipidemia - continue on statin Obesity, BMI 43. Plan: Complex management issues MRI of the back has shown hemorrhage, being managed by the Med svce PAF - which places her at risk of CVA, however, she has bleeding seen on MRI in the back and she has marked anemia (likely due to blood loss) - Continue to hold OAC d/t bleeding - Currently maintaining SR Monitor labs MERVIN SUMMERS MD FACP [facility] Feb 04, 2022 17:08
[2022-02-04 19:42] VITALS: BP 163/78
[2022-02-04] MEDS: ROSUVASTATIN 10 MG (CRESTOR) TABLET PO SCH (20:27)
[2022-02-05 00:08] VITALS: BP 160/66
[2022-02-05] MEDS: ceFAZolin 2 GM IV Premixed 50 ML IV SCH ×3 (01:22→18:48)
[2022-02-05 03:58] VITALS: BP 125/68
--- NOTE | 2022-02-05 06:49 | Progress Note ---
Subjective Date Seen by a Provider: Feb 05, 2022 Time Seen by a Provider: 07:00 Subjective/Events-last exam Angelica reports no major change of her lower extremities. Feet still feel like "wood". Her R foot is more bothersome than L. Objective Exam Vital Signs Date Time Temp Pulse Resp B/P (MAP) Pulse Ox O2 Delivery O2 Flow Rate FiO2 02/05/22 03:58 36.7 65 16 125/68 (87) 93 Room Air 02/05/22 01:00 66 02/05/22 00:08 37.3 66 16 160/66 (97) 94 Room Air 02/04/22 20:35 117 02/04/22 20:30 Room Air 02/04/22 19:42 36.8 70 18 163/78 (106) 95 Room Air 02/04/22 19:00 71 02/04/22 15:44 37.3 62 18 133/68 (89) 96 Room Air 02/04/22 12:55 57 02/04/22 12:19 36.4 74 18 107/58 (74) 93 Room Air 02/04/22 08:15 36.6 70 18 161/72 (101) 93 Room Air 02/04/22 07:21 Room Air I & O 02/05/22 07:00 Intake Total 945 ml Output Total 2150 ml Balance -1205 ml Capillary Refill : General Appearance: No Apparent Distress Respiratory: Lungs Clear Cardiovascular: Regular Rate, Rhythm Extremity: Other (moving feet voluntarily) Results Lab Laboratory Tests 02/04/22 06:53: Sodium Level 127L, Potassium Level 4.1, Chloride Level 94L, Carbon Dioxide Level 20L, Anion Gap 13, Blood Urea Nitrogen 11, Creatinine 0.57L, Estimat Glomerular Filtration Rate 100, BUN/Creatinine Ratio 19, Glucose Level 101, Calcium Level 8.0L, Magnesium Level 1.7 Microbiology 01/31/22 Blood Culture - Preliminary, Resulted No growth 01/23/22 Urine Culture - Final, Complete NO GROWTH Assessment/Plan Assessment/Plan Assess & Plan/Chief Complaint 1. Sepsis -Under treatment with Ancef -leukocytosis associated with sepsis is slowly improving --CBC in the morning 02/01 -Ancef continues IV to 8 hours 2. Atrial fibrillation with rapid regular response -Under care of cardiology. Today it was noted that her rapid ventricular response converted 01/30 -transfer to medical floor if ok with cardiology 3. Bacteremia due to methicillin sensitive staph aureus -Under treatment with Ancef 4. Anemia--currently with no evidence for active bleeding 5. Atelectasis -Stable 6. Lumbar back paincurrently under -I suspect either inpatient or outpatient she had MRI lumbar back. At this point attending tomorrow to processes 01/31 -since unable to walk and move on with PT, MRI of lumbar to further clarify the extend of previous CT findings 02/01 -MRI findings noted. The Xarelto discontinued 01/31 02/02 -[facility] transfer on 02/01 unsuccessful due to max capacity there. Will plan on keeping at [address] and closely monitor. 02/02 -Will have inpatient rehab evaluate in the am of 02/04 02/04 -Evaluate for I/P rehab Addendum 191 I have spoke with neurosurgeon Dr. Palacios from [facility] as well as Dr. Ruffin from [facility] in [facility]. Dr. Palacios evaluated her images from the cloud and stated this may be abscess instead of hemorrhage at L1L2 and L5- S1. Both neurosurgeons agree if she should be evaluated. Apparently [facility] is at capacity and cannot accept transfers. [facility] declined transfer since he not have infectious disease in house. Cheryle I contacted [facility] transfer team in [place]. Since her vital signs are stable they do not typically transfer patients in the evening. Her records will be faxed to now for evaluation and hopefully transfer in the morning of February 06. I will follow-up with [facility] in the morning and hopefully get Angelica transferred to evaluate her MRI findings from January 31. Clinical Quality Measures DVT/VTE Risk/Contraindication: Contraindications-Pharm: Other *list below* Other: anemia ANDREAS LEVIN MD Feb 05, 2022 06:49
[2022-02-05 07:15] LABS: POTASSIUM 3.9 MMOL/L (3.6-5.0)
[2022-02-05 07:21] LABS: CREATININE SERUM 0.57 MG/DL (0.60-1.30)
[2022-02-05 07:23] LABS: MAGNESIUM 1.8 MG/DL (1.6-2.4)
[2022-02-05] MEDS: MAGNESIUM 1 GM/100 ML IVPB 100 ML IV SCH (07:34)
[2022-02-05] MEDS: KCL 20 MEQ TAB (K-DUR) PO SCH (07:34)
[2022-02-05] MEDS: POTASSIUM CL 10MEQ/50ML IVPB 50 ML IV SCH (07:34)
[2022-02-05 08:16] VITALS: BP 151/84
--- NOTE | 2022-02-05 08:47 | Cardiology Progress Note ---
Progress Note-Cardiology Events since last exam Date Seen by Provider: Feb 05, 2022 Time Seen by Provider: 08:43 Events since last exam I am following her due to atrial fibrillation now with a psoas muscle and ep idural hematomas. Her back pain persists. Her peripheral edema has improved. She denies chest discomfort, palpitations or syncope. She denies shortness of breath at rest. Certain portions of this document may have been dictated utilizing voice recognition technology. Inherent to this technology, typographical and grammatical errors may exist. As much as I am diligent to identify and correct these mistakes, some errors may remain in the document. Vitals Last set of Vitals Signs Vital Signs 01/31/22 02/03/22 02/05/22 07:48 19:20 16:00 Temp 37.0 Pulse 63 Resp 18 B/P (MAP) 163/70 (101) Pulse Ox 94 O2 Delivery Room Air O2 Flow Rate 0.00 FiO2 24 Labs Labs Laboratory Tests 02/05/22 06:42 Exam Vital Signs Vital Signs Date Time Temp Pulse Resp B/P (MAP) Pulse Ox O2 Delivery O2 Flow Rate FiO2 02/05/22 16:00 37.0 63 18 163/70 (101) 94 Room Air 02/03/22 19:20 0.00 01/31/22 07:48 24 Physical Exam General: Alert. No acute distress. She is obese. Eye: No xanthelasma. HENT: Normocephalic. Neck: Jugular venous pressure does not appear elevated. Respiratory: Lungs are clear to auscultation. Respirations are non-labored. Breath sounds are equal. Symmetrical chest wall expansion. Cardiovascular: Normal rate. Regular rhythm. No murmur. No gallop. Trace bilateral pretibial edema. Gastrointestinal: Soft. Normal bowel sounds. Skin: Warm. Dry. Neurologic: Alert and oriented to person, place, time. Cranial nerves 3-11 grossly intact. Psychiatric: Cooperative. Appropriate mood & affect. Labs Laboratory Tests Test 02/05/22 06:42 Range/Units Sodium Level 128 L 135-145 MMOL/L Potassium Level 3.9 3.6-5.0 MMOL/L Chloride Level 95 L 98-107 MMOL/L Carbon Dioxide Level 24 21-32 MMOL/L Anion Gap 9 5-14 MMOL/L Blood Urea Nitrogen 10 7-18 MG/DL Creatinine 0.57 L 0.60-1.30 MG/DL Estimat Glomerular Filtration Rate 100 BUN/Creatinine Ratio 18 Glucose Level 100 70-105 MG/DL Calcium Level 8.0 L 8.5-10.1 MG/DL Magnesium Level 1.8 1.6-2.4 MG/DL Diagnosis/Problems Diagnosis/Problems (1) Persistent atrial fibrillation Assessment & Plan: She has now remained in sinus rhythm on telemetry. Oral anticoagulation is on hold due to psoas muscle and epidural hematomas. We may need to consider holding this for a prolonged period of time given these potentially dangerous hematomas. She remains on diltiazem for rate control in the event she has recurrent atrial fibrillation. (2) Epistaxis Assessment & Plan: She was seen by Dr. Duenas from otolaryngology who just recommends saline spray and follow-up as an outpatient. (3) Hematoma of psoas region due to anticoagulant therapy Assessment & Plan: As above, anticoagulation is on hold. (4) Primary hypertension Assessment & Plan: Her blood pressure remains intermittently elevated. If this persists, we may need to make some adjustments to her antihypertensive medication. (5) Mixed hyperlipidemia Assessment & Plan: Continue rosuvastatin. (6) Anemia Assessment & Plan: Exact etiology unclear. I suspect this is multifactorial due to epistaxis as well as a psoas muscle hematomas. Ultimately, she may also need to undergo upper and lower endoscopies but this can certainly be done as an outpatient. (7) Morbid obesity Assessment & Plan: She actually gained weight since her previous hospitalization. She needs to work on weight loss. NEELAM LINO JR, MD Feb 05, 2022 08:47
[2022-02-05] MEDS: meTOprolol TARTRATE 50 MG (LOPRESSOR) TAB PO SCH ×2 (09:43→20:33)
[2022-02-05] MEDS: DOCUSATE SODIUM 100 MG (COLACE) CAP PO SCH ×2 (09:43→20:33)
[2022-02-05] MEDS: SENNOSIDES 8.6 MG (SENOKOT) TAB PO SCH ×2 (09:43→20:33)
[2022-02-05] MEDS: dilTIAZem120 MG (CARDIZEM CD) CAP PO SCH (09:44)
[2022-02-05] MEDS: PANTOPRAZOLE 40 MG (PROTONIX) TAB PO SCH (09:44)
[2022-02-05] MEDS: DICLOFENAC 1% GEL 100 GM (VOLTAREN) TUBE TOP SCH ×4 (09:45→21:00)
[2022-02-05] MEDS: HYPOCHLOROUS ACID/NaCl (VASHE) 250 ML IR SCH (09:45)
--- NOTE | 2022-02-05 10:22 | Physical Therapy Daily Note ---
PT Daily Note-Current Subjective Patient in bed pre tx, agrees to PT, has unrated pain in left knee. Appearance Patient in bed post tx with nurse call, phone, tray, all needs met. Mental Status Patient Orientation: Person, Place, Situation Attachments: Villa Catheter Transfers SCALE: Activities may be completed with or without assistive devices. 1-Uwsazsyxrg-eqrurcc completes the activity by him/herself with no assistance from a helper. 5-Set-up or Clean-up Assistance-helper sets up or cleans up; patient completes activity. [place] assists only prior to or following the activity. 4-Supervision or Touching Assistance-helper provides verbal cues and/or touching/steadying and/or contact guard assistance as patient completes activity. Assistance may be provided throughout the activity or intermittently. 3-Partial/Moderate Assistance-helper does LESS THAN HALF the effort. [place] lifts, holds or supports trunk or limbs, but provides less than half the effort. 2-Substantial/Maximal Assistance-helper does MORE THAN HALF the effort. [place] lifts or holds trunk or limbs and provides more than half the effort. 3-Pvrdssbqj-anvvgi does ALL the effort. Patient does none of the effort to complete the activity. Or, the assistance of 2 or more helpers is required for the patient to complete the activity. If activity was not attempted, code reason: 7-Patient Refused. 9-Not Applicable-not attempted and the patient did not perform the activity before the current illness, exacerbation or injury. 10-Not Attempted due to Environmental Limitations-(lack of equipment, weather restraints, etc.). 88-Not Attempted due to Medical Conditions or Safety Concerns. Roll Left & Right (QC): 3 Sit to Lying (QC): 1 Lying to Sitting/Side of Bed(Q: 3 Patient sat to the side of the bed with mod assist, attempted to stand but cant. Attempted to stand again x10, worked like a modified leg press or mini-squat, working on positioning and LE strengthening. Patient lays back down and rolls from side to side to clean BM and is then scooted up in bed. Treatments rolling, bed mobility, attempted standing Assessment Current Status: Poor Progress Patient is not able to stand at this time but can bear a little weight through her legs. PT Piece Meat Trimmer Goals Piece Meat Trimmer Goals PT [facility] Goals Time Frame: Feb 09, 2022 Roll Left & Right (QC): 4 Sit to Lying (QC): 4 Lying-Sitting on Side/Bed(QC): 4 Sit to Stand (QC): 4 Chair/Tfs-ev-Nvtzh Xfer(QC): 4 Toilet Transfer (QC): 4 Walk 10 feet (QC): 4 Walk 50ft with 2 Turns (QC): 4 PT Plan Problem List Problem List: Activity Tolerance, Functional Strength, Safety, Balance, Gait, Transfer, Bed Mobility, ROM Treatment/Plan Treatment Plan: Continue Plan of Care Treatment Plan: Bed Mobility, Education, Functional Activity Huma, Functional Strength, Gait, Safety, Therapeutic Exercise, Transfers Treatment Duration: Feb 09, 2022 Frequency: 6 times per week Estimated Hrs Per Day: .25 hour per day Safety Risks/Education Patient Education: Correct Positioning, Safety Issues Teaching Recipient: Patient Teaching Methods: Demonstration, Discussion Response to Teaching: Reinforcement Needed Time/GCodes Time In: 0955 Time Out: 1010 Total Billed Treatment Time: 15 Total Billed Treatment 1 visit FA GAVINO CRAFT PT Feb 05, 2022 10:22
[2022-02-05 11:50] VITALS: BP 145/83
--- NOTE | 2022-02-05 12:44 | Occupational Ther Daily Note ---
OT Current Status-Daily Note Subjective Pt alert, lying in bed. Pt agrees to therapy after discussion about what therapy would be doing during session. Pt appears to have less pain with movement today. Mental Status/Objective Patient Orientation: Person, Place, Time, Situation Attachments: Villa Catheter, IV ADL-Treatment Therapy Code Descriptions/Definitions Functional [place] Measure: 0=Not Assessed/NA 4=Minimal Assistance 1=Total Assistance 5=Supervision or Setup 2=Maximal Assistance 6=Modified [place] 3=Moderate Assistance 7=Complete IndependenceSCALE: Activities may be completed with or without assistive devices. 7-Trfhrppxby-oixavkh completes the activity by him/herself with no assistance from a helper. 5-Set-up or Clean-up Assistance-helper sets up or cleans up; patient completes activity. [place] assists only prior to or following the activity. 4-Supervision or Touching Assistance-helper provides verbal cues and/or touching/steadying and/or contact guard assistance as patient completes activity. Assistance may be provided throughout the activity or intermittently. 3-Partial/Moderate Assistance-helper does LESS THAN HALF the effort. [place] lifts, holds or supports trunk or limbs, but provides less than half the effort. 2-Substantial/Maximal Assistance-helper does MORE THAN HALF the effort. [place] lifts or holds trunk or limbs and provides more than half the effort. 7-Qcbztluyr-hhruat does ALL the effort. Patient does none of the effort to complete the activity. Or, the assistance of 2 or more helpers is required for the patient to complete the activity. If activity was not attempted, code reason: 7-Patient Refused. 9-Not Applicable-not attempted and the patient did not perform the activity before the current illness, exacerbation or injury. 10-Not Attempted due to Environmental Limitations-(lack of equipment, weather restraints, etc.). 88-Not Attempted due to Medical Conditions or Safety Concerns. Other Treatment Mod A x2 for supine to EOB. Pt sat EOB mod A, unable to reach standing. Attempted to stand again x10, worked like a modified leg press or mini-squat, working on positioning and LE strengthening. Max A x2 for EOB to supine. Max A to roll toward R side, max A to cleanse after BM. Assist x2 to scoot up in bed. After session, pt lying in bed with call light/phone in reach. All needs met. OT Nursing Home Goals Senior Financial Goals Time Frame: Feb 08, 2022 Eating (QC): 6 Oral Hygiene (QC): 6 Toileting Hygiene (QC): 4 Shower/Bathe Self (QC): 4 Upper Body Dressing (QC): 5 Lower Body Dressing (QC): 4 On/Off Footwear (QC): 4 Additional Goals: 1-Demonstrate ADL Tasks, 2-Verbalize Understanding, 3- ImproveStrength/Huma 1=Demonstrate adherence to instructed precautions during ADL tasks. 2=Patient will verbalize/demonstrate understanding of assistive devices/modifications for ADL. 3=Patient will improve strength/tolerance for activity to enable patient to perform ADL's. OT Education/Plan Problem List/Assessment Assessment: Decreased Activ Tolerance, Decreased UE Strength, Dependent Transfers, Impaired Bed Mobility, Impaired Self-Care Skills, Restricted Funct UE ROM Discharge Recommendations Plan/Recommendations: Continue POC Treatment Plan/Plan of Care Patient would benefit from OT for education, treatment and training to promote independence in ADL's, mobility, safety and/or upper extremity function for ADL's. Plan of Care: ADL Retraining, Functional Mobility, UE Funct Exercise/Act Treatment Duration: Feb 08, 2022 Frequency: 3 times per week (3-5 times per week) Estimated Hrs Per Day: .25 hour per day Rehab Potential: Fair Time/GCodes Start Time: 09:50 Stop Time: 10:10 Total Time Billed (hr/min): 20 Billed Treatment Time 1 visit-FA 1 (20 min) ERICA NEGRON Feb 05, 2022 12:44
[2022-02-05 16:00] VITALS: BP 163/70
[2022-02-05 20:00] VITALS: BP 175/77
[2022-02-05] MEDS: ROSUVASTATIN 10 MG (CRESTOR) TABLET PO SCH (20:33)
[2022-02-06 00:13] VITALS: BP 138/73
[2022-02-06] MEDS: ceFAZolin 2 GM IV Premixed 50 ML IV SCH ×2 (02:40→09:57)
[2022-02-06 04:00] VITALS: BP 147/79
[2022-02-06 06:16] LABS: CALCIUM 8.2 MG/DL (8.5-10.1)
[2022-02-06 06:20] LABS: CREATININE SERUM 0.57 MG/DL (0.60-1.30)
[2022-02-06 06:23] LABS: MAGNESIUM 1.7 MG/DL (1.6-2.4)
[2022-02-06] MEDS: POTASSIUM CL 10MEQ/50ML IVPB 50 ML IV SCH (06:31)
[2022-02-06] MEDS: MAGNESIUM 1 GM/100 ML IVPB 100 ML IV SCH ×3 (06:31→07:44)
[2022-02-06] MEDS: KCL 20 MEQ TAB (K-DUR) PO SCH (06:31)
--- NOTE | 2022-02-06 07:21 | Progress Note ---
Subjective Date Seen by a Provider: Feb 06, 2022 Time Seen by a Provider: 06:55 Subjective/Events-last exam No distress. A little confused this am but does answer appropriate overall. Still unable to stand. Objective Exam Vital Signs Date Time Temp Pulse Resp B/P (MAP) Pulse Ox O2 Delivery O2 Flow Rate FiO2 02/06/22 04:31 36.7 02/06/22 04:00 36.7 65 18 147/79 (101) 95 Room Air 02/06/22 01:00 65 02/06/22 00:13 36.6 64 18 138/73 (94) 95 Room Air 02/05/22 20:34 37.0 02/05/22 20:00 Room Air 02/05/22 20:00 36.5 66 18 175/77 (109) 91 Room Air 02/05/22 19:53 37.0 02/05/22 19:00 69 02/05/22 16:00 37.0 63 18 163/70 (101) 94 Room Air 02/05/22 12:46 61 02/05/22 11:50 36.2 61 18 145/83 (103) 95 Room Air 02/05/22 08:16 36.7 74 18 151/84 (106) 95 Room Air 02/05/22 07:47 Room Air I & O 02/06/22 07:00 Intake Total 1180 ml Output Total 1775 ml Balance -595 ml Capillary Refill : General Appearance: No Apparent Distress Respiratory: Lungs Clear Cardiovascular: Regular Rate, Rhythm Gastrointestinal: soft Results Lab Laboratory Tests 02/06/22 05:30: Sodium Level 128L, Potassium Level 4.0, Chloride Level 96L, Carbon Dioxide Level 23, Anion Gap 9, Blood Urea Nitrogen 10, Creatinine 0.57L, Estimat Glomerular Filtration Rate 100, BUN/Creatinine Ratio 18, Glucose Level 94, Calcium Level 8.2L, Magnesium Level 1.7 Microbiology 01/31/22 Blood Culture - Final, Complete No growth 01/23/22 Urine Culture - Final, Complete NO GROWTH Assessment/Plan Assessment/Plan Assess & Plan/Chief Complaint 1. Sepsis -Under treatment with Ancef -leukocytosis associated with sepsis is slowly improving --CBC in the morning 02/01 -Ancef continues IV to 8 hours 02/06 -Ancef at 2gm IV q 8 hours continues 2. Atrial fibrillation with rapid regular response -Under care of cardiology. Today it was noted that her rapid ventricular response converted 01/30 -transfer to medical floor if ok with cardiology 3. Bacteremia due to methicillin sensitive staph aureus -Under treatment with Ancef 4. Anemia--currently with no evidence for active bleeding 5. Atelectasis -Stable 6. Lumbar back paincurrently under -I suspect either inpatient or outpatient she had MRI lumbar back. At this point attending tomorrow to processes 01/31 -since unable to walk and move on with PT, MRI of lumbar to further clarify the extend of previous CT findings 02/01 -MRI findings noted. The Xarelto discontinued 01/31 02/02 -[facility] transfer on 02/01 unsuccessful due to max capacity there. Will plan on keeping at [facility] and closely monitor. 02/02 -Will have inpatient rehab evaluate in the am of 02/04 02/04 -Evaluate for I/P rehab Addendum 191 I have spoke with neurosurgeon Dr. Palacios from [place] as well as Dr. Ruffin from [facility] in [facility]. Dr. Palacios evaluated her images from the cloud and stated this may be abscess instead of hemorrhage at L1L2 and L5- S1. Both neurosurgeons agree if she should be evaluated. Apparently [facility] is at capacity and cannot accept transfers. [facility] declined transfer since he not have infectious disease in house. Cheryle I contacted [facility] transfer team in [place]. Since her vital signs are stable they do not typically transfer patients in the evening. Her records will be faxed to now for evaluation and hopefully transfer in the morning of February 06. I will follow-up with [facility] in the morning and hopefully get Angelica transferred to evaluate her MRI findings from January 31. 02/06 -awaiting call back from transfer team Clinical Quality Measures DVT/VTE Risk/Contraindication: Contraindications-Pharm: Other *list below* Other: anemia ANDREAS LEVIN MD Feb 06, 2022 07:21
[2022-02-06 07:30] VITALS: BP 179/64
[2022-02-06] MEDS: DOCUSATE SODIUM 100 MG (COLACE) CAP PO SCH (08:22)
[2022-02-06] MEDS: SENNOSIDES 8.6 MG (SENOKOT) TAB PO SCH (08:22)
[2022-02-06] MEDS: dilTIAZem120 MG (CARDIZEM CD) CAP PO SCH (08:22)
[2022-02-06] MEDS: PANTOPRAZOLE 40 MG (PROTONIX) TAB PO SCH (08:22)
[2022-02-06] MEDS: meTOprolol TARTRATE 50 MG (LOPRESSOR) TAB PO SCH (08:22)
[2022-02-06] MEDS: DICLOFENAC 1% GEL 100 GM (VOLTAREN) TUBE TOP SCH ×2 (08:23→13:36)
--- NOTE | 2022-02-06 08:27 | Cardiology Progress Note ---
Progress Note-Cardiology Events since last exam Date Seen by Provider: Feb 06, 2022 Time Seen by Provider: 08:25 Events since last exam I am following her due to atrial fibrillation. She still has significant low back pain which makes it difficult for her to even stand. She denies any weakness in her lower extremities. She denies chest discomfort, dyspnea at rest, palpitations, or syncope. Her peripheral edema has nearly resolved. Certain portions of this document may have been dictated utilizing voice recognition technology. Inherent to this technology, typographical and grammatical errors may exist. As much as I am diligent to identify and correct these mistakes, some errors may remain in the document. Vitals Last set of Vitals Signs Vital Signs 01/31/22 02/03/22 02/06/22 07:48 19:20 16:00 Temp 36.7 Pulse 73 Resp 20 B/P (MAP) 162/94 (116) Pulse Ox 93 O2 Delivery Room Air O2 Flow Rate 0.00 FiO2 24 Labs Labs Laboratory Tests 02/06/22 05:30 Exam Vital Signs Vital Signs Date Time Temp Pulse Resp B/P (MAP) Pulse Ox O2 Delivery O2 Flow Rate FiO2 02/06/22 16:00 36.7 73 20 162/94 (116) 93 Room Air 02/03/22 19:20 0.00 01/31/22 07:48 24 Physical Exam General: Alert. No acute distress. She is obese. Eye: No xanthelasma. HENT: Normocephalic. Neck: Jugular venous pressure does not appear elevated. Respiratory: Lungs are clear to auscultation. Respirations are non-labored. Breath sounds are equal. Symmetrical chest wall expansion. Cardiovascular: Normal rate. Regular rhythm. No murmur. No gallop. Trace bilateral pretibial edema. Gastrointestinal: Soft. Normal bowel sounds. Skin: Warm. Dry. Neurologic: Alert and oriented to person, place, time. Cranial nerves 3-11 grossly intact. Psychiatric: Cooperative. Appropriate mood & affect. Labs Laboratory Tests Test 02/06/22 05:30 Range/Units White Blood Count 12.1 H 4.3-11.0 10^3/uL Red Blood Count 3.16 L 3.80-5.11 10^6/uL Hemoglobin 8.1 L 11.5-16.0 g/dL Hematocrit 26 L 35-52 % Mean Corpuscular Volume 82 80-99 fL Mean Corpuscular Hemoglobin 26 25-34 pg Mean Corpuscular Hemoglobin Concent 31 L 32-36 g/dL Red Cell Distribution Width 19.5 H 10.0-14.5 % Platelet Count 439 H 130-400 10^3/uL Mean Platelet Volume 9.2 9.0-12.2 fL Immature Granulocyte % (Auto) 0 % Neutrophils (%) (Auto) 82 H 42-75 % Lymphocytes (%) (Auto) 8 L 12-44 % Monocytes (%) (Auto) 9 0-12 % Eosinophils (%) (Auto) 0 0-10 % Basophils (%) (Auto) 0 0-10 % Neutrophils # (Auto) 10.0 H 1.8-7.8 10^3/uL Lymphocytes # (Auto) 1.0 1.0-4.0 10^3/uL Monocytes # (Auto) 1.1 H 0.0-1.0 10^3/uL Eosinophils # (Auto) 0.0 0.0-0.3 10^3/uL Basophils # (Auto) 0.0 0.0-0.1 10^3/uL Immature Granulocyte # (Auto) 0.1 0.0-0.1 10^3/uL Sodium Level 128 L 135-145 MMOL/L Potassium Level 4.0 3.6-5.0 MMOL/L Chloride Level 96 L 98-107 MMOL/L Carbon Dioxide Level 23 21-32 MMOL/L Anion Gap 9 5-14 MMOL/L Blood Urea Nitrogen 10 7-18 MG/DL Creatinine 0.57 L 0.60-1.30 MG/DL Estimat Glomerular Filtration Rate 100 BUN/Creatinine Ratio 18 Glucose Level 94 70-105 MG/DL Calcium Level 8.2 L 8.5-10.1 MG/DL Corrected Calcium 9.2 8.5-10.1 MG/DL Magnesium Level 1.7 1.6-2.4 MG/DL Total Bilirubin 0.4 0.1-1.0 MG/DL Aspartate Amino Transf (AST/SGOT) 38 H 5-34 U/L Alanine Aminotransferase (ALT/SGPT) 21 0-55 U/L Alkaline Phosphatase 81 40-136 U/L Total Protein 6.3 L 6.4-8.2 GM/DL Albumin 2.7 L 3.2-4.5 GM/DL Diagnosis/Problems Diagnosis/Problems (1) Persistent atrial fibrillation Assessment & Plan: She has now remained in sinus rhythm on telemetry. Oral anticoagulation is on hold due to psoas muscle and epidural hematomas. We may need to consider holding this for a prolonged period of time given these potentially dangerous hematomas. She remains on diltiazem for rate control in the event she has recurrent atrial fibrillation. (2) Epistaxis Assessment & Plan: She was seen by Dr. Duenas from otolaryngology who just recommends saline spray and follow-up as an outpatient. (3) Hematoma of psoas region due to anticoagulant therapy Assessment & Plan: As above, anticoagulation is on hold. The plan is to transfer her to [facility] for more advanced management that we do not have available here. (4) Primary hypertension Assessment & Plan: Her blood pressure remains intermittently elevated. If this persists, we may need to make some adjustments to her antihypertensive medication. (5) Mixed hyperlipidemia Assessment & Plan: Continue rosuvastatin. (6) Anemia Assessment & Plan: Exact etiology unclear. I suspect this is multifactorial due to epistaxis as well as a psoas muscle hematomas. Ultimately, she may also need to undergo upper and lower endoscopies but this can certainly be done as an outpatient. (7) Morbid obesity Assessment & Plan: She actually gained weight since her previous hospitalization. She needs to work on weight loss. NEELAM LINO JR, MD Feb 06, 2022 08:27
[2022-02-06 08:30] LABS: CALCIUM 8.2 MG/DL (8.5-10.1); CREATININE SERUM 0.57 MG/DL (0.60-1.30)
[2022-02-06 08:36] LABS: ALBUMIN 2.7 GM/DL (3.2-4.5)
[2022-02-06 08:39] LABS: BASOPHILS % (AUTO) 0 % (0-10); EOSINOPHILS % (AUTO) 0 % (0-10); HEMATOCRIT 26 % (35-52); HEMOGLOBIN 8.1 g/dL (11.5-16.0); LYMPHOCYTES % (AUTO) 8 % (12-44); MEAN CORPUSCULAR HEMOGLOBIN 26 pg (25-34); MEAN CORPUSCULAR HGB CONC 31 g/dL (32-36); MEAN CORPUSCULAR VOLUME 82 fL (80-99); MEAN PLATELET VOLUME 9.2 fL (9.0-12.2); MONOCYTES # (AUTO) 1.1 10^3/uL (0.0-1.0); MONOCYTES % (AUTO) 9 % (0-12); NEUTROPHILS % (AUTO) 82 % (42-75); PLATELET COUNT 439 10^3/uL (130-400); TOTAL PROTEIN 6.3 GM/DL (6.4-8.2); WHITE BLOOD COUNT 12.1 10^3/uL (4.3-11.0)
[2022-02-06 08:41] LABS: BILIRUBIN,TOTAL 0.4 MG/DL (0.1-1.0)
[2022-02-06] MEDS: HYPOCHLOROUS ACID/NaCl (VASHE) 250 ML IR SCH (09:45)
--- NOTE | 2022-02-06 11:44 | Occupational Ther Daily Note ---
OT Current Status-Daily Note Subjective Pt alert, lying in bed. Pt agrees to therapy. No significant c/o pain. Mental Status/Objective Patient Orientation: Person, Place, Time, Situation Attachments: IV ADL-Treatment Therapy Code Descriptions/Definitions Functional [place] Measure: 0=Not Assessed/NA 4=Minimal Assistance 1=Total Assistance 5=Supervision or Setup 2=Maximal Assistance 6=Modified [place] 3=Moderate Assistance 7=Complete IndependenceSCALE: Activities may be completed with or without assistive devices. 2-Kzzwlutzfn-qdafjvp completes the activity by him/herself with no assistance from a helper. 5-Set-up or Clean-up Assistance-helper sets up or cleans up; patient completes activity. [place] assists only prior to or following the activity. 4-Supervision or Touching Assistance-helper provides verbal cues and/or touching/steadying and/or contact guard assistance as patient completes activity. Assistance may be provided throughout the activity or intermittently. 3-Partial/Moderate Assistance-helper does LESS THAN HALF the effort. [place] lifts, holds or supports trunk or limbs, but provides less than half the effort. 2-Substantial/Maximal Assistance-helper does MORE THAN HALF the effort. [place] lifts or holds trunk or limbs and provides more than half the effort. 4-Bulphxzgx-lwywqo does ALL the effort. Patient does none of the effort to complete the activity. Or, the assistance of 2 or more helpers is required for the patient to complete the activity. If activity was not attempted, code reason: 7-Patient Refused. 9-Not Applicable-not attempted and the patient did not perform the activity before the current illness, exacerbation or injury. 10-Not Attempted due to Environmental Limitations-(lack of equipment, weather restraints, etc.). 88-Not Attempted due to Medical Conditions or Safety Concerns. Other Treatment Working with pt's L shldr-scapular retraction without UE ext completed 10 reps, shldr elevation 10 reps, PROM of shldr flexion 10 reps (minimal pain@~55*) pain increases after ~55*, elbow flex/ext 10 reps, wrist flex/ext, finger opposition. Pt is using therapy sponge to increase smocker/pinch strength and decrease edema. Pt's L hand edema has decreased significantly. Dependent for bed mobility. After therapy, pt sitting up in bed. Call light/phone in reach. All needs met in room. OT Jail Goals Jail Goals Time Frame: Feb 08, 2022 Eating (QC): 6 Oral Hygiene (QC): 6 Toileting Hygiene (QC): 4 Shower/Bathe Self (QC): 4 Upper Body Dressing (QC): 5 Lower Body Dressing (QC): 4 On/Off Footwear (QC): 4 Additional Goals: 1-Demonstrate ADL Tasks, 2-Verbalize Understanding, 3- ImproveStrength/Huma 1=Demonstrate adherence to instructed precautions during ADL tasks. 2=Patient will verbalize/demonstrate understanding of assistive devices/modifications for ADL. 3=Patient will improve strength/tolerance for activity to enable patient to perform ADL's. OT Education/Plan Problem List/Assessment Assessment: Decreased Activ Tolerance, Decreased UE Strength, Dependent Transfers, Impaired Bed Mobility, Impaired Self-Care Skills, Restricted Funct UE ROM Discharge Recommendations Plan/Recommendations: Continue POC Treatment Plan/Plan of Care Patient would benefit from OT for education, treatment and training to promote independence in ADL's, mobility, safety and/or upper extremity function for ADL's. Plan of Care: ADL Retraining, Functional Mobility, UE Funct Exercise/Act Treatment Duration: Feb 08, 2022 Frequency: 3 times per week (3-5 times per week) Estimated Hrs Per Day: .25 hour per day Rehab Potential: Fair Time/GCodes Start Time: 11:24 Stop Time: 11:34 Total Time Billed (hr/min): 10 Billed Treatment Time 1 visit-EX 1 (10 min) ERICA NEGRON Feb 06, 2022 11:44
[2022-02-06 11:50] VITALS: BP 160/76
--- NOTE | 2022-02-06 14:10 | Physical Therapy Daily Note ---
PT Daily Note-Current Subjective Pt. declines sitting at EOB and states she is really only willing to exercise in bed. Pt. states "they are trying to figure out why I cannot get on my feet and why i having so much pain so I am going to [facility] at 4pm" Pt. c/o pain in right fractured toe, Left fractured arm, Left knee that is arthritic (pt states she was looking forward to having a total knee replacement, and intense low back back pain. Pain Numeric Pain Scale: 7 Location: Left Location Body Site: Arm Pain Description: Pressure Mental Status Patient Orientation: Normal For Age Attachments: IV Transfers SCALE: Activities may be completed with or without assistive devices. 5-Hufqxpzaxb-ujdvksk completes the activity by him/herself with no assistance from a helper. 5-Set-up or Clean-up Assistance-helper sets up or cleans up; patient completes activity. [place] assists only prior to or following the activity. 4-Supervision or Touching Assistance-helper provides verbal cues and/or touching/steadying and/or contact guard assistance as patient completes activity. Assistance may be provided throughout the activity or intermittently. 3-Partial/Moderate Assistance-helper does LESS THAN HALF the effort. [place] lifts, holds or supports trunk or limbs, but provides less than half the effort. 2-Substantial/Maximal Assistance-helper does MORE THAN HALF the effort. [place] lifts or holds trunk or limbs and provides more than half the effort. 7-Jliacutsw-jhonin does ALL the effort. Patient does none of the effort to complete the activity. Or, the assistance of 2 or more helpers is required for the patient to complete the activity. If activity was not attempted, code reason: 7-Patient Refused. 9-Not Applicable-not attempted and the patient did not perform the activity before the current illness, exacerbation or injury. 10-Not Attempted due to Environmental Limitations-(lack of equipment, weather restraints, etc.). 88-Not Attempted due to Medical Conditions or Safety Concerns. max asst 2 to pull up in bed Exercises Supine Ex: Ankle pumps (bilat HC stretches), Quad Set, Glut sets, Heel Slides (asst left), Straight leg raise, Hip abd/add Supine Reps: 20 Assessment Current Status: Poor Progress pain limits function PT Skilled Nursing Goals Skilled Nursing Goals PT Alumnae Secretary Goals Time Frame: Feb 09, 2022 Roll Left & Right (QC): 4 Sit to Lying (QC): 4 Lying-Sitting on Side/Bed(QC): 4 Sit to Stand (QC): 4 Chair/Ccv-jb-[place] Xfer(QC): 4 Toilet Transfer (QC): 4 Walk 10 feet (QC): 4 Walk 50ft with 2 Turns (QC): 4 PT Plan Treatment/Plan Treatment Plan: Continue Plan of Care Treatment Plan: Bed Mobility, Education, Functional Activity Huma, Functional Strength, Gait, Safety, Therapeutic Exercise, Transfers Treatment Duration: Feb 09, 2022 Frequency: 6 times per week Estimated Hrs Per Day: .25 hour per day Safety Risks/Education Patient Education: Correct Positioning Time/GCodes Time In: 1350 Time Out: 1410 Total Billed Treatment Time: 20 Total Billed Treatment 1,EX20m LILY BLUE DIRECTOR OF ARCHIVES Feb 06, 2022 14:10
[2022-02-06 16:00] VITALS: BP 162/94
--- NOTE | 2022-02-07 16:25 | Physician Query Clarification ---
Physician Query-General Query to Physician: The medical record reflects the following clinical scenario: The patient, in the setting of History/Risk factors, Sepsis, Hx of Pneumonia Clinical Findings Admission VS/Labs: Vital Signs: HR 144, RR 12, BP 110/56, SpO2 100% sat on room air T 37.8, WBC 18.2, PCT 5.09, Admission CXR: "No acute cardiopulmonary process by portable radiography." BC X 4 pos for staph Aureus, no Sputum Culture, Non productive cough, SOB Treatment normal saline 2 L, meropenem IV, Question: Pneumonia was documented on the H and P and progress notes from 01/24/2022 to 01/28/2022 with no further mention of Pneumonia. Do you agree with the impression of Pneumonia per Dr. Jerel Lan? 1. Yes; will document Pneumonia, present on admission resolving in the Progress Notes 2. No; will continue current documentation in the Progress Notes 3. Other; will document explanation of clinical findings 4. Clinically undetermined; no explanation for clinical findings Please clarify and document your clinical opinion in the Progress Notes and Discharge Summary including the definitive and/or presumptive diagnosis, (suspected or probable), related to the above clinical findings. Please include clinical findings supporting your diagnosis. In responding to this query, please exercise your independent professional judgment. The purpose of this communication is to more accurately reflect the complexity of your patients condition. The fact that a question is asked does not imply that any particular answer is desired or expected. Thank you for timely response to this clarification. Edelmira Cervantes MSN, RN Clinical [place] [phone] [email or web address] PHYSICIAN RESPONSE: Based on the clinical findings in the record, please respond to the query above on this document as an addendum. Physician Response: Physician Response no, with the clinical picture becoming more clear, she did not have a pneumonia. this only documented in the record If you have questions please contact: Cinetechnician: Ext: Thank you for your time and cooperation. Clinical [facility]/Cinetechnician This is a permanent part of the medical record EDELMIRA CERVANTES Feb 07, 2022 16:25 ANDREAS LEVIN MD Feb 15, 2022 07:45
--- NOTE | 2022-02-12 23:15 | Physician Query Clarification ---
PQ-Uncertain Diagnosis Admission/Discharge Admission Date: Jan 23, 2022 at 19:04 Discharge Date: Feb 06, 2022 at 17:07 ANDREAS Rooney MD The medical record reflects the following clinical scenario: History/Risk Factors: 66 y/o female patient had history of pneumonia admitted with sepsis, pneumonia was documented in medical record. Clinical Findings: HR 144, RR 12, BP 110/56, SpO2 100% sat on room air T 37.8, WBC 18.2, PCT 5.09, Admission CXR: "No acute cardiopulmonary process by portable radiography." BC X 4 pos for staph Aureus, no Sputum Culture, Non productive cough, SOB. Treatment: Normal saline 2 L, meropenem IV. Question: Is pneumonia a clinically valid diagnosis? Pneumonia was documented in the progress notes, 01/24 to 01/28 with no further documentation in the medical record. Please document a response in Progress Note or Discharge Summary. 1. Yes, clinically valid, condition resolved. 2. No, condition ruled out. 3. Other, with explanation of clinical findings. 4. Undetermined, no explanation for clinical findings. PHYSICIAN RESPONSE Diagnosis clinically valid: Other, explanation/clinical finding Explanation of clincal finding The chest xray was revealing for atelectasis and not infiltrates. Thanks In responding to this query, please exercise your independent professional judgment. The purpose of this communication is to more accurately reflect the complexity of your patients condition. The fact that a question is asked does not imply that any particular answer is desired or expected. Thank you for your timely response to this clarification. Requestors name: [ ] Phone # [ ] THIS PHYSICIAN QUERY FORM IS A PERMANENT PART OF THE MEDICAL RECORD AMBERKAE Feb 12, 2022 23:15 ANDREAS LEVIN MD Feb 22, 2022 08:33
--- NOTE | 2022-02-12 23:28 | Physician Query Clarification ---
PQ-Further Specificity Admission/Discharge Admission Date: Jan 23, 2022 at 19:04 Discharge Date: Feb 06, 2022 at 17:07 ANDREAS Augustine MD The medical record reflects the following clinical scenario: History/Risk Factors: 66 y/o female obese patient admitted with sepsis, protein energy malnutrition was documented in medical record. Clinical Findings: Acute blood loss anemia, BMI-38.6 kg/m2, Na-128 L, Chloride- 95 L, Total protein-6.1 L, Albumin-2.5 L. Treatment: Protein supplementation. Question: Can you further specify malnutrition per the clinical indicators above? Please document a response in the Progress Notes or Discharge Summary. 1. Mild protein calorie malnutrition 2. Moderate protein calorie malnutrition 3. Severe protein calorie malnutrition 4. Other, with explanation of the clinical findings. 5. Clinically undetermined, no explanation for the clinical findings. PHYSICIAN RESPONSE Can you specify per above: 1 In responding to this query, please exercise your independent professional judgment. The purpose of this communication is to more accurately reflect the complexity of your patients condition. The fact that a question is asked does not imply that any particular answer is desired or expected. Thank you for your timely response to this clarification. Requestors name: [ ] Phone # [ ] THIS PHYSICIAN QUERY FORM IS A PERMANENT PART OF THE MEDICAL RECORD KAE CLARK Feb 12, 2022 23:27 ANDREAS LEVIN MD Feb 15, 2022 07:47
== END 2022-02-06 17:07 | disposition short-term general hospital (02) | DRG 872 ==
LOC: EDUNIT# 16:21 → ER 16:23 → ICU 19:04 → 4TH 01-30 09:15
PROVIDERS: ADMIT Internal Medicine; ATTEND Family Medicine
DX: A41.9 Sepsis, unspecified organism (principal); S42.202A Unspecified fracture of upper end of left humerus, initial encounter for closed fracture; D62 Acute posthemorrhagic anemia; E87.1 Hypo-osmolality and hyponatremia; D68.32 Hemorrhagic disorder due to extrinsic circulating anticoagulants; J98.11 Atelectasis; I48.19 Other persistent atrial fibrillation; E44.1 Mild protein-calorie malnutrition; E78.00 Pure hypercholesterolemia, unspecified; M19.90 Unspecified osteoarthritis, unspecified site; I10 Essential (primary) hypertension; I48.0 Paroxysmal atrial fibrillation; R04.0 Epistaxis; W18.30XA Fall on same level, unspecified, initial encounter; R06.89 Other abnormalities of breathing; E66.01 Morbid (severe) obesity due to excess calories; Z79.01 Long term (current) use of anticoagulants; D50.9 Iron deficiency anemia, unspecified; M54.50 Low back pain, unspecified; I89.0 Lymphedema, not elsewhere classified; S91.109A Unspecified open wound of unspecified toe(s) without damage to nail, initial encounter; E78.2 Mixed hyperlipidemia; D72.829 Elevated white blood cell count, unspecified; Z68.38 Body mass index [BMI] 38.0-38.9, adult
CPT/HCPCS: 36410; 36415; 51702; 70450; 71045; 72148; 73560; 76937; 80048; 80053; 80061; 80074; 80202; 81000; 82274; 82607; 82728; 82805; 82947; 82977; 83540; 83550; 83605; 83735; 84100; 84145; 84443; 84484; 85007; 85025; 85027; 85610; 85730; 86850; 86900; 86901; 86920; 87040; 87077; 87088; 87186; 87804; 93005; 93041; 93312; 93320; 93325; 94640; 94760; 96361; 96365; 96366; 96375

== ENCOUNTER → 2022-05-24 | Outpatient (RCR) | payer MEDICARE, OTHER ==
[2022-05-23 15:17] LABS: BASOPHILS % (AUTO) 0 % (0-10); EOSINOPHILS # (AUTO) 0.2 10^3/uL (0.0-0.3); EOSINOPHILS % (AUTO) 2 % (0-10); HEMATOCRIT 26 % (35-52); LYMPHOCYTES % (AUTO) 24 % (12-44); MEAN CORPUSCULAR HEMOGLOBIN 21 pg (25-34); MEAN CORPUSCULAR HGB CONC 27 g/dL (32-36); MEAN CORPUSCULAR VOLUME 77 fL (80-99); MEAN PLATELET VOLUME 9.2 fL (9.0-12.2); MONOCYTES # (AUTO) 0.8 X 10^3 (0.0-1.0); MONOCYTES % (AUTO) 9 % (0-12); NEUTROPHILS # (AUTO) 5.5 X 10^3 (1.8-7.8); NEUTROPHILS % (AUTO) 65 % (42-75); PLATELET COUNT 413 10^3/uL (130-400); WHITE BLOOD COUNT 8.5 10^3/uL (4.3-11.0)
[2022-05-23 15:26] LABS: HEMOGLOBIN 6.9 g/dL (11.5-16.0)
[~2022-05-24] VITALS: Ht 152.4 cm; Wt 75.0 kg
[~2022-05-24] MED LIST changes: +ACET-2267 PO; +ACHD5005 PO; +LOSA50TA63 PO; +NS IV 500 ML 500 ML IV SCH; +RIVA2.5T5 PO
[2022-05-24 08:34] VITALS: BP 119/71
[2022-05-24 08:50] VITALS: BP 131/71
[2022-05-24 11:00] VITALS: BP 128/64
[2022-05-24 11:01] VITALS: BP 128/64
[2022-05-24 11:22] LABS: HEMOGLOBIN 8.4 g/dL (11.5-16.0)
== END | disposition home or self-care (01) ==
LOC: LAB 05-23 14:50 → EDSTATUS 05-23 14:50 → LAB 06:35
PROVIDERS: ATTEND Family Medicine
DX: D50.0 Iron deficiency anemia secondary to blood loss (chronic) (principal)
CPT/HCPCS: 36415; 36430; 85014; 85018; 85025; 86850; 86900; 86901; 86920

== ENCOUNTER 2022-07-19 05:27 | Outpatient (CLI) | payer MEDICARE, OTHER ==
[~2022-07-19] VITALS: Ht 152 cm; Wt 75.0 kg
[~2022-07-19 05:27] MED LIST changes: -NS IV 500 ML 500 ML IV SCH
[2022-07-19] MEDS ORDERED: CITA10TA12 PO (09:49)
[2022-07-19] MEDS ORDERED: MELO15TA39 PO (09:49)
[2022-07-19] MEDS ORDERED: ROPI0.253 PO (09:49)
== END 2022-07-19 10:06 | disposition home or self-care (01) ==
LOC: PREOP 05:27
PROVIDERS: ATTEND Otolaryngology Otolaryngology/Facial Plastic Surgery
DX: Z01.818 Encounter for other preprocedural examination (principal)

== ENCOUNTER 2022-07-26 06:22 | Day surgery (SDC) | payer MEDICARE, OTHER ==
[2022-07-26] VITALS (11 sets, daily range): BP systolic 123–171; BP diastolic 51–82
[~2022-07-26] VITALS: Ht 152 cm; Wt 75.0 kg
[~2022-07-26 06:22] MED LIST changes: +CITA10TA12 PO; +ROPI0.253 PO
[2022-07-26] MEDS ORDERED: ONDANSETRON 4 MG/2 ML (SDV) Z0FRAN ONE (06:53)
[2022-07-26] MEDS ORDERED: proPOfol 200 MG/20 ML (DIPRIVAN) VIAL IV ONE (06:53)
[2022-07-26] MEDS ORDERED: fentaNYL INJ 100 MCG/2 ML AMP ONE (06:53)
[2022-07-26] MEDS ORDERED: LIDOCAINE PF 2% 5 ML (XYLOCAINE) VIAL ONE (06:53)
[2022-07-26] MEDS ORDERED: MIDAZOLAM 2 MG/2 ML (VERSED) VIAL ONE (06:53)
[2022-07-26] MEDS ORDERED: SEVOFLURANE (ULTANE) 15 ML INHAL SOLN ONE ×2 (06:53→07:41)
--- NOTE | 2022-07-26 07:12 | Anesthesia-General Post-Op ---
General Patient Condition Mental Status/LOC: Same as Preop Cardiovascular: Satisfactory Nausea/Vomiting: Absent Respiratory: Satisfactory Pain: Controlled Complications: Absent Post Op Complications Complications None Follow Up Care/Instructions Patient Instructions None needed. Anesthesia/Patient Condition Patient Condition Patient is doing well, no complaints, stable vital signs, no apparent adverse anesthesia problems. No complications reported per nursing. JUANCHO CASTAÑEDA CRNA Jul 26, 2022 07:12
[2022-07-26] MEDS ORDERED: LACTATED RINGERS 1,000 ML IV PRN (07:15)
[2022-07-26] MEDS ORDERED: MEPERIDINE (DEMEROL) INJ 50 MG/ML IVP ONE (07:15)
[2022-07-26] MEDS ORDERED: fentaNYL INJ 100 MCG/2 ML AMP IVP ONE (07:15)
[2022-07-26] MEDS ORDERED: ONDANSETRON 4 MG/2 ML (SDV) Z0FRAN IVP PRN (07:15)
[2022-07-26] MEDS ORDERED: morphine INJ 10 MG/ML 1ML (SYR OR VIAL) IVP ONE (07:15)
[2022-07-26] MEDS ORDERED: COCAINE HCL 4% 2 ML SYR ONE (07:16)
[2022-07-26 07:17] LABS: BASOPHILS % (AUTO) 0 % (0-10); EOSINOPHILS # (AUTO) 0.2 10^3/uL (0.0-0.3); EOSINOPHILS % (AUTO) 2 % (0-10); HEMATOCRIT 34 % (35-52); HEMOGLOBIN 10.2 g/dL (11.5-16.0); LYMPHOCYTES # (AUTO) 1.6 10^3/uL (1.0-4.0); LYMPHOCYTES % (AUTO) 24 % (12-44); MEAN CORPUSCULAR HEMOGLOBIN 25 pg (25-34); MEAN CORPUSCULAR HGB CONC 30 g/dL (32-36); MEAN CORPUSCULAR VOLUME 84 fL (80-99); MEAN PLATELET VOLUME 9.3 fL (9.0-12.2); MONOCYTES # (AUTO) 0.8 10^3/uL (0.0-1.0); MONOCYTES % (AUTO) 12 % (0-12); NEUTROPHILS # (AUTO) 4.2 10^3/uL (1.8-7.8); NEUTROPHILS % (AUTO) 62 % (42-75); PLATELET COUNT 349 10^3/uL (130-400); WHITE BLOOD COUNT 6.8 10^3/uL (4.3-11.0)
[2022-07-26] MEDS ORDERED: PHENYLEPHRINE 0.5% NASAL SPR (NEO-SYNEPHRINE) REG ONE (07:17)
--- NOTE | 2022-07-26 07:21 | Progress Note-Pre Operative ---
Pre-Operative Progress Note Date of Available H&P: Jul 26, 2022 Date H&P Reviewed: Jul 26, 2022 Time H&P Reviewed: 06:30 History & Physical: H&P Reviewed, Patient Examed, No changes noted Changes from last HP none Pre-Operative Diagnosis: Recurrent Right Epistaxis VELMA SANTAMARIA MD Jul 26, 2022 07:21
--- NOTE | 2022-07-26 07:22 | Progress Note-Post Operative ---
Post-Operative Progess Note Surgeon (s)/Pig Casting Machine Operator (s) Surgeon VELMA SANTAMARIA MD Pig Casting Machine Operator n/a Pre-Operative Diagnosis Recurrent Right Epistaxis Post-Operative Diagnosis same Post-Op Procedure Note Date of Procedure: Jul 26, 2022 Name of Procedure Performed: Endoscpic Repair of Right Epistaxis Description & Findings Description and Findings: n/a Anesthesia Type get Estimated Blood Loss minimal Packing none. Specimen(s) collected/removed none VELMA SANTAMARIA MD Jul 26, 2022 07:22
[2022-07-26] MEDS ORDERED: D5 1/2 NS W/KCL 20 MEQ/L 1,000 ML IV SCH (07:30)
[2022-07-26] MEDS ORDERED: PHENYLEPHRINE 0.5% NASAL SPR (NEO-SYNEPHRINE) REG PRN (07:30)
[2022-07-26] MEDS ORDERED: HYDROcodone/APAP 5 MG/325 MG (LORTAB) TAB PO PRN (07:30)
[2022-07-26] MEDS ORDERED: SUCCINYLCHOLINE INJ 20 MG/1 ML 10 ML VIAL ONE (07:41)
[2022-07-26 07:48] LABS: CALCIUM 9.4 MG/DL (8.5-10.1); CREATININE SERUM 0.81 MG/DL (0.60-1.30); POTASSIUM 4.5 MMOL/L (3.6-5.0)
== END 2022-07-26 09:59 | disposition home or self-care (01) ==
LOC: SDC 06:22
PROVIDERS: ATTEND Otolaryngology Otolaryngology/Facial Plastic Surgery
DX: R04.0 Epistaxis (principal); I48.0 Paroxysmal atrial fibrillation; I10 Essential (primary) hypertension; E78.2 Mixed hyperlipidemia; D50.9 Iron deficiency anemia, unspecified; G06.1 Intraspinal abscess and granuloma; M79.81 Nontraumatic hematoma of soft tissue; E66.9 Obesity, unspecified; Z68.32 Body mass index [BMI] 32.0-32.9, adult
CPT/HCPCS: 36415; 80048; 85025; 87081; 93005